=== PATIENT | male | born 1955 | race Two or more races ===

== ENCOUNTER 2017-05-07 13:54 | Inpatient (IN) | payer MEDICARE, OTHER ==
[~2017-05-07] VITALS: Ht 162.6 cm; Wt 63.5 kg
[~2017-05-07 13:54] MED LIST: ACETAMINOP650 MG/20. PO; ATIVAN1 MG PO; BUSPAR5 MG PO; DSS100 MG PO; DULCOLAX10 MG RC; GUAIFENESIN-CO118 M1 PO; MIRALAX17 GM PO; MOM30 ML PO; QUINIDINE SULF300 MG PO; TRILEPTAL150 MG PO
[2017-05-07 14:11] VITALS: BP 110/78
--- NOTE | 2017-05-07 14:25 | Emergency Room Report ---
History of Present Illness General Chief Complaint: General Complaint Source: Patient, Medical Record (GIUSEPPE CRAWFORD M.D.) Source: Patient (Gonzalo Santana) Present Illness HPI Patient is a 61-year-old male sent in by group home for failure to thrive and generalized weakness. The patient is poorly verbal and history of markedly limited by patient's mental status. Patient noted have increased abdominal distention. (GIUSEPPE CRAWFORD M.D.) HPI Patient is a 61-year-old male brought in from group home for increased abdominall distention. The patient gradual onset of symptoms. Patient was noted to have increased distention his abdomen from his group home. Patient was noted to have prior history of cognitive defect. Patient had decreased by mouth intake recently (Gonzalo Santana) Allergies: Coded Allergies: SULFA (SULFONAMIDE ANTIBIOTICS) (Verified Allergy, Severe, 04/23/12) TRIMETHADIONE (Verified Allergy, Severe, 04/23/12) PARAMETHADIONE (Unverified Allergy, Unknown, 05/07/17) Uncoded Allergies: SULFA (Allergy, Unknown, 05/07/17) Patient History Past Medical History: see triage record Reviewed Nursing Documentation: PMH: Agreed, PSxH: Agreed (GIUSEPPE CRAWFORD M.D.) Past Medical History: see triage record Reviewed Nursing Documentation: PMH: Agreed, PSxH: Agreed (Gonzalo Santana) Nursing Documentation-PMH Past Medical History: No History, Except For Hx Hypertension: Yes Hx Neurological Problems: Yes - PARKINSON DISEASE (GIUSEPPE CRAWFORD M.D.) Review of Systems All Other Systems: limited - by mental status (GIUSEPPE CRAWFORD M.D.) All Other Systems: limited - by mental status (Gonzalo Santana) Physical Exam Vital Signs Date Time Temp Pulse Resp B/P (MAP) Pulse Ox O2 Delivery O2 Flow Rate FiO2 05/07/17 13:51 98.1 78 18 110/78 91 Room Air (GIUSEPPE CRAWFORD M.D.) Sp02 EP Interpretation: reviewed, normal General Appearance: alert, Chronically Ill Head: atraumatic Eyes: bilateral eye conjunctivae pale ENT: normal ENT inspection, hearing grossly normal, other - slow speech Neck: normal inspection, full range of motion, supple, no bony tend Respiratory: normal inspection, lungs clear, normal breath sounds, no respiratory distress, no retraction, no wheezing Cardiovascular #1: regular rate, rhythm, no edema Gastrointestinal: soft, no guarding, no hernia, other - distended Genitourinary: no CVA tenderness Musculoskeletal: normal inspection, back normal, normal range of motion Neurologic: alert, responsive, manager of product III-XII nml as tested, motor weakness, other - confused Skin: no rash, pallor (Gonzalo Santana) Medical Decision Making Diagnostic Impression: Primary Impression: Anemia Additional Impressions: Parkinson disease Dehydration Hypokalemia Acute kidney injury ER Course Patient presented for generalized weakness. Differential diagnosis included was not limited to anemia, urinary tract infection, electrolyte abnormality, hypothyroidism, myocardial infarction, myasthenia gravis, dehydration, among others. Because of complexity of patient's case laboratory testing and imaging studies were ordered. (GIUSEPPE CRAWFORD M.D.) ER Course Patient presented for generalized weakness. Differential diagnosis included but was not limited to encephalopathy, electrolyte abnormality, dehydration, sepsis, bowel obstruction among others. Because of patient complexity laboratory and imaging studies were ordered. Patient appears to be somewhat dehydrated and was started on IV fluids. Dr. Dionicio Delgadillo was contacted for inpatient management due to primary care physician. Labs Test 05/07/17 14:25 05/07/17 14:48 05/08/17 06:00 Differential Total Cells Counted 100 Neutrophils % (Manual) 88 % (45-75) Lymphocytes % (Manual) 8 % (20-45) Monocytes % (Manual) 0 % (1-10) Eosinophils % (Manual) 0 % (0-3) Basophils % (Manual) 0 % (0-2) Band Neutrophils 4 % (0-8) Platelet Estimate Adequate Platelet Morphology Normal Polychromasia 1+ Anisocytosis 1+ Microcytosis 1+ Prothrombin Time 11.4 SEC (9.30-11.50) Prothromb Time International Ratio 1.1 (0.9-1.1) Lactic Acid Level 1.30 mmol/L (0.66-2.22) Total Creatine Kinase 55 U/L (26-308) Creatine Kinase MB 3.2 NG/ML (0.0-3.6) Creatine Kinase MB Relative Index 5.8 Troponin I 0.009 ng/mL (0.000-0.056) Pro-B-Type Natriuretic Peptide 1036 pg/mL (0-125) Urine Color Brenda Urine Appearance Slightly cloudy Urine pH 5 (4.5-8.0) Urine Specific [place] 1.015 (1.005-1.035) Urine Protein 1+ (NEGATIVE) Urine Glucose (UA) Negative (NEGATIVE) Urine Ketones 1+ (NEGATIVE) Urine Occult Blood Negative (NEGATIVE) Urine Nitrite Negative (NEGATIVE) Urine Bilirubin 1+ (NEGATIVE) Urine Ictotest Positive Urine Urobilinogen 1 MG/DL (0.0-1.0) Urine Leukocyte Esterase 1+ (NEGATIVE) Urine RBC 0-2 /HPF (0 - 0) Urine WBC 0-2 /HPF (0 - 0) Urine Squamous Epithelial Cells None /LPF (NONE/OCC) Urine Amorphous Sediment Many /LPF (NONE) Urine Bacteria Few /HPF (NONE) White Blood Count 9.3 K/UL (4.8-10.8) Red Blood Count 3.74 M/UL (4.70-6.10) Hemoglobin 9.9 G/DL (14.2-18.0) Hematocrit 31.5 % (42.0-52.0) Mean Corpuscular Volume 84 FL (80-99) Mean Corpuscular Hemoglobin 26.5 PG (27.0-31.0) Mean Corpuscular Hemoglobin Concent 31.4 G/DL (32.0-36.0) Red Cell Distribution Width 16.3 % (11.6-14.8) Platelet Count 282 K/UL (150-450) Mean Platelet Volume 7.2 FL (6.5-10.1) Neutrophils (%) (Auto) 80.9 % (45.0-75.0) Lymphocytes (%) (Auto) 14.3 % (20.0-45.0) Monocytes (%) (Auto) 3.7 % (1.0-10.0) Eosinophils (%) (Auto) 0.8 % (0.0-3.0) Basophils (%) (Auto) 0.3 % (0.0-2.0) Activated Partial Thromboplast Time 36 SEC (23-33) Sodium Level 154 MMOL/L (136-145) Potassium Level 2.8 MMOL/L (3.5-5.1) Chloride Level 118 MMOL/L (98-107) Carbon Dioxide Level 27 MMOL/L (21-32) Anion Gap 9 mmol/L (5-15) Blood Urea Nitrogen 58 mg/dL (7-18) Creatinine 1.6 MG/DL (0.55-1.30) Estimat Glomerular Filtration Rate 44.3 mL/min (>60) Glucose Level 89 MG/DL (74-106) Calcium Level 8.8 MG/DL (8.5-10.1) Total Bilirubin 0.4 MG/DL (0.2-1.0) Aspartate Amino Transf (AST/SGOT) 27 U/L (15-37) Alanine Aminotransferase (ALT/SGPT) 18 U/L (12-78) Alkaline Phosphatase 87 U/L (46-116) Total Protein 8.0 G/DL (6.4-8.2) Albumin 2.0 G/DL (3.4-5.0) Globulin 6.0 g/dL Albumin/Globulin Ratio 0.3 (1.0-2.7) Amylase Level 29 U/L (25-115) Lipase 60 U/L (73-393) (Gonzalo Santana) Last Vital Signs Date Time Temp Pulse Resp B/P (MAP) Pulse Ox O2 Delivery O2 Flow Rate FiO2 05/07/17 14:11 98.1 18 110/78 91 Room Air 05/07/17 13:51 78 (GIUSEPPE CRAWFORD M.D.) Status: unchanged (Gonzalo Santana) Disposition: ADMITTED INPATIENT Condition: Serious GIUSEPPE CRAWFORD M.D. May 07, 2017 14:25 Gonzalo Santana May 07, 2017 18:30
[2017-05-07 15:03] LABS: HEMATOCRIT 37.6 % (42.0-52.0); HEMOGLOBIN 11.6 G/DL (14.2-18.0); MEAN CORPUSCULAR VOLUME 84 FL (80-99); PLATELET COUNT 319 K/UL (150-450); RED BLOOD COUNT 4.45 M/UL (4.70-6.10); RED CELL DISTRIBUTION WIDTH 16.3 % (11.6-14.8); WHITE BLOOD COUNT 15.2 K/UL (4.8-10.8)
[2017-05-07 15:08] VITALS: BP 106/79
[2017-05-07] MEDS ORDERED: DEPAKOTE ER500 MG ORAL (15:10)
[2017-05-07] MEDS ORDERED: LAXATIVE SUPPOS10 MG RC (15:10)
[2017-05-07] MEDS ORDERED: BENZTROPINE MESY1 MG PO (15:10)
[2017-05-07] MEDS ORDERED: SENNA8.6 M2 PO ×2 (15:10→18:01)
[2017-05-07] MEDS ORDERED: MILK OF MA2400 MG/10 ORAL (15:10)
[2017-05-07] MEDS ORDERED: FLEET ENEMA133 ML RECTAL (15:10)
[2017-05-07] MEDS ORDERED: HYDRALAZINE HC100 MG ORAL (15:10)
[2017-05-07] MEDS ORDERED: MULTIVITAMINS1 EAC8 ORAL (15:10)
[2017-05-07] MEDS ORDERED: PEPCID40 MG PO (15:10)
[2017-05-07] MEDS ORDERED: VERAPAMIL HCL80 MG ORAL (15:10)
[2017-05-07] MEDS ORDERED: QUETIAPINE FUMA50 MG ORAL (15:10)
[2017-05-07] MEDS ORDERED: SYNTHROID75 MCG ORAL (15:10)
[2017-05-07] MEDS ORDERED: COLACE100 MG ORAL (15:10)
[2017-05-07 15:22] LABS: APPEARANCE,URINE SLIGHTLY CLOUDY; BILIRUBIN, URINE 1+ (NEGATIVE); GLUCOSE, URINE (UA) NEGATIVE (NEGATIVE); KETONES,URINE 1+ (NEGATIVE); LEUKOCYTE ESTERASE ,URINE 1+ (NEGATIVE); NITRITE,URINE NEGATIVE (NEGATIVE); PH,URINE 5 (4.5-8.0); PROTEIN,URINE 1+ (NEGATIVE); UROBILINOGEN,URINE 1 MG/DL (0.0-1.0)
[2017-05-07 15:27] LABS: COLOR,URINE AMBER
[2017-05-07 15:29] LABS: INR 1.1 (0.9-1.1)
[2017-05-07 15:31] LABS: ANION GAP 12 mmol/L (5-15); BLOOD UREA NITROGEN 54 mg/dL (7-18); CALCIUM 9.2 MG/DL (8.5-10.1); CARBON DIOXIDE 26 MMOL/L (21-32); CHLORIDE 116 MMOL/L (98-107); CREATININE 1.6 MG/DL (0.55-1.30); POTASSIUM 2.8 MMOL/L (3.5-5.1); SODIUM 154 MMOL/L (136-145)
[2017-05-07 15:45] LABS: ALANINE AMINOTRANSFERASE 21 U/L (12-78); ALBUMIN 2.4 G/DL (3.4-5.0); ALBUMIN/GLOBULIN RATIO 0.4 (1.0-2.7); ALKALINE PHOSPHATASE 107 U/L (46-116); ASPARTATE AMINO TRANSFERASE 35 U/L (15-37); BILIRUBIN,TOTAL 0.4 MG/DL (0.2-1.0); CKMB 3.2 NG/ML (0.0-3.6); CREATINE KINASE 55 U/L (26-308)
--- NOTE | 2017-05-07 15:54 | Diagnostic Imaging Report ---
Indication: Shortness of breath Technique: One view of the chest Comparison: None Findings: Inspiration is suboptimal, with bibasilar atelectatic changes. The lungs and pleural spaces are otherwise clear. There is considerable colon and small bowel gas Impression: Hypoventilatory exam with bibasilar atelectasis No acute process otherwise Considerable colon and small bowel gas demonstrated, etiology/significance uncertain
[2017-05-07] MEDS ORDERED: Nitroglycerin Subl 0.4mg tab SL PRN (16:30)
[2017-05-07] MEDS ORDERED: Miralax 17gm pkt ORAL PRN (16:30)
[2017-05-07] MEDS ORDERED: Morphine Sulfate 2mg/ml Inj IVP PRN (16:30)
[2017-05-07] MEDS ORDERED: Mylanta II UD 30ml ORAL PRN (16:30)
--- NOTE | 2017-05-07 16:34 | Diagnostic Imaging Report ---
Indication: Abdominal pain Technique: Spiral acquisitions obtained through the abdomen and pelvis. No oral contrast utilized, per emergency room physician request No IV contrast utilized, for emergency room physician request.. Multiplanar reconstructions were generated. Total dose length product 523.23 mGycm. CTDIvol(s) 9.6 mGy. Dose reduction achieved using automated exposure control Comparison: None Findings: The rectum and distal sigmoid colon are massively distended with feces, transverse diameter up to 10 cm. There is only mild thickening of the rectosigmoid wall and no significant perirectal inflammation. An anastomotic staple line is seen at level of the proximal sigmoid. Considerable fecal material is also seen within the entire descending colon. Proximal to the descending colon, the colon is distended with gas, measures up to 9 mm diameter. The proximal ascending colon is also filled with feces. The appendix is not clearly demonstrated. No findings to suggest acute appendicitis are evident. No evidence of diverticulosis or diverticulitis. No small bowel distention is demonstrated. The distal esophagus, stomach, duodenum are unremarkable. No free or loculated intraperitoneal air or fluid is evident. Lack of IV contrast limits assessment of the solid organs. The liver, gallbladder, bile ducts are grossly unremarkable. Pancreas is atrophic. The spleen, adrenals are unremarkable. The right kidney demonstrates a 15 mm interpolar region cyst. It also demonstrates subcentimeter low-attenuation lesions which are too small to characterize. The left kidney demonstrates a 2.2 cm interpolar region cyst. The left renal collecting system is slightly dilated and the left proximal ureter is somewhat ectatic, but no obstructing lesion is demonstrated. Visualized lung bases demonstrate considerable atelectasis and consolidation of much of the left lower lobe. There is a small left pleural effusion present. There is posterior dependent atelectasis of the right lower lobe. Bones are unremarkable. Impression: Massive rectal and sigmoid distention with feces, evidence of rectal and sigmoid fecal impaction. Evidence of considerable constipation elsewhere. Proximal gaseous colonic distention is likely functional in nature, although could be a manifestation of obstruction by the impacted feces No small bowel distention or other acute enteric pathology Evidence of prior colonic surgery. Correlate with clinical history Cyst mild left hydronephrosis and slightly ectatic left proximal ureter. Suspect this reflects mild extrinsic compression by the dilated sigmoid Bilateral basilar pulmonary parenchymal atelectasis, greater on the left. Small left pleural effusion Incidental finding bilateral renal cysts The CT scanner at [facility] is accredited by the [employer] and the scans are performed using protocols designed to limit radiation exposure to as low as reasonably achievable to attain images of sufficient resolution adequate for diagnostic evaluation.
[2017-05-07] MEDS ORDERED: QUINIDINE SULFATE 200 MG ORAL SCH (18:00)
[2017-05-07] MEDS ORDERED: VERAPAMIL HCL40 MG ORAL (18:01)
[2017-05-07] MEDS ORDERED: DOCUSATE SODIU100 MG ORAL (18:05)
[2017-05-07] MEDS ORDERED: QUETIAPINE FUM200 MG ORAL (18:12)
[2017-05-07] MEDS ORDERED: ACETAMINOPHEN325 M1 ORAL (18:18)
[2017-05-07] MEDS ORDERED: TYLENOL EXTRA500 MG ORAL (18:25)
[2017-05-07 18:38] VITALS: BP 123/90
[2017-05-07] MEDS ORDERED: D5 1/2NS 1,000 ML IV SCH (19:00)
[2017-05-07 20:00] VITALS: BP 121/87
[2017-05-07] MEDS: OXcarbazepine 150mg tab ORAL SCH (20:46)
[2017-05-07] MEDS: Benztropine 1mg tab ORAL SCH (20:46)
[2017-05-07] MEDS: BusPIRone 5mg Tab ORAL SCH (20:46)
[2017-05-07] MEDS: Depakote ER 500mg tab ORAL SCH (20:52)
[2017-05-07] MEDS: Heparin 5000 units/ml inj SUBQ SCH (20:53)
--- NOTE | 2017-05-07 22:00 | History and Physical Report ---
DATE OF ADMISSION: 05/07/2017 TIME SEEN: At 4 p.m. CONSULTANTS: 1. Kayy Orourke M.D. 2. Lauren Ames M.D. 3. Collin Euceda M.D. CHIEF COMPLAINT: Abdominal distention. BRIEF HISTORY: This is a 61-year-old male from [facility], presented with the above-mentioned diagnosis, pending CT. The patient was diagnosed with the above, also leukocytosis and hypokalemia, being admitted to medical floor for further treatment. Currently, confused in bed, O2 NC, and refusing to answer questions. PAST MEDICAL HISTORY: Includes encephalopathy, GERD, and abdominal swelling. PAST SURGICAL HISTORY: Unknown. MEDICATIONS: Just potassium for now. ALLERGIES: Paramethadione, sulfa, and trimethadione. SOCIAL HISTORY: Unable to obtain secondary to the patient's refusal to answer questions. REVIEW OF SYSTEMS: Unavailable. PHYSICAL EXAMINATION: VITAL SIGNS: Show temperature is 98.8, pulse 98, respirations 21, and blood pressure 106/79. CARDIOVASCULAR: No murmur. LUNGS: Poor air exchange. ABDOMEN: Bowel sounds positive. Distant and soft. Positive distention. No guarding. No rigidity. No rebound. EXTREMITIES: Show no cyanosis, clubbing, or edema. NEUROLOGIC: The patient moves all extremities. Slightly weak. LABORATORY DATA: White count is 15, hemoglobin and hematocrit are 11 and 37, and platelets are 319,000. Sodium is , potassium 2.8, chloride 116, and BUN and creatinine are 54 and 1.6. INR is 1.1. PTT is 35. Urinalysis show 1+ leukocyte esterase. ASSESSMENT: 1. Abdominal distention. 2. Urinary tract infection and sepsis. 3. Leukocytosis. 4. Anemia. 5. Renal failure. 6. Hypokalemia. PLAN: 1. Continue premeds. 2. OT, PT, and dietary follow up. 3. Check CT results. 4. Dr. Orourke, Dr. Ames, Dr. Euceda, Dr. Hdz, and Dr. Mitchell to consult. 5. We will continue to follow this patient medically. 6. CBC and BMP in the morning. Doinicio Delgadillo D.O. DR: [facility] JOB#: [id number] CC:
--- NOTE | 2017-05-07 22:52 | Consultation ---
History of Present Illness General Date patient seen: May 07, 2017 Chief Complaint: General Complaint Present Illness HPI 61-year-old male with hx of schizophrenia, CVA, parkinson, brought in from [facility] for increased bowel distention wtih gradual onset of symptoms. Patient had decreased intake by mouth. CT of abdomen in ER showed that he has massive stool and fecal impaction. He was in renal failure as well. He is admitted for further treatment. Allergies: Coded Allergies: SULFA (SULFONAMIDE ANTIBIOTICS) (Verified Allergy, Severe, 04/23/12) TRIMETHADIONE (Verified Allergy, Severe, 04/23/12) PARAMETHADIONE (Unverified Allergy, Unknown, 05/07/17) Uncoded Allergies: SULFA (Allergy, Unknown, 05/07/17) Medication History Scheduled Benztropine Mesylate* (Benztropine Mesylate*), 1 MG PO BID, (Reported) Buspirone Hcl* (Buspar*), 5 MG PO TID, (Reported) Divalproex Sodium* (Depakote Er*), 500 MG ORAL EVERY 12 HOURS, (Reported) Docusate Sodium* (Colace*), 100 MG ORAL DAILY, (Reported) Famotidine (Pepcid), 40 MG PO DAILY, (Reported) Hydralazine Hcl* (Hydralazine Hcl*), 100 MG ORAL EVERY 8 HOURS, (Reported) Levothyroxine Sodium* (Synthroid*), 75 MCG ORAL DAILY, (Reported) Magnesium Hydroxide* (Milk Of Magnesia*), 30 ML ORAL DAILY, (Reported) Multivitamin With Minerals (Multivitamins With Minerals*), 1 TAB ORAL DAILY, ( Reported) Na Phos,M-B/Na Phos,Di-Ba* (Fleet Enema*), 133 ML RECTAL DAILY, (Reported) Oxcarbazepine (Oxcarbazepine), 450 MG PO BID, (Reported) Quetiapine Fumarate* (Seroquel*), 200 MG ORAL QHS, (Reported) Sennosides (Senna), 17.2 MG PO QHS, (Reported) Verapamil HCl (Verapamil HCl), 40 MG ORAL QHS, (Reported) Scheduled PRN Acetaminophen* (Acetaminophen 325MG Tablet*), 650 MG ORAL Q4H PRN for Fever/ Headache/Mild Pain, (Reported) Acetaminophen* (Tylenol Extra Strength*), 1,000 MG ORAL Q4HR PRN for Moderate Pain (Pain Scale 4-6), (Reported) Bisacodyl (Dulcolax), 10 MG RC DAILY PRN, (Reported) Discontinued Medications Acetaminophen* (Tylenol*), 650 MG PO Q4H PRN, (Reported) Discontinued Reason: Pt stopped taking med Guaifenesin/Codeine Phos* (Robitussin Ac*), 10 ML PO BID PRN, (Reported) Discontinued Reason: Pt stopped taking med Lorazepam* (Ativan*), 1 MG PO Q6HR PRN, (Reported) Discontinued Reason: Pt stopped taking med Polyethylene Glycol* (Miralax*), 17 GM PO DAILY, (Reported) Discontinued Reason: Pt stopped taking med Quetiapine Fumarate* (Quetiapine Fumarate*), 100 MG ORAL BID, (Reported) Discontinued Reason: Medication dose changed Quinidine Sulfate (Quinidine Sulfate), 10 MG PO BID, (Reported) Discontinued Reason: Pt stopped taking med Sennosides (Senna), 8.6 MG PO HS, (Reported) Discontinued Reason: Medication dose changed Verapamil Hcl* (Calan*), 40 MG ORAL HS, (Reported) Discontinued Reason: Medication dose changed Patient History Healthcare decision maker N Resuscitation status Advanced Directive on File Past Medical/Surgical History Past Medical/Surgical History: (1) Parkinson disease Review of Systems All Other Systems: negative except mentioned in HPI Physical Exam General Appearance: cachetic Lines, tubes and drains: peripheral HEENT: normocephalic, atraumatic Neck: non-tender, normal alignment Respiratory/Chest: chest wall non-tender, lungs clear Cardiovascular/Chest: normal peripheral pulses, normal rate Abdomen: normal bowel sounds, non tender Genitourinary/Rectal: normal genital exam, normal rectal exam Skin Exam: normal pigmentation Neurologic: abnormal gait Last 24 Hour Vital Signs Date Time Temp Pulse Resp B/P (MAP) Pulse Ox O2 Delivery O2 Flow Rate FiO2 05/07/17 20:29 97 Nasal Cannula 2.0 28 05/07/17 20:29 Nasal Cannula 2.0 28 05/07/17 20:00 98.2 123 20 121/87 96 05/07/17 18:39 98.7 98 21 106/79 98 Nasal Cannula 2.0 1/26/18 18:38 98.7 110 24 123/90 96 Nasal Cannula 2.0 05/07/17 15:08 98.7 98 21 106/79 98 Nasal Cannula 2.0 05/07/17 14:11 98.1 18 110/78 91 Room Air 05/07/17 13:51 98.1 78 18 110/78 91 Room Air Laboratory Tests Test 05/07/17 14:25 05/07/17 14:48 White Blood Count 15.2 K/UL (4.8-10.8) H Red Blood Count 4.45 M/UL (4.70-6.10) L Hemoglobin 11.6 G/DL (14.2-18.0) L Hematocrit 37.6 % (42.0-52.0) L Mean Corpuscular Volume 84 FL (80-99) Mean Corpuscular Hemoglobin 26.1 PG (27.0-31.0) L Mean Corpuscular Hemoglobin Concent 30.9 G/DL (32.0-36.0) L Red Cell Distribution Width 16.3 % (11.6-14.8) H Platelet Count 319 K/UL (150-450) Mean Platelet Volume 7.7 FL (6.5-10.1) Neutrophils (%) (Auto) % (45.0-75.0) Lymphocytes (%) (Auto) % (20.0-45.0) Monocytes (%) (Auto) % (1.0-10.0) Eosinophils (%) (Auto) % (0.0-3.0) Basophils (%) (Auto) % (0.0-2.0) Differential Total Cells Counted 100 Neutrophils % (Manual) 88 % (45-75) H Lymphocytes % (Manual) 8 % (20-45) L Monocytes % (Manual) 0 % (1-10) L Eosinophils % (Manual) 0 % (0-3) Basophils % (Manual) 0 % (0-2) Band Neutrophils 4 % (0-8) Platelet Estimate Adequate Platelet Morphology Normal Polychromasia 1+ Anisocytosis 1+ Microcytosis 1+ Prothrombin Time 11.4 SEC (9.30-11.50) Prothromb Time International Ratio 1.1 (0.9-1.1) Activated Partial Thromboplast Time 35 SEC (23-33) H Sodium Level 154 MMOL/L (136-145) H Potassium Level 2.8 MMOL/L (3.5-5.1) L Chloride Level 116 MMOL/L (98-107) H Carbon Dioxide Level 26 MMOL/L (21-32) Anion Gap 12 mmol/L (5-15) Blood Urea Nitrogen 54 mg/dL (7-18) H Creatinine 1.6 MG/DL (0.55-1.30) H Estimat Glomerular Filtration Rate 44.3 mL/min (>60) Glucose Level 89 MG/DL (74-106) Lactic Acid Level 1.30 mmol/L (0.66-2.22) Calcium Level 9.2 MG/DL (8.5-10.1) Total Bilirubin 0.4 MG/DL (0.2-1.0) Aspartate Amino Transf (AST/SGOT) 35 U/L (15-37) Alanine Aminotransferase (ALT/SGPT) 21 U/L (12-78) Alkaline Phosphatase 107 U/L (46-116) Total Creatine Kinase 55 U/L (26-308) Creatine Kinase MB 3.2 NG/ML (0.0-3.6) Creatine Kinase MB Relative Index 5.8 Troponin I 0.009 ng/mL (0.000-0.056) Pro-B-Type Natriuretic Peptide 1036 pg/mL (0-125) H Total Protein 8.5 G/DL (6.4-8.2) H Albumin 2.4 G/DL (3.4-5.0) L Globulin 6.1 g/dL Albumin/Globulin Ratio 0.4 (1.0-2.7) L Lipase 77 U/L (73-393) Urine Color Brenda Urine Appearance Slightly cloudy Urine pH 5 (4.5-8.0) Urine Specific [place] 1.015 (1.005-1.035) Urine Protein 1+ (NEGATIVE) H Urine Glucose (UA) Negative (NEGATIVE) Urine Ketones 1+ (NEGATIVE) H Urine Occult Blood Negative (NEGATIVE) Urine Nitrite Negative (NEGATIVE) Urine Bilirubin 1+ (NEGATIVE) H Urine Ictotest Positive Urine Urobilinogen 1 MG/DL (0.0-1.0) H Urine Leukocyte Esterase 1+ (NEGATIVE) H Urine RBC 0-2 /HPF (0 - 0) H Urine WBC 0-2 /HPF (0 - 0) Urine Squamous Epithelial Cells None /LPF (NONE/OCC) Urine Amorphous Sediment Many /LPF (NONE) H Urine Bacteria Few /HPF (NONE) Height (Feet): 5 Height (Inches): 4.00 Weight (Pounds): 140 Medications Current Medications Medications (Trade) Dose Ordered Sig/Dank Route PRN Reason Start Time Stop Time Status Last Admin Dose Admin Acetaminophen (Tylenol) 650 mg Q4H PRN ORAL fever (temp >100.5 F) 05/07/17 16:30 06/06/17 16:29 Al Hydroxide/Mg Hydroxide (Mylanta II) 30 ml Q6H PRN ORAL dyspepsia 05/07/17 16:30 06/06/17 16:29 Benztropine Mesylate (Cogentin) 1 mg BID ORAL 05/07/17 18:45 06/06/17 18:44 05/07/17 20:46 Buspirone HCl (Buspar) 5 mg TID ORAL 05/07/17 18:50 06/06/17 18:49 05/07/17 20:46 Dextrose (Dextrose 50%) STAT PRN IV Hypoglycemia 05/07/17 16:30 06/06/17 16:29 Dextrose/Sodium Chloride 1,000 ml @ 75 mls/hr [id number] IV 05/07/17 19:00 06/06/17 18:59 05/07/17 20:47 Diphenhydramine HCl (Benadryl) 25 mg Q6H PRN ORAL Itching/Pruritis 05/07/17 16:30 06/06/17 16:29 Divalproex Sodium (Depakote ER) 500 mg EVERY 12 HOURS ORAL 05/07/17 21:00 06/06/17 20:59 05/07/17 20:52 Heparin Sodium (Porcine) (Heparin 5000 units/ml) 5,000 units EVERY 12 HOURS SUBQ 05/07/17 21:00 06/06/17 20:59 05/07/17 20:53 Levothyroxine Sodium (Synthroid) 75 mcg DAILY ORAL 05/08/17 09:00 06/07/17 08:59 Morphine Sulfate (Morphine Sulfate) 2 mg Q4H PRN IVP severe Pain (Pain Scale 7-10) 05/07/17 16:30 05/14/17 16:29 Nitroglycerin (Ntg) 0.4 mg Q5M X 3 DOSES PRN SL Prn Chest Pain 05/07/17 16:30 06/06/17 16:29 Ondansetron HCl (Zofran) 4 mg Q6H PRN IVP Nausea & Vomiting 05/07/17 16:30 06/06/17 16:29 Oxcarbazepine (Trileptal) 450 mg BID ORAL 05/07/17 19:30 06/06/17 19:29 05/07/17 20:46 Pantoprazole (Protonix) 40 mg DAILY IVP 05/08/17 09:00 06/07/17 08:59 Polyethylene Glycol (Miralax) 17 gm HSPRN PRN ORAL Constipation 05/07/17 16:30 06/06/17 16:29 Quetiapine Fumarate (SEROquel) 100 mg BID ORAL 05/07/17 18:45 06/06/17 18:44 05/07/17 20:46 Temazepam (Restoril) 15 mg HSPRN PRN ORAL Insomnia 05/07/17 16:30 05/14/17 16:29 Assessment/Plan Problem List: (1) Abdominal distention ICD Codes: R14.0 - Abdominal distension (gaseous) SNOMED: 58219355 (2) Parkinson disease ICD Codes: G20 - Parkinson's disease SNOMED: 15627841 Assessment/Plan npo iv fluids renal w.u fleet enema check electroltyes GI evaluation TYRONE FARMER May 07, 2017 22:52
[2017-05-08] VITALS: BP 107/78
[2017-05-08 04:10] VITALS: BP 103/71
[2017-05-08 06:58] LABS: ALANINE AMINOTRANSFERASE 18 U/L (12-78); ALBUMIN/GLOBULIN RATIO 0.3 (1.0-2.7); ALKALINE PHOSPHATASE 87 U/L (46-116); AMYLASE 29 U/L (25-115); ANION GAP 9 mmol/L (5-15); ASPARTATE AMINO TRANSFERASE 27 U/L (15-37); BASOPHILS % (AUTO) 0.3 % (0.0-2.0); BILIRUBIN,TOTAL 0.4 MG/DL (0.2-1.0); BLOOD UREA NITROGEN 58 mg/dL (7-18); CALCIUM 8.8 MG/DL (8.5-10.1); CARBON DIOXIDE 27 MMOL/L (21-32); CHLORIDE 118 MMOL/L (98-107); CREATININE 1.6 MG/DL (0.55-1.30); EOSINOPHILS % (AUTO) 0.8 % (0.0-3.0); HEMATOCRIT 31.5 % (42.0-52.0); HEMOGLOBIN 9.9 G/DL (14.2-18.0); LYMPHOCYTES % (AUTO) 14.3 % (20.0-45.0); MEAN CORPUSCULAR VOLUME 84 FL (80-99); MONOCYTES % (AUTO) 3.7 % (1.0-10.0); NEUTROPHILS % (AUTO) 80.9 % (45.0-75.0); PLATELET COUNT 282 K/UL (150-450); POTASSIUM 2.8 MMOL/L (3.5-5.1); RED BLOOD COUNT 3.74 M/UL (4.70-6.10); RED CELL DISTRIBUTION WIDTH 16.3 % (11.6-14.8); SODIUM 154 MMOL/L (136-145); WHITE BLOOD COUNT 9.3 K/UL (4.8-10.8)
[2017-05-08 08:00] VITALS: BP 123/90
--- NOTE | 2017-05-08 08:20 | Pulmonology Progress Note ---
Assessment/Plan Problems: (1) Abdominal distention (2) Parkinson disease Assessment/Plan wbc lower renal numbers have not changed increase IV fluids fleet enema Subjective ROS Limited/Unobtainable: No Allergies: Coded Allergies: SULFA (SULFONAMIDE ANTIBIOTICS) (Verified Allergy, Severe, 04/23/12) TRIMETHADIONE (Verified Allergy, Severe, 04/23/12) PARAMETHADIONE (Unverified Allergy, Unknown, 05/07/17) Uncoded Allergies: SULFA (Allergy, Unknown, 05/07/17) Objective Last 24 Hour Vital Signs Date Time Temp Pulse Resp B/P (MAP) Pulse Ox O2 Delivery O2 Flow Rate FiO2 05/08/17 04:10 97.4 98 20 103/71 93 05/08/17 00:00 97.7 109 20 107/78 98 05/07/17 20:29 97 Nasal Cannula 2.0 28 05/07/17 20:29 Nasal Cannula 2.0 28 05/07/17 20:00 98.2 123 20 121/87 96 05/07/17 18:39 98.7 98 21 106/79 98 Nasal Cannula 2.0 05/07/17 18:38 98.7 110 24 123/90 96 Nasal Cannula 2.0 05/07/17 15:08 98.7 98 21 106/79 98 Nasal Cannula 2.0 05/07/17 14:11 98.1 18 110/78 91 Room Air 05/07/17 13:51 98.1 78 18 110/78 91 Room Air Intake and Output 05/07/17 05/08/17 19:00 07:00 Intake Total 750 ml Output Total 30 ml Balance -30 ml 750 ml Intake IV Total 750 ml Output Urine Total 30 ml # Bowel Movements 1 Objective General Appearance: cachetic Lines, tubes and drains: peripheral HEENT: normocephalic, atraumatic Neck: non-tender, normal alignment Respiratory/Chest: chest wall non-tender, lungs clear Cardiovascular/Chest: normal peripheral pulses, normal rate Abdomen: normal bowel sounds, non tender Genitourinary/Rectal: normal genital exam, normal rectal exam Skin Exam: normal pigmentation Laboratory Tests 05/07/17 14:25: White Blood Count 15.2H, Red Blood Count 4.45L, Hemoglobin 11.6L, Hematocrit 37.6L, Mean Corpuscular Volume 84, Mean Corpuscular Hemoglobin 26.1L, Mean Corpuscular Hemoglobin Concent 30.9L, Red Cell Distribution Width 16.3H, Platelet Count 319, Mean Platelet Volume 7.7, Neutrophils (%) (Auto) , Lymphocytes (%) (Auto) , Monocytes (%) (Auto) , Eosinophils (%) (Auto) , Basophils (%) (Auto) , Differential Total Cells Counted 100, Neutrophils % ( Manual) 88H, Lymphocytes % (Manual) 8L, Monocytes % (Manual) 0L, Eosinophils % ( Manual) 0, Basophils % (Manual) 0, Band Neutrophils 4, Platelet Estimate Adequate, Platelet Morphology Normal, Polychromasia 1+, Anisocytosis 1+, Microcytosis 1+, Prothrombin Time 11.4, Prothromb Time International Ratio 1.1, Activated Partial Thromboplast Time 35H, Sodium Level 154H, Potassium Level 2.8L , Chloride Level 116H, Carbon Dioxide Level 26, Anion Gap 12, Blood Urea Nitrogen 54H, Creatinine 1.6H, Estimat Glomerular Filtration Rate 44.3, Glucose Level 89, Lactic Acid Level 1.30, Calcium Level 9.2, Total Bilirubin 0.4, Aspartate Amino Transf (AST/SGOT) 35, Alanine Aminotransferase (ALT/SGPT) 21, Alkaline Phosphatase 107, Total Creatine Kinase 55, Creatine Kinase MB 3.2, Creatine Kinase MB Relative Index 5.8, Troponin I 0.009, Pro-B-Type Natriuretic Peptide 1036H, Total Protein 8.5H, Albumin 2.4L, Globulin 6.1, Albumin/Globulin Ratio 0.4L, Lipase 77 05/07/17 14:48: Urine Color Brenda, Urine Appearance Slightly cloudy, Urine pH 5, Urine Specific [place] 1.015, Urine Protein 1+H, Urine Glucose (UA) Negative, Urine Ketones 1+H , Urine Occult Blood Negative, Urine Nitrite Negative, Urine Bilirubin 1+H, Urine Ictotest Positive, Urine Urobilinogen 1H, Urine Leukocyte Esterase 1+H, Urine RBC 0-2H, Urine WBC 0-2, Urine Squamous Epithelial Cells None, Urine Amorphous Sediment ManyH, Urine Bacteria Few 05/08/17 06:00: White Blood Count 9.3, Red Blood Count 3.74L, Hemoglobin 9.9L, Hematocrit 31.5L , Mean Corpuscular Volume 84, Mean Corpuscular Hemoglobin 26.5L, Mean Corpuscular Hemoglobin Concent 31.4L, Red Cell Distribution Width 16.3H, Platelet Count 282, Mean Platelet Volume 7.2, Neutrophils (%) (Auto) 80.9H, Lymphocytes (%) (Auto) 14.3L, Monocytes (%) (Auto) 3.7, Eosinophils (%) (Auto) 0.8, Basophils (%) (Auto) 0.3, Activated Partial Thromboplast Time 36H, Sodium Level 154H, Potassium Level 2.8L, Chloride Level 118H, Carbon Dioxide Level 27, Anion Gap 9, Blood Urea Nitrogen 58H, Creatinine 1.6H, Estimat Glomerular Filtration Rate 44.3, Glucose Level 89, Calcium Level 8.8, Total Bilirubin 0.4, Aspartate Amino Transf (AST/SGOT) 27, Alanine Aminotransferase (ALT/SGPT) 18, Alkaline Phosphatase 87, Total Protein 8.0, Albumin 2.0L, Globulin 6.0, Albumin/ Globulin Ratio 0.3L, Lipase 60L, Amylase Level 29 Current Medications Medications (Trade) Dose Ordered Sig/Dank Route PRN Reason Start Time Stop Time Status Last Admin Dose Admin Acetaminophen (Tylenol) 650 mg Q4H PRN ORAL fever (temp >100.5 F) 05/07/17 16:30 06/06/17 16:29 Al Hydroxide/Mg Hydroxide (Mylanta II) 30 ml Q6H PRN ORAL dyspepsia 05/07/17 16:30 06/06/17 16:29 Benztropine Mesylate (Cogentin) 1 mg BID ORAL 05/07/17 18:45 06/06/17 18:44 05/07/17 20:46 Buspirone HCl (Buspar) 5 mg TID ORAL 05/07/17 18:50 06/06/17 18:49 05/07/17 20:46 Dextrose (Dextrose 50%) STAT PRN IV Hypoglycemia 05/07/17 16:30 06/06/17 16:29 Dextrose/Sodium Chloride 1,000 ml @ 75 mls/hr [id number] IV 05/07/17 19:00 06/06/17 18:59 05/07/17 20:47 Diphenhydramine HCl (Benadryl) 25 mg Q6H PRN ORAL Itching/Pruritis 05/07/17 16:30 06/06/17 16:29 Divalproex Sodium (Depakote ER) 500 mg EVERY 12 HOURS ORAL 05/07/17 21:00 06/06/17 20:59 05/07/17 20:52 Heparin Sodium (Porcine) (Heparin 5000 units/ml) 5,000 units EVERY 12 HOURS SUBQ 05/07/17 21:00 06/06/17 20:59 05/07/17 20:53 Levothyroxine Sodium (Synthroid) 75 mcg DAILY ORAL 05/08/17 09:00 06/07/17 08:59 Morphine Sulfate (Morphine Sulfate) 2 mg Q4H PRN IVP severe Pain (Pain Scale 7-10) 05/07/17 16:30 05/14/17 16:29 Nitroglycerin (Ntg) 0.4 mg Q5M X 3 DOSES PRN SL Prn Chest Pain 05/07/17 16:30 06/06/17 16:29 Ondansetron HCl (Zofran) 4 mg Q6H PRN IVP Nausea & Vomiting 05/07/17 16:30 06/06/17 16:29 Oxcarbazepine (Trileptal) 450 mg BID ORAL 05/07/17 19:30 06/06/17 19:29 05/07/17 20:46 Pantoprazole (Protonix) 40 mg DAILY IVP 05/08/17 09:00 06/07/17 08:59 Polyethylene Glycol (Miralax) 17 gm HSPRN PRN ORAL Constipation 05/07/17 16:30 06/06/17 16:29 Quetiapine Fumarate (SEROquel) 100 mg BID ORAL 05/07/17 18:45 06/06/17 18:44 05/07/17 20:46 Temazepam (Restoril) 15 mg HSPRN PRN ORAL Insomnia 05/07/17 16:30 05/14/17 16:29 TYRONE FARMER May 08, 2017 08:20
--- NOTE | 2017-05-08 09:14 | General Progress Note ---
Assessment/Plan Problem List: (1) Renal failure ICD Codes: N19 - Unspecified kidney failure SNOMED: 44815706 (2) UTI (urinary tract infection) ICD Codes: N39.0 - Urinary tract infection, site not specified SNOMED: 02538312 (3) Sepsis ICD Codes: A41.9 - Sepsis, unspecified organism SNOMED: 33004693 (4) Anemia ICD Codes: D64.9 - Anemia, unspecified SNOMED: 435501945 (5) Parkinson disease ICD Codes: G20 - Parkinson's disease SNOMED: 31512683 (6) Abdominal distention ICD Codes: R14.0 - Abdominal distension (gaseous) SNOMED: 51523813 Status: unchanged Assessment/Plan ot pt diet abx cbc bmp am Subjective Constitutional: Reports: weakness Allergies: Coded Allergies: SULFA (SULFONAMIDE ANTIBIOTICS) (Verified Allergy, Severe, 04/23/12) TRIMETHADIONE (Verified Allergy, Severe, 04/23/12) PARAMETHADIONE (Unverified Allergy, Unknown, 05/07/17) Uncoded Allergies: SULFA (Allergy, Unknown, 05/07/17) All Systems: reviewed and negative except above Subjective sleepy calm in bed Objective Last 24 Hour Vital Signs Date Time Temp Pulse Resp B/P (MAP) Pulse Ox O2 Delivery O2 Flow Rate FiO2 05/08/17 08:00 97.7 98 20 123/90 93 05/08/17 04:10 97.4 98 20 103/71 93 05/08/17 00:00 97.7 109 20 107/78 98 05/07/17 20:29 97 Nasal Cannula 2.0 28 05/07/17 20:29 Nasal Cannula 2.0 28 05/07/17 20:00 98.2 123 20 121/87 96 05/07/17 18:39 98.7 98 21 106/79 98 Nasal Cannula 2.0 05/07/17 18:38 98.7 110 24 123/90 96 Nasal Cannula 2.0 05/07/17 15:08 98.7 98 21 106/79 98 Nasal Cannula 2.0 05/07/17 14:11 98.1 18 110/78 91 Room Air 05/07/17 13:51 98.1 78 18 110/78 91 Room Air Intake and Output 05/07/17 05/08/17 19:00 07:00 Intake Total 750 ml Output Total 30 ml Balance -30 ml 750 ml Intake IV Total 750 ml Output Urine Total 30 ml # Bowel Movements 1 Laboratory Tests 05/07/17 14:25: White Blood Count 15.2H, Red Blood Count 4.45L, Hemoglobin 11.6L, Hematocrit 37.6L, Mean Corpuscular Volume 84, Mean Corpuscular Hemoglobin 26.1L, Mean Corpuscular Hemoglobin Concent 30.9L, Red Cell Distribution Width 16.3H, Platelet Count 319, Mean Platelet Volume 7.7, Neutrophils (%) (Auto) , Lymphocytes (%) (Auto) , Monocytes (%) (Auto) , Eosinophils (%) (Auto) , Basophils (%) (Auto) , Differential Total Cells Counted 100, Neutrophils % ( Manual) 88H, Lymphocytes % (Manual) 8L, Monocytes % (Manual) 0L, Eosinophils % ( Manual) 0, Basophils % (Manual) 0, Band Neutrophils 4, Platelet Estimate Adequate, Platelet Morphology Normal, Polychromasia 1+, Anisocytosis 1+, Microcytosis 1+, Prothrombin Time 11.4, Prothromb Time International Ratio 1.1, Activated Partial Thromboplast Time 35H, Sodium Level 154H, Potassium Level 2.8L , Chloride Level 116H, Carbon Dioxide Level 26, Anion Gap 12, Blood Urea Nitrogen 54H, Creatinine 1.6H, Estimat Glomerular Filtration Rate 44.3, Glucose Level 89, Lactic Acid Level 1.30, Calcium Level 9.2, Total Bilirubin 0.4, Aspartate Amino Transf (AST/SGOT) 35, Alanine Aminotransferase (ALT/SGPT) 21, Alkaline Phosphatase 107, Total Creatine Kinase 55, Creatine Kinase MB 3.2, Creatine Kinase MB Relative Index 5.8, Troponin I 0.009, Pro-B-Type Natriuretic Peptide 1036H, Total Protein 8.5H, Albumin 2.4L, Globulin 6.1, Albumin/Globulin Ratio 0.4L, Lipase 77 05/07/17 14:48: Urine Color Brenda, Urine Appearance Slightly cloudy, Urine pH 5, Urine Specific [place] 1.015, Urine Protein 1+H, Urine Glucose (UA) Negative, Urine Ketones 1+H , Urine Occult Blood Negative, Urine Nitrite Negative, Urine Bilirubin 1+H, Urine Ictotest Positive, Urine Urobilinogen 1H, Urine Leukocyte Esterase 1+H, Urine RBC 0-2H, Urine WBC 0-2, Urine Squamous Epithelial Cells None, Urine Amorphous Sediment ManyH, Urine Bacteria Few 05/08/17 06:00: White Blood Count 9.3, Red Blood Count 3.74L, Hemoglobin 9.9L, Hematocrit 31.5L , Mean Corpuscular Volume 84, Mean Corpuscular Hemoglobin 26.5L, Mean Corpuscular Hemoglobin Concent 31.4L, Red Cell Distribution Width 16.3H, Platelet Count 282, Mean Platelet Volume 7.2, Neutrophils (%) (Auto) 80.9H, Lymphocytes (%) (Auto) 14.3L, Monocytes (%) (Auto) 3.7, Eosinophils (%) (Auto) 0.8, Basophils (%) (Auto) 0.3, Activated Partial Thromboplast Time 36H, Sodium Level 154H, Potassium Level 2.8L, Chloride Level 118H, Carbon Dioxide Level 27, Anion Gap 9, Blood Urea Nitrogen 58H, Creatinine 1.6H, Estimat Glomerular Filtration Rate 44.3, Glucose Level 89, Calcium Level 8.8, Total Bilirubin 0.4, Aspartate Amino Transf (AST/SGOT) 27, Alanine Aminotransferase (ALT/SGPT) 18, Alkaline Phosphatase 87, Total Protein 8.0, Albumin 2.0L, Globulin 6.0, Albumin/ Globulin Ratio 0.3L, Lipase 60L, Amylase Level 29 Height (Feet): 5 Height (Inches): 4.00 Weight (Pounds): 140 General Appearance: lethargic EENT: normal ENT inspection Neck: normal alignment Cardiovascular: normal peripheral pulses, normal rate, regular rhythm Respiratory/Chest: chest wall non-tender, lungs clear, normal breath sounds Abdomen: normal bowel sounds, non tender, soft Extremities: normal inspection Edema: no edema noted Arm (L), no edema noted Arm (R), no edema noted Leg (L), no edema noted Leg (R), no edema noted Pedal (L), no edema noted Pedal (R), no edema noted Generalized Neurologic: motor weakness Skin: normal pigmentation, warm/dry NARCISA HUI May 08, 2017 09:13
[2017-05-08] MEDS: OXcarbazepine 150mg tab ORAL SCH ×2 (09:21→18:03)
[2017-05-08] MEDS: Depakote ER 500mg tab ORAL SCH ×2 (09:21→21:40)
[2017-05-08] MEDS: BusPIRone 5mg Tab ORAL SCH ×3 (09:21→18:02)
[2017-05-08] MEDS: Benztropine 1mg tab ORAL SCH ×2 (09:21→18:03)
[2017-05-08] MEDS: Pantoprazole Inj IVP SCH (09:33)
[2017-05-08] MEDS: Heparin 5000 units/ml inj SUBQ SCH ×2 (09:33→21:41)
[2017-05-08] MEDS ORDERED: Fleet's Mineral Oil Enema RECTAL ONE (10:00)
[2017-05-08] MEDS: D5 1/2NS w/KCl 20mEq 1,000 ML IV SCH ×3 (10:27→18:07)
[2017-05-08 12:00] VITALS: BP 115/79
[2017-05-08] MEDS ORDERED: LORazepam 1mg tab ORAL PRN (16:15)
[2017-05-08 16:35] VITALS: BP 119/83
[2017-05-08] MEDS ORDERED: Potassium Chloride 20 MEQ in D5 1/2NS 1,000 ML IV SCH (19:00)
[2017-05-08 21:00] VITALS: BP 113/79
[2017-05-09] VITALS: BP 112/74
--- NOTE | 2017-05-09 01:02 | Consultation ---
DATE OF CONSULTATION: 05/08/2017 GASTROENTEROLOGY CONSULTATION CHIEF COMPLAINT: I was asked to see this patient by Dr. Dionicio Delgadillo for evaluation of stool impaction. HISTORY OF PRESENT ILLNESS: The patient is an unfortunate 61-year-old man from a halfway who presents with abdominal distention. He is confused and minimally verbal and unable to provide any history. Most of the information is only available from the chart. The patient has had a longstanding history of encephalopathy. PAST MEDICAL HISTORY: History of encephalopathy, gastroesophageal reflux, and abdominal distention. PAST SURGICAL HISTORY: None known. ALLERGIES: Paramethadione, sulfa, and trimethadione. SOCIAL HISTORY: The patient has had no recent history of smoking or drinking. He does reside in a halfway. REVIEW OF SYSTEMS: Otherwise negative. PHYSICAL EXAMINATION: GENERAL: Debilitated man, seen in his room with the distended abdomen. HEENT: Normocephalic and atraumatic. Sclerae anicteric. Oropharynx clear. NECK: Supple. CHEST: Clear to auscultation. CARDIOVASCULAR: Revealed a regular rate. ABDOMEN: Distended but soft. There was some more firmness in the lower abdomen without guarding or rebound. EXTREMITIES: Revealed some contractures. NEUROLOGIC: Notable for dementia and encephalopathy. RECTAL: Rectal exam was done showing rectal stool impaction. Attempts were made to disimpact the rectum, but the success was limited due to softness of the stool. ASSESSMENT: This patient presents with rectal stool impaction and fecal loading throughout the colon. This appears to be functional and the patient appears to be dehydrated with azotemia. The patient will need to be hydrated with intravenous fluids and electrolytes need to be corrected. Once the patient's electrolyte is corrected, he is likely to have improved bowel movements. In the meantime, enemas can be given from below and some laxatives can be given orally to help improve the gut function. The patient will likely need some more long-term laxative support. RECOMMENDATIONS: Per above discussion and per orders written in the chart. Thank you for asking me to participate in the care of this patient. Meg Granado M.D. DR: MARCO ANTONIO JOB#: [id number] CC: SHEFALI
[2017-05-09] MEDS: D5 1/2NS w/KCl 20mEq 1,000 ML IV SCH ×3 (01:25→15:16)
--- NOTE | 2017-05-09 07:32 | General Progress Note ---
Assessment/Plan Problem List: (1) Renal failure ICD Codes: N19 - Unspecified kidney failure SNOMED: 64436217 (2) UTI (urinary tract infection) ICD Codes: N39.0 - Urinary tract infection, site not specified SNOMED: 08659824 (3) Sepsis ICD Codes: A41.9 - Sepsis, unspecified organism SNOMED: 76318806 (4) Anemia ICD Codes: D64.9 - Anemia, unspecified SNOMED: 863830473 (5) Parkinson disease ICD Codes: G20 - Parkinson's disease SNOMED: 41262611 (6) Abdominal distention ICD Codes: R14.0 - Abdominal distension (gaseous) SNOMED: 52273129 Status: unchanged Assessment/Plan ot pt diet abx cbc bmp am Subjective Constitutional: Reports: weakness Allergies: Coded Allergies: SULFA (SULFONAMIDE ANTIBIOTICS) (Verified Allergy, Severe, 04/23/12) TRIMETHADIONE (Verified Allergy, Severe, 04/23/12) PARAMETHADIONE (Unverified Allergy, Unknown, 05/07/17) Uncoded Allergies: SULFA (Allergy, Unknown, 05/07/17) All Systems: reviewed and negative except above Subjective sleepy calm in bed Objective Last 24 Hour Vital Signs Date Time Temp Pulse Resp B/P (MAP) Pulse Ox O2 Delivery O2 Flow Rate FiO2 05/09/17 00:00 98.1 87 20 112/74 91 05/08/17 21:00 98.3 102 20 113/79 91 05/08/17 16:35 97.0 98 20 119/83 98 05/08/17 12:00 97.2 98 20 115/79 92 05/08/17 08:00 97.7 98 20 123/90 93 Intake and Output 05/08/17 05/09/17 19:00 07:00 Intake Total 1050 ml 1800 ml Balance 1050 ml 1800 ml Intake IV Total 1050 ml 1800 ml # Voids 4 2 # Bowel Movements 2 1 Height (Feet): 5 Height (Inches): 4.00 Weight (Pounds): 140 General Appearance: lethargic EENT: normal ENT inspection Neck: normal alignment Cardiovascular: normal peripheral pulses, normal rate, regular rhythm Respiratory/Chest: chest wall non-tender, lungs clear, normal breath sounds Abdomen: normal bowel sounds, non tender, soft Extremities: normal inspection Edema: no edema noted Arm (L), no edema noted Arm (R), no edema noted Leg (L), no edema noted Leg (R), no edema noted Pedal (L), no edema noted Pedal (R), no edema noted Generalized Neurologic: motor weakness Skin: normal pigmentation, warm/dry NARCISA HUI May 09, 2017 07:32
[2017-05-09 08:00] LABS: HEMATOCRIT 30.9 % (42.0-52.0); HEMOGLOBIN 9.5 G/DL (14.2-18.0); MEAN CORPUSCULAR VOLUME 86 FL (80-99); PLATELET COUNT 267 K/UL (150-450); RED BLOOD COUNT 3.61 M/UL (4.70-6.10); RED CELL DISTRIBUTION WIDTH 16.2 % (11.6-14.8); WHITE BLOOD COUNT 15.9 K/UL (4.8-10.8)
[2017-05-09 08:21] VITALS: BP 117/81
[2017-05-09 08:33] LABS: ALANINE AMINOTRANSFERASE 11 U/L (12-78); ALBUMIN 1.8 G/DL (3.4-5.0); ALBUMIN/GLOBULIN RATIO 0.3 (1.0-2.7); ALKALINE PHOSPHATASE 76 U/L (46-116); ANION GAP 8 mmol/L (5-15); ASPARTATE AMINO TRANSFERASE 22 U/L (15-37); BILIRUBIN,TOTAL 0.3 MG/DL (0.2-1.0); BLOOD UREA NITROGEN 44 mg/dL (7-18); CALCIUM 8.2 MG/DL (8.5-10.1); CARBON DIOXIDE 25 MMOL/L (21-32); CHLORIDE 120 MMOL/L (98-107); CREATININE 1.4 MG/DL (0.55-1.30); PHOSPHORUS 2.6 MG/DL (2.5-4.9); POTASSIUM 3.7 MMOL/L (3.5-5.1); SODIUM 153 MMOL/L (136-145)
[2017-05-09] MEDS: Depakote ER 500mg tab ORAL SCH ×2 (09:01→20:54)
[2017-05-09] MEDS: BusPIRone 5mg Tab ORAL SCH ×3 (09:02→17:55)
[2017-05-09] MEDS: OXcarbazepine 150mg tab ORAL SCH ×2 (09:02→17:56)
[2017-05-09] MEDS: Benztropine 1mg tab ORAL SCH ×2 (09:02→17:55)
[2017-05-09] MEDS: Pantoprazole Inj IVP SCH (09:02)
[2017-05-09] MEDS: Heparin 5000 units/ml inj SUBQ SCH ×2 (09:03→20:55)
--- NOTE | 2017-05-09 10:46 | Pulmonology Progress Note ---
Assessment/Plan Problems: (1) Abdominal distention (2) Parkinson disease (3) Renal failure (4) UTI (urinary tract infection) Assessment/Plan wbc still high renal numbers have not changed awaiting bed site swallow study increase IV fluids fleet enema is working Subjective Interval Events: large BM Allergies: Coded Allergies: SULFA (SULFONAMIDE ANTIBIOTICS) (Verified Allergy, Severe, 04/23/12) TRIMETHADIONE (Verified Allergy, Severe, 04/23/12) PARAMETHADIONE (Unverified Allergy, Unknown, 05/07/17) Uncoded Allergies: SULFA (Allergy, Unknown, 05/07/17) Objective Last 24 Hour Vital Signs Date Time Temp Pulse Resp B/P (MAP) Pulse Ox O2 Delivery O2 Flow Rate FiO2 05/09/17 08:21 97.3 93 20 117/81 95 05/09/17 00:00 98.1 87 20 112/74 91 05/08/17 21:00 98.3 102 20 113/79 91 05/08/17 16:35 97.0 98 20 119/83 98 05/08/17 12:00 97.2 98 20 115/79 92 Intake and Output 05/08/17 05/09/17 19:00 07:00 Intake Total 1050 ml 1800 ml Balance 1050 ml 1800 ml Intake IV Total 1050 ml 1800 ml # Voids 4 2 # Bowel Movements 2 1 Objective General Appearance: cachetic Lines, tubes and drains: peripheral HEENT: normocephalic, atraumatic Neck: non-tender, normal alignment Respiratory/Chest: chest wall non-tender, lungs clear Cardiovascular/Chest: normal peripheral pulses, normal rate Abdomen: normal bowel sounds, non tender Genitourinary/Rectal: normal genital exam, normal rectal exam Skin Exam: normal pigmentation Microbiology Date/Time Source Procedure Growth Status 05/07/17 14:48 Blood Blood Culture - Preliminary NO GROWTH AFTER 24 HOURS Resulted 05/07/17 14:31 Blood Blood Culture - Preliminary NO GROWTH AFTER 24 HOURS Resulted 05/07/17 14:56 Rectum VRE Culture - Final NO VANCOMYCIN RESISTANT ENTEROCOCCUS ... Complete Laboratory Tests 05/09/17 06:10: White Blood Count 15.9#H, Red Blood Count 3.61L, Hemoglobin 9.5L, Hematocrit 30.9L, Mean Corpuscular Volume 86, Mean Corpuscular Hemoglobin 26.4L, Mean Corpuscular Hemoglobin Concent 30.8L, Red Cell Distribution Width 16.2H, Platelet Count 267, Mean Platelet Volume 6.5, Neutrophils (%) (Auto) , Lymphocytes (%) (Auto) , Monocytes (%) (Auto) , Eosinophils (%) (Auto) , Basophils (%) (Auto) , Differential Total Cells Counted 100, Neutrophils % ( Manual) 91H, Lymphocytes % (Manual) 6L, Monocytes % (Manual) 3, Eosinophils % ( Manual) 0, Basophils % (Manual) 0, Band Neutrophils 0, Platelet Estimate Adequate, Platelet Morphology Normal, Hypochromasia 1+, Anisocytosis 1+, Sodium Level 153H, Potassium Level 3.7, Chloride Level 120H, Carbon Dioxide Level 25, Anion Gap 8, Blood Urea Nitrogen 44H, Creatinine 1.4H, Estimat Glomerular Filtration Rate 51.7, Glucose Level 84, Calcium Level 8.2L, Phosphorus Level 2.6 , Magnesium Level 1.9, Total Bilirubin 0.3, Aspartate Amino Transf (AST/SGOT) 22 , Alanine Aminotransferase (ALT/SGPT) 11L, Alkaline Phosphatase 76, Total Protein 7.4, Albumin 1.8L, Globulin 5.6, Albumin/Globulin Ratio 0.3L Current Medications Medications (Trade) Dose Ordered Sig/Dank Route PRN Reason Start Time Stop Time Status Last Admin Dose Admin Acetaminophen (Tylenol) 650 mg Q4H PRN ORAL fever (temp >100.5 F) 05/07/17 16:30 06/06/17 16:29 Al Hydroxide/Mg Hydroxide (Mylanta II) 30 ml Q6H PRN ORAL dyspepsia 05/07/17 16:30 06/06/17 16:29 Benztropine Mesylate (Cogentin) 1 mg BID ORAL 05/07/17 18:45 06/06/17 18:44 05/09/17 09:02 Buspirone HCl (Buspar) 5 mg TID ORAL 05/07/17 18:50 06/06/17 18:49 05/09/17 09:02 Dextrose (Dextrose 50%) STAT PRN IV Hypoglycemia 05/07/17 16:30 06/06/17 16:29 Dextrose/ Electrolytes 1,000 ml @ 150 mls/hr Q6H40M IV 05/08/17 09:00 06/07/17 08:59 1/28/18 09:02 Diphenhydramine HCl (Benadryl) 25 mg Q6H PRN ORAL Itching/Pruritis 05/07/17 16:30 06/06/17 16:29 Divalproex Sodium (Depakote ER) 500 mg EVERY 12 HOURS ORAL 05/07/17 21:00 06/06/17 20:59 05/09/17 09:01 Heparin Sodium (Porcine) (Heparin 5000 units/ml) 5,000 units EVERY 12 HOURS SUBQ 05/07/17 21:00 06/06/17 20:59 05/09/17 09:03 Levothyroxine Sodium (Synthroid) 75 mcg DAILY ORAL 05/08/17 09:00 06/07/17 08:59 05/09/17 09:02 Lorazepam (Ativan) 1 mg Q6H PRN ORAL For Anxiety 05/08/17 16:15 05/15/17 16:14 Morphine Sulfate (Morphine Sulfate) 2 mg Q4H PRN IVP severe Pain (Pain Scale 7-10) 05/07/17 16:30 05/14/17 16:29 Nitroglycerin (Ntg) 0.4 mg Q5M X 3 DOSES PRN SL Prn Chest Pain 05/07/17 16:30 06/06/17 16:29 Ondansetron HCl (Zofran) 4 mg Q6H PRN IVP Nausea & Vomiting 05/07/17 16:30 06/06/17 16:29 Oxcarbazepine (Trileptal) 450 mg BID ORAL 05/07/17 19:30 06/06/17 19:29 05/09/17 09:02 Pantoprazole (Protonix) 40 mg DAILY IVP 05/08/17 09:00 06/07/17 08:59 05/09/17 09:02 Polyethylene Glycol (Miralax) 17 gm HSPRN PRN ORAL Constipation 05/07/17 16:30 06/06/17 16:29 Quetiapine Fumarate (SEROquel) 100 mg BID ORAL 05/07/17 18:45 06/06/17 18:44 05/09/17 09:02 Temazepam (Restoril) 15 mg HSPRN PRN ORAL Insomnia 05/07/17 16:30 05/14/17 16:29 TYRONE FARMER May 09, 2017 10:46
[2017-05-09 11:40] VITALS: BP 131/89
--- NOTE | 2017-05-09 14:17 | Consultation ---
DATE OF CONSULTATION: 05/08/2017 NOTE: POOR AUDIO CONSULTING PHYSICIAN: Lauren Ames M.D. HISTORY OF PRESENT ILLNESS: The patient is a 61-year-old male with anemia and hypokalemia. The patient has abdominal distention, but he also has a diagnosis of schizoaffective, bipolar type. So his attending physician has requested daily psychiatric consultation to prevent any further mood debility and also to prevent any further decline in his cognition, reduce psychomotor agitation, which has worsened secondary to stress of his medical illness. This patient presented with some abdominal distention agitation, irritability, and confusion. . MEDICATIONS: His medications include Seroquel 100 mg twice a day, Depakote 500 mg twice a day, and Cogentin 1 mg twice a day. ALLERGIES: No known drug allergies. PAST MEDICAL HISTORY: Medical problems include anemia, hypokalemia, and abdominal distention. PSYCHIATRIC HISTORY: Schizoaffective, bipolar type, and multiple psychiatric admissions. SUBSTANCE ABUSE HISTORY: Denies drug and alcohol use. FAMILY PSYCHIATRIC HISTORY: Denies. MENTAL STATUS EXAMINATION: This is a 61-year-old male with psychomotor retardation. His appearance is disheveled, agitated, irritable . Affect is labile. Intellect poor. Mood is depressed and anxious. Motor activity, psychomotor agitation. Attention span is poor. Orientation x2. Speech is low volume and slurred. Thought process is disorganized. Thought content, auditory hallucinations with paranoid delusions. Insight and judgment are poor. DIAGNOSIS: Schizoaffective, bipolar type. PLAN: Plan for this patient is to treat him with Seroquel 100 mg twice a day, Depakote 500 mg twice a day, and Cogentin 1 mg twice a day. Provide him with supportive therapy and encourage him to interact appropriately with staff and other patients. . He will continue to be followed by Psychiatry throughout his hospital course. His attending has requested daily psychiatric consultation to prevent any agitation and help stabilize the patient's mood, mood debility . Chart was reviewed and discussed with staff. Seen and assessed at the bedside. Supportive therapy provided. Lauren Ames M.D. DR: Yanira JOB#: [id number] CC:
[2017-05-09 15:47] VITALS: BP_SYST 113; BP_SYST 144; BP_DIAS 78; BP_DIAS 81
--- NOTE | 2017-05-09 16:26 | General Progress Note ---
Subjective Allergies: Coded Allergies: SULFA (SULFONAMIDE ANTIBIOTICS) (Verified Allergy, Severe, 04/23/12) TRIMETHADIONE (Verified Allergy, Severe, 04/23/12) PARAMETHADIONE (Unverified Allergy, Unknown, 05/07/17) Uncoded Allergies: SULFA (Allergy, Unknown, 05/07/17) Subjective minimally interactive multiple BM with TWE yesterday no vomiting Objective Last 24 Hour Vital Signs Date Time Temp Pulse Resp B/P (MAP) Pulse Ox O2 Delivery O2 Flow Rate FiO2 05/09/17 15:47 97.3 95 21 113/78 92 05/09/17 11:40 97.5 92 20 131/89 95 05/09/17 08:21 97.3 93 20 117/81 95 05/09/17 00:00 98.1 87 20 112/74 91 05/08/17 21:00 98.3 102 20 113/79 91 05/08/17 16:35 97.0 98 20 119/83 98 Intake and Output 05/08/17 05/09/17 19:00 07:00 Intake Total 1050 ml 1800 ml Balance 1050 ml 1800 ml IV Total 1050 ml 1800 ml # Voids 4 2 # Bowel Movements 2 1 Laboratory Tests 05/09/17 06:10: White Blood Count 15.9#H, Red Blood Count 3.61L, Hemoglobin 9.5L, Hematocrit 30.9L, Mean Corpuscular Volume 86, Mean Corpuscular Hemoglobin 26.4L, Mean Corpuscular Hemoglobin Concent 30.8L, Red Cell Distribution Width 16.2H, Platelet Count 267, Mean Platelet Volume 6.5, Neutrophils (%) (Auto) , Lymphocytes (%) (Auto) , Monocytes (%) (Auto) , Eosinophils (%) (Auto) , Basophils (%) (Auto) , Differential Total Cells Counted 100, Neutrophils % ( Manual) 91H, Lymphocytes % (Manual) 6L, Monocytes % (Manual) 3, Eosinophils % ( Manual) 0, Basophils % (Manual) 0, Band Neutrophils 0, Platelet Estimate Adequate, Platelet Morphology Normal, Hypochromasia 1+, Anisocytosis 1+, Sodium Level 153H, Potassium Level 3.7, Chloride Level 120H, Carbon Dioxide Level 25, Anion Gap 8, Blood Urea Nitrogen 44H, Creatinine 1.4H, Estimat Glomerular Filtration Rate 51.7, Glucose Level 84, Calcium Level 8.2L, Phosphorus Level 2.6 , Magnesium Level 1.9, Total Bilirubin 0.3, Aspartate Amino Transf (AST/SGOT) 22 , Alanine Aminotransferase (ALT/SGPT) 11L, Alkaline Phosphatase 76, Total Protein 7.4, Albumin 1.8L, Globulin 5.6, Albumin/Globulin Ratio 0.3L Height (Feet): 5 Height (Inches): 4.00 Weight (Pounds): 140 Objective Thin WM NCAT supple CTA RRR soft less distended no edema OBS ARTEM JAIME May 09, 2017 16:26
[2017-05-09] MEDS ORDERED: Sorbitol Solution UD 30ml ORAL ONE (17:00)
--- NOTE | 2017-05-09 17:48 | Consultation ---
DATE OF CONSULTATION: 05/09/2017 INFECTIOUS DISEASE CONSULTATION CONSULTING PHYSICIAN: Tucker Connolly M.D. PRIMARY ATTENDING PHYSICIAN: Dionicio Delgadillo D.O. HISTORY OF PRESENT ILLNESS: This 61-year-old male admitted from a senior living facility because of gradual abdominal distention, weakness, and failure to thrive. The patient also has leukocytosis that came down yesterday, but today is up again. PAST MEDICAL HISTORY: Significant for Parkinson disease, paranoid schizophrenia, hypertension, hypothyroidism, and anemia. ALLERGIES: Allergic to paramethadione and sulfa drugs. SOCIAL HISTORY: longterm resident. Single. No other history obtainable by the patient. MEDICATIONS: Lorazepam, levothyroxine, Protonix, heparin, Trileptal, BuSpar, Cogentin, Seroquel, Tylenol, MiraLAX, Zofran, and Vistaril. REVIEW OF SYSTEMS: Unobtainable. PHYSICAL EXAMINATION: VITAL SIGNS: The patient's temperature is 97.3, afebrile since admission, pulse 93, and blood pressure 117/81. GENERAL APPEARANCE: No acute distress. HEAD AND NECK: [place] conjunctivae. HEART: Regular. LUNGS: Clear. ABDOMEN: Distended with some tenderness to touch. EXTREMITIES: No edema. NEUROLOGIC: Awake, alert, poorly communicative. LABORATORY AND DIAGNOSTIC DATA: WBC 15.9, hemoglobin 9.5, hematocrit 30.9, and platelets 267,000. Sodium 153, potassium 3.7, chloride 120, carbon dioxide 25, BUN 44, creatinine 1.4, and albumin is 1.8. CT scan of the abdomen and pelvis showed fecal impaction, consider constipation, evidence of prior colonic surgery, mild left hydronephrosis. This may reflect extrinsic compression by dilated sigmoid. IMPRESSION: 1. Leukocytosis. 2. Fecal impaction. 3. Acute renal failure. 4. Hypokalemia. 5. Hypernatremia. 6. Paranoid schizophrenia. 7. Parkinson disease. 8. Hypothyroidism. 9. Anemia. RECOMMENDATION: We will recheck UA and urine culture, may treat if the patient has positive urine culture for UTI. At the end of my exam, I thank Dr. Dionicio Delgadillo for involving me in the care of this patient. Tucker Connolly M.D. DR: KALI JOB#: [id number] CC:
[2017-05-09 20:00] VITALS: BP 104/75
--- NOTE | 2017-05-09 21:03 | Progress Note ---
DATE: 05/09/2017 SUBJECTIVE: This is a male patient who is 61-year-old. 00:15 with the medications. The patient is 00:23 confusion, disorganized thought process 00:32. He has some disorganized thought process. His cognition is declining below baseline. That is why his attending has requested daily psychiatric consultation. MENTAL STATUS EXAMINATION: This is a 61-year-old male with psychomotor agitation. Mood is depressed. Affect is guarded and restricted. Thought process is disorganized and illogical. No signs of any suicidal or homicidal thoughts. Insight and judgment is poor. DIAGNOSIS: Schizoaffective, bipolar type. PLAN: 01:08 100 mg twice a day and Depakote 500 mg twice a day. 01:11 1 mg twice a day. Provide him with supportive therapy and encourage him to interact appropriately with staff and other patients. Chart reviewed and discussed with staff. The patient was seen and assessed at the bedside 01:42. He will continue to be followed daily throughout hospital course 01:53 continue psychotropic medications. Lauren Ames M.D. DR: CHRIS JOB#: [id number] CC:
--- NOTE | 2017-05-09 22:32 | Consultation ---
DATE OF CONSULTATION: 05/08/2017 PSYCHOTHERAPY CONSULTATION PROGRESS NOTE TREATING ATTENDING PHYSICIAN: Dionicio Delgadillo D.O. CONSULTING PHYSICIAN: Tanmay Clemons M.D. HISTORY OF PRESENT ILLNESS: The patient is a 61-year-old male patient from [facility]. The patient was admitted to the hospital due to leukocytosis, hyperkalemia, confusion, disorganization in thought process, and helplessness and hopelessness, and for these reasons, and he was referred for psychotherapeutic services. 00:46 this clinician assessed this patient. The patient has been confused, very provocative in the participation in his treatment, disorganizing thought process. He has poor insight and so he was brought into the hospital. He has no viable or logical plan for his self-care. 00:58 suicidal or homicidal thoughts of ideation. There is no indication of auditory or visual hallucinations. 01:08 the patient does have a history of psychosis as well including bouts of depression. This clinician assessed the patient. PAST MEDICAL HISTORY: Includes a history of GERD, abdominal swelling. ALLERGIES: The patient is allergic to trimethoprim sulfate and paramethadione. SUBSTANCE ABUSE HISTORY: There is no indication of alcohol use, illicit substance use, or smoking. PSYCHIATRIC HISTORY: The patient has history of thoughts of depression. SOCIAL HISTORY: The patient is a 61-year-old male patient from [facility]. He is a single male patient, financially sustained. MENTAL STATUS EXAMINATION: At this time, the patient is alert and oriented to person and place. Mood is dysphoric. Affect blunted. Thought process disorganized. Poor attention and concentration. Poor insight, judgment, and impulse control. Clinician assessed this patient 02:44. Provided the patient with reality orientation, encouraging the patient to participate in treatment milieu. Provided the patient with supportive psychotherapy addressing the patient's confusion. DIAGNOSIS: Rule out major depressive disorder 03:32. The patient does have also history of schizophrenia 04:03 record. The patient has history of psychotropic medications in the past. Rule out schizophrenia, paranoid type. Psychiatric history, also the patient has history of paranoid schizophrenia. This clinician is providing the patient with reality orientation, supportive psychotherapy, addressing the patient's mental status, addressing the patient's confusion. Schizophrenia, paranoid type. Continue with behavioral management. This clinician has reviewed the patient's chart. Discussed the treatment with treatment team. Tanmay Clemons PsyD. DR: Laura JOB#: [id number] CC:
[2017-05-10] VITALS: BP 127/56
[2017-05-10] MEDS: D5 1/2NS w/KCl 20mEq 1,000 ML IV SCH (01:32)
[2017-05-10 04:00] VITALS: BP 116/91
[2017-05-10 08:00] VITALS: BP 137/98
[2017-05-10 08:12] LABS: BASOPHILS % (AUTO) 0.4 % (0.0-2.0); EOSINOPHILS % (AUTO) 1.6 % (0.0-3.0); HEMATOCRIT 34.5 % (42.0-52.0); HEMOGLOBIN 10.6 G/DL (14.2-18.0); LYMPHOCYTES % (AUTO) 9.6 % (20.0-45.0); MEAN CORPUSCULAR VOLUME 85 FL (80-99); MONOCYTES % (AUTO) 4.7 % (1.0-10.0); NEUTROPHILS % (AUTO) 83.7 % (45.0-75.0); PLATELET COUNT 300 K/UL (150-450); RED BLOOD COUNT 4.06 M/UL (4.70-6.10); RED CELL DISTRIBUTION WIDTH 16.8 % (11.6-14.8); WHITE BLOOD COUNT 12.8 K/UL (4.8-10.8)
[2017-05-10 08:37] LABS: ANION GAP 12 mmol/L (5-15); BLOOD UREA NITROGEN 37 mg/dL (7-18); CALCIUM 8.6 MG/DL (8.5-10.1); CARBON DIOXIDE 21 MMOL/L (21-32); CHLORIDE 121 MMOL/L (98-107); CREATININE 1.2 MG/DL (0.55-1.30); POTASSIUM 3.5 MMOL/L (3.5-5.1); SODIUM 154 MMOL/L (136-145)
[2017-05-10] MEDS: Depakote ER 500mg tab ORAL SCH ×3 (09:00→20:24)
[2017-05-10] MEDS: Benztropine 1mg tab ORAL SCH ×3 (09:00→18:45)
[2017-05-10] MEDS: BusPIRone 5mg Tab ORAL SCH ×4 (09:00→18:45)
[2017-05-10] MEDS: OXcarbazepine 150mg tab ORAL SCH ×3 (09:00→18:45)
[2017-05-10] MEDS: Pantoprazole Inj IVP SCH (09:43)
[2017-05-10] MEDS: Heparin 5000 units/ml inj SUBQ SCH ×2 (09:44→20:26)
--- NOTE | 2017-05-10 10:08 | GI Progress Note ---
Assessment/Plan Problems: (1) Fecal impaction ICD Codes: K56.41 - Fecal impaction SNOMED: 51426329 (2) Parkinson disease ICD Codes: G20 - Parkinson's disease SNOMED: 12318892 (3) Anemia ICD Codes: D64.9 - Anemia, unspecified SNOMED: 060787686 (4) Dehydration ICD Codes: E86.0 - Dehydration SNOMED: 55221624 (5) Abdominal distention ICD Codes: R14.0 - Abdominal distension (gaseous) SNOMED: 89056667 (6) Severe malnutrition ICD Codes: E43 - Unspecified severe protein-calorie malnutrition SNOMED: 10951588 Status: unchanged Status Narrative Discussed with Dr. Euceda. Assessment/Plan Assessment - Severe rectal stool impaction - Hypernatremia - Azotemia - Dehydration Recommendations needs fecal disimpaction and enema daily ST evaluation today >> not passed will place NGT bowel regime >> colace + miralax NPO + IVFs Sorbitol fu labs Subjective Subjective limited Objective Last 24 Hour Vital Signs Date Time Temp Pulse Resp B/P (MAP) Pulse Ox O2 Delivery O2 Flow Rate FiO2 05/10/17 08:00 97.7 107 22 137/98 92 05/10/17 04:00 97.7 105 20 116/91 93 05/10/17 00:19 98 Nasal Cannula 2.0 28 05/10/17 00:19 Nasal Cannula 2.0 28 05/10/17 00:00 97.5 103 20 127/56 95 Room Air 05/09/17 20:00 98.1 97 20 104/75 93 05/09/17 15:47 97.3 95 21 113/78 92 05/09/17 11:40 97.5 92 20 131/89 95 Intake and Output 05/09/17 05/10/17 19:00 07:00 Intake Total 825 ml 900 ml Output Total 250 ml 50 ml Balance 575 ml 850 ml Intake Oral 0 ml IV Total 825 ml 900 ml Output Urine Total 250 ml 50 ml # Voids 2 # Bowel Movements 2 2 Laboratory Tests Test 05/10/17 07:30 White Blood Count 12.8 K/UL (4.8-10.8) H Red Blood Count 4.06 M/UL (4.70-6.10) L Hemoglobin 10.6 G/DL (14.2-18.0) L Hematocrit 34.5 % (42.0-52.0) L Mean Corpuscular Volume 85 FL (80-99) Mean Corpuscular Hemoglobin 26.1 PG (27.0-31.0) L Mean Corpuscular Hemoglobin Concent 30.6 G/DL (32.0-36.0) L Red Cell Distribution Width 16.8 % (11.6-14.8) H Platelet Count 300 K/UL (150-450) Mean Platelet Volume 6.8 FL (6.5-10.1) Neutrophils (%) (Auto) 83.7 % (45.0-75.0) H Lymphocytes (%) (Auto) 9.6 % (20.0-45.0) L Monocytes (%) (Auto) 4.7 % (1.0-10.0) Eosinophils (%) (Auto) 1.6 % (0.0-3.0) Basophils (%) (Auto) 0.4 % (0.0-2.0) Sodium Level 154 MMOL/L (136-145) H Potassium Level 3.5 MMOL/L (3.5-5.1) Chloride Level 121 MMOL/L (98-107) H Carbon Dioxide Level 21 MMOL/L (21-32) Anion Gap 12 mmol/L (5-15) Blood Urea Nitrogen 37 mg/dL (7-18) H Creatinine 1.2 MG/DL (0.55-1.30) Estimat Glomerular Filtration Rate > 60 mL/min (>60) Glucose Level 82 MG/DL (74-106) Calcium Level 8.6 MG/DL (8.5-10.1) Microbiology Date/Time Source Procedure Growth Status 05/09/17 16:30 Urine,Clean Catch Urine Culture - Preliminary NO GROWTH Resulted Height (Feet): 5 Height (Inches): 4.00 Weight (Pounds): 140 General Appearance: alert, confused Cardiovascular: normal rate Respiratory/Chest: no respiratory distress Abdominal Exam: distended - tympanic Gayle Aguillon N.PLatesha May 10, 2017 10:08
--- NOTE | 2017-05-10 10:14 | Consultation ---
History of Present Illness General Date patient seen: May 10, 2017 Chief Complaint: General Complaint Reason for Consultation: fecal impaction Present Illness HPI 61M correction resident with multiple medical comorbidities presented with abdominal distention. Upon admission had CT scan which demonstrated significant fecal impaction throughout colon. patient was very dehydrated, very distended, otherwise okay. Patient given enemas and medical treatment for constipation but without significant improvement. Surgery called to evaluate for severe fecal impaction. patient seen, chart reviewed, discussed care with staff. patient awake but non responsive Allergies: Coded Allergies: SULFA (SULFONAMIDE ANTIBIOTICS) (Verified Allergy, Severe, 04/23/12) TRIMETHADIONE (Verified Allergy, Severe, 04/23/12) PARAMETHADIONE (Unverified Allergy, Unknown, 05/07/17) Uncoded Allergies: SULFA (Allergy, Unknown, 05/07/17) Medication History Scheduled Benztropine Mesylate* (Benztropine Mesylate*), 1 MG PO BID, (Reported) Buspirone Hcl* (Buspar*), 5 MG PO TID, (Reported) Divalproex Sodium* (Depakote Er*), 500 MG ORAL EVERY 12 HOURS, (Reported) Docusate Sodium* (Colace*), 100 MG ORAL DAILY, (Reported) Famotidine (Pepcid), 40 MG PO DAILY, (Reported) Hydralazine Hcl* (Hydralazine Hcl*), 100 MG ORAL EVERY 8 HOURS, (Reported) Levothyroxine Sodium* (Synthroid*), 75 MCG ORAL DAILY, (Reported) Magnesium Hydroxide* (Milk Of Magnesia*), 30 ML ORAL DAILY, (Reported) Multivitamin With Minerals (Multivitamins With Minerals*), 1 TAB ORAL DAILY, ( Reported) Na Phos,M-B/Na Phos,Di-Ba* (Fleet Enema*), 133 ML RECTAL DAILY, (Reported) Oxcarbazepine (Oxcarbazepine), 450 MG PO BID, (Reported) Quetiapine Fumarate* (Seroquel*), 200 MG ORAL QHS, (Reported) Sennosides (Senna), 17.2 MG PO QHS, (Reported) Verapamil HCl (Verapamil HCl), 40 MG ORAL QHS, (Reported) Scheduled PRN Acetaminophen* (Acetaminophen 325MG Tablet*), 650 MG ORAL Q4H PRN for Fever/ Headache/Mild Pain, (Reported) Acetaminophen* (Tylenol Extra Strength*), 1,000 MG ORAL Q4HR PRN for Moderate Pain (Pain Scale 4-6), (Reported) Bisacodyl (Dulcolax), 10 MG RC DAILY PRN, (Reported) Discontinued Medications Acetaminophen* (Tylenol*), 650 MG PO Q4H PRN, (Reported) Discontinued Reason: Pt stopped taking med Guaifenesin/Codeine Phos* (Robitussin Ac*), 10 ML PO BID PRN, (Reported) Discontinued Reason: Pt stopped taking med Lorazepam* (Ativan*), 1 MG PO Q6HR PRN, (Reported) Discontinued Reason: Pt stopped taking med Polyethylene Glycol* (Miralax*), 17 GM PO DAILY, (Reported) Discontinued Reason: Pt stopped taking med Quetiapine Fumarate* (Quetiapine Fumarate*), 100 MG ORAL BID, (Reported) Discontinued Reason: Medication dose changed Quinidine Sulfate (Quinidine Sulfate), 10 MG PO BID, (Reported) Discontinued Reason: Pt stopped taking med Sennosides (Senna), 8.6 MG PO HS, (Reported) Discontinued Reason: Medication dose changed Verapamil Hcl* (Calan*), 40 MG ORAL HS, (Reported) Discontinued Reason: Medication dose changed Patient History Limited by: medical condition History Provided By: Medical Record, PMD Healthcare decision maker N Resuscitation status Full Code Advanced Directive on File No Past Medical/Surgical History Past Medical/Surgical History: (1) Abdominal distention (2) Renal failure (3) Sepsis (4) UTI (urinary tract infection) (5) Acute kidney injury (6) Dehydration (7) Hypokalemia (8) Anemia (9) Parkinson disease (10) Fecal impaction Review of Systems ROS Narrative cannot obtain given patients current medical condition Physical Exam General Appearance: no apparent distress Lines, tubes and drains: peripheral HEENT: normocephalic, mucous membranes moist Neck: normal alignment, normal inspection Respiratory/Chest: normal breath sounds, no respiratory distress, no accessory muscle use Cardiovascular/Chest: normal peripheral pulses, normal rate, regular rhythm Abdomen: distended, other - very distended tympanic, firm abdomen, no tenderness as can be apprciated given patients baseline. Skin Exam: normal pigmentation Neurologic: alert, unresponsiveness Last 24 Hour Vital Signs Date Time Temp Pulse Resp B/P (MAP) Pulse Ox O2 Delivery O2 Flow Rate FiO2 05/10/17 08:00 97.7 107 22 137/98 92 05/10/17 04:00 97.7 105 20 116/91 93 05/10/17 00:19 98 Nasal Cannula 2.0 28 05/10/17 00:19 Nasal Cannula 2.0 28 05/10/17 00:00 97.5 103 20 127/56 95 Room Air 05/09/17 20:00 98.1 97 20 104/75 93 05/09/17 15:47 97.3 95 21 113/78 92 05/09/17 11:40 97.5 92 20 131/89 95 Intake and Output 05/09/17 05/10/17 19:00 07:00 Intake Total 825 ml 900 ml Output Total 250 ml 50 ml Balance 575 ml 850 ml Intake Oral 0 ml IV Total 825 ml 900 ml Output Urine Total 250 ml 50 ml # Voids 2 # Bowel Movements 2 2 Laboratory Tests Test 05/10/17 07:30 White Blood Count 12.8 K/UL (4.8-10.8) H Red Blood Count 4.06 M/UL (4.70-6.10) L Hemoglobin 10.6 G/DL (14.2-18.0) L Hematocrit 34.5 % (42.0-52.0) L Mean Corpuscular Volume 85 FL (80-99) Mean Corpuscular Hemoglobin 26.1 PG (27.0-31.0) L Mean Corpuscular Hemoglobin Concent 30.6 G/DL (32.0-36.0) L Red Cell Distribution Width 16.8 % (11.6-14.8) H Platelet Count 300 K/UL (150-450) Mean Platelet Volume 6.8 FL (6.5-10.1) Neutrophils (%) (Auto) 83.7 % (45.0-75.0) H Lymphocytes (%) (Auto) 9.6 % (20.0-45.0) L Monocytes (%) (Auto) 4.7 % (1.0-10.0) Eosinophils (%) (Auto) 1.6 % (0.0-3.0) Basophils (%) (Auto) 0.4 % (0.0-2.0) Sodium Level 154 MMOL/L (136-145) H Potassium Level 3.5 MMOL/L (3.5-5.1) Chloride Level 121 MMOL/L (98-107) H Carbon Dioxide Level 21 MMOL/L (21-32) Anion Gap 12 mmol/L (5-15) Blood Urea Nitrogen 37 mg/dL (7-18) H Creatinine 1.2 MG/DL (0.55-1.30) Estimat Glomerular Filtration Rate > 60 mL/min (>60) Glucose Level 82 MG/DL (74-106) Calcium Level 8.6 MG/DL (8.5-10.1) Microbiology Date/Time Source Procedure Growth Status 05/09/17 16:30 Urine,Clean Catch Urine Culture - Preliminary NO GROWTH Resulted Height (Feet): 5 Height (Inches): 4.00 Weight (Pounds): 140 Medications Current Medications Medications (Trade) Dose Ordered Sig/Dank Route PRN Reason Start Time Stop Time Status Last Admin Dose Admin Acetaminophen (Tylenol) 650 mg Q4H PRN ORAL fever (temp >100.5 F) 05/07/17 16:30 06/06/17 16:29 Al Hydroxide/Mg Hydroxide (Mylanta II) 30 ml Q6H PRN ORAL dyspepsia 05/07/17 16:30 06/06/17 16:29 Benztropine Mesylate (Cogentin) 1 mg BID ORAL 05/07/17 18:45 06/06/17 18:44 05/10/17 09:42 Buspirone HCl (Buspar) 5 mg TID ORAL 05/07/17 18:50 06/06/17 18:49 05/10/17 09:42 Dextrose (Dextrose 50%) STAT PRN IV Hypoglycemia 05/07/17 16:30 06/06/17 16:29 Dextrose/ Electrolytes 1,000 ml @ 75 mls/hr [id number] IV 05/09/17 12:00 06/08/17 11:59 05/10/17 01:32 Diphenhydramine HCl (Benadryl) 25 mg Q6H PRN ORAL Itching/Pruritis 05/07/17 16:30 06/06/17 16:29 Divalproex Sodium (Depakote ER) 500 mg EVERY 12 HOURS ORAL 05/07/17 21:00 06/06/17 20:59 05/10/17 09:42 Heparin Sodium (Porcine) (Heparin 5000 units/ml) 5,000 units EVERY 12 HOURS SUBQ 05/07/17 21:00 06/06/17 20:59 05/10/17 09:44 Levothyroxine Sodium (Synthroid) 75 mcg DAILY ORAL 05/08/17 09:00 06/07/17 08:59 05/10/17 09:42 Lorazepam (Ativan) 1 mg Q6H PRN ORAL For Anxiety 05/08/17 16:15 05/15/17 16:14 Morphine Sulfate (Morphine Sulfate) 2 mg Q4H PRN IVP severe Pain (Pain Scale 7-10) 05/07/17 16:30 05/14/17 16:29 Nitroglycerin (Ntg) 0.4 mg Q5M X 3 DOSES PRN SL Prn Chest Pain 05/07/17 16:30 06/06/17 16:29 Ondansetron HCl (Zofran) 4 mg Q6H PRN IVP Nausea & Vomiting 05/07/17 16:30 06/06/17 16:29 Oxcarbazepine (Trileptal) 450 mg BID ORAL 05/07/17 19:30 06/06/17 19:29 05/10/17 09:43 Pantoprazole (Protonix) 40 mg DAILY IVP 05/08/17 09:00 06/07/17 08:59 05/10/17 09:43 Polyethylene Glycol (Miralax) 17 gm HSPRN PRN ORAL Constipation 05/07/17 16:30 06/06/17 16:29 Quetiapine Fumarate (SEROquel) 100 mg BID ORAL 05/07/17 18:45 06/06/17 18:44 05/10/17 09:42 Temazepam (Restoril) 15 mg HSPRN PRN ORAL Insomnia 05/07/17 16:30 05/14/17 16:29 Assessment/Plan Problem List: (1) Fecal impaction Assessment & Plan: 61M with severe fecal impaction leaving to a near complete large bowel obstruction. CT findings very prominent and concerning. High risk for perforation given CT findings and exam. Was able to disimpact two handfuls of hard fecal material from rectum to level that my finger could reach. Will need to do this often for the next few days in hopes of being able to clear impacted fecal contents and clean obstruction. Unfortunately if does not improve and cannot clear obstruction may need surgery. impaction very high up as noted on CT and may not improve with medical therapy. furthermore, may develop complications such as perforation given extent of disease. -will continue with daily fecal disimpaction -stool softeners and enemas -IV hydration -will follow with recs thank you for this consultation. ICD Codes: K56.41 - Fecal impaction SNOMED: 60906047 Status: stable Norbert Huggins May 10, 2017 10:14
[2017-05-10] MEDS ORDERED: Docusate 100mg cap ORAL PRN (10:15)
[2017-05-10] MEDS ORDERED: Mineral Oil 30ml ud NG PRN (10:15)
[2017-05-10 12:00] VITALS: BP 126/75
[2017-05-10] MEDS: D5 1/4NS w/KCl 20mEq 1,000 ML IV SCH ×2 (12:09→20:24)
--- NOTE | 2017-05-10 13:05 | Infectious Diseases Prog Note ---
Assessment/Plan Assessment/Plan A: 1. Leukocytosis, improving 2. Fecal impaction. 3. Acute renal failure. 4. Hypokalemia. 5. Hypernatremia. 6. Paranoid schizophrenia. 7. Parkinson disease. 8. Hypothyroidism. 9. Anemia. P: observe off antibiotic Subjective ROS Limited/Unobtainable: Yes Allergies: Coded Allergies: SULFA (SULFONAMIDE ANTIBIOTICS) (Verified Allergy, Severe, 04/23/12) TRIMETHADIONE (Verified Allergy, Severe, 04/23/12) PARAMETHADIONE (Unverified Allergy, Unknown, 05/07/17) Uncoded Allergies: SULFA (Allergy, Unknown, 05/07/17) Objective Vital Signs Last 24 Hour Vital Signs Date Time Temp Pulse Resp B/P (MAP) Pulse Ox O2 Delivery O2 Flow Rate FiO2 05/10/17 08:00 97.7 107 22 137/98 92 05/10/17 04:00 97.7 105 20 116/91 93 05/10/17 00:19 98 Nasal Cannula 2.0 28 05/10/17 00:19 Nasal Cannula 2.0 28 05/10/17 00:00 97.5 103 20 127/56 95 Room Air 05/09/17 20:00 98.1 97 20 104/75 93 05/09/17 15:47 97.3 95 21 113/78 92 Height (Feet): 5 Height (Inches): 4.00 Weight (Pounds): 140 General Appearance: no acute distress HEENT: mucous membranes moist Respiratory/Chest: lungs clear Cardiovascular: tachycardia Abdomen: distended Extremities: no edema Neurologic/Psychiatric: other - sleeping Microbiology Date/Time Source Procedure Growth Status 05/07/17 14:48 Blood Blood Culture - Preliminary NO GROWTH AFTER 48 HOURS Resulted 05/07/17 14:31 Blood Blood Culture - Preliminary NO GROWTH AFTER 48 HOURS Resulted 05/07/17 14:56 Nasal Nares MRSA Culture - Final NO METHICILLIN RESISTANT STAPH AUREUS... Complete 05/09/17 16:30 Urine,Clean Catch Urine Culture - Preliminary NO GROWTH Resulted 05/07/17 14:56 Rectum VRE Culture - Final NO VANCOMYCIN RESISTANT ENTEROCOCCUS ... Complete Laboratory Tests Test 05/10/17 07:30 White Blood Count 12.8 K/UL (4.8-10.8) H Red Blood Count 4.06 M/UL (4.70-6.10) L Hemoglobin 10.6 G/DL (14.2-18.0) L Hematocrit 34.5 % (42.0-52.0) L Mean Corpuscular Volume 85 FL (80-99) Mean Corpuscular Hemoglobin 26.1 PG (27.0-31.0) L Mean Corpuscular Hemoglobin Concent 30.6 G/DL (32.0-36.0) L Red Cell Distribution Width 16.8 % (11.6-14.8) H Platelet Count 300 K/UL (150-450) Mean Platelet Volume 6.8 FL (6.5-10.1) Neutrophils (%) (Auto) 83.7 % (45.0-75.0) H Lymphocytes (%) (Auto) 9.6 % (20.0-45.0) L Monocytes (%) (Auto) 4.7 % (1.0-10.0) Eosinophils (%) (Auto) 1.6 % (0.0-3.0) Basophils (%) (Auto) 0.4 % (0.0-2.0) Sodium Level 154 MMOL/L (136-145) H Potassium Level 3.5 MMOL/L (3.5-5.1) Chloride Level 121 MMOL/L (98-107) H Carbon Dioxide Level 21 MMOL/L (21-32) Anion Gap 12 mmol/L (5-15) Blood Urea Nitrogen 37 mg/dL (7-18) H Creatinine 1.2 MG/DL (0.55-1.30) Estimat Glomerular Filtration Rate > 60 mL/min (>60) Glucose Level 82 MG/DL (74-106) Calcium Level 8.6 MG/DL (8.5-10.1) Current Medications Medications (Trade) Dose Ordered Sig/Dank Route PRN Reason Start Time Stop Time Status Last Admin Dose Admin Acetaminophen (Tylenol) 650 mg Q4H PRN ORAL fever (temp >100.5 F) 05/07/17 16:30 06/06/17 16:29 Al Hydroxide/Mg Hydroxide (Mylanta II) 30 ml Q6H PRN ORAL dyspepsia 05/07/17 16:30 06/06/17 16:29 Benztropine Mesylate (Cogentin) 1 mg BID ORAL 05/07/17 18:45 06/06/17 18:44 05/09/17 17:55 Buspirone HCl (Buspar) 5 mg TID ORAL 05/07/17 18:50 06/06/17 18:49 05/09/17 17:55 Dextrose (Dextrose 50%) STAT PRN IV Hypoglycemia 05/07/17 16:30 06/06/17 16:29 Dextrose/ Electrolytes 1,000 ml @ 125 mls/hr Q8H IV 05/10/17 11:00 06/09/17 10:59 05/10/17 12:09 Diphenhydramine HCl (Benadryl) 25 mg Q6H PRN ORAL Itching/Pruritis 05/07/17 16:30 06/06/17 16:29 Divalproex Sodium (Depakote ER) 500 mg EVERY 12 HOURS ORAL 05/07/17 21:00 06/06/17 20:59 05/09/17 20:54 Docusate Sodium (Colace) 100 mg TIDPRN PRN ORAL Constipation 05/10/17 10:15 06/09/17 10:14 Heparin Sodium (Porcine) (Heparin 5000 units/ml) 5,000 units EVERY 12 HOURS SUBQ 05/07/17 21:00 06/06/17 20:59 05/10/17 09:44 Levothyroxine Sodium (Synthroid) 75 mcg DAILY ORAL 05/08/17 09:00 06/07/17 08:59 05/09/17 09:02 Lorazepam (Ativan) 1 mg Q6H PRN ORAL For Anxiety 05/08/17 16:15 05/15/17 16:14 Mineral Oil (Fleet's Mineral Oil Enema) 133 ml EVERY 8 HOURS RECTAL 05/10/17 14:00 06/09/17 13:59 UNV Mineral Oil (Fleet's Mineral Oil Enema) 133 ml EVERY 8 HOURS RECTAL 05/10/17 14:00 06/09/17 13:59 UNV Mineral Oil (Mineral Oil) 30 ml DAILYPRN PRN NG Constipation 05/10/17 10:15 06/09/17 10:14 Morphine Sulfate (Morphine Sulfate) 2 mg Q4H PRN IVP severe Pain (Pain Scale 7-10) 05/07/17 16:30 05/14/17 16:29 Nitroglycerin (Ntg) 0.4 mg Q5M X 3 DOSES PRN SL Prn Chest Pain 05/07/17 16:30 06/06/17 16:29 Ondansetron HCl (Zofran) 4 mg Q6H PRN IVP Nausea & Vomiting 05/07/17 16:30 06/06/17 16:29 Oxcarbazepine (Trileptal) 450 mg BID ORAL 05/07/17 19:30 06/06/17 19:29 05/09/17 17:56 Pantoprazole (Protonix) 40 mg DAILY IVP 05/08/17 09:00 06/07/17 08:59 05/10/17 09:43 Polyethylene Glycol (Miralax) 17 gm HSPRN PRN ORAL Constipation 05/07/17 16:30 06/06/17 16:29 Quetiapine Fumarate (SEROquel) 100 mg BID ORAL 05/07/17 18:45 06/06/17 18:44 05/09/17 17:55 Sodium Phosphate (Fleet's Sodium Phosl Enema) 133 ml EVERY 8 HOURS RECTAL 05/10/17 14:00 06/09/17 13:59 UNV Temazepam (Restoril) 15 mg HSPRN PRN ORAL Insomnia 05/07/17 16:30 05/14/17 16:29 FLYNN PERAZA May 10, 2017 13:05
--- NOTE | 2017-05-10 13:20 | General Progress Note ---
Assessment/Plan Problem List: (1) Renal failure ICD Codes: N19 - Unspecified kidney failure SNOMED: 65394647 (2) UTI (urinary tract infection) ICD Codes: N39.0 - Urinary tract infection, site not specified SNOMED: 37479367 (3) Sepsis ICD Codes: A41.9 - Sepsis, unspecified organism SNOMED: 07941942 (4) Anemia ICD Codes: D64.9 - Anemia, unspecified SNOMED: 955191369 (5) Parkinson disease ICD Codes: G20 - Parkinson's disease SNOMED: 86534623 (6) Abdominal distention ICD Codes: R14.0 - Abdominal distension (gaseous) SNOMED: 04609961 Status: unchanged Assessment/Plan ot pt diet abx cbc bmp am dc plan Subjective Constitutional: Reports: weakness Allergies: Coded Allergies: SULFA (SULFONAMIDE ANTIBIOTICS) (Verified Allergy, Severe, 04/23/12) TRIMETHADIONE (Verified Allergy, Severe, 04/23/12) PARAMETHADIONE (Unverified Allergy, Unknown, 05/07/17) Uncoded Allergies: SULFA (Allergy, Unknown, 05/07/17) All Systems: reviewed and negative except above Subjective sleepy calm in bed Objective Last 24 Hour Vital Signs Date Time Temp Pulse Resp B/P (MAP) Pulse Ox O2 Delivery O2 Flow Rate FiO2 05/10/17 08:00 97.7 107 22 137/98 92 05/10/17 04:00 97.7 105 20 116/91 93 05/10/17 00:19 98 Nasal Cannula 2.0 28 05/10/17 00:19 Nasal Cannula 2.0 28 05/10/17 00:00 97.5 103 20 127/56 95 Room Air 05/09/17 20:00 98.1 97 20 104/75 93 05/09/17 15:47 97.3 95 21 113/78 92 Intake and Output 05/09/17 05/10/17 19:00 07:00 Intake Total 825 ml 900 ml Output Total 250 ml 50 ml Balance 575 ml 850 ml Intake Oral 0 ml IV Total 825 ml 900 ml Output Urine Total 250 ml 50 ml # Voids 2 # Bowel Movements 2 2 Laboratory Tests 05/10/17 07:30: White Blood Count 12.8H, Red Blood Count 4.06L, Hemoglobin 10.6L, Hematocrit 34.5L, Mean Corpuscular Volume 85, Mean Corpuscular Hemoglobin 26.1L, Mean Corpuscular Hemoglobin Concent 30.6L, Red Cell Distribution Width 16.8H, Platelet Count 300, Mean Platelet Volume 6.8, Neutrophils (%) (Auto) 83.7H, Lymphocytes (%) (Auto) 9.6L, Monocytes (%) (Auto) 4.7, Eosinophils (%) (Auto) 1.6, Basophils (%) (Auto) 0.4, Sodium Level 154H, Potassium Level 3.5, Chloride Level 121H, Carbon Dioxide Level 21, Anion Gap 12, Blood Urea Nitrogen 37H, Creatinine 1.2, Estimat Glomerular Filtration Rate > 60, Glucose Level 82, Calcium Level 8.6 Height (Feet): 5 Height (Inches): 4.00 Weight (Pounds): 140 General Appearance: lethargic EENT: normal ENT inspection Neck: normal alignment Cardiovascular: normal peripheral pulses, normal rate, regular rhythm Respiratory/Chest: chest wall non-tender, lungs clear, normal breath sounds Abdomen: normal bowel sounds, non tender, soft Extremities: normal inspection Edema: no edema noted Arm (L), no edema noted Arm (R), no edema noted Leg (L), no edema noted Leg (R), no edema noted Pedal (L), no edema noted Pedal (R), no edema noted Generalized Neurologic: motor weakness Skin: normal pigmentation, warm/dry NARCISA HUI May 10, 2017 13:20
--- NOTE | 2017-05-10 13:45 | Wound Care Consultation ---
Wound Assessment Wound Assessment #1: Wound Number: 1 Wound Present on Admission: Yes New Wound: No Status Change of Wound: No Wound Location Body Site Modif: left Wound Location Body Site: trochanter Wound Type: pressure ulcer Harry Test: Does not Harry Pressure Ulcer Stage: Deep Tissue Injury Wound Thickness: Full Thickness Wound Length: 5.5 Wound Width: 4.5 Wound Depth: utd Percent of Wound Purple/Maroon: 100 Wound Drainage Amount: None Wound Drainage Odor: None/Absent Tissue Surrounding Wound: Erythemic Wound General Appearance: Reddened - maroon Wound Assessment #2: Wound Number: 2 Wound Present on Admission: Yes New Wound: No Status Change of Wound: No Wound Location Body Site Modif: right Wound Location Body Site: trochanter Wound Type: pressure ulcer Harry Test: Does not Harry Pressure Ulcer Stage: Deep Tissue Injury Wound Thickness: Full Thickness Wound Length: 8.0 Wound Width: 6.5 Wound Depth: utd Percent of Wound Purple/Maroon: 100 Wound Drainage Amount: None Wound Drainage Odor: None/Absent Tissue Surrounding Wound: Intact Wound General Appearance: Reddened - purple Wound Assessment #3: Wound Number: 3 Wound Present on Admission: Yes New Wound: No Status Change of Wound: No Wound Location Body Site Modif: left, lateral Wound Location Body Site: malleolus/ankle Wound Type: pressure ulcer Harry Test: Does not Harry Pressure Ulcer Stage: Deep Tissue Injury Wound Thickness: Full Thickness Wound Length: 2.5 Wound Width: 2.5 Wound Depth: utd Percent of Wound Purple/Maroon: 100 Wound Drainage Amount: None Wound Drainage Odor: None/Absent Tissue Surrounding Wound: Erythemic Wound General Appearance: Reddened - purple/maroon Wound Assessment #4: Wound Number: 4 Wound Present on Admission: Yes New Wound: No Status Change of Wound: No Wound Location Body Site Modif: left, mid Wound Location Body Site: foot Wound Type: pressure ulcer Harry Test: Does not Harry Pressure Ulcer Stage: Deep Tissue Injury Wound Thickness: Full Thickness Wound Length: 1.5 Wound Width: 1.5 Wound Depth: utd Percent of Wound Purple/Maroon: 100 Wound Drainage Amount: None Wound Drainage Odor: None/Absent Tissue Surrounding Wound: Erythemic Wound General Appearance: Reddened - purple/maroon Wound Assessment #5: Wound Number: 5 Wound Present on Admission: Yes New Wound: No Status Change of Wound: No Wound Location Body Site Modif: left Wound Location Body Site: heel Wound Type: pressure ulcer Harry Test: Does not Harry Pressure Ulcer Stage: Deep Tissue Injury Wound Thickness: Full Thickness Wound Length: 4.5 Wound Width: 4.5 Wound Depth: utd Percent of Wound Purple/Maroon: 100 Wound Drainage Amount: None Wound Drainage Odor: None/Absent Tissue Surrounding Wound: Erythemic Wound General Appearance: Reddened - purple/maroon Wound Assessment #6: Wound Number: 6 Wound Present on Admission: Yes New Wound: No Status Change of Wound: No Wound Location Body Site Modif: left, lower, anterior Wound Location Body Site: leg Wound Type: pressure ulcer Harry Test: Does not Harry Pressure Ulcer Stage: Deep Tissue Injury Wound Thickness: Full Thickness Wound Length: 0.5 Wound Width: 0.5 Wound Depth: utd Percent of Wound Purple/Maroon: 100 Wound Drainage Amount: None Wound Drainage Odor: None/Absent Tissue Surrounding Wound: Erythemic Wound General Appearance: Reddened - maroon Wound Assessment #7: Wound Number: 7 Wound Present on Admission: Yes New Wound: No Status Change of Wound: No Wound Location Body Site Modif: mid Wound Location Body Site: other - sacrococcygeal Wound Type: pressure ulcer Harry Test: Does not Harry Pressure Ulcer Stage: Unstageable Wound Thickness: Full Thickness Wound Length: 4.0 Wound Width: 3.0 Wound Depth: utd Percent of Wound Bed Yellow/Wh: 100 Wound Drainage Description: Serosanguineous Wound Drainage Amount: Moderate Wound Drainage Odor: None/Absent Tissue Surrounding Wound: Macerated Wound General Appearance: Reddened - yellow Wound Comment #1 Sacrococcygeal unstageable/IV pressure ulcer #2 Right trochanter DTI pressure ulcer #3 Left trochanter DTI pressure ulcer #4 Left lateral malleolus DTI pressure ulcer #5 Left lateral mid foot DTI pressure ulcer #6 Left heel DTI pressure ulcer #7 Left lower anterior leg DTI pressure ulcer Recommendation -Local wound care per protocol -Keep clean and dry -Turn and reposition -Offload both heels -Heel protector on both heels -Optimize nutrition -Low air loss mattress -Assess f/u accordingly for any changes FELISA BARBA RN May 10, 2017 13:45
[2017-05-10] MEDS ORDERED: Fleet's Mineral Oil Enema RECTAL SCH (14:00)
[2017-05-10] MEDS: Fleet's Enema 133ml RECTAL SCH ×2 (14:30→22:09)
[2017-05-10] MEDS: Fleet's Mineral Oil Enema RECTAL SCH ×2 (14:47→22:09)
--- NOTE | 2017-05-10 15:16 | Pulmonology Progress Note ---
Assessment/Plan Problems: (1) Abdominal distention (2) Parkinson disease (3) Renal failure (4) UTI (urinary tract infection) Assessment/Plan wbc still high, lower now renal numbers have not changed awaiting bed site swallow study increase IV fluids fleet enema is working, and manual removal today Subjective ROS Limited/Unobtainable: Yes Interval Events: opens eyes Allergies: Coded Allergies: SULFA (SULFONAMIDE ANTIBIOTICS) (Verified Allergy, Severe, 04/23/12) TRIMETHADIONE (Verified Allergy, Severe, 04/23/12) PARAMETHADIONE (Unverified Allergy, Unknown, 05/07/17) Uncoded Allergies: SULFA (Allergy, Unknown, 05/07/17) Objective Last 24 Hour Vital Signs Date Time Temp Pulse Resp B/P (MAP) Pulse Ox O2 Delivery O2 Flow Rate FiO2 05/10/17 12:00 97.8 93 20 126/75 96 05/10/17 08:00 97.7 107 22 137/98 92 05/10/17 04:00 97.7 105 20 116/91 93 05/10/17 00:19 98 Nasal Cannula 2.0 28 05/10/17 00:19 Nasal Cannula 2.0 28 05/10/17 00:00 97.5 103 20 127/56 95 Room Air 05/09/17 20:00 98.1 97 20 104/75 93 05/09/17 15:47 97.3 95 21 113/78 92 Intake and Output 05/09/17 05/10/17 19:00 07:00 Intake Total 825 ml 900 ml Output Total 250 ml 50 ml Balance 575 ml 850 ml Intake Oral 0 ml IV Total 825 ml 900 ml Output Urine Total 250 ml 50 ml # Voids 2 # Bowel Movements 2 2 Objective General Appearance: cachetic Lines, tubes and drains: peripheral HEENT: normocephalic, atraumatic Neck: non-tender, normal alignment Respiratory/Chest: chest wall non-tender, lungs clear Cardiovascular/Chest: normal peripheral pulses, normal rate Abdomen: normal bowel sounds, non tender Genitourinary/Rectal: normal genital exam, normal rectal exam Skin Exam: normal pigmentation Microbiology Date/Time Source Procedure Growth Status 05/09/17 16:30 Urine,Clean Catch Urine Culture - Preliminary NO GROWTH Resulted Laboratory Tests 05/10/17 07:30: White Blood Count 12.8H, Red Blood Count 4.06L, Hemoglobin 10.6L, Hematocrit 34.5L, Mean Corpuscular Volume 85, Mean Corpuscular Hemoglobin 26.1L, Mean Corpuscular Hemoglobin Concent 30.6L, Red Cell Distribution Width 16.8H, Platelet Count 300, Mean Platelet Volume 6.8, Neutrophils (%) (Auto) 83.7H, Lymphocytes (%) (Auto) 9.6L, Monocytes (%) (Auto) 4.7, Eosinophils (%) (Auto) 1.6, Basophils (%) (Auto) 0.4, Sodium Level 154H, Potassium Level 3.5, Chloride Level 121H, Carbon Dioxide Level 21, Anion Gap 12, Blood Urea Nitrogen 37H, Creatinine 1.2, Estimat Glomerular Filtration Rate > 60, Glucose Level 82, Calcium Level 8.6 Current Medications Medications (Trade) Dose Ordered Sig/Dank Route PRN Reason Start Time Stop Time Status Last Admin Dose Admin Acetaminophen (Tylenol) 650 mg Q4H PRN ORAL fever (temp >100.5 F) 05/07/17 16:30 06/06/17 16:29 Al Hydroxide/Mg Hydroxide (Mylanta II) 30 ml Q6H PRN ORAL dyspepsia 05/07/17 16:30 06/06/17 16:29 Benztropine Mesylate (Cogentin) 1 mg BID ORAL 05/07/17 18:45 06/06/17 18:44 05/09/17 17:55 Buspirone HCl (Buspar) 5 mg TID ORAL 05/07/17 18:50 06/06/17 18:49 05/09/17 17:55 Dextrose (Dextrose 50%) STAT PRN IV Hypoglycemia 05/07/17 16:30 06/06/17 16:29 Dextrose/ Electrolytes 1,000 ml @ 125 mls/hr Q8H IV 05/10/17 11:00 06/09/17 10:59 05/10/17 12:09 Diphenhydramine HCl (Benadryl) 25 mg Q6H PRN ORAL Itching/Pruritis 05/07/17 16:30 06/06/17 16:29 Divalproex Sodium (Depakote ER) 500 mg EVERY 12 HOURS ORAL 05/07/17 21:00 06/06/17 20:59 05/09/17 20:54 Docusate Sodium (Colace) 100 mg TIDPRN PRN ORAL Constipation 05/10/17 10:15 06/09/17 10:14 Heparin Sodium (Porcine) (Heparin 5000 units/ml) 5,000 units EVERY 12 HOURS SUBQ 05/07/17 21:00 06/06/17 20:59 05/10/17 09:44 Levothyroxine Sodium (Synthroid) 75 mcg DAILY ORAL 05/08/17 09:00 06/07/17 08:59 05/09/17 09:02 Lorazepam (Ativan) 1 mg Q6H PRN ORAL For Anxiety 05/08/17 16:15 05/15/17 16:14 Mineral Oil (Fleet's Mineral Oil Enema) 133 ml EVERY 8 HOURS RECTAL 05/10/17 15:00 05/13/17 14:59 05/10/17 14:47 Mineral Oil (Mineral Oil) 30 ml DAILYPRN PRN NG Constipation 05/10/17 10:15 06/09/17 10:14 Morphine Sulfate (Morphine Sulfate) 2 mg Q4H PRN IVP severe Pain (Pain Scale 7-10) 05/07/17 16:30 05/14/17 16:29 Nitroglycerin (Ntg) 0.4 mg Q5M X 3 DOSES PRN SL Prn Chest Pain 05/07/17 16:30 06/06/17 16:29 Ondansetron HCl (Zofran) 4 mg Q6H PRN IVP Nausea & Vomiting 05/07/17 16:30 06/06/17 16:29 Oxcarbazepine (Trileptal) 450 mg BID ORAL 05/07/17 19:30 06/06/17 19:29 05/09/17 17:56 Pantoprazole (Protonix) 40 mg DAILY IVP 05/08/17 09:00 06/07/17 08:59 05/10/17 09:43 Polyethylene Glycol (Miralax) 17 gm HSPRN PRN ORAL Constipation 05/07/17 16:30 06/06/17 16:29 Quetiapine Fumarate (SEROquel) 100 mg BID ORAL 05/07/17 18:45 06/06/17 18:44 05/09/17 17:55 Sodium Phosphate (Fleet's Sodium Phosl Enema) 133 ml EVERY 8 HOURS RECTAL 05/10/17 14:30 05/13/17 14:29 Temazepam (Restoril) 15 mg HSPRN PRN ORAL Insomnia 05/07/17 16:30 05/14/17 16:29 TYRONE FARMER May 10, 2017 15:16
[2017-05-10 16:00] VITALS: BP 136/91
--- NOTE | 2017-05-10 18:45 | Progress Note ---
DATE: 05/10/2017 SUBJECTIVE: The patient is a male patient came in to the anemia and hypokalemia, but he also has altered mental status and confusion, disorganized thought process and mood lability. Because of his mood lability and disorganized thought process, attending has requested daily psychiatric consultation. He is very confused and disorganized. MENTAL STATUS EXAMINATION: This is a 61-year-old male with psychomotor agitation. Mood is irritable. Affect guarded and restricted. Thought process is disorganized and illogical. No signs of any suicidal or homicidal thoughts of ideation. Insight and judgment are poor DIAGNOSIS: Paranoid schizophrenia. PLAN: The patient has multiple psychotropic medications to prevent any further decline in his cognition. Chart reviewed and discussed with staff. Seen and assessed in his room. Lauren Ames M.D. DR: LAWRENCE JOB#: [id number] CC:
[2017-05-10 20:00] VITALS: BP 126/85
[2017-05-10] MEDS ORDERED: Fleet's Mineral Oil Enema RECTAL ONE (21:00)
[2017-05-11] VITALS: BP 133/92
[2017-05-11] MEDS: D5 1/4NS w/KCl 20mEq 1,000 ML IV SCH ×3 (02:37→19:24)
[2017-05-11 04:00] VITALS: BP 126/81
[2017-05-11] MEDS: Fleet's Mineral Oil Enema RECTAL SCH ×3 (05:31→21:02)
[2017-05-11] MEDS: Fleet's Enema 133ml RECTAL SCH ×3 (05:31→21:02)
--- NOTE | 2017-05-11 07:00 | Progress Note ---
DATE: 05/09/2017 NOTE: POOR AUDIO PSYCHOTHERAPY CONSULTATION PROGRESS NOTE TREATING ATTENDING PHYSICIAN: Dionicio Delgadillo D.O. SUBJECTIVE: The patient is a 61-year-old male patient. The patient is disorganized, confused, agitated, and irritable. The patient was diagnosed with schizoaffective disorder, bipolar type. The patient has had poor frustration tolerance . MENTAL STATUS EXAMINATION: This clinician assessed this patient. The patient depressed mood and is anxious. Affect is blunted. Thought process is disorganized. Thought content, confused. The patient has poor attention and concentration . Poor insight, judgment, and impulse control. IMPRESSION: The patient has disorganized thought process. PLAN: reality orientation. provided the patient with supportive psychotherapy. Encouraging the patient to participate in treatment milieu. Continue with behavioral management. This clinician has reviewed the patient's chart. Discussed the treatment with treatment team. Tanmay Clemons PsyD. : LEI JOB#: [id number] CC:
[2017-05-11 08:00] VITALS: BP 124/77
--- NOTE | 2017-05-11 08:40 | Diagnostic Imaging Report ---
Indication: Post nasogastric tube placement Technique: Supine view of the abdomen Comparison: Surveillance Systems Engineer image from CT scan dated 05/07/2017 Findings: There is a nasogastric tube place, tip projected in the expected level of the gastric antrum. Possibly some kinking at the proximal port. Distended gas-filled colon is demonstrated, also evident on prior CT scan. There is some atelectasis at the lung bases Impression: Satisfactory position of nasogastric tube. However, tube may be kinked. Other findings as noted
[2017-05-11] MEDS: OXcarbazepine 150mg tab ORAL SCH ×3 (09:00→17:52)
[2017-05-11] MEDS: Depakote ER 500mg tab ORAL SCH ×3 (09:00→21:00)
[2017-05-11] MEDS: Benztropine 1mg tab ORAL SCH ×3 (09:00→17:52)
[2017-05-11] MEDS: BusPIRone 5mg Tab ORAL SCH ×4 (09:00→17:52)
[2017-05-11] MEDS: Pantoprazole Inj IVP SCH (09:22)
[2017-05-11] MEDS: Heparin 5000 units/ml inj SUBQ SCH ×2 (09:24→21:01)
[2017-05-11 10:26] LABS: BASOPHILS % (AUTO) 0.4 % (0.0-2.0); EOSINOPHILS % (AUTO) 1.7 % (0.0-3.0); HEMOGLOBIN 10.7 G/DL (14.2-18.0); LYMPHOCYTES % (AUTO) 12.4 % (20.0-45.0); MEAN CORPUSCULAR VOLUME 86 FL (80-99); MONOCYTES % (AUTO) 6.1 % (1.0-10.0); NEUTROPHILS % (AUTO) 79.4 % (45.0-75.0); PLATELET COUNT 282 K/UL (150-450); RED BLOOD COUNT 4.06 M/UL (4.70-6.10); RED CELL DISTRIBUTION WIDTH 16.9 % (11.6-14.8); WHITE BLOOD COUNT 9.2 K/UL (4.8-10.8)
[2017-05-11 10:35] LABS: ANION GAP 9 mmol/L (5-15); BLOOD UREA NITROGEN 29 mg/dL (7-18); CALCIUM 8.5 MG/DL (8.5-10.1); CARBON DIOXIDE 24 MMOL/L (21-32); CHLORIDE 119 MMOL/L (98-107); CREATININE 1.1 MG/DL (0.55-1.30); POTASSIUM 3.8 MMOL/L (3.5-5.1); SODIUM 151 MMOL/L (136-145)
[2017-05-11 12:00] VITALS: BP 120/68
--- NOTE | 2017-05-11 12:25 | General Progress Note ---
Assessment/Plan Problem List: (1) Renal failure ICD Codes: N19 - Unspecified kidney failure SNOMED: 91169294 (2) UTI (urinary tract infection) ICD Codes: N39.0 - Urinary tract infection, site not specified SNOMED: 76701988 (3) Sepsis ICD Codes: A41.9 - Sepsis, unspecified organism SNOMED: 80876575 (4) Anemia ICD Codes: D64.9 - Anemia, unspecified SNOMED: 743783482 (5) Parkinson disease ICD Codes: G20 - Parkinson's disease SNOMED: 69180782 (6) Abdominal distention ICD Codes: R14.0 - Abdominal distension (gaseous) SNOMED: 52801473 Status: stable, progressing, tolerating diet Assessment/Plan ot pt diet abx dc if clear Subjective Constitutional: Reports: weakness Allergies: Coded Allergies: SULFA (SULFONAMIDE ANTIBIOTICS) (Verified Allergy, Severe, 04/23/12) TRIMETHADIONE (Verified Allergy, Severe, 04/23/12) PARAMETHADIONE (Unverified Allergy, Unknown, 05/07/17) Uncoded Allergies: SULFA (Allergy, Unknown, 05/07/17) All Systems: reviewed and negative except above Subjective sleepy calm in bed Objective Last 24 Hour Vital Signs Date Time Temp Pulse Resp B/P (MAP) Pulse Ox O2 Delivery O2 Flow Rate FiO2 05/11/17 12:00 97.7 82 20 120/68 96 05/11/17 08:00 97.6 88 20 124/77 97 05/11/17 04:00 96.4 90 20 126/81 99 Room Air 05/11/17 04:00 99 Room Air 05/11/17 00:00 97.2 96 20 133/92 92 05/11/17 00:00 95 Room Air 05/10/17 20:00 97.2 94 20 126/85 96 05/10/17 20:00 96 Room Air 05/10/17 19:08 Nasal Cannula 2.0 28 05/10/17 19:08 98 Nasal Cannula 99.0 28 05/10/17 16:00 97.6 98 18 136/91 97 Intake and Output 05/10/17 05/11/17 19:00 07:00 Intake Total 1000 ml 1125 ml Output Total 800 ml 1 ml Balance 200 ml 1124 ml IV Total 1000 ml 1125 ml Output Urine Total 800 ml 1 ml # Voids 1 # Bowel Movements 4 2 Laboratory Tests 05/11/17 10:05: White Blood Count 9.2, Red Blood Count 4.06L, Hemoglobin 10.7L, Hematocrit 35.0L , Mean Corpuscular Volume 86, Mean Corpuscular Hemoglobin 26.4L, Mean Corpuscular Hemoglobin Concent 30.6L, Red Cell Distribution Width 16.9H, Platelet Count 282, Mean Platelet Volume 6.7, Neutrophils (%) (Auto) 79.4H, Lymphocytes (%) (Auto) 12.4L, Monocytes (%) (Auto) 6.1, Eosinophils (%) (Auto) 1.7, Basophils (%) (Auto) 0.4, Sodium Level 151H, Potassium Level 3.8, Chloride Level 119H, Carbon Dioxide Level 24, Anion Gap 9, Blood Urea Nitrogen 29H, Creatinine 1.1, Estimat Glomerular Filtration Rate > 60, Glucose Level 91, Calcium Level 8.5 Height (Feet): 5 Height (Inches): 4.00 Weight (Pounds): 140 General Appearance: lethargic, confused EENT: normal ENT inspection Neck: normal alignment Cardiovascular: normal peripheral pulses, normal rate, regular rhythm Respiratory/Chest: chest wall non-tender, lungs clear, normal breath sounds Abdomen: normal bowel sounds, non tender, soft Extremities: normal inspection Edema: no edema noted Arm (L), no edema noted Arm (R), no edema noted Leg (L), no edema noted Leg (R), no edema noted Pedal (L), no edema noted Pedal (R), no edema noted Generalized Neurologic: motor weakness Skin: normal pigmentation, warm/dry NARCISA HUI May 11, 2017 12:25
--- NOTE | 2017-05-11 12:49 | General Surgery Progress Note ---
General Surgery-Progress Note Subjective Symptoms: improved Additional Comments still very distended but better today. enema's going okay. having bm's now. large disimpaction done at bedside today by myself. Objective Last 24 Hour Vital Signs Date Time Temp Pulse Resp B/P (MAP) Pulse Ox O2 Delivery O2 Flow Rate FiO2 05/11/17 12:00 97.7 82 20 120/68 96 05/11/17 08:00 97.6 88 20 124/77 97 05/11/17 04:00 96.4 90 20 126/81 99 Room Air 05/11/17 04:00 99 Room Air 05/11/17 00:00 97.2 96 20 133/92 92 05/11/17 00:00 95 Room Air 05/10/17 20:00 97.2 94 20 126/85 96 05/10/17 20:00 96 Room Air 05/10/17 19:08 Nasal Cannula 2.0 28 05/10/17 19:08 98 Nasal Cannula 99.0 28 05/10/17 16:00 97.6 98 18 136/91 97 I&O Intake and Output 05/10/17 05/11/17 19:00 07:00 Intake Total 1000 ml 1125 ml Output Total 800 ml 1 ml Balance 200 ml 1124 ml IV Total 1000 ml 1125 ml Output Urine Total 800 ml 1 ml # Voids 1 # Bowel Movements 4 2 Cardiovascular: RSR Respiratory: clear Abdomen: soft, scaphoid, distended Laboratory Tests Test 05/11/17 10:05 White Blood Count 9.2 K/UL (4.8-10.8) Red Blood Count 4.06 M/UL (4.70-6.10) L Hemoglobin 10.7 G/DL (14.2-18.0) L Hematocrit 35.0 % (42.0-52.0) L Mean Corpuscular Volume 86 FL (80-99) Mean Corpuscular Hemoglobin 26.4 PG (27.0-31.0) L Mean Corpuscular Hemoglobin Concent 30.6 G/DL (32.0-36.0) L Red Cell Distribution Width 16.9 % (11.6-14.8) H Platelet Count 282 K/UL (150-450) Mean Platelet Volume 6.7 FL (6.5-10.1) Neutrophils (%) (Auto) 79.4 % (45.0-75.0) H Lymphocytes (%) (Auto) 12.4 % (20.0-45.0) L Monocytes (%) (Auto) 6.1 % (1.0-10.0) Eosinophils (%) (Auto) 1.7 % (0.0-3.0) Basophils (%) (Auto) 0.4 % (0.0-2.0) Sodium Level 151 MMOL/L (136-145) H Potassium Level 3.8 MMOL/L (3.5-5.1) Chloride Level 119 MMOL/L (98-107) H Carbon Dioxide Level 24 MMOL/L (21-32) Anion Gap 9 mmol/L (5-15) Blood Urea Nitrogen 29 mg/dL (7-18) H Creatinine 1.1 MG/DL (0.55-1.30) Estimat Glomerular Filtration Rate > 60 mL/min (>60) Glucose Level 91 MG/DL (74-106) Calcium Level 8.5 MG/DL (8.5-10.1) Plan Problems: (1) Fecal impaction Assessment & Plan: 61M with severe fecal impaction leaving to a near complete large bowel obstruction. CT findings very prominent and concerning. High risk for perforation given CT findings and exam. will continue with daily disimpaction until cleared. hopefully can resolve without surgery. -will continue with daily fecal disimpaction -stool softeners and enemas -IV hydration -will follow with recs thank you for this consultation. Norbert Huggins May 11, 2017 12:49
--- NOTE | 2017-05-11 13:10 | Infectious Diseases Prog Note ---
Assessment/Plan Assessment/Plan A: 1. Leukocytosis,resolved 2. Fecal impaction. 3. Acute renal failure, improving 4. Hypokalemia. 5. Hypernatremia. 6. Paranoid schizophrenia. 7. Parkinson disease. 8. Hypothyroidism. 9. Anemia. P: observe off antibiotic Subjective ROS Limited/Unobtainable: Yes Gastrointestinal/Abdominal: Reports: other - NPO after removed NG tube Allergies: Coded Allergies: SULFA (SULFONAMIDE ANTIBIOTICS) (Verified Allergy, Severe, 04/23/12) TRIMETHADIONE (Verified Allergy, Severe, 04/23/12) PARAMETHADIONE (Unverified Allergy, Unknown, 05/07/17) Uncoded Allergies: SULFA (Allergy, Unknown, 05/07/17) Objective Vital Signs Last 24 Hour Vital Signs Date Time Temp Pulse Resp B/P (MAP) Pulse Ox O2 Delivery O2 Flow Rate FiO2 05/11/17 12:00 97.7 82 20 120/68 96 05/11/17 08:00 97.6 88 20 124/77 97 05/11/17 04:00 96.4 90 20 126/81 99 Room Air 05/11/17 04:00 99 Room Air 05/11/17 00:00 97.2 96 20 133/92 92 05/11/17 00:00 95 Room Air 05/10/17 20:00 97.2 94 20 126/85 96 05/10/17 20:00 96 Room Air 05/10/17 19:08 Nasal Cannula 2.0 28 05/10/17 19:08 98 Nasal Cannula 99.0 28 05/10/17 16:00 97.6 98 18 136/91 97 Height (Feet): 5 Height (Inches): 4.00 Weight (Pounds): 140 General Appearance: no acute distress HEENT: mucous membranes moist Respiratory/Chest: other - coarse sounds Cardiovascular: normal rate Abdomen: soft, non tender, distended Extremities: no edema Neurologic/Psychiatric: alert Microbiology Date/Time Source Procedure Growth Status 05/09/17 16:30 Urine,Clean Catch Urine Culture - Preliminary Mixed Gram Positive Organism Resulted Laboratory Tests Test 05/11/17 10:05 White Blood Count 9.2 K/UL (4.8-10.8) Red Blood Count 4.06 M/UL (4.70-6.10) L Hemoglobin 10.7 G/DL (14.2-18.0) L Hematocrit 35.0 % (42.0-52.0) L Mean Corpuscular Volume 86 FL (80-99) Mean Corpuscular Hemoglobin 26.4 PG (27.0-31.0) L Mean Corpuscular Hemoglobin Concent 30.6 G/DL (32.0-36.0) L Red Cell Distribution Width 16.9 % (11.6-14.8) H Platelet Count 282 K/UL (150-450) Mean Platelet Volume 6.7 FL (6.5-10.1) Neutrophils (%) (Auto) 79.4 % (45.0-75.0) H Lymphocytes (%) (Auto) 12.4 % (20.0-45.0) L Monocytes (%) (Auto) 6.1 % (1.0-10.0) Eosinophils (%) (Auto) 1.7 % (0.0-3.0) Basophils (%) (Auto) 0.4 % (0.0-2.0) Sodium Level 151 MMOL/L (136-145) H Potassium Level 3.8 MMOL/L (3.5-5.1) Chloride Level 119 MMOL/L (98-107) H Carbon Dioxide Level 24 MMOL/L (21-32) Anion Gap 9 mmol/L (5-15) Blood Urea Nitrogen 29 mg/dL (7-18) H Creatinine 1.1 MG/DL (0.55-1.30) Estimat Glomerular Filtration Rate > 60 mL/min (>60) Glucose Level 91 MG/DL (74-106) Calcium Level 8.5 MG/DL (8.5-10.1) Current Medications Medications (Trade) Dose Ordered Sig/Dank Route PRN Reason Start Time Stop Time Status Last Admin Dose Admin Acetaminophen (Tylenol) 650 mg Q4H PRN ORAL fever (temp >100.5 F) 05/07/17 16:30 06/06/17 16:29 Al Hydroxide/Mg Hydroxide (Mylanta II) 30 ml Q6H PRN ORAL dyspepsia 05/07/17 16:30 06/06/17 16:29 Benztropine Mesylate (Cogentin) 1 mg BID ORAL 05/07/17 18:45 06/06/17 18:44 05/10/17 18:45 Buspirone HCl (Buspar) 5 mg TID ORAL 05/07/17 18:50 06/06/17 18:49 05/10/17 18:45 Dextrose (Dextrose 50%) STAT PRN IV Hypoglycemia 05/07/17 16:30 06/06/17 16:29 Dextrose/ Electrolytes 1,000 ml @ 125 mls/hr Q8H IV 05/10/17 11:00 06/09/17 10:59 05/11/17 11:09 Diphenhydramine HCl (Benadryl) 25 mg Q6H PRN ORAL Itching/Pruritis 05/07/17 16:30 06/06/17 16:29 Divalproex Sodium (Depakote ER) 500 mg EVERY 12 HOURS ORAL 05/07/17 21:00 06/06/17 20:59 05/10/17 20:24 Docusate Sodium (Colace) 100 mg TIDPRN PRN ORAL Constipation 05/10/17 10:15 06/09/17 10:14 Heparin Sodium (Porcine) (Heparin 5000 units/ml) 5,000 units EVERY 12 HOURS SUBQ 05/07/17 21:00 06/06/17 20:59 05/11/17 09:24 Levothyroxine Sodium (Synthroid) 75 mcg DAILY ORAL 05/08/17 09:00 06/07/17 08:59 05/11/17 09:23 Lorazepam (Ativan) 1 mg Q6H PRN ORAL For Anxiety 05/08/17 16:15 05/15/17 16:14 Mineral Oil (Fleet's Mineral Oil Enema) 133 ml EVERY 8 HOURS RECTAL 05/10/17 15:00 05/13/17 14:59 05/11/17 05:31 Mineral Oil (Mineral Oil) 30 ml DAILYPRN PRN NG Constipation 05/10/17 10:15 06/09/17 10:14 Morphine Sulfate (Morphine Sulfate) 2 mg Q4H PRN IVP severe Pain (Pain Scale 7-10) 05/07/17 16:30 05/14/17 16:29 Nitroglycerin (Ntg) 0.4 mg Q5M X 3 DOSES PRN SL Prn Chest Pain 05/07/17 16:30 06/06/17 16:29 Ondansetron HCl (Zofran) 4 mg Q6H PRN IVP Nausea & Vomiting 05/07/17 16:30 06/06/17 16:29 Oxcarbazepine (Trileptal) 450 mg BID ORAL 05/07/17 19:30 06/06/17 19:29 05/10/17 18:45 Pantoprazole (Protonix) 40 mg DAILY IVP 05/08/17 09:00 06/07/17 08:59 05/11/17 09:22 Polyethylene Glycol (Miralax) 17 gm HSPRN PRN ORAL Constipation 05/07/17 16:30 06/06/17 16:29 Quetiapine Fumarate (SEROquel) 100 mg BID ORAL 05/07/17 18:45 06/06/17 18:44 05/10/17 18:45 Sodium Phosphate (Fleet's Sodium Phosl Enema) 133 ml EVERY 8 HOURS RECTAL 05/10/17 14:30 05/13/17 14:29 05/11/17 05:31 Temazepam (Restoril) 15 mg HSPRN PRN ORAL Insomnia 05/07/17 16:30 05/14/17 16:29 FLYNN PERAZA May 11, 2017 13:10
--- NOTE | 2017-05-11 13:39 | GI Progress Note ---
Assessment/Plan Problems: (1) Fecal impaction ICD Codes: K56.41 - Fecal impaction SNOMED: 35301814 (2) Parkinson disease ICD Codes: G20 - Parkinson's disease SNOMED: 17341997 (3) Anemia ICD Codes: D64.9 - Anemia, unspecified SNOMED: 296111379 (4) Dehydration ICD Codes: E86.0 - Dehydration SNOMED: 99334301 (5) Abdominal distention ICD Codes: R14.0 - Abdominal distension (gaseous) SNOMED: 89390991 (6) Severe malnutrition ICD Codes: E43 - Unspecified severe protein-calorie malnutrition SNOMED: 60631717 Status: progressing Status Narrative Discussed with Dr. Euceda. Assessment/Plan Assessment - Severe rectal stool impaction >> abdomen very less distended - Hypernatremia - Azotemia - Dehydration - patient pulled out NGT, ST to revaluate Recommendations needs fecal disimpaction and enema daily fu ST evaluation will place NGT bowel regime >> colace + miralax NPO + IVFs Sorbitol fu labs Subjective Subjective limited Objective Last 24 Hour Vital Signs Date Time Temp Pulse Resp B/P (MAP) Pulse Ox O2 Delivery O2 Flow Rate FiO2 05/11/17 12:00 97.7 82 20 120/68 96 05/11/17 08:00 97.6 88 20 124/77 97 05/11/17 04:00 96.4 90 20 126/81 99 Room Air 05/11/17 04:00 99 Room Air 05/11/17 00:00 97.2 96 20 133/92 92 05/11/17 00:00 95 Room Air 05/10/17 20:00 97.2 94 20 126/85 96 05/10/17 20:00 96 Room Air 05/10/17 19:08 Nasal Cannula 2.0 28 05/10/17 19:08 98 Nasal Cannula 99.0 28 05/10/17 16:00 97.6 98 18 136/91 97 Intake and Output 05/10/17 05/11/17 19:00 07:00 Intake Total 1000 ml 1125 ml Output Total 800 ml 1 ml Balance 200 ml 1124 ml IV Total 1000 ml 1125 ml Output Urine Total 800 ml 1 ml # Voids 1 # Bowel Movements 4 2 Laboratory Tests Test 05/11/17 10:05 White Blood Count 9.2 K/UL (4.8-10.8) Red Blood Count 4.06 M/UL (4.70-6.10) L Hemoglobin 10.7 G/DL (14.2-18.0) L Hematocrit 35.0 % (42.0-52.0) L Mean Corpuscular Volume 86 FL (80-99) Mean Corpuscular Hemoglobin 26.4 PG (27.0-31.0) L Mean Corpuscular Hemoglobin Concent 30.6 G/DL (32.0-36.0) L Red Cell Distribution Width 16.9 % (11.6-14.8) H Platelet Count 282 K/UL (150-450) Mean Platelet Volume 6.7 FL (6.5-10.1) Neutrophils (%) (Auto) 79.4 % (45.0-75.0) H Lymphocytes (%) (Auto) 12.4 % (20.0-45.0) L Monocytes (%) (Auto) 6.1 % (1.0-10.0) Eosinophils (%) (Auto) 1.7 % (0.0-3.0) Basophils (%) (Auto) 0.4 % (0.0-2.0) Sodium Level 151 MMOL/L (136-145) H Potassium Level 3.8 MMOL/L (3.5-5.1) Chloride Level 119 MMOL/L (98-107) H Carbon Dioxide Level 24 MMOL/L (21-32) Anion Gap 9 mmol/L (5-15) Blood Urea Nitrogen 29 mg/dL (7-18) H Creatinine 1.1 MG/DL (0.55-1.30) Estimat Glomerular Filtration Rate > 60 mL/min (>60) Glucose Level 91 MG/DL (74-106) Calcium Level 8.5 MG/DL (8.5-10.1) Height (Feet): 5 Height (Inches): 4.00 Weight (Pounds): 140 General Appearance: alert Cardiovascular: normal rate Respiratory/Chest: no respiratory distress Abdominal Exam: distended, other - more soft Gayle Aguillon N.PLatesha May 11, 2017 13:39
[2017-05-11 16:04] VITALS: BP 121/98
--- NOTE | 2017-05-11 16:40 | Pulmonology Progress Note ---
Assessment/Plan Problems: (1) Abdominal distention (2) Parkinson disease (3) Renal failure (4) UTI (urinary tract infection) Assessment/Plan wbc normal now more awake renal numbers have not changed awaiting bed site swallow study increase IV fluids Na is still high Subjective ROS Limited/Unobtainable: No Constitutional: Reports: no symptoms HEENT: Repors: no symptoms Allergies: Coded Allergies: SULFA (SULFONAMIDE ANTIBIOTICS) (Verified Allergy, Severe, 04/23/12) TRIMETHADIONE (Verified Allergy, Severe, 04/23/12) PARAMETHADIONE (Unverified Allergy, Unknown, 05/07/17) Uncoded Allergies: SULFA (Allergy, Unknown, 05/07/17) Objective Last 24 Hour Vital Signs Date Time Temp Pulse Resp B/P (MAP) Pulse Ox O2 Delivery O2 Flow Rate FiO2 05/11/17 16:04 98.6 90 20 121/98 97 Nasal Cannula 05/11/17 12:00 97.7 82 20 120/68 96 05/11/17 08:00 97.6 88 20 124/77 97 05/11/17 04:00 96.4 90 20 126/81 99 Room Air 05/11/17 04:00 99 Room Air 05/11/17 00:00 97.2 96 20 133/92 92 05/11/17 00:00 95 Room Air 05/10/17 20:00 97.2 94 20 126/85 96 05/10/17 20:00 96 Room Air 05/10/17 19:08 Nasal Cannula 2.0 28 05/10/17 19:08 98 Nasal Cannula 99.0 28 Intake and Output 05/10/17 05/11/17 19:00 07:00 Intake Total 1000 ml 1125 ml Output Total 800 ml 1 ml Balance 200 ml 1124 ml IV Total 1000 ml 1125 ml Output Urine Total 800 ml 1 ml # Voids 1 # Bowel Movements 4 2 Objective General Appearance: cachetic Lines, tubes and drains: peripheral HEENT: normocephalic, atraumatic Neck: non-tender, normal alignment Respiratory/Chest: chest wall non-tender, lungs clear Cardiovascular/Chest: normal peripheral pulses, normal rate Abdomen: normal bowel sounds, non tender Genitourinary/Rectal: normal genital exam, normal rectal exam Skin Exam: normal pigmentation Microbiology Date/Time Source Procedure Growth Status 05/09/17 16:30 Urine,Clean Catch Urine Culture - Preliminary Mixed Gram Positive Organism Resulted Laboratory Tests 05/11/17 10:05: White Blood Count 9.2, Red Blood Count 4.06L, Hemoglobin 10.7L, Hematocrit 35.0L , Mean Corpuscular Volume 86, Mean Corpuscular Hemoglobin 26.4L, Mean Corpuscular Hemoglobin Concent 30.6L, Red Cell Distribution Width 16.9H, Platelet Count 282, Mean Platelet Volume 6.7, Neutrophils (%) (Auto) 79.4H, Lymphocytes (%) (Auto) 12.4L, Monocytes (%) (Auto) 6.1, Eosinophils (%) (Auto) 1.7, Basophils (%) (Auto) 0.4, Sodium Level 151H, Potassium Level 3.8, Chloride Level 119H, Carbon Dioxide Level 24, Anion Gap 9, Blood Urea Nitrogen 29H, Creatinine 1.1, Estimat Glomerular Filtration Rate > 60, Glucose Level 91, Calcium Level 8.5 Current Medications Medications (Trade) Dose Ordered Sig/Dank Route PRN Reason Start Time Stop Time Status Last Admin Dose Admin Acetaminophen (Tylenol) 650 mg Q4H PRN ORAL fever (temp >100.5 F) 05/07/17 16:30 06/06/17 16:29 Al Hydroxide/Mg Hydroxide (Mylanta II) 30 ml Q6H PRN ORAL dyspepsia 05/07/17 16:30 06/06/17 16:29 Benztropine Mesylate (Cogentin) 1 mg BID ORAL 05/07/17 18:45 06/06/17 18:44 05/10/17 18:45 Buspirone HCl (Buspar) 5 mg TID ORAL 05/07/17 18:50 06/06/17 18:49 05/10/17 18:45 Dextrose (Dextrose 50%) STAT PRN IV Hypoglycemia 05/07/17 16:30 06/06/17 16:29 Dextrose/ Electrolytes 1,000 ml @ 125 mls/hr Q8H IV 05/10/17 11:00 06/09/17 10:59 05/11/17 11:09 Diphenhydramine HCl (Benadryl) 25 mg Q6H PRN ORAL Itching/Pruritis 05/07/17 16:30 06/06/17 16:29 Divalproex Sodium (Depakote ER) 500 mg EVERY 12 HOURS ORAL 05/07/17 21:00 06/06/17 20:59 05/10/17 20:24 Docusate Sodium (Colace) 100 mg TIDPRN PRN ORAL Constipation 05/10/17 10:15 06/09/17 10:14 Heparin Sodium (Porcine) (Heparin 5000 units/ml) 5,000 units EVERY 12 HOURS SUBQ 05/07/17 21:00 06/06/17 20:59 05/11/17 09:24 Levothyroxine Sodium (Synthroid) 75 mcg DAILY ORAL 05/08/17 09:00 06/07/17 08:59 05/11/17 09:23 Lorazepam (Ativan) 1 mg Q6H PRN ORAL For Anxiety 05/08/17 16:15 05/15/17 16:14 Mineral Oil (Fleet's Mineral Oil Enema) 133 ml EVERY 8 HOURS RECTAL 05/10/17 15:00 05/13/17 14:59 05/11/17 15:00 Mineral Oil (Mineral Oil) 30 ml DAILYPRN PRN NG Constipation 05/10/17 10:15 06/09/17 10:14 Morphine Sulfate (Morphine Sulfate) 2 mg Q4H PRN IVP severe Pain (Pain Scale 7-10) 05/07/17 16:30 05/14/17 16:29 Nitroglycerin (Ntg) 0.4 mg Q5M X 3 DOSES PRN SL Prn Chest Pain 05/07/17 16:30 06/06/17 16:29 Ondansetron HCl (Zofran) 4 mg Q6H PRN IVP Nausea & Vomiting 05/07/17 16:30 06/06/17 16:29 Oxcarbazepine (Trileptal) 450 mg BID ORAL 05/07/17 19:30 06/06/17 19:29 05/10/17 18:45 Pantoprazole (Protonix) 40 mg DAILY IVP 05/08/17 09:00 06/07/17 08:59 05/11/17 09:22 Polyethylene Glycol (Miralax) 17 gm HSPRN PRN ORAL Constipation 05/07/17 16:30 06/06/17 16:29 Quetiapine Fumarate (SEROquel) 100 mg BID ORAL 05/07/17 18:45 06/06/17 18:44 05/10/17 18:45 Sodium Phosphate (Fleet's Sodium Phosl Enema) 133 ml EVERY 8 HOURS RECTAL 05/10/17 14:30 05/13/17 14:29 05/11/17 16:13 Temazepam (Restoril) 15 mg HSPRN PRN ORAL Insomnia 05/07/17 16:30 05/14/17 16:29 TYRONE FARMER May 11, 2017 16:40
[2017-05-11 20:00] VITALS: BP 119/83
[2017-05-12] VITALS: BP 117/97
[2017-05-12] MEDS: D5 1/4NS w/KCl 20mEq 1,000 ML IV SCH ×4 (02:44→20:32)
[2017-05-12 04:00] VITALS: BP 135/97
[2017-05-12] MEDS: Fleet's Mineral Oil Enema RECTAL SCH ×3 (05:55→20:30)
[2017-05-12] MEDS: Fleet's Enema 133ml RECTAL SCH ×3 (05:55→20:30)
[2017-05-12 07:19] LABS: BASOPHILS % (AUTO) 0.3 % (0.0-2.0); EOSINOPHILS % (AUTO) 2.5 % (0.0-3.0); HEMATOCRIT 33.4 % (42.0-52.0); HEMOGLOBIN 10.3 G/DL (14.2-18.0); LYMPHOCYTES % (AUTO) 18.8 % (20.0-45.0); MEAN CORPUSCULAR VOLUME 86 FL (80-99); MONOCYTES % (AUTO) 6.9 % (1.0-10.0); NEUTROPHILS % (AUTO) 71.4 % (45.0-75.0); PLATELET COUNT 272 K/UL (150-450); RED BLOOD COUNT 3.88 M/UL (4.70-6.10); RED CELL DISTRIBUTION WIDTH 17.3 % (11.6-14.8); WHITE BLOOD COUNT 8.1 K/UL (4.8-10.8)
[2017-05-12 07:41] LABS: ANION GAP 10 mmol/L (5-15); BLOOD UREA NITROGEN 25 mg/dL (7-18); CALCIUM 8.1 MG/DL (8.5-10.1); CARBON DIOXIDE 22 MMOL/L (21-32); CHLORIDE 119 MMOL/L (98-107); CREATININE 1.1 MG/DL (0.55-1.30); POTASSIUM 3.3 MMOL/L (3.5-5.1); SODIUM 151 MMOL/L (136-145)
[2017-05-12 08:32] VITALS: BP 142/97
--- NOTE | 2017-05-12 09:17 | General Surgery Progress Note ---
General Surgery-Progress Note Subjective Additional Comments no acute events. lots of BM's. Objective Last 24 Hour Vital Signs Date Time Temp Pulse Resp B/P (MAP) Pulse Ox O2 Delivery O2 Flow Rate FiO2 05/12/17 08:32 97.4 95 21 142/97 95 05/12/17 04:00 97.3 90 19 135/97 94 05/12/17 00:00 96 Room Air 05/12/17 00:00 97.4 80 20 117/97 96 05/11/17 20:00 97.7 98 19 119/83 96 05/11/17 20:00 96 Room Air 05/11/17 16:04 98.6 90 20 121/98 97 Nasal Cannula 05/11/17 12:00 97.7 82 20 120/68 96 I&O Intake and Output 05/11/17 05/12/17 19:00 07:00 Intake Total 1855 ml 1500 ml Output Total 800 ml Balance 1055 ml 1500 ml Intake Oral 480 ml IV Total 1375 ml 1500 ml Output Urine Total 800 ml # Voids 4 # Bowel Movements 5 7 Cardiovascular: RSR Respiratory: clear Abdomen: soft, distended, non-tender Extremities: no tenderness, no cyanosis Laboratory Tests Test 05/11/17 10:05 05/12/17 04:30 White Blood Count 9.2 K/UL (4.8-10.8) 8.1 K/UL (4.8-10.8) Red Blood Count 4.06 M/UL (4.70-6.10) L 3.88 M/UL (4.70-6.10) L Hemoglobin 10.7 G/DL (14.2-18.0) L 10.3 G/DL (14.2-18.0) L Hematocrit 35.0 % (42.0-52.0) L 33.4 % (42.0-52.0) L Mean Corpuscular Volume 86 FL (80-99) 86 FL (80-99) Mean Corpuscular Hemoglobin 26.4 PG (27.0-31.0) L 26.6 PG (27.0-31.0) L Mean Corpuscular Hemoglobin Concent 30.6 G/DL (32.0-36.0) L 30.9 G/DL (32.0-36.0) L Red Cell Distribution Width 16.9 % (11.6-14.8) H 17.3 % (11.6-14.8) H Platelet Count 282 K/UL (150-450) 272 K/UL (150-450) Mean Platelet Volume 6.7 FL (6.5-10.1) 7.5 FL (6.5-10.1) Neutrophils (%) (Auto) 79.4 % (45.0-75.0) H 71.4 % (45.0-75.0) Lymphocytes (%) (Auto) 12.4 % (20.0-45.0) L 18.8 % (20.0-45.0) L Monocytes (%) (Auto) 6.1 % (1.0-10.0) 6.9 % (1.0-10.0) Eosinophils (%) (Auto) 1.7 % (0.0-3.0) 2.5 % (0.0-3.0) Basophils (%) (Auto) 0.4 % (0.0-2.0) 0.3 % (0.0-2.0) Sodium Level 151 MMOL/L (136-145) H 151 MMOL/L (136-145) H Potassium Level 3.8 MMOL/L (3.5-5.1) 3.3 MMOL/L (3.5-5.1) L Chloride Level 119 MMOL/L (98-107) H 119 MMOL/L (98-107) H Carbon Dioxide Level 24 MMOL/L (21-32) 22 MMOL/L (21-32) Anion Gap 9 mmol/L (5-15) 10 mmol/L (5-15) Blood Urea Nitrogen 29 mg/dL (7-18) H 25 mg/dL (7-18) H Creatinine 1.1 MG/DL (0.55-1.30) 1.1 MG/DL (0.55-1.30) Estimat Glomerular Filtration Rate > 60 mL/min (>60) > 60 mL/min (>60) Glucose Level 91 MG/DL (74-106) 83 MG/DL (74-106) Calcium Level 8.5 MG/DL (8.5-10.1) 8.1 MG/DL (8.5-10.1) L Plan Problems: (1) Fecal impaction Assessment & Plan: 61M with severe fecal impaction leaving to a near complete large bowel obstruction. CT findings very prominent and concerning. High risk for perforation given CT findings and exam. good amount of impacted stool removed yesterday with bedside disimpaction. will continue with daily disimpaction until cleared. hopefully can resolve without surgery. -KUB today -will continue with daily fecal disimpaction as needed -stool softeners and enemas -IV hydration -will follow with recs thank you for this consultation. Norbert Huggins May 12, 2017 09:16
[2017-05-12] MEDS: BusPIRone 5mg Tab ORAL SCH ×3 (09:28→18:23)
[2017-05-12] MEDS: Depakote ER 500mg tab ORAL SCH ×2 (09:28→20:30)
[2017-05-12] MEDS: Pantoprazole Inj IVP SCH (09:28)
[2017-05-12] MEDS: Benztropine 1mg tab ORAL SCH ×2 (09:28→18:23)
[2017-05-12] MEDS: Heparin 5000 units/ml inj SUBQ SCH ×2 (09:29→20:31)
[2017-05-12] MEDS: OXcarbazepine 150mg tab ORAL SCH ×2 (10:28→18:24)
--- NOTE | 2017-05-12 10:44 | GI Progress Note ---
Assessment/Plan Problems: (1) Fecal impaction ICD Codes: K56.41 - Fecal impaction SNOMED: 19449580 (2) Parkinson disease ICD Codes: G20 - Parkinson's disease SNOMED: 43504669 (3) Anemia ICD Codes: D64.9 - Anemia, unspecified SNOMED: 134234154 (4) Dehydration ICD Codes: E86.0 - Dehydration SNOMED: 02457588 (5) Abdominal distention ICD Codes: R14.0 - Abdominal distension (gaseous) SNOMED: 64973578 (6) Severe malnutrition ICD Codes: E43 - Unspecified severe protein-calorie malnutrition SNOMED: 89600895 Status: progressing Status Narrative Discussed with Dr. Euceda. Assessment/Plan Assessment - Severe rectal stool impaction >> abdomen very less distended - Hypernatremia - Azotemia - Dehydration - patient pulled out NGT, ST to revaluate Recommendations needs fecal disimpaction and enema daily fu ST evaluation >> video swallow study today bowel regime >> colace + miralax NPO + IVFs Sorbitol fu labs KUB today The patient was seen and examined at bedside and all new and available data was reviewed in the patients chart. I agree with the above findings, impression and plan. (Patient seen earlier today. Signature stamp does not reflect patient encounter time.). - Sharon Euceda MD update, pt failed swallow evaluation will schedule for PEG tomorrow. - diet per ST, NPO @ [place]. Subjective Subjective limited Objective Last 24 Hour Vital Signs Date Time Temp Pulse Resp B/P (MAP) Pulse Ox O2 Delivery O2 Flow Rate FiO2 05/12/17 08:32 97.4 95 21 142/97 95 05/12/17 04:00 97.3 90 19 135/97 94 05/12/17 00:00 96 Room Air 05/12/17 00:00 97.4 80 20 117/97 96 05/11/17 20:00 97.7 98 19 119/83 96 05/11/17 20:00 96 Room Air 05/11/17 16:04 98.6 90 20 121/98 97 Nasal Cannula 05/11/17 12:00 97.7 82 20 120/68 96 Intake and Output 05/11/17 05/12/17 19:00 07:00 Intake Total 1855 ml 1500 ml Output Total 800 ml Balance 1055 ml 1500 ml Intake Oral 480 ml IV Total 1375 ml 1500 ml Output Urine Total 800 ml # Voids 4 # Bowel Movements 5 7 Laboratory Tests Test 05/12/17 04:30 White Blood Count 8.1 K/UL (4.8-10.8) Red Blood Count 3.88 M/UL (4.70-6.10) L Hemoglobin 10.3 G/DL (14.2-18.0) L Hematocrit 33.4 % (42.0-52.0) L Mean Corpuscular Volume 86 FL (80-99) Mean Corpuscular Hemoglobin 26.6 PG (27.0-31.0) L Mean Corpuscular Hemoglobin Concent 30.9 G/DL (32.0-36.0) L Red Cell Distribution Width 17.3 % (11.6-14.8) H Platelet Count 272 K/UL (150-450) Mean Platelet Volume 7.5 FL (6.5-10.1) Neutrophils (%) (Auto) 71.4 % (45.0-75.0) Lymphocytes (%) (Auto) 18.8 % (20.0-45.0) L Monocytes (%) (Auto) 6.9 % (1.0-10.0) Eosinophils (%) (Auto) 2.5 % (0.0-3.0) Basophils (%) (Auto) 0.3 % (0.0-2.0) Sodium Level 151 MMOL/L (136-145) H Potassium Level 3.3 MMOL/L (3.5-5.1) L Chloride Level 119 MMOL/L (98-107) H Carbon Dioxide Level 22 MMOL/L (21-32) Anion Gap 10 mmol/L (5-15) Blood Urea Nitrogen 25 mg/dL (7-18) H Creatinine 1.1 MG/DL (0.55-1.30) Estimat Glomerular Filtration Rate > 60 mL/min (>60) Glucose Level 83 MG/DL (74-106) Calcium Level 8.1 MG/DL (8.5-10.1) L Height (Feet): 5 Height (Inches): 4.00 Weight (Pounds): 140 General Appearance: WD/WN, no apparent distress, alert, other - AMS Cardiovascular: normal rate Respiratory/Chest: normal breath sounds, no respiratory distress Abdominal Exam: normal bowel sounds, non tender, soft, distended - much softer Extremities: non-tender Gayle Aguillon N.P. May 12, 2017 10:44 AUDIE EUCEDA May 13, 2017 11:51
--- NOTE | 2017-05-12 11:47 | Diagnostic Imaging Report ---
Indication: Abdominal pain and constipation Technique: Supine view of the abdomen Comparison: 05/10/2017 Findings: Previously demonstrated nasogastric tube is no longer evident. The colon remains diffusely gas filled although somewhat less distended than on the prior study. Small bowel loops are also diffusely gas-filled. Considerable stool is again demonstrated in the colon both proximally and distally. And anastomotic staple line is seen in the left upper pelvis. This is not included on the previous imaging volume but is described on recent CT Impression: Decreased gaseous distention of the colon, over 2 days. Nonetheless, considerable colon gas remains Evidence of persistent considerable retained fecal material Interim nasogastric tube removal Evidence of prior bowel surgery
[2017-05-12 12:02] VITALS: BP 125/82
--- NOTE | 2017-05-12 12:02 | Infectious Diseases Prog Note ---
Assessment/Plan Assessment/Plan A: 1. Leukocytosis,resolved 2. Fecal impaction. 3. Acute renal failure, improving 4. Hypokalemia. 5. Hypernatremia. 6. Paranoid schizophrenia. 7. Parkinson disease. 8. Hypothyroidism. 9. Anemia. P: observe off antibiotic Subjective ROS Limited/Unobtainable: Yes Allergies: Coded Allergies: SULFA (SULFONAMIDE ANTIBIOTICS) (Verified Allergy, Severe, 04/23/12) TRIMETHADIONE (Verified Allergy, Severe, 04/23/12) PARAMETHADIONE (Unverified Allergy, Unknown, 05/07/17) Uncoded Allergies: SULFA (Allergy, Unknown, 05/07/17) Objective Vital Signs Last 24 Hour Vital Signs Date Time Temp Pulse Resp B/P (MAP) Pulse Ox O2 Delivery O2 Flow Rate FiO2 05/12/17 08:32 97.4 95 21 142/97 95 05/12/17 04:00 97.3 90 19 135/97 94 05/12/17 00:00 96 Room Air 05/12/17 00:00 97.4 80 20 117/97 96 05/11/17 20:00 97.7 98 19 119/83 96 05/11/17 20:00 96 Room Air 05/11/17 16:04 98.6 90 20 121/98 97 Nasal Cannula Height (Feet): 5 Height (Inches): 4.00 Weight (Pounds): 140 General Appearance: no acute distress HEENT: mucous membranes moist Respiratory/Chest: rhonchi - bilaterally Cardiovascular: normal rate Abdomen: soft, non tender Extremities: no edema Neurologic/Psychiatric: alert, responsive Microbiology Date/Time Source Procedure Growth Status 05/09/17 16:30 Urine,Clean Catch Urine Culture - Final Mixed Gram Positive Organism Complete Laboratory Tests Test 05/12/17 04:30 White Blood Count 8.1 K/UL (4.8-10.8) Red Blood Count 3.88 M/UL (4.70-6.10) L Hemoglobin 10.3 G/DL (14.2-18.0) L Hematocrit 33.4 % (42.0-52.0) L Mean Corpuscular Volume 86 FL (80-99) Mean Corpuscular Hemoglobin 26.6 PG (27.0-31.0) L Mean Corpuscular Hemoglobin Concent 30.9 G/DL (32.0-36.0) L Red Cell Distribution Width 17.3 % (11.6-14.8) H Platelet Count 272 K/UL (150-450) Mean Platelet Volume 7.5 FL (6.5-10.1) Neutrophils (%) (Auto) 71.4 % (45.0-75.0) Lymphocytes (%) (Auto) 18.8 % (20.0-45.0) L Monocytes (%) (Auto) 6.9 % (1.0-10.0) Eosinophils (%) (Auto) 2.5 % (0.0-3.0) Basophils (%) (Auto) 0.3 % (0.0-2.0) Sodium Level 151 MMOL/L (136-145) H Potassium Level 3.3 MMOL/L (3.5-5.1) L Chloride Level 119 MMOL/L (98-107) H Carbon Dioxide Level 22 MMOL/L (21-32) Anion Gap 10 mmol/L (5-15) Blood Urea Nitrogen 25 mg/dL (7-18) H Creatinine 1.1 MG/DL (0.55-1.30) Estimat Glomerular Filtration Rate > 60 mL/min (>60) Glucose Level 83 MG/DL (74-106) Calcium Level 8.1 MG/DL (8.5-10.1) L Current Medications Medications (Trade) Dose Ordered Sig/Dank Route PRN Reason Start Time Stop Time Status Last Admin Dose Admin Acetaminophen (Tylenol) 650 mg Q4H PRN ORAL fever (temp >100.5 F) 05/07/17 16:30 06/06/17 16:29 Al Hydroxide/Mg Hydroxide (Mylanta II) 30 ml Q6H PRN ORAL dyspepsia 05/07/17 16:30 06/06/17 16:29 Benztropine Mesylate (Cogentin) 1 mg BID ORAL 05/07/17 18:45 06/06/17 18:44 05/12/17 09:28 Buspirone HCl (Buspar) 5 mg TID ORAL 05/07/17 18:50 06/06/17 18:49 05/12/17 09:28 Dextrose (Dextrose 50%) STAT PRN IV Hypoglycemia 05/07/17 16:30 06/06/17 16:29 Dextrose/ Electrolytes 1,000 ml @ 125 mls/hr Q8H IV 05/10/17 11:00 06/09/17 10:59 05/12/17 02:44 Diphenhydramine HCl (Benadryl) 25 mg Q6H PRN ORAL Itching/Pruritis 05/07/17 16:30 06/06/17 16:29 Divalproex Sodium (Depakote ER) 500 mg EVERY 12 HOURS ORAL 05/07/17 21:00 06/06/17 20:59 05/12/17 09:28 Docusate Sodium (Colace) 100 mg TIDPRN PRN ORAL Constipation 05/10/17 10:15 06/09/17 10:14 Heparin Sodium (Porcine) (Heparin 5000 units/ml) 5,000 units EVERY 12 HOURS SUBQ 05/07/17 21:00 06/06/17 20:59 05/12/17 09:29 Levothyroxine Sodium (Synthroid) 75 mcg DAILY ORAL 05/08/17 09:00 06/07/17 08:59 05/12/17 09:28 Lorazepam (Ativan) 1 mg Q6H PRN ORAL For Anxiety 05/08/17 16:15 05/15/17 16:14 Mineral Oil (Fleet's Mineral Oil Enema) 133 ml EVERY 8 HOURS RECTAL 05/10/17 15:00 05/13/17 14:59 05/12/17 05:55 Mineral Oil (Mineral Oil) 30 ml DAILYPRN PRN NG Constipation 05/10/17 10:15 06/09/17 10:14 Morphine Sulfate (Morphine Sulfate) 2 mg Q4H PRN IVP severe Pain (Pain Scale 7-10) 05/07/17 16:30 05/14/17 16:29 Nitroglycerin (Ntg) 0.4 mg Q5M X 3 DOSES PRN SL Prn Chest Pain 05/07/17 16:30 06/06/17 16:29 Ondansetron HCl (Zofran) 4 mg Q6H PRN IVP Nausea & Vomiting 05/07/17 16:30 06/06/17 16:29 Oxcarbazepine (Trileptal) 450 mg BID ORAL 05/07/17 19:30 06/06/17 19:29 1/31/18 10:28 Pantoprazole (Protonix) 40 mg DAILY IVP 05/08/17 09:00 06/07/17 08:59 05/12/17 09:28 Polyethylene Glycol (Miralax) 17 gm HSPRN PRN ORAL Constipation 05/07/17 16:30 06/06/17 16:29 Quetiapine Fumarate (SEROquel) 100 mg BID ORAL 05/07/17 18:45 06/06/17 18:44 05/12/17 09:28 Sodium Phosphate (Fleet's Sodium Phosl Enema) 133 ml EVERY 8 HOURS RECTAL 05/10/17 14:30 05/13/17 14:29 05/12/17 05:55 Temazepam (Restoril) 15 mg HSPRN PRN ORAL Insomnia 05/07/17 16:30 05/14/17 16:29 FLYNN PERAZA May 12, 2017 12:02
[2017-05-12] MEDS ORDERED: Dronabinol 2.5mg Cap ORAL SCH (13:00)
--- NOTE | 2017-05-12 13:31 | General Progress Note ---
Assessment/Plan Problem List: (1) Renal failure ICD Codes: N19 - Unspecified kidney failure SNOMED: 23867923 (2) UTI (urinary tract infection) ICD Codes: N39.0 - Urinary tract infection, site not specified SNOMED: 85514267 (3) Sepsis ICD Codes: A41.9 - Sepsis, unspecified organism SNOMED: 70745160 (4) Anemia ICD Codes: D64.9 - Anemia, unspecified SNOMED: 600081102 (5) Parkinson disease ICD Codes: G20 - Parkinson's disease SNOMED: 22614638 (6) Abdominal distention ICD Codes: R14.0 - Abdominal distension (gaseous) SNOMED: 18917305 Status: unchanged Assessment/Plan ot pt diet abx cbc bmp am pending peg Subjective Constitutional: Reports: weakness Allergies: Coded Allergies: SULFA (SULFONAMIDE ANTIBIOTICS) (Verified Allergy, Severe, 04/23/12) TRIMETHADIONE (Verified Allergy, Severe, 04/23/12) PARAMETHADIONE (Unverified Allergy, Unknown, 05/07/17) Uncoded Allergies: SULFA (Allergy, Unknown, 05/07/17) All Systems: reviewed and negative except above Subjective sleepy calm in bed Objective Last 24 Hour Vital Signs Date Time Temp Pulse Resp B/P (MAP) Pulse Ox O2 Delivery O2 Flow Rate FiO2 05/12/17 12:02 97.6 60 20 125/82 94 05/12/17 08:32 97.4 95 21 142/97 95 05/12/17 04:00 97.3 90 19 135/97 94 05/12/17 00:00 96 Room Air 05/12/17 00:00 97.4 80 20 117/97 96 05/11/17 20:00 97.7 98 19 119/83 96 05/11/17 20:00 96 Room Air 05/11/17 16:04 98.6 90 20 121/98 97 Nasal Cannula Intake and Output 05/11/17 05/12/17 19:00 07:00 Intake Total 1855 ml 1500 ml Output Total 800 ml Balance 1055 ml 1500 ml Intake Oral 480 ml IV Total 1375 ml 1500 ml Output Urine Total 800 ml # Voids 4 # Bowel Movements 5 7 Laboratory Tests 05/12/17 04:30: White Blood Count 8.1, Red Blood Count 3.88L, Hemoglobin 10.3L, Hematocrit 33.4L , Mean Corpuscular Volume 86, Mean Corpuscular Hemoglobin 26.6L, Mean Corpuscular Hemoglobin Concent 30.9L, Red Cell Distribution Width 17.3H, Platelet Count 272, Mean Platelet Volume 7.5, Neutrophils (%) (Auto) 71.4, Lymphocytes (%) (Auto) 18.8L, Monocytes (%) (Auto) 6.9, Eosinophils (%) (Auto) 2.5, Basophils (%) (Auto) 0.3, Sodium Level 151H, Potassium Level 3.3L, Chloride Level 119H, Carbon Dioxide Level 22, Anion Gap 10, Blood Urea Nitrogen 25H, Creatinine 1.1, Estimat Glomerular Filtration Rate > 60, Glucose Level 83, Calcium Level 8.1L Height (Feet): 5 Height (Inches): 4.00 Weight (Pounds): 140 General Appearance: lethargic, confused EENT: normal ENT inspection Neck: normal alignment Cardiovascular: normal peripheral pulses, normal rate, regular rhythm Respiratory/Chest: chest wall non-tender, lungs clear, normal breath sounds Abdomen: normal bowel sounds, non tender, soft Extremities: normal inspection Edema: no edema noted Arm (L), no edema noted Arm (R), no edema noted Leg (L), no edema noted Leg (R), no edema noted Pedal (L), no edema noted Pedal (R), no edema noted Generalized Neurologic: motor weakness Skin: normal pigmentation, warm/dry NARCISA HUI May 12, 2017 13:31
--- NOTE | 2017-05-12 13:55 | Diagnostic Imaging Report ---
Indications: Dysphagia Technique: Patient ingested multiple substances under the supervision of speech pathology. Video fluoroscopic recording performed. Total fluoroscopy time 307 seconds. Total dose area product 0.49900 mGycm2 Comparison: none Findings: There is significant delay in initiation of deglutition. Early pooling in the vallecula and piriform sinuses noted. No definite aspiration or penetration demonstrated. Some nasopharyngeal reflux is noted. Impression: Negative for aspiration or penetration Oromotor dysfunction as described Please refer to speech pathology report for more detailed analysis
[2017-05-12 16:20] VITALS: BP 124/88
--- NOTE | 2017-05-12 17:15 | Pulmonology Progress Note ---
Assessment/Plan Problems: (1) Abdominal distention (2) Parkinson disease (3) Renal failure (4) UTI (urinary tract infection) Assessment/Plan eating better looks more alert. wbc normal now more awake renal numbers have not changed Na is still high Subjective ROS Limited/Unobtainable: No Constitutional: Reports: no symptoms HEENT: Repors: no symptoms Allergies: Coded Allergies: SULFA (SULFONAMIDE ANTIBIOTICS) (Verified Allergy, Severe, 04/23/12) TRIMETHADIONE (Verified Allergy, Severe, 04/23/12) PARAMETHADIONE (Unverified Allergy, Unknown, 05/07/17) Uncoded Allergies: SULFA (Allergy, Unknown, 05/07/17) Objective Last 24 Hour Vital Signs Date Time Temp Pulse Resp B/P (MAP) Pulse Ox O2 Delivery O2 Flow Rate FiO2 05/12/17 16:20 98.2 98 20 124/88 95 05/12/17 12:02 97.6 60 20 125/82 94 05/12/17 08:32 97.4 95 21 142/97 95 05/12/17 04:00 97.3 90 19 135/97 94 05/12/17 00:00 96 Room Air 05/12/17 00:00 97.4 80 20 117/97 96 05/11/17 20:00 97.7 98 19 119/83 96 05/11/17 20:00 96 Room Air Intake and Output 05/11/17 05/12/17 19:00 07:00 Intake Total 1855 ml 1500 ml Output Total 800 ml Balance 1055 ml 1500 ml Intake Oral 480 ml IV Total 1375 ml 1500 ml Output Urine Total 800 ml # Voids 4 # Bowel Movements 5 7 Objective General Appearance: cachetic Lines, tubes and drains: peripheral HEENT: normocephalic, atraumatic Neck: non-tender, normal alignment Respiratory/Chest: chest wall non-tender, lungs clear Cardiovascular/Chest: normal peripheral pulses, normal rate Abdomen: normal bowel sounds, non tender Genitourinary/Rectal: normal genital exam, normal rectal exam Skin Exam: normal pigmentation Laboratory Tests 05/12/17 04:30: White Blood Count 8.1, Red Blood Count 3.88L, Hemoglobin 10.3L, Hematocrit 33.4L , Mean Corpuscular Volume 86, Mean Corpuscular Hemoglobin 26.6L, Mean Corpuscular Hemoglobin Concent 30.9L, Red Cell Distribution Width 17.3H, Platelet Count 272, Mean Platelet Volume 7.5, Neutrophils (%) (Auto) 71.4, Lymphocytes (%) (Auto) 18.8L, Monocytes (%) (Auto) 6.9, Eosinophils (%) (Auto) 2.5, Basophils (%) (Auto) 0.3, Sodium Level 151H, Potassium Level 3.3L, Chloride Level 119H, Carbon Dioxide Level 22, Anion Gap 10, Blood Urea Nitrogen 25H, Creatinine 1.1, Estimat Glomerular Filtration Rate > 60, Glucose Level 83, Calcium Level 8.1L Current Medications Medications (Trade) Dose Ordered Sig/Dank Route PRN Reason Start Time Stop Time Status Last Admin Dose Admin Acetaminophen (Tylenol) 650 mg Q4H PRN ORAL fever (temp >100.5 F) 05/07/17 16:30 06/06/17 16:29 05/12/17 16:18 Al Hydroxide/Mg Hydroxide (Mylanta II) 30 ml Q6H PRN ORAL dyspepsia 05/07/17 16:30 06/06/17 16:29 Benztropine Mesylate (Cogentin) 1 mg BID ORAL 05/07/17 18:45 06/06/17 18:44 05/12/17 09:28 Buspirone HCl (Buspar) 5 mg TID ORAL 05/07/17 18:50 06/06/17 18:49 05/12/17 13:04 Cefoxitin Sodium 1 gm/Sodium Chloride 55 ml @ 110 mls/hr ONCE ONCE IV 05/13/17 07:00 05/13/17 07:29 Dextrose (Dextrose 50%) STAT PRN IV Hypoglycemia 05/07/17 16:30 06/06/17 16:29 Dextrose/ Electrolytes 1,000 ml @ 125 mls/hr Q8H IV 05/10/17 11:00 06/09/17 10:59 05/12/17 13:05 Diphenhydramine HCl (Benadryl) 25 mg Q6H PRN ORAL Itching/Pruritis 05/07/17 16:30 06/06/17 16:29 Divalproex Sodium (Depakote ER) 500 mg EVERY 12 HOURS ORAL 05/07/17 21:00 06/06/17 20:59 05/12/17 09:28 Docusate Sodium (Colace) 100 mg TIDPRN PRN ORAL Constipation 05/10/17 10:15 06/09/17 10:14 Heparin Sodium (Porcine) (Heparin 5000 units/ml) 5,000 units EVERY 12 HOURS SUBQ 05/07/17 21:00 06/06/17 20:59 05/12/17 09:29 Levothyroxine Sodium (Synthroid) 75 mcg DAILY ORAL 05/08/17 09:00 06/07/17 08:59 05/12/17 09:28 Lorazepam (Ativan) 1 mg Q6H PRN ORAL For Anxiety 05/08/17 16:15 05/15/17 16:14 Mineral Oil (Fleet's Mineral Oil Enema) 133 ml EVERY 8 HOURS RECTAL 05/10/17 15:00 05/13/17 14:59 05/12/17 13:50 Mineral Oil (Mineral Oil) 30 ml DAILYPRN PRN NG Constipation 05/10/17 10:15 06/09/17 10:14 Morphine Sulfate (Morphine Sulfate) 2 mg Q4H PRN IVP severe Pain (Pain Scale 7-10) 05/07/17 16:30 05/14/17 16:29 Nitroglycerin (Ntg) 0.4 mg Q5M X 3 DOSES PRN SL Prn Chest Pain 05/07/17 16:30 06/06/17 16:29 Ondansetron HCl (Zofran) 4 mg Q6H PRN IVP Nausea & Vomiting 05/07/17 16:30 06/06/17 16:29 Oxcarbazepine (Trileptal) 450 mg BID ORAL 05/07/17 19:30 06/06/17 19:29 05/12/17 10:28 Pantoprazole (Protonix) 40 mg DAILY IVP 05/08/17 09:00 06/07/17 08:59 05/12/17 09:28 Polyethylene Glycol (Miralax) 17 gm HSPRN PRN ORAL Constipation 05/07/17 16:30 06/06/17 16:29 Quetiapine Fumarate (SEROquel) 100 mg BID ORAL 05/07/17 18:45 06/06/17 18:44 05/12/17 09:28 Sodium Phosphate (Fleet's Sodium Phosl Enema) 133 ml EVERY 8 HOURS RECTAL 05/10/17 14:30 05/13/17 14:29 05/12/17 15:29 Temazepam (Restoril) 15 mg HSPRN PRN ORAL Insomnia 05/07/17 16:30 05/14/17 16:29 TYRONE FARMER May 12, 2017 17:15
[2017-05-12 19:58] VITALS: BP 90/60
--- NOTE | 2017-05-12 23:45 | Progress Note ---
DATE: 05/11/2017 SUBJECTIVE: The patient is a 61-year-old male patient. The patient continues to have some confusion, disorganized thought process, some mood lability, came to the hospital because of anemia and hypokalemia but because of his decline in cognition his attending as requested daily psychiatric consultation at this time to prevent any further decline his cognition and worsening mood lability so his attending as requested daily psychiatric consultation. MENTAL STATUS EXAMINATION: The patient is a 61-year-old male with psychomotor retardation. Mood is depressed. Affect guarded and restricted. Thought process disorganized and illogical. Denies any current suicidal or homicidal thoughts. Insight and judgment is poor. DIAGNOSIS: Schizoaffective bipolar type. PLAN: Plan for this patient is treat him with Seroquel 100 mg b.i.d., Trileptal at a dose of 450 mg twice a day, Depakote 500 mg twice a day. Provide him with supportive therapy and encourage him to interact appropriately with staff and other patients. The patient seen and assessed at bedside. Chart reviewed and discussed with staff. He will continue to be followed by Psychiatry. Supportive therapy provided. Behavioral management provided. Lauren Ames M.D. DR: Naya JOB#: [id number] CC:
[2017-05-13] VITALS: BP 100/66
[2017-05-13 04:00] VITALS: BP 128/81
[2017-05-13] MEDS: D5 1/4NS w/KCl 20mEq 1,000 ML IV SCH (04:59)
[2017-05-13] MEDS: Fleet's Enema 133ml RECTAL SCH (05:04)
[2017-05-13] MEDS: Fleet's Mineral Oil Enema RECTAL SCH (05:04)
[2017-05-13] MEDS ORDERED: cefOXitin Sod 1 GM in NS 55 ML IV ONE (07:00)
[2017-05-13 08:00] VITALS: BP 127/88
[2017-05-13 08:43] LABS: BASOPHILS % (AUTO) 0.3 % (0.0-2.0); HEMATOCRIT 31.2 % (42.0-52.0); HEMOGLOBIN 10.1 G/DL (14.2-18.0); LYMPHOCYTES % (AUTO) 12.9 % (20.0-45.0); MEAN CORPUSCULAR VOLUME 85 FL (80-99); NEUTROPHILS % (AUTO) 79.9 % (45.0-75.0); PLATELET COUNT 238 K/UL (150-450); RED BLOOD COUNT 3.66 M/UL (4.70-6.10); RED CELL DISTRIBUTION WIDTH 17.4 % (11.6-14.8); WHITE BLOOD COUNT 11.6 K/UL (4.8-10.8)
[2017-05-13 08:55] LABS: INR 1.2 (0.9-1.1)
[2017-05-13 09:13] LABS: ANION GAP 7 mmol/L (5-15); BLOOD UREA NITROGEN 19 mg/dL (7-18); CALCIUM 7.7 MG/DL (8.5-10.1); CARBON DIOXIDE 25 MMOL/L (21-32); CHLORIDE 118 MMOL/L (98-107); POTASSIUM 2.9 MMOL/L (3.5-5.1); SODIUM 149 MMOL/L (136-145)
[2017-05-13] MEDS: Pantoprazole Inj IVP SCH (09:21)
[2017-05-13] MEDS: BusPIRone 5mg Tab ORAL SCH ×3 (09:21→18:23)
[2017-05-13] MEDS: Benztropine 1mg tab ORAL SCH ×2 (09:21→18:23)
[2017-05-13] MEDS: Depakote ER 500mg tab ORAL SCH ×2 (09:21→21:16)
[2017-05-13] MEDS: Heparin 5000 units/ml inj SUBQ SCH ×2 (10:23→21:17)
[2017-05-13] MEDS: OXcarbazepine 150mg tab ORAL SCH ×2 (10:23→18:23)
--- NOTE | 2017-05-13 10:41 | General Surgery Progress Note ---
General Surgery-Progress Note Subjective Symptoms: improved Additional Comments lots of stool. exam much improved. Objective Last 24 Hour Vital Signs Date Time Temp Pulse Resp B/P (MAP) Pulse Ox O2 Delivery O2 Flow Rate FiO2 05/13/17 08:00 97.6 89 20 127/88 96 05/13/17 04:00 97.3 78 20 128/81 96 Room Air 05/13/17 00:00 97.3 86 20 100/66 95 Room Air 05/13/17 00:00 95 Room Air 05/12/17 20:00 95 Room Air 05/12/17 19:58 98.4 104 20 90/60 90 Room Air 05/12/17 17:17 98.7 05/12/17 16:20 98.2 98 20 124/88 95 05/12/17 12:02 97.6 60 20 125/82 94 I&O Intake and Output 05/12/17 05/13/17 19:00 07:00 Intake Total 985 ml 1250 ml Balance 985 ml 1250 ml Intake Oral 360 ml IV Total 625 ml 1250 ml # Voids 6 3 # Bowel Movements 6 3 Cardiovascular: RSR Respiratory: clear Abdomen: soft, flat, non-tender, present bowel sounds Extremities: no edema, no tenderness Laboratory Tests Test 05/13/17 07:50 White Blood Count 11.6 K/UL (4.8-10.8) H Red Blood Count 3.66 M/UL (4.70-6.10) L Hemoglobin 10.1 G/DL (14.2-18.0) L Hematocrit 31.2 % (42.0-52.0) L Mean Corpuscular Volume 85 FL (80-99) Mean Corpuscular Hemoglobin 27.6 PG (27.0-31.0) Mean Corpuscular Hemoglobin Concent 32.4 G/DL (32.0-36.0) Red Cell Distribution Width 17.4 % (11.6-14.8) H Platelet Count 238 K/UL (150-450) Mean Platelet Volume 7.9 FL (6.5-10.1) Neutrophils (%) (Auto) 79.9 % (45.0-75.0) H Lymphocytes (%) (Auto) 12.9 % (20.0-45.0) L Monocytes (%) (Auto) 6.0 % (1.0-10.0) Eosinophils (%) (Auto) 1.0 % (0.0-3.0) Basophils (%) (Auto) 0.3 % (0.0-2.0) Prothrombin Time 12.3 SEC (9.30-11.50) H Prothromb Time International Ratio 1.2 (0.9-1.1) H Activated Partial Thromboplast Time 40 SEC (23-33) H Sodium Level 149 MMOL/L (136-145) H Potassium Level 2.9 MMOL/L (3.5-5.1) L Chloride Level 118 MMOL/L (98-107) H Carbon Dioxide Level 25 MMOL/L (21-32) Anion Gap 7 mmol/L (5-15) Blood Urea Nitrogen 19 mg/dL (7-18) H Creatinine 1.0 MG/DL (0.55-1.30) Estimat Glomerular Filtration Rate > 60 mL/min (>60) Glucose Level 78 MG/DL (74-106) Calcium Level 7.7 MG/DL (8.5-10.1) L Plan Problems: (1) Fecal impaction Assessment & Plan: 61M with severe fecal impaction leaving to a near complete large bowel obstruction. CT findings very prominent and concerning. High risk for perforation given CT findings and exam. good amount of impacted stool removed with bedside disimpaction over the past few days. Today abdominal exam significantly improved. abdomen soft, non distended, finally resolved. -KUB today -stool softeners -will follow with recs thank you for this consultation. Norbert Huggins May 13, 2017 10:41
--- NOTE | 2017-05-13 10:57 | Anethesia Preoperative Eval ---
Anesthesia Pre-op PMH/ROS General Date of Evaluation: May 13, 2017 Time of Evaluation: 10:54 Anesthesiologist: lars ASA Score: ASA 4 Mallampati Score Class I : Soft palate, uvula, fauces, pillars visible Class II: Soft palate, uvula, fauces visible Class III: Soft palate, base of uvula visible Class IV: Only hard plate visible Mallampati Classification: Class II Surgeon: adolfo Diagnosis: dysphagia Surgical Procedure: egd/peg Anesthesia History: none Social History: smoking - nonsmoker Allergies: Coded Allergies: SULFA (SULFONAMIDE ANTIBIOTICS) (Verified Allergy, Severe, 04/23/12) TRIMETHADIONE (Verified Allergy, Severe, 04/23/12) PARAMETHADIONE (Unverified Allergy, Unknown, 05/07/17) Uncoded Allergies: SULFA (Allergy, Unknown, 05/07/17) Medications: see eMAR Past Medical History Cardiovascular: Reports: HTN Pulmonary: Reports: asthma Gastrointestinal/Genitourinary: Reports: GERD, other - acute kidney injury Neurologic/Psychiatric: Reports: CVA, other - schizophrenia, parkinson's disease Endocrine: Reports: hypothyroidism Hematology/Immune: Reports: anemia Anesthesia Pre-op Phys. Exam Physician Exam Last Vital Signs Date Time Temp Pulse Resp B/P (MAP) Pulse Ox O2 Delivery O2 Flow Rate FiO2 05/13/17 08:00 97.6 89 20 127/88 96 05/13/17 04:00 Room Air 05/10/17 19:08 2.0 28 Anesthesia Pre-op A/P Labs Hematology Test 05/13/17 07:50 White Blood Count 11.6 K/UL (4.8-10.8) H Red Blood Count 3.66 M/UL (4.70-6.10) L Hemoglobin 10.1 G/DL (14.2-18.0) L Hematocrit 31.2 % (42.0-52.0) L Mean Corpuscular Volume 85 FL (80-99) Mean Corpuscular Hemoglobin 27.6 PG (27.0-31.0) Mean Corpuscular Hemoglobin Concent 32.4 G/DL (32.0-36.0) Red Cell Distribution Width 17.4 % (11.6-14.8) H Platelet Count 238 K/UL (150-450) Mean Platelet Volume 7.9 FL (6.5-10.1) Neutrophils (%) (Auto) 79.9 % (45.0-75.0) H Lymphocytes (%) (Auto) 12.9 % (20.0-45.0) L Monocytes (%) (Auto) 6.0 % (1.0-10.0) Eosinophils (%) (Auto) 1.0 % (0.0-3.0) Basophils (%) (Auto) 0.3 % (0.0-2.0) Coagulation Test 05/13/17 07:50 Prothrombin Time 12.3 SEC (9.30-11.50) H Prothromb Time International Ratio 1.2 (0.9-1.1) H Activated Partial Thromboplast Time 40 SEC (23-33) H Chemistry Test 05/13/17 07:50 Sodium Level 149 MMOL/L (136-145) H Potassium Level 2.9 MMOL/L (3.5-5.1) L Chloride Level 118 MMOL/L (98-107) H Carbon Dioxide Level 25 MMOL/L (21-32) Anion Gap 7 mmol/L (5-15) Blood Urea Nitrogen 19 mg/dL (7-18) H Creatinine 1.0 MG/DL (0.55-1.30) Estimat Glomerular Filtration Rate > 60 mL/min (>60) Glucose Level 78 MG/DL (74-106) Calcium Level 7.7 MG/DL (8.5-10.1) L Risk Assessment & Plan Assessment: [email or web address] Plan: mac Status Change Before Surgery: CORBIN Gonzalez May 13, 2017 10:57
[2017-05-13 12:00] VITALS: BP 105/74
--- NOTE | 2017-05-13 12:13 | Diagnostic Imaging Report ---
Indication: Reason For Exam: ABD DIST Technique: Portable supine views of the abdomen Comparison: 05/12/2018 Findings: Enteric contrast material noted in the colon. Overall decrease gaseous distention of large and small bowel loops compared to the prior exam. There is residual distention of mainly colonic loops as well as some small bowel loops in the left abdomen. Surgical suture line noted in the left pelvis. No acute osseous abnormality seen. No evidence to suggest free intraperitoneal air however sensitivity is limited on supine views. Copious stool in the colon however overall stool burden is decreased. Impression: Overall decreased gaseous distention of large and small bowel loops compared to the prior exam. Persistent gaseous distention of loops of colon and some small bowel loops in the left abdomen. Copious colonic stool noted, although decreased.
--- NOTE | 2017-05-13 12:35 | GI Progress Note ---
Assessment/Plan Problems: (1) Fecal impaction ICD Codes: K56.41 - Fecal impaction SNOMED: 80107025 (2) Parkinson disease ICD Codes: G20 - Parkinson's disease SNOMED: 06533991 (3) Anemia ICD Codes: D64.9 - Anemia, unspecified SNOMED: 123224710 (4) Dehydration ICD Codes: E86.0 - Dehydration SNOMED: 36401860 (5) Abdominal distention ICD Codes: R14.0 - Abdominal distension (gaseous) SNOMED: 57160534 (6) Severe malnutrition ICD Codes: E43 - Unspecified severe protein-calorie malnutrition SNOMED: 49389967 Status: unchanged Status Narrative Discussed with Dr. Euceda. Assessment/Plan Assessment - Severe rectal stool impaction >> abdomen very less distended - Hypernatremia - Azotemia - Dehydration - patient pulled out NGT, ST to revaluate ST video swallow study reviewed >> - MILD TO MOD-SEVERE OROPHARYNGEAL DYSPHAGIA WITH SIGNIFICANTLY INCREASED ORAL PREP AND OROPHARYNGEAL TRANSIT TIMES DUE TO SENSORIMOTOR DEFICITS AND COMPOUNDED BY COGNITIVE-BEHAVIORAL DEFICITS AND POSITIONING DIFFICULTIES (TILTS HEAD L). - NO ASPIRATION NOR SIGNIFICANT LARYNGEAL PENETRATION WITH THIN, NECTAR AND HONEY THICK LIQUIDS, AND PUREED CONSISTENCIES BUT HAS HIGH RISK DUE TO OROPHARYNGEAL DYSMOTILITY, REDUCED OROPHARYNGEAL SENSATION, AND DELAYED SWALLOW AND LATE CLOSURE OF LARYNGEAL VESTIBULE. - GIVEN THAT THE PT WANTS TO HAVE PO FOR QUALITY OF LIFE, CONSIDER CONTINUING WITH PO INTAKE BUT CHANGE TO LIQUIFIED PUREED, LIKE NECTAR THICK SOUP CONSISTENCY WITH UPDATED AND POSTED ASPIRATION AND REFLUX PRECAUTIONS (H/O GERD) . - CONSIDER LONG-TERM NONORAL FEEDINGS SUPPLEMENT OR PRIMARY SOURCE OF NUTRITION/HYDRATION DUE TO ISSUES WITH FTT, ASP/REFLUX RISK, AND SLOW INTAKE. Recommendations highly recommend patient to have GT placed for fpc care due to mod-severe oropharyngeal dysphagia/dysmotility. At this time , we consider this a semi urgent case requiring attention to help prevent any further malnourishment. The patient had a NGT placed for feeding prior, but has pulled it out himself and is currently NPO with IV fluids for the past 2 days. needs fecal disimpaction and enema daily >> abdominal no longer distended bowel regime >> colace + miralax, prn enemas Sorbitol fu labs Subjective Subjective limited Objective Last 24 Hour Vital Signs Date Time Temp Pulse Resp B/P (MAP) Pulse Ox O2 Delivery O2 Flow Rate FiO2 05/13/17 08:00 97.6 89 20 127/88 96 05/13/17 04:00 97.3 78 20 128/81 96 Room Air 05/13/17 00:00 97.3 86 20 100/66 95 Room Air 05/13/17 00:00 95 Room Air 05/12/17 20:00 95 Room Air 05/12/17 19:58 98.4 104 20 90/60 90 Room Air 05/12/17 17:17 98.7 05/12/17 16:20 98.2 98 20 124/88 95 Intake and Output 05/12/17 05/13/17 19:00 07:00 Intake Total 985 ml 1375 ml Balance 985 ml 1375 ml Intake Oral 360 ml IV Total 625 ml 1375 ml # Voids 6 3 # Bowel Movements 6 3 Laboratory Tests Test 05/13/17 07:50 White Blood Count 11.6 K/UL (4.8-10.8) H Red Blood Count 3.66 M/UL (4.70-6.10) L Hemoglobin 10.1 G/DL (14.2-18.0) L Hematocrit 31.2 % (42.0-52.0) L Mean Corpuscular Volume 85 FL (80-99) Mean Corpuscular Hemoglobin 27.6 PG (27.0-31.0) Mean Corpuscular Hemoglobin Concent 32.4 G/DL (32.0-36.0) Red Cell Distribution Width 17.4 % (11.6-14.8) H Platelet Count 238 K/UL (150-450) Mean Platelet Volume 7.9 FL (6.5-10.1) Neutrophils (%) (Auto) 79.9 % (45.0-75.0) H Lymphocytes (%) (Auto) 12.9 % (20.0-45.0) L Monocytes (%) (Auto) 6.0 % (1.0-10.0) Eosinophils (%) (Auto) 1.0 % (0.0-3.0) Basophils (%) (Auto) 0.3 % (0.0-2.0) Prothrombin Time 12.3 SEC (9.30-11.50) H Prothromb Time International Ratio 1.2 (0.9-1.1) H Activated Partial Thromboplast Time 40 SEC (23-33) H Sodium Level 149 MMOL/L (136-145) H Potassium Level 2.9 MMOL/L (3.5-5.1) L Chloride Level 118 MMOL/L (98-107) H Carbon Dioxide Level 25 MMOL/L (21-32) Anion Gap 7 mmol/L (5-15) Blood Urea Nitrogen 19 mg/dL (7-18) H Creatinine 1.0 MG/DL (0.55-1.30) Estimat Glomerular Filtration Rate > 60 mL/min (>60) Glucose Level 78 MG/DL (74-106) Calcium Level 7.7 MG/DL (8.5-10.1) L Height (Feet): 5 Height (Inches): 4.00 Weight (Pounds): 140 General Appearance: alert Cardiovascular: normal rate Respiratory/Chest: no respiratory distress Abdominal Exam: normal bowel sounds, non tender, soft Gayle Aguillon N.P. May 13, 2017 12:35
--- NOTE | 2017-05-13 12:45 | Infectious Diseases Prog Note ---
Assessment/Plan Assessment/Plan A: 1. Leukocytosis,mild 2. Fecal impaction. 3. Acute renal failure, improving 4. Hypokalemia. 5. Hypernatremia. 6. Paranoid schizophrenia. 7. Parkinson disease. 8. Hypothyroidism. 9. Anemia. P: observe off antibiotic Subjective ROS Limited/Unobtainable: Yes Allergies: Coded Allergies: SULFA (SULFONAMIDE ANTIBIOTICS) (Verified Allergy, Severe, 04/23/12) TRIMETHADIONE (Verified Allergy, Severe, 04/23/12) PARAMETHADIONE (Unverified Allergy, Unknown, 05/07/17) Uncoded Allergies: SULFA (Allergy, Unknown, 05/07/17) Objective Vital Signs Last 24 Hour Vital Signs Date Time Temp Pulse Resp B/P (MAP) Pulse Ox O2 Delivery O2 Flow Rate FiO2 05/13/17 08:00 97.6 89 20 127/88 96 05/13/17 04:00 97.3 78 20 128/81 96 Room Air 05/13/17 00:00 97.3 86 20 100/66 95 Room Air 05/13/17 00:00 95 Room Air 05/12/17 20:00 95 Room Air 05/12/17 19:58 98.4 104 20 90/60 90 Room Air 05/12/17 17:17 98.7 05/12/17 16:20 98.2 98 20 124/88 95 Height (Feet): 5 Height (Inches): 4.00 Weight (Pounds): 140 General Appearance: no acute distress HEENT: mucous membranes moist Respiratory/Chest: other - few rhochi Cardiovascular: normal rate Abdomen: soft, non tender Extremities: no edema Neurologic/Psychiatric: other - sleeping Laboratory Tests Test 05/13/17 07:50 White Blood Count 11.6 K/UL (4.8-10.8) H Red Blood Count 3.66 M/UL (4.70-6.10) L Hemoglobin 10.1 G/DL (14.2-18.0) L Hematocrit 31.2 % (42.0-52.0) L Mean Corpuscular Volume 85 FL (80-99) Mean Corpuscular Hemoglobin 27.6 PG (27.0-31.0) Mean Corpuscular Hemoglobin Concent 32.4 G/DL (32.0-36.0) Red Cell Distribution Width 17.4 % (11.6-14.8) H Platelet Count 238 K/UL (150-450) Mean Platelet Volume 7.9 FL (6.5-10.1) Neutrophils (%) (Auto) 79.9 % (45.0-75.0) H Lymphocytes (%) (Auto) 12.9 % (20.0-45.0) L Monocytes (%) (Auto) 6.0 % (1.0-10.0) Eosinophils (%) (Auto) 1.0 % (0.0-3.0) Basophils (%) (Auto) 0.3 % (0.0-2.0) Prothrombin Time 12.3 SEC (9.30-11.50) H Prothromb Time International Ratio 1.2 (0.9-1.1) H Activated Partial Thromboplast Time 40 SEC (23-33) H Sodium Level 149 MMOL/L (136-145) H Potassium Level 2.9 MMOL/L (3.5-5.1) L Chloride Level 118 MMOL/L (98-107) H Carbon Dioxide Level 25 MMOL/L (21-32) Anion Gap 7 mmol/L (5-15) Blood Urea Nitrogen 19 mg/dL (7-18) H Creatinine 1.0 MG/DL (0.55-1.30) Estimat Glomerular Filtration Rate > 60 mL/min (>60) Glucose Level 78 MG/DL (74-106) Calcium Level 7.7 MG/DL (8.5-10.1) L Current Medications Medications (Trade) Dose Ordered Sig/Dank Route PRN Reason Start Time Stop Time Status Last Admin Dose Admin Acetaminophen (Tylenol) 650 mg Q4H PRN ORAL fever (temp >100.5 F) 05/07/17 16:30 06/06/17 16:29 05/12/17 16:18 Al Hydroxide/Mg Hydroxide (Mylanta II) 30 ml Q6H PRN ORAL dyspepsia 05/07/17 16:30 06/06/17 16:29 Benztropine Mesylate (Cogentin) 1 mg BID ORAL 05/07/17 18:45 06/06/17 18:44 05/13/17 09:21 Buspirone HCl (Buspar) 5 mg TID ORAL 05/07/17 18:50 06/06/17 18:49 05/13/17 09:21 Dextrose (Dextrose 50%) STAT PRN IV Hypoglycemia 05/07/17 16:30 06/06/17 16:29 Dextrose/ Electrolytes 1,000 ml @ 125 mls/hr Q8H IV 05/10/17 11:00 06/09/17 10:59 05/13/17 04:59 Diphenhydramine HCl (Benadryl) 25 mg Q6H PRN ORAL Itching/Pruritis 05/07/17 16:30 06/06/17 16:29 Divalproex Sodium (Depakote ER) 500 mg EVERY 12 HOURS ORAL 05/07/17 21:00 06/06/17 20:59 05/13/17 09:21 Docusate Sodium (Colace) 100 mg TIDPRN PRN ORAL Constipation 05/10/17 10:15 06/09/17 10:14 Heparin Sodium (Porcine) (Heparin 5000 units/ml) 5,000 units EVERY 12 HOURS SUBQ 05/07/17 21:00 06/06/17 20:59 05/12/17 20:31 Levothyroxine Sodium (Synthroid) 75 mcg DAILY ORAL 05/08/17 09:00 06/07/17 08:59 05/13/17 09:21 Lorazepam (Ativan) 1 mg Q6H PRN ORAL For Anxiety 05/08/17 16:15 05/15/17 16:14 Morphine Sulfate (Morphine Sulfate) 2 mg Q4H PRN IVP severe Pain (Pain Scale 7-10) 05/07/17 16:30 05/14/17 16:29 Nitroglycerin (Ntg) 0.4 mg Q5M X 3 DOSES PRN SL Prn Chest Pain 05/07/17 16:30 06/06/17 16:29 Ondansetron HCl (Zofran) 4 mg Q6H PRN IVP Nausea & Vomiting 05/07/17 16:30 06/06/17 16:29 Oxcarbazepine (Trileptal) 450 mg BID ORAL 05/07/17 19:30 06/06/17 19:29 05/13/17 10:23 Pantoprazole (Protonix) 40 mg DAILY IVP 05/08/17 09:00 06/07/17 08:59 05/13/17 09:21 Polyethylene Glycol (Miralax) 17 gm HSPRN PRN ORAL Constipation 05/07/17 16:30 06/06/17 16:29 Quetiapine Fumarate (SEROquel) 100 mg BID ORAL 05/07/17 18:45 06/06/17 18:44 05/13/17 09:21 Temazepam (Restoril) 15 mg HSPRN PRN ORAL Insomnia 05/07/17 16:30 05/14/17 16:29 FLYNN PERAZA May 13, 2017 12:45
--- NOTE | 2017-05-13 13:15 | General Progress Note ---
Assessment/Plan Problem List: (1) Renal failure ICD Codes: N19 - Unspecified kidney failure SNOMED: 38583742 (2) UTI (urinary tract infection) ICD Codes: N39.0 - Urinary tract infection, site not specified SNOMED: 85494522 (3) Sepsis ICD Codes: A41.9 - Sepsis, unspecified organism SNOMED: 15443443 (4) Anemia ICD Codes: D64.9 - Anemia, unspecified SNOMED: 836007398 (5) Parkinson disease ICD Codes: G20 - Parkinson's disease SNOMED: 93545961 (6) Abdominal distention ICD Codes: R14.0 - Abdominal distension (gaseous) SNOMED: 90858155 Status: unchanged Assessment/Plan ot pt diet abx cbc bmp am pending peg Subjective Constitutional: Reports: weakness Allergies: Coded Allergies: SULFA (SULFONAMIDE ANTIBIOTICS) (Verified Allergy, Severe, 04/23/12) TRIMETHADIONE (Verified Allergy, Severe, 04/23/12) PARAMETHADIONE (Unverified Allergy, Unknown, 05/07/17) Uncoded Allergies: SULFA (Allergy, Unknown, 05/07/17) All Systems: reviewed and negative except above Subjective sleepy calm in bed Objective Last 24 Hour Vital Signs Date Time Temp Pulse Resp B/P (MAP) Pulse Ox O2 Delivery O2 Flow Rate FiO2 05/13/17 12:00 97.4 94 20 105/74 96 05/13/17 08:00 97.6 89 20 127/88 96 05/13/17 04:00 97.3 78 20 128/81 96 Room Air 05/13/17 00:00 97.3 86 20 100/66 95 Room Air 05/13/17 00:00 95 Room Air 05/12/17 20:00 95 Room Air 05/12/17 19:58 98.4 104 20 90/60 90 Room Air 05/12/17 17:17 98.7 05/12/17 16:20 98.2 98 20 124/88 95 Intake and Output 05/12/17 05/13/17 19:00 07:00 Intake Total 985 ml 1375 ml Balance 985 ml 1375 ml Intake Oral 360 ml IV Total 625 ml 1375 ml # Voids 6 3 # Bowel Movements 6 3 Laboratory Tests 05/13/17 07:50: White Blood Count 11.6H, Red Blood Count 3.66L, Hemoglobin 10.1L, Hematocrit 31.2L, Mean Corpuscular Volume 85, Mean Corpuscular Hemoglobin 27.6, Mean Corpuscular Hemoglobin Concent 32.4, Red Cell Distribution Width 17.4H, Platelet Count 238, Mean Platelet Volume 7.9, Neutrophils (%) (Auto) 79.9H, Lymphocytes (%) (Auto) 12.9L, Monocytes (%) (Auto) 6.0, Eosinophils (%) (Auto) 1.0, Basophils (%) (Auto) 0.3, Prothrombin Time 12.3H, Prothromb Time International Ratio 1.2H, Activated Partial Thromboplast Time 40H, Sodium Level 149H, Potassium Level 2.9L, Chloride Level 118H, Carbon Dioxide Level 25, Anion Gap 7, Blood Urea Nitrogen 19H, Creatinine 1.0, Estimat Glomerular Filtration Rate > 60, Glucose Level 78, Calcium Level 7.7L Height (Feet): 5 Height (Inches): 4.00 Weight (Pounds): 140 General Appearance: lethargic, confused EENT: normal ENT inspection Neck: normal alignment Cardiovascular: normal peripheral pulses, normal rate, regular rhythm Respiratory/Chest: chest wall non-tender, lungs clear, normal breath sounds Abdomen: normal bowel sounds, non tender, soft Extremities: normal inspection Edema: no edema noted Arm (L), no edema noted Arm (R), no edema noted Leg (L), no edema noted Leg (R), no edema noted Pedal (L), no edema noted Pedal (R), no edema noted Generalized Neurologic: motor weakness Skin: normal pigmentation, warm/dry NARCISA HUI May 13, 2017 13:15
--- NOTE | 2017-05-13 13:31 | Consultation ---
Consult Note Consult Note asked to eval for HypoKalemia examined- chart reviewed Discussed with GS . Assessment/Plan status: - Fecal impaction. improved - Acute renal failure, improving - Hypokalemia. - Hypernatremia. - Paranoid schizophrenia. - Parkinson disease. - Hypothyroidism. - Anemia. Plan: Changed IV to D5w and KCL Perorders MIKEL QUINTERO May 13, 2017 13:31
[2017-05-13] MEDS: Docusate 100mg cap ORAL SCH ×2 (14:00→18:23)
[2017-05-13] MEDS ORDERED: cefOXitin Sod 1 GM in NS 55 ML IVPB PRN ×2 (15:30→16:00)
[2017-05-13 16:00] VITALS: BP 120/83
--- NOTE | 2017-05-13 18:08 | Pulmonology Progress Note ---
Assessment/Plan Problems: (1) Hypokalemia (2) Abdominal distention (3) Parkinson disease (4) Renal failure (5) UTI (urinary tract infection) (6) Fecal impaction (7) Dehydration (8) Severe malnutrition Assessment/Plan eating better looks more alert. wbc normal now more awake renal numbers have not changed Na is still high, K supplement Subjective ROS Limited/Unobtainable: No Allergies: Coded Allergies: SULFA (SULFONAMIDE ANTIBIOTICS) (Verified Allergy, Severe, 04/23/12) TRIMETHADIONE (Verified Allergy, Severe, 04/23/12) PARAMETHADIONE (Unverified Allergy, Unknown, 05/07/17) Uncoded Allergies: SULFA (Allergy, Unknown, 05/07/17) Objective Last 24 Hour Vital Signs Date Time Temp Pulse Resp B/P (MAP) Pulse Ox O2 Delivery O2 Flow Rate FiO2 05/13/17 16:00 97.4 92 20 120/83 96 05/13/17 12:00 97.4 94 20 105/74 96 05/13/17 08:00 97.6 89 20 127/88 96 05/13/17 04:00 97.3 78 20 128/81 96 Room Air 05/13/17 00:00 97.3 86 20 100/66 95 Room Air 05/13/17 00:00 95 Room Air 05/12/17 20:00 95 Room Air 05/12/17 19:58 98.4 104 20 90/60 90 Room Air Intake and Output 05/12/17 05/13/17 19:00 07:00 Intake Total 985 ml 1375 ml Balance 985 ml 1375 ml Intake Oral 360 ml IV Total 625 ml 1375 ml # Voids 6 3 # Bowel Movements 6 3 Objective General Appearance: cachetic Lines, tubes and drains: peripheral HEENT: normocephalic, atraumatic Neck: non-tender, normal alignment Respiratory/Chest: chest wall non-tender, lungs clear Cardiovascular/Chest: normal peripheral pulses, normal rate Abdomen: normal bowel sounds, non tender Genitourinary/Rectal: normal genital exam, normal rectal exam Skin Exam: normal pigmentation Laboratory Tests 05/13/17 07:50: White Blood Count 11.6H, Red Blood Count 3.66L, Hemoglobin 10.1L, Hematocrit 31.2L, Mean Corpuscular Volume 85, Mean Corpuscular Hemoglobin 27.6, Mean Corpuscular Hemoglobin Concent 32.4, Red Cell Distribution Width 17.4H, Platelet Count 238, Mean Platelet Volume 7.9, Neutrophils (%) (Auto) 79.9H, Lymphocytes (%) (Auto) 12.9L, Monocytes (%) (Auto) 6.0, Eosinophils (%) (Auto) 1.0, Basophils (%) (Auto) 0.3, Prothrombin Time 12.3H, Prothromb Time International Ratio 1.2H, Activated Partial Thromboplast Time 40H, Sodium Level 149H, Potassium Level 2.9L, Chloride Level 118H, Carbon Dioxide Level 25, Anion Gap 7, Blood Urea Nitrogen 19H, Creatinine 1.0, Estimat Glomerular Filtration Rate > 60, Glucose Level 78, Calcium Level 7.7L, C-Reactive Protein, Quantitative 17.7H Current Medications Medications (Trade) Dose Ordered Sig/Dank Route PRN Reason Start Time Stop Time Status Last Admin Dose Admin Acetaminophen (Tylenol) 650 mg Q4H PRN ORAL fever (temp >100.5 F) 05/07/17 16:30 06/06/17 16:29 05/12/17 16:18 Benztropine Mesylate (Cogentin) 1 mg BID ORAL 05/07/17 18:45 06/06/17 18:44 05/13/17 09:21 Buspirone HCl (Buspar) 5 mg TID ORAL 05/07/17 18:50 06/06/17 18:49 05/13/17 09:21 Cefoxitin Sodium 1 gm/Sodium Chloride 55 ml @ 110 mls/hr ONCE PRN IVPB prior to GI procedure 05/13/17 16:00 05/14/17 23:59 Dextrose (Dextrose 50%) STAT PRN IV Hypoglycemia 05/07/17 16:30 06/06/17 16:29 Diphenhydramine HCl (Benadryl) 25 mg Q6H PRN ORAL Itching/Pruritis 05/07/17 16:30 06/06/17 16:29 Divalproex Sodium (Depakote ER) 500 mg EVERY 12 HOURS ORAL 05/07/17 21:00 06/06/17 20:59 05/13/17 09:21 Docusate Sodium (Colace) 100 mg TID ORAL 05/13/17 14:00 06/09/17 13:59 Heparin Sodium (Porcine) (Heparin 5000 units/ml) 5,000 units EVERY 12 HOURS SUBQ 05/07/17 21:00 06/06/17 20:59 05/12/17 20:31 Levothyroxine Sodium (Synthroid) 75 mcg DAILY ORAL 05/08/17 09:00 06/07/17 08:59 05/13/17 09:21 Lorazepam (Ativan) 1 mg Q6H PRN ORAL For Anxiety 05/08/17 16:15 05/15/17 16:14 Morphine Sulfate (Morphine Sulfate) 2 mg Q4H PRN IVP severe Pain (Pain Scale 7-10) 05/07/17 16:30 05/14/17 16:29 Nitroglycerin (Ntg) 0.4 mg Q5M X 3 DOSES PRN SL Prn Chest Pain 05/07/17 16:30 06/06/17 16:29 Ondansetron HCl (Zofran) 4 mg Q6H PRN IVP Nausea & Vomiting 05/07/17 16:30 06/06/17 16:29 Oxcarbazepine (Trileptal) 450 mg BID ORAL 05/07/17 19:30 06/06/17 19:29 05/13/17 10:23 Pantoprazole (Protonix) 40 mg DAILY IVP 05/08/17 09:00 06/07/17 08:59 05/13/17 09:21 Polyethylene Glycol (Miralax) 17 gm HSPRN PRN ORAL Constipation 05/07/17 16:30 06/06/17 16:29 Potassium Chloride 40 meq/ Dextrose 1,020 ml @ 75 mls/hr [id number] IV 05/13/17 14:30 06/12/17 14:29 05/13/17 15:15 Quetiapine Fumarate (SEROquel) 100 mg BID ORAL 05/07/17 18:45 06/06/17 18:44 05/13/17 09:21 Temazepam (Restoril) 15 mg HSPRN PRN ORAL Insomnia 05/07/17 16:30 05/14/17 16:29 TYRONE FARMER May 13, 2017 18:08
[2017-05-13 20:00] VITALS: BP 123/92
[2017-05-14] VITALS (10 sets, daily range): BP systolic 107–158; BP diastolic 71–94
--- NOTE | 2017-05-14 07:30 | Pulmonology Progress Note ---
Assessment/Plan Assessment/Plan ASSESSMENT Large fecal impaction leading to a near complete LB obstruction-resolved Acute kidney injury 2 to dehydration -resolved dehydration Hypernatremia likely 2 to dehydration hypokalemia severe protein calorie malnutrition dysphagia Parkinson disease anemia paranoid schizophrenia Sacral decub st 4 POA multiple DTI POA PLAN OF CARE MS floor IVF CT A/P with near complete LB obstruction and high risk for perforation surgery and GI follow s/p manual disimpaction intensive bowel regimen with stool softeners and enemas continue daily disimpaction until clear now had multiple BM KUB 05/13- Overall decreased gaseous distention of large and small bowel loops compared to the prior exam. Persistent gaseous distention of loops of colon and some small bowel loops in the left abdomen. monitor renal parameters and lytes, correct as needed DIMITRI resolved, VSS- with high aspiration risk, severe dysphagia- recommended po for oral gratification and PEG if conservator agrees remains NPO with IVF, further exacerbating severe malnutrition already present GI recs PEG as semiurgent PEG placement today Dietary recs when start feeing Wound care as per wound nurse recs Monitor HH transfuse prn , goal to keep Hgb above 7 case discussed and evaluated by supervising physician Subjective Allergies: Coded Allergies: SULFA (SULFONAMIDE ANTIBIOTICS) (Verified Allergy, Severe, 04/23/12) TRIMETHADIONE (Verified Allergy, Severe, 04/23/12) PARAMETHADIONE (Unverified Allergy, Unknown, 05/07/17) Uncoded Allergies: SULFA (Allergy, Unknown, 05/07/17) Subjective had BM PEG today no signs of distress Objective Last 24 Hour Vital Signs Date Time Temp Pulse Resp B/P (MAP) Pulse Ox O2 Delivery O2 Flow Rate FiO2 05/14/17 04:00 97.4 91 20 131/77 95 Room Air 05/14/17 00:00 97.7 83 20 107/71 96 Room Air 05/13/17 20:00 97.3 101 20 123/92 94 Room Air 05/13/17 18:38 Room Air 05/13/17 18:38 96 Room Air 05/13/17 16:00 97.4 92 20 120/83 96 05/13/17 12:00 97.4 94 20 105/74 96 05/13/17 08:00 97.6 89 20 127/88 96 Intake and Output 05/13/17 05/14/17 19:00 07:00 Intake Total 850 ml 930 ml Balance 850 ml 930 ml Intake Oral 30 ml IV Total 850 ml 900 ml # Voids 2 3 # Bowel Movements 3 3 General Appearance: no acute distress, other - bedridden, looking older than his biological age, male; awake, nonverbal , porly but reposnive HEENT: normocephalic, atraumatic Respiratory/Chest: lungs clear - with moderate air exchange , no respiratory distress Cardiovascular: normal peripheral pulses, no JVD Abdomen: soft, non tender Extremities: no edema Neurologic/Psychiatric: abnormal gait - bedridden, other - awake, contracrted BLE Musculoskeletal: atrophy - BLE Laboratory Tests 05/13/17 07:50: White Blood Count 11.6H, Red Blood Count 3.66L, Hemoglobin 10.1L, Hematocrit 31.2L, Mean Corpuscular Volume 85, Mean Corpuscular Hemoglobin 27.6, Mean Corpuscular Hemoglobin Concent 32.4, Red Cell Distribution Width 17.4H, Platelet Count 238, Mean Platelet Volume 7.9, Neutrophils (%) (Auto) 79.9H, Lymphocytes (%) (Auto) 12.9L, Monocytes (%) (Auto) 6.0, Eosinophils (%) (Auto) 1.0, Basophils (%) (Auto) 0.3, Prothrombin Time 12.3H, Prothromb Time International Ratio 1.2H, Activated Partial Thromboplast Time 40H, Sodium Level 149H, Potassium Level 2.9L, Chloride Level 118H, Carbon Dioxide Level 25, Anion Gap 7, Blood Urea Nitrogen 19H, Creatinine 1.0, Estimat Glomerular Filtration Rate > 60, Glucose Level 78, Calcium Level 7.7L, C-Reactive Protein, Quantitative 17.7H Current Medications Medications (Trade) Dose Ordered Sig/Dank Route PRN Reason Start Time Stop Time Status Last Admin Dose Admin Acetaminophen (Tylenol) 650 mg Q4H PRN ORAL fever (temp >100.5 F) 05/07/17 16:30 06/06/17 16:29 05/12/17 16:18 Benztropine Mesylate (Cogentin) 1 mg BID ORAL 05/07/17 18:45 06/06/17 18:44 05/13/17 18:23 Buspirone HCl (Buspar) 5 mg TID ORAL 05/07/17 18:50 06/06/17 18:49 05/13/17 18:23 Cefoxitin Sodium 1 gm/Sodium Chloride 55 ml @ 110 mls/hr ONCE PRN IVPB prior to GI procedure 05/13/17 16:00 05/14/17 23:59 Dextrose (Dextrose 50%) STAT PRN IV Hypoglycemia 05/07/17 16:30 06/06/17 16:29 Diphenhydramine HCl (Benadryl) 25 mg Q6H PRN ORAL Itching/Pruritis 05/07/17 16:30 06/06/17 16:29 Divalproex Sodium (Depakote ER) 500 mg EVERY 12 HOURS ORAL 05/07/17 21:00 06/06/17 20:59 05/13/17 21:16 Docusate Sodium (Colace) 100 mg TID ORAL 05/13/17 14:00 06/09/17 13:59 05/13/17 18:23 Heparin Sodium (Porcine) (Heparin 5000 units/ml) 5,000 units EVERY 12 HOURS SUBQ 05/07/17 21:00 06/06/17 20:59 05/13/17 21:17 Levothyroxine Sodium (Synthroid) 75 mcg DAILY ORAL 05/08/17 09:00 06/07/17 08:59 05/13/17 09:21 Lorazepam (Ativan) 1 mg Q6H PRN ORAL For Anxiety 05/08/17 16:15 05/15/17 16:14 Morphine Sulfate (Morphine Sulfate) 2 mg Q4H PRN IVP severe Pain (Pain Scale 7-10) 05/07/17 16:30 05/14/17 16:29 Nitroglycerin (Ntg) 0.4 mg Q5M X 3 DOSES PRN SL Prn Chest Pain 05/07/17 16:30 06/06/17 16:29 Ondansetron HCl (Zofran) 4 mg Q6H PRN IVP Nausea & Vomiting 05/07/17 16:30 06/06/17 16:29 Oxcarbazepine (Trileptal) 450 mg BID ORAL 05/07/17 19:30 06/06/17 19:29 05/13/17 18:23 Pantoprazole (Protonix) 40 mg DAILY IVP 05/08/17 09:00 06/07/17 08:59 05/13/17 09:21 Polyethylene Glycol (Miralax) 17 gm HSPRN PRN ORAL Constipation 05/07/17 16:30 06/06/17 16:29 Potassium Chloride 40 meq/ Dextrose 1,020 ml @ 75 mls/hr [id number] IV 05/13/17 14:30 06/12/17 14:29 05/14/17 04:53 Quetiapine Fumarate (SEROquel) 100 mg BID ORAL 05/07/17 18:45 06/06/17 18:44 05/13/17 18:23 Temazepam (Restoril) 15 mg HSPRN PRN ORAL Insomnia 05/07/17 16:30 05/14/17 16:29 Eliseo ([facility])Mari NP May 14, 2017 07:30
[2017-05-14] MEDS: Heparin 5000 units/ml inj SUBQ SCH ×2 (09:00→20:50)
[2017-05-14] MEDS: Docusate 100mg cap ORAL SCH ×3 (09:17→18:09)
[2017-05-14] MEDS: Pantoprazole Inj IVP SCH (09:17)
[2017-05-14] MEDS: BusPIRone 5mg Tab ORAL SCH ×3 (09:17→18:09)
[2017-05-14] MEDS: OXcarbazepine 150mg tab ORAL SCH ×2 (09:17→18:13)
[2017-05-14] MEDS: Depakote ER 500mg tab ORAL SCH ×2 (09:17→20:50)
[2017-05-14] MEDS: Benztropine 1mg tab ORAL SCH ×2 (09:18→18:09)
--- NOTE | 2017-05-14 10:11 | Pre-Procedure Note/Attestation ---
Pre-Procedure Note/Attestation Complete Prior to Procedure Planned Procedure: not applicable Procedure Narrative: egd/peg Indications for Procedure Pre-Operative Diagnosis: dysphagia, FTT Attestation I attest that I discussed the nature of the procedure; its benefits; risks and complications; and alternatives (and the risks and benefits of such alternatives ), prior to the procedure, with the patient (or the patient's legal indirect sales representative). I attest that, if there was a reasonable possibility of needing a blood transfusion, the patient (or the patient's legal indirect sales representative) was given the [facility] standardized written summary, pursuant to the Leoncio Oumar Blood Safety Act ([place] Health and Safety Code # 1645, as amended). I attest that I re-evaluated the patient just prior to the surgery and that there has been no change in the patient's H&P, except as documented below: AUDIE JEREZ May 14, 2017 10:11
--- NOTE | 2017-05-14 11:18 | Nephrology Progress Note ---
Assessment/Plan Problem List: (1) Acute kidney injury (2) Hypokalemia (3) Hypernatremia (4) Anemia (5) Parkinson disease Plan cont with IVF with K follow labs Subjective Subjective In NAD Objective Objective Last 24 Hour Vital Signs Date Time Temp Pulse Resp B/P (MAP) Pulse Ox O2 Delivery O2 Flow Rate FiO2 05/14/17 08:18 97.8 91 19 158/72 100 05/14/17 04:00 97.4 91 20 131/77 95 Room Air 05/14/17 00:00 97.7 83 20 107/71 96 Room Air 05/13/17 20:00 97.3 101 20 123/92 94 Room Air 05/13/17 18:38 Room Air 05/13/17 18:38 96 Room Air 05/13/17 16:00 97.4 92 20 120/83 96 05/13/17 12:00 97.4 94 20 105/74 96 Intake and Output 05/13/17 05/14/17 19:00 07:00 Intake Total 850 ml 930 ml Balance 850 ml 930 ml Intake Oral 30 ml IV Total 850 ml 900 ml # Voids 2 3 # Bowel Movements 3 3 Height (Feet): 5 Height (Inches): 4.00 Weight (Pounds): 140 Cardiovascular: normal rate Respiratory/Chest: rhonchi - bilaterally Extremities: other - no edema NONA PERAZA May 14, 2017 11:18
--- NOTE | 2017-05-14 11:19 | General Progress Note ---
Assessment/Plan Problem List: (1) Renal failure ICD Codes: N19 - Unspecified kidney failure SNOMED: 50967908 (2) UTI (urinary tract infection) ICD Codes: N39.0 - Urinary tract infection, site not specified SNOMED: 84307323 (3) Sepsis ICD Codes: A41.9 - Sepsis, unspecified organism SNOMED: 97601146 (4) Anemia ICD Codes: D64.9 - Anemia, unspecified SNOMED: 365788718 (5) Parkinson disease ICD Codes: G20 - Parkinson's disease SNOMED: 08486784 (6) Abdominal distention ICD Codes: R14.0 - Abdominal distension (gaseous) SNOMED: 28988589 Status: unchanged Assessment/Plan ot pt diet abx cbc bmp am pending peg Subjective Constitutional: Reports: weakness Allergies: Coded Allergies: SULFA (SULFONAMIDE ANTIBIOTICS) (Verified Allergy, Severe, 04/23/12) TRIMETHADIONE (Verified Allergy, Severe, 04/23/12) PARAMETHADIONE (Unverified Allergy, Unknown, 05/07/17) Uncoded Allergies: SULFA (Allergy, Unknown, 05/07/17) All Systems: reviewed and negative except above Subjective sleepy calm in bed Objective Last 24 Hour Vital Signs Date Time Temp Pulse Resp B/P (MAP) Pulse Ox O2 Delivery O2 Flow Rate FiO2 05/14/17 08:18 97.8 91 19 158/72 100 05/14/17 04:00 97.4 91 20 131/77 95 Room Air 05/14/17 00:00 97.7 83 20 107/71 96 Room Air 05/13/17 20:00 97.3 101 20 123/92 94 Room Air 05/13/17 18:38 Room Air 05/13/17 18:38 96 Room Air 05/13/17 16:00 97.4 92 20 120/83 96 05/13/17 12:00 97.4 94 20 105/74 96 Intake and Output 05/13/17 05/14/17 19:00 07:00 Intake Total 850 ml 930 ml Balance 850 ml 930 ml Intake Oral 30 ml IV Total 850 ml 900 ml # Voids 2 3 # Bowel Movements 3 3 Height (Feet): 5 Height (Inches): 4.00 Weight (Pounds): 140 General Appearance: lethargic EENT: TMs normal Neck: normal alignment Cardiovascular: normal peripheral pulses, normal rate, regular rhythm Respiratory/Chest: chest wall non-tender, lungs clear, normal breath sounds Abdomen: normal bowel sounds, non tender, soft Extremities: normal inspection Edema: no edema noted Arm (L), no edema noted Arm (R), no edema noted Leg (L), no edema noted Leg (R), no edema noted Pedal (L), no edema noted Pedal (R), no edema noted Generalized Neurologic: motor weakness Skin: normal pigmentation, warm/dry NARCISA HUI May 14, 2017 11:19
--- NOTE | 2017-05-14 12:00 | General Surgery Progress Note ---
General Surgery-Progress Note Subjective Symptoms: improved Additional Comments abd soft, non tender, non distended. no acute events. doing much better . still with loose BM's and gas Objective Last 24 Hour Vital Signs Date Time Temp Pulse Resp B/P (MAP) Pulse Ox O2 Delivery O2 Flow Rate FiO2 05/14/17 08:18 97.8 91 19 158/72 100 05/14/17 04:00 97.4 91 20 131/77 95 Room Air 05/14/17 00:00 97.7 83 20 107/71 96 Room Air 05/13/17 20:00 97.3 101 20 123/92 94 Room Air 05/13/17 18:38 Room Air 05/13/17 18:38 96 Room Air 05/13/17 16:00 97.4 92 20 120/83 96 05/13/17 12:00 97.4 94 20 105/74 96 I&O Intake and Output 05/13/17 05/14/17 19:00 07:00 Intake Total 850 ml 930 ml Balance 850 ml 930 ml Intake Oral 30 ml IV Total 850 ml 900 ml # Voids 2 3 # Bowel Movements 3 3 Drains: none Cardiovascular: RSR Respiratory: clear Abdomen: soft, flat, non-tender, present bowel sounds Extremities: no edema, no cyanosis Plan Problems: (1) Fecal impaction Assessment & Plan: 61M with severe fecal impaction leaving to a near complete large bowel obstruction. CT findings very prominent and concerning. High risk for perforation given CT findings and exam. good amount of impacted stool removed with bedside disimpaction over the past few days. Today abdominal exam significantly improved. abdomen soft, non distended, finally resolved. no longer needs disimpaction as good BM's soft on his own. KUB much improved. -needs really good bowel regimen and habits. -stool softeners -will follow with recs thank you for this consultation. Norbert Huggins May 14, 2017 12:00
--- NOTE | 2017-05-14 12:12 | Infectious Diseases Prog Note ---
Assessment/Plan Assessment/Plan A: 1. Leukocytosis,mild 2. Fecal impaction. 3. Acute renal failure, improving 4. Hypokalemia. 5. Hypernatremia. 6. Paranoid schizophrenia. 7. Parkinson disease. 8. Hypothyroidism. 9. Anemia. P: observe off antibiotic Subjective ROS Limited/Unobtainable: Yes Gastrointestinal/Abdominal: Reports: other - NPO for PEG placement Allergies: Coded Allergies: SULFA (SULFONAMIDE ANTIBIOTICS) (Verified Allergy, Severe, 04/23/12) TRIMETHADIONE (Verified Allergy, Severe, 04/23/12) PARAMETHADIONE (Unverified Allergy, Unknown, 05/07/17) Uncoded Allergies: SULFA (Allergy, Unknown, 05/07/17) Objective Vital Signs Last 24 Hour Vital Signs Date Time Temp Pulse Resp B/P (MAP) Pulse Ox O2 Delivery O2 Flow Rate FiO2 05/14/17 08:18 97.8 91 19 158/72 100 05/14/17 04:00 97.4 91 20 131/77 95 Room Air 05/14/17 00:00 97.7 83 20 107/71 96 Room Air 05/13/17 20:00 97.3 101 20 123/92 94 Room Air 05/13/17 18:38 Room Air 05/13/17 18:38 96 Room Air 05/13/17 16:00 97.4 92 20 120/83 96 Height (Feet): 5 Height (Inches): 4.00 Weight (Pounds): 140 General Appearance: no acute distress HEENT: mucous membranes moist Respiratory/Chest: lungs clear Cardiovascular: normal rate Abdomen: soft, non tender Extremities: no edema Neurologic/Psychiatric: alert, responsive Current Medications Medications (Trade) Dose Ordered Sig/Dank Route PRN Reason Start Time Stop Time Status Last Admin Dose Admin Acetaminophen (Tylenol) 650 mg Q4H PRN ORAL fever (temp >100.5 F) 05/07/17 16:30 06/06/17 16:29 05/12/17 16:18 Benztropine Mesylate (Cogentin) 1 mg BID ORAL 05/07/17 18:45 06/06/17 18:44 05/14/17 09:18 Buspirone HCl (Buspar) 5 mg TID ORAL 05/07/17 18:50 06/06/17 18:49 05/14/17 09:17 Cefoxitin Sodium 1 gm/Sodium Chloride 55 ml @ 110 mls/hr ONCE PRN IVPB prior to GI procedure 05/13/17 16:00 05/14/17 23:59 Dextrose (Dextrose 50%) STAT PRN IV Hypoglycemia 05/07/17 16:30 06/06/17 16:29 Diphenhydramine HCl (Benadryl) 25 mg Q6H PRN ORAL Itching/Pruritis 05/07/17 16:30 06/06/17 16:29 Divalproex Sodium (Depakote ER) 500 mg EVERY 12 HOURS ORAL 05/07/17 21:00 06/06/17 20:59 05/14/17 09:17 Docusate Sodium (Colace) 100 mg TID ORAL 05/13/17 14:00 06/09/17 13:59 05/14/17 09:17 Heparin Sodium (Porcine) (Heparin 5000 units/ml) 5,000 units EVERY 12 HOURS SUBQ 05/07/17 21:00 06/06/17 20:59 05/13/17 21:17 Levothyroxine Sodium (Synthroid) 75 mcg DAILY ORAL 05/08/17 09:00 06/07/17 08:59 05/14/17 09:17 Lorazepam (Ativan) 1 mg Q6H PRN ORAL For Anxiety 05/08/17 16:15 05/15/17 16:14 Morphine Sulfate (Morphine Sulfate) 2 mg Q4H PRN IVP severe Pain (Pain Scale 7-10) 05/07/17 16:30 05/14/17 16:29 Nitroglycerin (Ntg) 0.4 mg Q5M X 3 DOSES PRN SL Prn Chest Pain 05/07/17 16:30 06/06/17 16:29 Ondansetron HCl (Zofran) 4 mg Q6H PRN IVP Nausea & Vomiting 05/07/17 16:30 06/06/17 16:29 Oxcarbazepine (Trileptal) 450 mg BID ORAL 05/07/17 19:30 06/06/17 19:29 05/14/17 09:17 Pantoprazole (Protonix) 40 mg DAILY IVP 05/08/17 09:00 06/07/17 08:59 05/14/17 09:17 Polyethylene Glycol (Miralax) 17 gm HSPRN PRN ORAL Constipation 05/07/17 16:30 06/06/17 16:29 Potassium Chloride 40 meq/ Dextrose 1,020 ml @ 75 mls/hr [id number] IV 05/13/17 14:30 06/12/17 14:29 05/14/17 04:53 Quetiapine Fumarate (SEROquel) 100 mg BID ORAL 05/07/17 18:45 06/06/17 18:44 05/14/17 09:17 Temazepam (Restoril) 15 mg HSPRN PRN ORAL Insomnia 05/07/17 16:30 05/14/17 16:29 FLYNN PERAZA May 14, 2017 12:12
--- NOTE | 2017-05-14 12:27 | Anethesia Preoperative Eval ---
Anesthesia Pre-op PMH/ROS General Date of Evaluation: May 14, 2017 Time of Evaluation: 12:27 Anesthesiologist: lars ASA Score: ASA 4 Mallampati Score Class I : Soft palate, uvula, fauces, pillars visible Class II: Soft palate, uvula, fauces visible Class III: Soft palate, base of uvula visible Class IV: Only hard plate visible Mallampati Classification: Class II Surgeon: adolfo Diagnosis: dysphagia Surgical Procedure: egd/peg Anesthesia History: none Social History: smoking - nonsmoker Family History: no anesthesia problems Allergies: Coded Allergies: SULFA (SULFONAMIDE ANTIBIOTICS) (Verified Allergy, Severe, 04/23/12) TRIMETHADIONE (Verified Allergy, Severe, 04/23/12) PARAMETHADIONE (Unverified Allergy, Unknown, 05/07/17) Uncoded Allergies: SULFA (Allergy, Unknown, 05/07/17) Medications: see eMAR Past Medical History Cardiovascular: Reports: HTN Pulmonary: Reports: asthma Gastrointestinal/Genitourinary: Reports: GERD, other - renal failure Neurologic/Psychiatric: Reports: CVA, other - parkinson's disease, schizophrenia Endocrine: Reports: hypothyroidism Hematology/Immune: Reports: anemia Anesthesia Pre-op Phys. Exam Physician Exam Last Vital Signs Date Time Temp Pulse Resp B/P (MAP) Pulse Ox O2 Delivery O2 Flow Rate FiO2 05/14/17 12:15 97.2 102 19 112/81 97 Room Air 05/10/17 19:08 2.0 28 Constitutional: NAD Neurologic: CN 2-12 intact Cardiovascular: RRR Respiratory: CTA Gastrointestinal: S/NT/ND Airway Exam Mallampati Score: Class II MO: full Neck: decreased rom to lateral rotation TMD: 2fb ROM: limited Teeth: missing Anesthesia Pre-op A/P Labs Labs Test 05/12/17 04:30 05/13/17 07:50 White Blood Count 8.1 K/UL (4.8-10.8) 11.6 K/UL (4.8-10.8) Red Blood Count 3.88 M/UL (4.70-6.10) 3.66 M/UL (4.70-6.10) Hemoglobin 10.3 G/DL (14.2-18.0) 10.1 G/DL (14.2-18.0) Hematocrit 33.4 % (42.0-52.0) 31.2 % (42.0-52.0) Mean Corpuscular Volume 86 FL (80-99) 85 FL (80-99) Mean Corpuscular Hemoglobin 26.6 PG (27.0-31.0) 27.6 PG (27.0-31.0) Mean Corpuscular Hemoglobin Concent 30.9 G/DL (32.0-36.0) 32.4 G/DL (32.0-36.0) Red Cell Distribution Width 17.3 % (11.6-14.8) 17.4 % (11.6-14.8) Platelet Count 272 K/UL (150-450) 238 K/UL (150-450) Mean Platelet Volume 7.5 FL (6.5-10.1) 7.9 FL (6.5-10.1) Neutrophils (%) (Auto) 71.4 % (45.0-75.0) 79.9 % (45.0-75.0) Lymphocytes (%) (Auto) 18.8 % (20.0-45.0) 12.9 % (20.0-45.0) Monocytes (%) (Auto) 6.9 % (1.0-10.0) 6.0 % (1.0-10.0) Eosinophils (%) (Auto) 2.5 % (0.0-3.0) 1.0 % (0.0-3.0) Basophils (%) (Auto) 0.3 % (0.0-2.0) 0.3 % (0.0-2.0) Sodium Level 151 MMOL/L (136-145) 149 MMOL/L (136-145) Potassium Level 3.3 MMOL/L (3.5-5.1) 2.9 MMOL/L (3.5-5.1) Chloride Level 119 MMOL/L (98-107) 118 MMOL/L (98-107) Carbon Dioxide Level 22 MMOL/L (21-32) 25 MMOL/L (21-32) Anion Gap 10 mmol/L (5-15) 7 mmol/L (5-15) Blood Urea Nitrogen 25 mg/dL (7-18) 19 mg/dL (7-18) Creatinine 1.1 MG/DL (0.55-1.30) 1.0 MG/DL (0.55-1.30) Estimat Glomerular Filtration Rate > 60 mL/min (>60) > 60 mL/min (>60) Glucose Level 83 MG/DL (74-106) 78 MG/DL (74-106) Calcium Level 8.1 MG/DL (8.5-10.1) 7.7 MG/DL (8.5-10.1) Prothrombin Time 12.3 SEC (9.30-11.50) Prothromb Time International Ratio 1.2 (0.9-1.1) Activated Partial Thromboplast Time 40 SEC (23-33) C-Reactive Protein, Quantitative 17.7 mg/dL (0.00-0.90) Risk Assessment & Plan Assessment: asa4 Plan: mac Status Change Before Surgery: No Pre-Antibiotics Drug: cefoxitin 1gm Given Within 1 Hr of Incision: Yes Time Given: 13:00 CORBIN ROBLES May 14, 2017 12:27
[2017-05-14] MEDS ORDERED: Propofol 200mg/20ml IV ONE (12:30)
[2017-05-14] MEDS ORDERED: cefOXitin 1gm Inj ONE ×2 (12:30→12:58)
[2017-05-14] MEDS ORDERED: Lidocaine 1% MPF 10mg/ml 5ml ONE (12:30)
[2017-05-14] MEDS ORDERED: NS 500ML IV ONE (12:51)
--- NOTE | 2017-05-14 12:55 | Progress Note ---
DATE: 05/12/2017 NOTE: POOR AUDIO SUBJECTIVE: The patient is a 61-year-old came to the hospital with hypoxemia. He is confused, disorganized. Mood is labile. MENTAL STATUS EXAMINATION: He is a 61-year-old male with psychomotor agitation . Affect, guarded, restricted. Thought process is disorganized paranoid delusions. Not suicidal or homicidal. Insight and judgment is poor. DIAGNOSIS: Schizoaffective, bipolar type. PLAN: The plan is to continue to provide him with supportive therapy . Chart was reviewed. Discussed with RN. Seen and assessed at bedside. . Lauren Ames M.D. DR: BERE JOB#: [id number] CC:
[2017-05-14] MEDS ORDERED: cefOXitin 1gm Inj IVP ONE (13:02)
--- NOTE | 2017-05-14 13:13 | Endoscopy Procedure Note ---
Endoscopy Procedure Note Indication for Procedure: dysphagia Procedures Performed: EGD, PEG Operative Findings/Diagnosis: same Specimen: none Pt Tolerated Procedure Well: Yes Estimated Blood Loss: none Anesthesiologist: edwin Anesthesia: MAC Implant(s) used?: No 50 yrs or older w/o bx or poly: Not Applicable 10yrs. F/U not recommended: Not Applicable AUDIE JEREZ May 14, 2017 13:13
--- NOTE | 2017-05-14 14:21 | Immediate Post-Op Evaluation ---
Immediate Post-Op Evalulation Immediate Post-Op Evalulation Procedure: egd/peg Date of Evaluation: May 14, 2017 Time of Evaluation: 13:32 IV Fluids: 250ml 0.9ns Blood Products: none Estimated Blood Loss: negligible Blood Pressure Systolic: 124 Blood Pressure Diastolic: 94 Pulse Rate: 90 Respiratory Rate: 18 O2 Sat by Pulse Oximetry: 98 Temperature (Fahrenheit): 97.0 Pain Score (1-10): 0 Nausea: No Vomiting: No Complications none Patient Status: awake, reacts, patent Hydration Status: adequate Drug: cefoxitin 1gm Given Within 1 Hr of Incision: Yes Time Given: 13:00 CORBIN ROBLES May 14, 2017 14:21
--- NOTE | 2017-05-14 14:22 | 48 Hour Post Anesthesia Eval ---
Post Anesthesia Evaluation Procedure: egd/peg Date of Evaluation: May 14, 2017 Time of Evaluation: 13:34 Blood Pressure Systolic: 123 0: 77 Pulse Rate: 88 Respiratory Rate: 18 Temperature (Fahrenheit): 97.0 O2 Sat by Pulse Oximetry: 99 Airway: patent Nausea: No Vomiting: No Pain Intensity: 0 Hydration Status: adequate Cardiopulmonary Status: stable Mental Status/LOC: patient returned to baseline Post-Anesthesia Complications: none Follow-up care needed: N/A CORBIN ROBLES May 14, 2017 14:22
[2017-05-14] MEDS ORDERED: DiphenhydrAMINE 50mg/ml Inj IVP PRN (14:30)
[2017-05-14] MEDS ORDERED: Atropine Inj 1mg/10ml Syr IV PRN (14:30)
[2017-05-14] MEDS ORDERED: Midazolam 2mg/2ml Inj IVP PRN (14:30)
[2017-05-14] MEDS ORDERED: fentaNYL 100 mcg/2 mL IV PRN (14:30)
--- NOTE | 2017-05-14 16:30 | Progress Note ---
DATE: 05/13/2017 SUBJECTIVE: This is a 61-year-old male patient with anemia and hypokalemia, but this patient still has mood lability, confusion, and disorganized thought process. Also the cognition and mood lability have worsened secondary to stress of his medical illness. That is why the attending physician has requested daily psychiatric consultation. DIAGNOSIS: Schizoaffective, bipolar type. MENTAL STATUS EXAMINATION: This is a 61-year-old male with psychomotor retardation. Mood is depressed. Affect guarded and restricted. Thought process is disorganized and illogical. Denies any current suicidal or homicidal thoughts. Insight and judgment is poor. PLAN: Plan for this patient is to continue titrating up on his psychotropic medications. Stabilize his mood. Chart reviewed and discussed with staff. Seen and assessed at the bedside. Lauren Ames M.D. DR: CHRIS JOB#: [id number] CC:
--- NOTE | 2017-05-14 22:00 | Procedure Note ---
DATE OF PROCEDURE: 05/14/2017 SURGEON: Collin Euceda M.D. REFERRING PHYSICIAN: Dionicio Delgadillo D.O. PROCEDURE: Upper endoscopy with with PEG placement. ANESTHESIA: Per Dr. Navarro. INSTRUMENT: Olympus adult flexible upper endoscope. INDICATION: 1. Dysphagia. 2. Failure to thrive. The procedure, risks, benefits, and possible consequences, including hemorrhage, aspiration, perforation and infection, and alternative treatments, were explained to the patient/legal guardian by Dr. Collin Euceda and the patient/legal guardian understood and accepted these risks. DESCRIPTION OF PROCEDURE: After informed consent was obtained and the patient was adequately sedated, Olympus upper endoscope was advanced from mouth into second portion of the duodenum and retroflexion was performed in the stomach. Then under endoscopic guidance, under sterile condition, a 20-Azeri pull type of G-tube was successfully placed in the epigastric area. The distance from the tip of the tube to skin was about 2-1/2 in size. The patient tolerated the procedure very well without any complication. SUMMARY OF FINDINGS: Status post successful PEG placement. RECOMMENDATIONS: 1. Abdominal binder. 2. Elevate the head of the bed at at all times. 3. G-tube flush. 4. G-tube care. 5. We will start tube feeding later today. I want to thank Dr. Dionicio Delgadillo for this kind referral. Collin Euceda M.D. DR: THEO JOB#: [id number] CC: Dionicio Delgadillo D.O.
[2017-05-15] VITALS: BP 119/81
--- NOTE | 2017-05-15 02:30 | Progress Note ---
DATE: 05/14/2017 SUBJECTIVE: The patient is a 61-year-old patient with anemia and hypokalemia. This is a 61-year-old male patient, who is very confused, disorganized. His mood is labile. He has no logical plan for his own self-care. She has got feelings of helplessness, hopelessness, low energy, poor appetite, and lost of interest in activity, and he has hypokalemia and anemia. His cognition has declined below baseline, that is why attending physician has requested daily psychiatric consultation. MENTAL STATUS EVALUATION: The patient is a 61-year-old male with psychomotor retardation. Mood is depressed. Affect guarded and restricted. Thought process is disorganized and illogical. Denies any current suicidal or homicidal thoughts. Insight and judgment is poor. DIAGNOSIS: Schizoaffective, bipolar type. PLAN: Continue titrating up on this patient's psychotropic medications. Supportive therapy provided for 15 to 20 minutes. Chart reviewed and discussed with staff. Supportive therapy provided. Lauren mAes M.D. DR: RADHA JOB#: [id number] CC:
[2017-05-15 04:00] VITALS: BP 115/81
[2017-05-15 08:15] VITALS: BP 125/96
--- NOTE | 2017-05-15 08:21 | General Progress Note ---
Assessment/Plan Problem List: (1) Severe malnutrition ICD Codes: E43 - Unspecified severe protein-calorie malnutrition SNOMED: 52684004 (2) Anemia ICD Codes: D64.9 - Anemia, unspecified SNOMED: 600279797 (3) Fecal impaction ICD Codes: K56.41 - Fecal impaction SNOMED: 15096722 (4) Parkinson disease ICD Codes: G20 - Parkinson's disease SNOMED: 06000673 Assessment/Plan s/p GT placement yesterday tolerating GTF bowel regimen dc planing per primary team Subjective ROS Limited/Unobtainable: No Allergies: Coded Allergies: SULFA (SULFONAMIDE ANTIBIOTICS) (Verified Allergy, Severe, 04/23/12) TRIMETHADIONE (Verified Allergy, Severe, 04/23/12) PARAMETHADIONE (Unverified Allergy, Unknown, 05/07/17) Uncoded Allergies: SULFA (Allergy, Unknown, 05/07/17) Objective Last 24 Hour Vital Signs Date Time Temp Pulse Resp B/P (MAP) Pulse Ox O2 Delivery O2 Flow Rate FiO2 05/15/17 04:00 Nasal Cannula 3.0 05/15/17 04:00 97.5 95 19 115/81 98 Nasal Cannula 05/15/17 00:00 Nasal Cannula 3.0 05/15/17 00:00 97.0 105 20 119/81 95 Nasal Cannula 05/14/17 20:00 Nasal Cannula 3.0 05/14/17 20:00 98.8 121 22 125/90 98 Nasal Cannula 05/14/17 16:00 97.4 107 20 131/93 92 05/14/17 14:22 88 18 99 05/14/17 14:21 90 18 98 05/14/17 13:43 98.0 96 19 118/93 98 Nasal Cannula 3.0 05/14/17 13:30 94 20 129/93 98 Nasal Cannula 3.0 05/14/17 13:25 91 21 124/93 99 Nasal Cannula 3.0 05/14/17 13:20 97.9 91 22 124/94 98 Nasal Cannula 3.0 05/14/17 12:15 97.2 102 19 112/81 97 Room Air Intake and Output 05/14/17 05/15/17 19:00 07:00 Intake Total 1327 ml 1355 ml Output Total 1 ml Balance 1327 ml 1354 ml Free Water 150 ml 300 ml IV Total 1132 ml 750 ml Tube Feeding 45 ml 305 ml Output Urine Total 1 ml # Voids 1 Height (Feet): 5 Height (Inches): 4.00 Weight (Pounds): 140 General Appearance: no apparent distress EENT: normal ENT inspection Neck: supple Cardiovascular: normal rate Respiratory/Chest: decreased breath sounds Abdomen: normal bowel sounds, non tender, soft Extremities: non-tender AUDIE JEREZ May 15, 2017 08:21
--- NOTE | 2017-05-15 08:41 | Pulmonology Progress Note ---
Assessment/Plan Assessment/Plan ASSESSMENT Large fecal impaction leading to a near complete LB obstruction-resolved Acute kidney injury 2 to dehydration -resolved dehydration Hypernatremia likely 2 to dehydration hypokalemia severe protein calorie malnutrition dysphagia s/p EGD with PEG 2/2 Parkinson disease anemia paranoid schizophrenia Sacral decub st 4 POA multiple DTI POA PLAN OF CARE MS floor IVF CT A/P with near complete LB obstruction and high risk for perforation surgery and GI follow s/p manual disimpaction intensive bowel regimen with stool softeners and enemas continue daily disimpaction until clear now had multiple BM KUB 2/- Overall decreased gaseous distention of large and small bowel loops compared to the prior exam. Persistent gaseous distention of loops of colon and some small bowel loops in the left abdomen. monitor renal parameters and lytes, correct as needed DIMITRI resolved, VSS- with high aspiration risk, severe dysphagia- recommended po for oral gratification and PEG if conservator agrees remains NPO with IVF, further exacerbating severe malnutrition already present GI recs PEG as semiurgent s/p PEG placement 2/2 strict aspiration precautions, GT feeding, monitor tolerance, site care, abdominal binder consider Reglan if persistent high residual Dietary recs implemented Wound care as per wound nurse recs Monitor HH transfuse prn , goal to keep Hgb above 7 dc plan after tolerates feeding need meticulous bowel regimen with stool softener and Miralax routinely and laxatives prn case discussed and evaluated by supervising physician Subjective Allergies: Coded Allergies: SULFA (SULFONAMIDE ANTIBIOTICS) (Verified Allergy, Severe, 04/23/12) TRIMETHADIONE (Verified Allergy, Severe, 04/23/12) PARAMETHADIONE (Unverified Allergy, Unknown, 05/07/17) Uncoded Allergies: SULFA (Allergy, Unknown, 05/07/17) Subjective s/p 2/2 PEG, i not tolerated feeding , high residual TF on hold no signs of distress Objective Last 24 Hour Vital Signs Date Time Temp Pulse Resp B/P (MAP) Pulse Ox O2 Delivery O2 Flow Rate FiO2 05/15/17 04:00 Nasal Cannula 3.0 05/15/17 04:00 97.5 95 19 115/81 98 Nasal Cannula 05/15/17 00:00 Nasal Cannula 3.0 05/15/17 00:00 97.0 105 20 119/81 95 Nasal Cannula 05/14/17 20:00 Nasal Cannula 3.0 05/14/17 20:00 98.8 121 22 125/90 98 Nasal Cannula 05/14/17 16:00 97.4 107 20 131/93 92 05/14/17 14:22 88 18 99 05/14/17 14:21 90 18 98 05/14/17 13:43 98.0 96 19 118/93 98 Nasal Cannula 3.0 05/14/17 13:30 94 20 129/93 98 Nasal Cannula 3.0 05/14/17 13:25 91 21 124/93 99 Nasal Cannula 3.0 05/14/17 13:20 97.9 91 22 124/94 98 Nasal Cannula 3.0 05/14/17 12:15 97.2 102 19 112/81 97 Room Air Intake and Output 05/14/17 05/15/17 19:00 07:00 Intake Total 1327 ml 1355 ml Output Total 1 ml Balance 1327 ml 1354 ml Free Water 150 ml 300 ml IV Total 1132 ml 750 ml Tube Feeding 45 ml 305 ml Output Urine Total 1 ml # Voids 1 Objective General Appearance: no acute distress, other - bedridden, looking older than his biological age, male; awake, nonverbal , poorly but responsive HEENT: normocephalic, atraumatic Respiratory/Chest: lungs clear with moderate air exchange , no respiratory distress Cardiovascular: normal peripheral pulses, no JVD Abdomen: soft, non tender<,G tube Extremities: no edema Neurologic/Psychiatric: abnormal gait - bedridden, awake, contracted BLE Musculoskeletal: atrophy - BLE Laboratory Tests 05/15/17 08:20: White Blood Count [Pending], Red Blood Count [Pending], Hemoglobin [Pending], Hematocrit [Pending], Mean Corpuscular Volume [Pending], Mean Corpuscular Hemoglobin [Pending], Mean Corpuscular Hemoglobin Concent [Pending], Red Cell Distribution Width [Pending], Platelet Count [Pending], Mean Platelet Volume [ Pending], Neutrophils (%) (Auto) [Pending], Lymphocytes (%) (Auto) [Pending], Monocytes (%) (Auto) [Pending], Eosinophils (%) (Auto) [Pending], Basophils (%) (Auto) [Pending], Sodium Level [Pending], Potassium Level [Pending], Chloride Level [Pending], Carbon Dioxide Level [Pending], Blood Urea Nitrogen [Pending], Creatinine [Pending], Estimat Glomerular Filtration Rate [Pending], Glucose Level [Pending], Uric Acid [Pending], Calcium Level [Pending], Phosphorus Level [Pending], Magnesium Level [Pending], Iron Level [Pending], Unsaturated Iron Binding [Pending], Ferritin [Pending], Total Bilirubin [Pending], Gamma Glutamyl Transpeptidase [Pending], Aspartate Amino Transf (AST/SGOT) [Pending], Alanine Aminotransferase (ALT/SGPT) [Pending], Alkaline Phosphatase [Pending], Total Creatine Kinase [Pending], Pro-B-Type Natriuretic Peptide [Pending], Total Protein [Pending], Albumin [Pending], Globulin [Pending], Vitamin B12 Level [Pending], Folate [Pending], Thyroid Stimulating Hormone (TSH) [Pending] Current Medications Medications (Trade) Dose Ordered Sig/Dank Route PRN Reason Start Time Stop Time Status Last Admin Dose Admin Acetaminophen (Tylenol) 650 mg Q4H PRN ORAL fever (temp >100.5 F) 05/07/17 16:30 06/06/17 16:29 05/12/17 16:18 Benztropine Mesylate (Cogentin) 1 mg BID ORAL 05/07/17 18:45 06/06/17 18:44 05/14/17 18:09 Buspirone HCl (Buspar) 5 mg TID ORAL 05/07/17 18:50 06/06/17 18:49 05/14/17 18:09 Dextrose (Dextrose 50%) STAT PRN IV Hypoglycemia 05/07/17 16:30 06/06/17 16:29 Diphenhydramine HCl (Benadryl) 25 mg Q6H PRN ORAL Itching/Pruritis 05/07/17 16:30 06/06/17 16:29 Divalproex Sodium (Depakote ER) 500 mg EVERY 12 HOURS ORAL 05/07/17 21:00 06/06/17 20:59 05/14/17 20:50 Docusate Sodium (Colace) 100 mg TID ORAL 05/13/17 14:00 06/09/17 13:59 05/14/17 18:09 Heparin Sodium (Porcine) (Heparin 5000 units/ml) 5,000 units EVERY 12 HOURS SUBQ 05/07/17 21:00 06/06/17 20:59 05/14/17 20:50 Levothyroxine Sodium (Synthroid) 75 mcg DAILY ORAL 05/08/17 09:00 06/07/17 08:59 05/14/17 09:17 Lorazepam (Ativan) 1 mg Q6H PRN ORAL For Anxiety 05/08/17 16:15 05/15/17 16:14 Nitroglycerin (Ntg) 0.4 mg Q5M X 3 DOSES PRN SL Prn Chest Pain 05/07/17 16:30 06/06/17 16:29 Ondansetron HCl (Zofran) 4 mg Q6H PRN IVP Nausea & Vomiting 05/07/17 16:30 06/06/17 16:29 Oxcarbazepine (Trileptal) 450 mg BID ORAL 05/07/17 19:30 06/06/17 19:29 05/14/17 18:13 Pantoprazole (Protonix) 40 mg DAILY IVP 05/08/17 09:00 06/07/17 08:59 05/14/17 09:17 Polyethylene Glycol (Miralax) 17 gm HSPRN PRN ORAL Constipation 05/07/17 16:30 06/06/17 16:29 Potassium Chloride 40 meq/ Dextrose 1,020 ml @ 75 mls/hr [id number] IV 05/13/17 14:30 06/12/17 14:29 05/15/17 05:48 Quetiapine Fumarate (SEROquel) 100 mg BID ORAL 05/07/17 18:45 06/06/17 18:44 05/14/17 18:09 Mari Gomes NP ([facility]) May 15, 2017 08:41
--- NOTE | 2017-05-15 08:56 | General Progress Note ---
Assessment/Plan Problem List: (1) Renal failure ICD Codes: N19 - Unspecified kidney failure SNOMED: 45780649 (2) UTI (urinary tract infection) ICD Codes: N39.0 - Urinary tract infection, site not specified SNOMED: 30847909 (3) Sepsis ICD Codes: A41.9 - Sepsis, unspecified organism SNOMED: 70751787 (4) Anemia ICD Codes: D64.9 - Anemia, unspecified SNOMED: 922147600 (5) Parkinson disease ICD Codes: G20 - Parkinson's disease SNOMED: 64229378 (6) Abdominal distention ICD Codes: R14.0 - Abdominal distension (gaseous) SNOMED: 31403642 Status: stable, progressing Assessment/Plan ot pt diet abx cbc bmp am dc plan Subjective Constitutional: Reports: weakness Allergies: Coded Allergies: SULFA (SULFONAMIDE ANTIBIOTICS) (Verified Allergy, Severe, 04/23/12) TRIMETHADIONE (Verified Allergy, Severe, 04/23/12) PARAMETHADIONE (Unverified Allergy, Unknown, 05/07/17) Uncoded Allergies: SULFA (Allergy, Unknown, 05/07/17) All Systems: reviewed and negative except above Subjective sleepy calm in bed s/p peg Objective Last 24 Hour Vital Signs Date Time Temp Pulse Resp B/P (MAP) Pulse Ox O2 Delivery O2 Flow Rate FiO2 05/15/17 08:15 97.4 94 19 125/96 97 Nasal Cannula 2.0 05/15/17 04:00 Nasal Cannula 3.0 05/15/17 04:00 97.5 95 19 115/81 98 Nasal Cannula 05/15/17 00:00 Nasal Cannula 3.0 05/15/17 00:00 97.0 105 20 119/81 95 Nasal Cannula 05/14/17 20:00 Nasal Cannula 3.0 05/14/17 20:00 98.8 121 22 125/90 98 Nasal Cannula 05/14/17 16:00 97.4 107 20 131/93 92 05/14/17 14:22 88 18 99 05/14/17 14:21 90 18 98 05/14/17 13:43 98.0 96 19 118/93 98 Nasal Cannula 3.0 05/14/17 13:30 94 20 129/93 98 Nasal Cannula 3.0 05/14/17 13:25 91 21 124/93 99 Nasal Cannula 3.0 05/14/17 13:20 97.9 91 22 124/94 98 Nasal Cannula 3.0 05/14/17 12:15 97.2 102 19 112/81 97 Room Air Intake and Output 05/14/17 05/15/17 19:00 07:00 Intake Total 1327 ml 1355 ml Output Total 1 ml Balance 1327 ml 1354 ml Free Water 150 ml 300 ml IV Total 1132 ml 750 ml Tube Feeding 45 ml 305 ml Output Urine Total 1 ml # Voids 1 Laboratory Tests 05/15/17 08:20: White Blood Count [Pending], Red Blood Count [Pending], Hemoglobin [Pending], Hematocrit [Pending], Mean Corpuscular Volume [Pending], Mean Corpuscular Hemoglobin [Pending], Mean Corpuscular Hemoglobin Concent [Pending], Red Cell Distribution Width [Pending], Platelet Count [Pending], Mean Platelet Volume [ Pending], Neutrophils (%) (Auto) [Pending], Lymphocytes (%) (Auto) [Pending], Monocytes (%) (Auto) [Pending], Eosinophils (%) (Auto) [Pending], Basophils (%) (Auto) [Pending], Sodium Level [Pending], Potassium Level [Pending], Chloride Level [Pending], Carbon Dioxide Level [Pending], Blood Urea Nitrogen [Pending], Creatinine [Pending], Estimat Glomerular Filtration Rate [Pending], Glucose Level [Pending], Uric Acid [Pending], Calcium Level [Pending], Phosphorus Level [Pending], Magnesium Level [Pending], Iron Level [Pending], Unsaturated Iron Binding [Pending], Ferritin [Pending], Total Bilirubin [Pending], Gamma Glutamyl Transpeptidase [Pending], Aspartate Amino Transf (AST/SGOT) [Pending], Alanine Aminotransferase (ALT/SGPT) [Pending], Alkaline Phosphatase [Pending], Total Creatine Kinase [Pending], Pro-B-Type Natriuretic Peptide [Pending], Total Protein [Pending], Albumin [Pending], Globulin [Pending], Vitamin B12 Level [Pending], Folate [Pending], Thyroid Stimulating Hormone (TSH) [Pending] Height (Feet): 5 Height (Inches): 4.00 Weight (Pounds): 140 General Appearance: lethargic, confused EENT: normal ENT inspection Neck: normal alignment Cardiovascular: normal peripheral pulses, normal rate, regular rhythm Respiratory/Chest: chest wall non-tender, lungs clear, normal breath sounds Abdomen: normal bowel sounds, non tender, soft Extremities: normal inspection Edema: no edema noted Arm (L), no edema noted Arm (R), no edema noted Leg (L), no edema noted Leg (R), no edema noted Pedal (L), no edema noted Pedal (R), no edema noted Generalized Neurologic: motor weakness Skin: normal pigmentation, warm/dry NARCISA HUI May 15, 2017 08:56
[2017-05-15 09:02] LABS: HEMATOCRIT 32.8 % (42.0-52.0); HEMOGLOBIN 10.6 G/DL (14.2-18.0); MEAN CORPUSCULAR VOLUME 84 FL (80-99); PLATELET COUNT 218 K/UL (150-450); RED BLOOD COUNT 3.88 M/UL (4.70-6.10); RED CELL DISTRIBUTION WIDTH 17.6 % (11.6-14.8); WHITE BLOOD COUNT 11.3 K/UL (4.8-10.8)
[2017-05-15] MEDS: Docusate 100mg cap ORAL SCH ×3 (09:05→18:00)
[2017-05-15] MEDS: OXcarbazepine 150mg tab ORAL SCH ×2 (09:07→17:20)
[2017-05-15] MEDS: Benztropine 1mg tab ORAL SCH ×2 (09:08→17:19)
[2017-05-15] MEDS: Heparin 5000 units/ml inj SUBQ SCH ×2 (09:10→20:34)
[2017-05-15] MEDS: Pantoprazole Inj IVP SCH (09:10)
[2017-05-15] MEDS: BusPIRone 5mg Tab ORAL SCH ×3 (09:10→17:19)
[2017-05-15] MEDS: Depakote ER 500mg tab ORAL SCH ×2 (09:12→20:32)
[2017-05-15 09:25] LABS: ANION GAP 7 mmol/L (5-15); BLOOD UREA NITROGEN 17 mg/dL (7-18); CALCIUM 8.3 MG/DL (8.5-10.1); CARBON DIOXIDE 24 MMOL/L (21-32); CHLORIDE 113 MMOL/L (98-107); CREATININE 1.2 MG/DL (0.55-1.30); POTASSIUM 4.1 MMOL/L (3.5-5.1); SODIUM 144 MMOL/L (136-145)
[2017-05-15 09:59] LABS: ALANINE AMINOTRANSFERASE 13 U/L (12-78); ANION GAP 7 mmol/L (5-15); ASPARTATE AMINO TRANSFERASE 23 U/L (15-37); BILIRUBIN,TOTAL 0.3 MG/DL (0.2-1.0); BLOOD UREA NITROGEN 19 mg/dL (7-18); CALCIUM 8.4 MG/DL (8.5-10.1); CARBON DIOXIDE 24 MMOL/L (21-32); CHLORIDE 114 MMOL/L (98-107); CREATINE KINASE 22 U/L (26-308); CREATININE 1.2 MG/DL (0.55-1.30); FERRITIN 154 NG/ML (8-388); GAMMA GLUTAMYL TRANSPEPTIDASE 3 U/L (5-85); POTASSIUM 4.1 MMOL/L (3.5-5.1); SODIUM 145 MMOL/L (136-145)
[2017-05-15 10:00] LABS: ALBUMIN 1.6 G/DL (3.4-5.0); ALBUMIN/GLOBULIN RATIO 0.3 (1.0-2.7); ALKALINE PHOSPHATASE 82 U/L (46-116)
[2017-05-15 10:15] LABS: % IRON SATURATION 15 % (15-50); IRON 12 ug/dL (50-175); TOTAL IRON BINDING CAPACITY 78 ug/dL (250-450)
--- NOTE | 2017-05-15 11:27 | Nephrology Progress Note ---
Assessment/Plan Problem List: (1) Acute kidney injury Assessment: stable (2) Hypokalemia Assessment: ok (3) Hypernatremia (4) Anemia (5) Parkinson disease Plan cont with IVF with K for another 24 hrs follow labs Subjective Subjective In NAD Objective Objective Last 24 Hour Vital Signs Date Time Temp Pulse Resp B/P (MAP) Pulse Ox O2 Delivery O2 Flow Rate FiO2 05/15/17 08:15 97.4 94 19 125/96 97 Nasal Cannula 2.0 05/15/17 04:00 Nasal Cannula 3.0 05/15/17 04:00 97.5 95 19 115/81 98 Nasal Cannula 05/15/17 00:00 Nasal Cannula 3.0 05/15/17 00:00 97.0 105 20 119/81 95 Nasal Cannula 05/14/17 20:00 Nasal Cannula 3.0 05/14/17 20:00 98.8 121 22 125/90 98 Nasal Cannula 05/14/17 16:00 97.4 107 20 131/93 92 05/14/17 14:22 88 18 99 05/14/17 14:21 90 18 98 05/14/17 13:43 98.0 96 19 118/93 98 Nasal Cannula 3.0 05/14/17 13:30 94 20 129/93 98 Nasal Cannula 3.0 05/14/17 13:25 91 21 124/93 99 Nasal Cannula 3.0 05/14/17 13:20 97.9 91 22 124/94 98 Nasal Cannula 3.0 05/14/17 12:15 97.2 102 19 112/81 97 Room Air Intake and Output 05/14/17 05/15/17 19:00 07:00 Intake Total 1327 ml 1355 ml Output Total 1 ml Balance 1327 ml 1354 ml Free Water 150 ml 300 ml IV Total 1132 ml 750 ml Tube Feeding 45 ml 305 ml Output Urine Total 1 ml # Voids 1 Laboratory Tests 05/15/17 08:20: White Blood Count 11.3H, Red Blood Count 3.88L, Hemoglobin 10.6L, Hematocrit 32.8L, Mean Corpuscular Volume 84, Mean Corpuscular Hemoglobin 27.4, Mean Corpuscular Hemoglobin Concent 32.4, Red Cell Distribution Width 17.6H, Platelet Count 218, Mean Platelet Volume 7.0, Neutrophils (%) (Auto) , Lymphocytes (%) (Auto) , Monocytes (%) (Auto) , Eosinophils (%) (Auto) , Basophils (%) (Auto) , Neutrophils % (Manual) [Pending], Lymphocytes % (Manual) [Pending], Platelet Estimate [Pending], Platelet Morphology [Pending], Sodium Level 145, Potassium Level 4.1, Chloride Level 114H, Carbon Dioxide Level 24, Anion Gap 7, Blood Urea Nitrogen 19H, Creatinine 1.2, Estimat Glomerular Filtration Rate > 60, Glucose Level 90, Uric Acid 7.0, Calcium Level 8.4L, Phosphorus Level 3.0, Magnesium Level 1.3L, Iron Level 12L, Total Iron Binding Capacity 78L, Percent Iron Saturation 15, Unsaturated Iron Binding 66L, Ferritin 154, Total Bilirubin 0.3, Gamma Glutamyl Transpeptidase 3L, Aspartate Amino Transf (AST/SGOT) 23, Alanine Aminotransferase (ALT/SGPT) 13, Alkaline Phosphatase 82, Total Creatine Kinase 22L, Pro-B-Type Natriuretic Peptide 700H, Total Protein 7.4, Albumin 1.6L, Globulin 5.8, Albumin/Globulin Ratio 0.3L, Vitamin B12 Level 948, Folate 4.3L, Thyroid Stimulating Hormone (TSH) 3.296 Height (Feet): 5 Height (Inches): 4.00 Weight (Pounds): 140 Cardiovascular: normal rate Respiratory/Chest: lungs clear Abdomen: soft Extremities: other - no edema NONA PERAZA May 15, 2017 11:27
--- NOTE | 2017-05-15 11:42 | General Surgery Progress Note ---
General Surgery-Progress Note Subjective Symptoms: improved, voiding well, passing flatus, BM Additional Comments no acute events. doing okay. Objective Last 24 Hour Vital Signs Date Time Temp Pulse Resp B/P (MAP) Pulse Ox O2 Delivery O2 Flow Rate FiO2 05/15/17 08:15 97.4 94 19 125/96 97 Nasal Cannula 2.0 05/15/17 04:00 Nasal Cannula 3.0 05/15/17 04:00 97.5 95 19 115/81 98 Nasal Cannula 05/15/17 00:00 Nasal Cannula 3.0 05/15/17 00:00 97.0 105 20 119/81 95 Nasal Cannula 05/14/17 20:00 Nasal Cannula 3.0 05/14/17 20:00 98.8 121 22 125/90 98 Nasal Cannula 05/14/17 16:00 97.4 107 20 131/93 92 05/14/17 14:22 88 18 99 05/14/17 14:21 90 18 98 05/14/17 13:43 98.0 96 19 118/93 98 Nasal Cannula 3.0 05/14/17 13:30 94 20 129/93 98 Nasal Cannula 3.0 05/14/17 13:25 91 21 124/93 99 Nasal Cannula 3.0 05/14/17 13:20 97.9 91 22 124/94 98 Nasal Cannula 3.0 05/14/17 12:15 97.2 102 19 112/81 97 Room Air I&O Intake and Output 05/14/17 05/15/17 19:00 07:00 Intake Total 1327 ml 1355 ml Output Total 1 ml Balance 1327 ml 1354 ml Free Water 150 ml 300 ml IV Total 1132 ml 750 ml Tube Feeding 45 ml 305 ml Output Urine Total 1 ml # Voids 1 Cardiovascular: RSR Respiratory: clear Abdomen: soft, flat, non-tender, present bowel sounds Extremities: no tenderness Laboratory Tests Test 05/15/17 08:20 White Blood Count 11.3 K/UL (4.8-10.8) H Red Blood Count 3.88 M/UL (4.70-6.10) L Hemoglobin 10.6 G/DL (14.2-18.0) L Hematocrit 32.8 % (42.0-52.0) L Mean Corpuscular Volume 84 FL (80-99) Mean Corpuscular Hemoglobin 27.4 PG (27.0-31.0) Mean Corpuscular Hemoglobin Concent 32.4 G/DL (32.0-36.0) Red Cell Distribution Width 17.6 % (11.6-14.8) H Platelet Count 218 K/UL (150-450) Mean Platelet Volume 7.0 FL (6.5-10.1) Neutrophils (%) (Auto) % (45.0-75.0) Lymphocytes (%) (Auto) % (20.0-45.0) Monocytes (%) (Auto) % (1.0-10.0) Eosinophils (%) (Auto) % (0.0-3.0) Basophils (%) (Auto) % (0.0-2.0) Neutrophils % (Manual) Pending Lymphocytes % (Manual) Pending Platelet Estimate Pending Platelet Morphology Pending Sodium Level 145 MMOL/L (136-145) Potassium Level 4.1 MMOL/L (3.5-5.1) Chloride Level 114 MMOL/L (98-107) H Carbon Dioxide Level 24 MMOL/L (21-32) Anion Gap 7 mmol/L (5-15) Blood Urea Nitrogen 19 mg/dL (7-18) H Creatinine 1.2 MG/DL (0.55-1.30) Estimat Glomerular Filtration Rate > 60 mL/min (>60) Glucose Level 90 MG/DL (74-106) Uric Acid 7.0 MG/DL (2.6-7.2) Calcium Level 8.4 MG/DL (8.5-10.1) L Phosphorus Level 3.0 MG/DL (2.5-4.9) Magnesium Level 1.3 MG/DL (1.8-2.4) L Iron Level 12 ug/dL (50-175) L Total Iron Binding Capacity 78 ug/dL (250-450) L Percent Iron Saturation 15 % (15-50) Unsaturated Iron Binding 66 ug/dL (112-346) L Ferritin 154 NG/ML (8-388) Total Bilirubin 0.3 MG/DL (0.2-1.0) Gamma Glutamyl Transpeptidase 3 U/L (5-85) L Aspartate Amino Transf (AST/SGOT) 23 U/L (15-37) Alanine Aminotransferase (ALT/SGPT) 13 U/L (12-78) Alkaline Phosphatase 82 U/L (46-116) Total Creatine Kinase 22 U/L (26-308) L Pro-B-Type Natriuretic Peptide 700 pg/mL (0-125) H Total Protein 7.4 G/DL (6.4-8.2) Albumin 1.6 G/DL (3.4-5.0) L Globulin 5.8 g/dL Albumin/Globulin Ratio 0.3 (1.0-2.7) L Vitamin B12 Level 948 PG/ML (193-986) Folate 4.3 NG/ML (8.6-58.9) L Thyroid Stimulating Hormone (TSH) 3.296 uiU/mL (0.358-3.740) Plan Problems: (1) Fecal impaction Assessment & Plan: 61M with severe fecal impaction leaving to a near complete large bowel obstruction. CT findings very prominent and concerning. High risk for perforation given CT findings and exam. good amount of impacted stool removed with bedside disimpaction over the past few days. Today abdominal exam significantly improved. abdomen soft, non distended, finally resolved. no longer needs disimpaction as good BM's soft on his own. KUB much improved. -needs really good bowel regimen and habits. -stool softeners -will follow with recs thank you for this consultation. Norbert Huggins May 15, 2017 11:41
[2017-05-15 12:00] VITALS: BP 130/83
[2017-05-15] MEDS ORDERED: D5 1/2NS 1000ml IV ONE (12:47)
[2017-05-15] MEDS ORDERED: Albuterol/Ipratropium 3ml neb HHN PRN (13:00)
[2017-05-15 16:20] VITALS: BP 110/69
[2017-05-15 20:00] VITALS: BP 109/77
[2017-05-16] VITALS: BP 106/81
[2017-05-16 04:00] VITALS: BP 126/82
--- NOTE | 2017-05-16 05:33 | General Progress Note ---
Assessment/Plan Problem List: (1) Renal failure ICD Codes: N19 - Unspecified kidney failure SNOMED: 84363413 (2) UTI (urinary tract infection) ICD Codes: N39.0 - Urinary tract infection, site not specified SNOMED: 92217936 (3) Sepsis ICD Codes: A41.9 - Sepsis, unspecified organism SNOMED: 41185286 (4) Anemia ICD Codes: D64.9 - Anemia, unspecified SNOMED: 712185253 (5) Parkinson disease ICD Codes: G20 - Parkinson's disease SNOMED: 68608647 (6) Abdominal distention ICD Codes: R14.0 - Abdominal distension (gaseous) SNOMED: 10093967 Status: unchanged Assessment/Plan ot pt diet abx cbc bmp am dc plan Subjective Constitutional: Reports: weakness Allergies: Coded Allergies: SULFA (SULFONAMIDE ANTIBIOTICS) (Verified Allergy, Severe, 04/23/12) TRIMETHADIONE (Verified Allergy, Severe, 04/23/12) PARAMETHADIONE (Unverified Allergy, Unknown, 05/07/17) Uncoded Allergies: SULFA (Allergy, Unknown, 05/07/17) All Systems: reviewed and negative except above Subjective sleepy calm in bed s/p peg Objective Last 24 Hour Vital Signs Date Time Temp Pulse Resp B/P (MAP) Pulse Ox O2 Delivery O2 Flow Rate FiO2 05/16/17 00:00 97.6 104 19 106/81 98 05/15/17 20:38 Nasal Cannula 2.0 28 05/15/17 20:38 96 Nasal Cannula 2.0 28 05/15/17 20:00 97.9 109 19 109/77 97 05/15/17 16:20 98.0 88 17 110/69 100 05/15/17 12:00 97.3 95 18 130/83 96 Nasal Cannula 05/15/17 08:15 97.4 94 19 125/96 97 Nasal Cannula 2.0 Intake and Output 05/15/17 05/16/17 19:00 07:00 Intake Total 75 ml 300 ml Balance 75 ml 300 ml IV Total 75 ml 300 ml # Voids 4 # Bowel Movements 2 Laboratory Tests 05/15/17 08:20: White Blood Count 11.3H, Red Blood Count 3.88L, Hemoglobin 10.6L, Hematocrit 32.8L, Mean Corpuscular Volume 84, Mean Corpuscular Hemoglobin 27.4, Mean Corpuscular Hemoglobin Concent 32.4, Red Cell Distribution Width 17.6H, Platelet Count 218, Mean Platelet Volume 7.0, Neutrophils (%) (Auto) , Lymphocytes (%) (Auto) , Monocytes (%) (Auto) , Eosinophils (%) (Auto) , Basophils (%) (Auto) , Differential Total Cells Counted 100, Neutrophils % ( Manual) 83H, Lymphocytes % (Manual) 11L, Monocytes % (Manual) 1, Eosinophils % ( Manual) 0, Basophils % (Manual) 0, Band Neutrophils 5, Platelet Estimate Adequate, Platelet Morphology Normal, Hypochromasia 1+, Anisocytosis 1+, Sodium Level 145, Potassium Level 4.1, Chloride Level 114H, Carbon Dioxide Level 24, Anion Gap 7, Blood Urea Nitrogen 19H, Creatinine 1.2, Estimat Glomerular Filtration Rate > 60, Glucose Level 90, Uric Acid 7.0, Calcium Level 8.4L, Phosphorus Level 3.0, Magnesium Level 1.3L, Iron Level 12L, Total Iron Binding Capacity 78L, Percent Iron Saturation 15, Unsaturated Iron Binding 66L, Ferritin 154, Total Bilirubin 0.3, Gamma Glutamyl Transpeptidase 3L, Aspartate Amino Transf (AST/SGOT) 23, Alanine Aminotransferase (ALT/SGPT) 13, Alkaline Phosphatase 82, Total Creatine Kinase 22L, Pro-B-Type Natriuretic Peptide 700H, Total Protein 7.4, Albumin 1.6L, Globulin 5.8, Albumin/Globulin Ratio 0.3L, Vitamin B12 Level 948, Folate 4.3L, Thyroid Stimulating Hormone (TSH) 3.296 Height (Feet): 5 Height (Inches): 4.00 Weight (Pounds): 140 General Appearance: lethargic EENT: normal ENT inspection Neck: normal alignment Cardiovascular: normal peripheral pulses, normal rate, regular rhythm Respiratory/Chest: chest wall non-tender, lungs clear, normal breath sounds Abdomen: normal bowel sounds, non tender, soft Extremities: normal inspection Edema: no edema noted Arm (L), no edema noted Arm (R), no edema noted Leg (L), no edema noted Leg (R), no edema noted Pedal (L), no edema noted Pedal (R), no edema noted Generalized Neurologic: motor weakness Skin: normal pigmentation, warm/dry NARCISA HUI May 16, 2017 05:33
--- NOTE | 2017-05-16 07:49 | General Progress Note ---
Assessment/Plan Problem List: (1) Severe malnutrition ICD Codes: E43 - Unspecified severe protein-calorie malnutrition SNOMED: 70970277 (2) Anemia ICD Codes: D64.9 - Anemia, unspecified SNOMED: 311061891 (3) Fecal impaction ICD Codes: K56.41 - Fecal impaction SNOMED: 06961757 (4) Parkinson disease ICD Codes: G20 - Parkinson's disease SNOMED: 28110782 Assessment/Plan s/p GT placement elevated residuals no IV reglan or eryhtromycin available start low dose po reglan KUB repeat labs bowel regimen>> last BM today Subjective ROS Limited/Unobtainable: No Allergies: Coded Allergies: SULFA (SULFONAMIDE ANTIBIOTICS) (Verified Allergy, Severe, 04/23/12) TRIMETHADIONE (Verified Allergy, Severe, 04/23/12) PARAMETHADIONE (Unverified Allergy, Unknown, 05/07/17) Uncoded Allergies: SULFA (Allergy, Unknown, 05/07/17) Objective Last 24 Hour Vital Signs Date Time Temp Pulse Resp B/P (MAP) Pulse Ox O2 Delivery O2 Flow Rate FiO2 05/16/17 04:00 97.2 91 20 126/82 97 05/16/17 00:00 97.6 104 19 106/81 98 05/15/17 20:38 Nasal Cannula 2.0 28 05/15/17 20:38 96 Nasal Cannula 2.0 28 05/15/17 20:00 97.9 109 19 109/77 97 05/15/17 16:20 98.0 88 17 110/69 100 05/15/17 12:00 97.3 95 18 130/83 96 Nasal Cannula 05/15/17 08:15 97.4 94 19 125/96 97 Nasal Cannula 2.0 Intake and Output 05/15/17 05/16/17 19:00 07:00 Intake Total 75 ml 750 ml Balance 75 ml 750 ml IV Total 75 ml 750 ml # Voids 4 2 # Bowel Movements 2 1 Laboratory Tests 05/15/17 08:20: White Blood Count 11.3H, Red Blood Count 3.88L, Hemoglobin 10.6L, Hematocrit 32.8L, Mean Corpuscular Volume 84, Mean Corpuscular Hemoglobin 27.4, Mean Corpuscular Hemoglobin Concent 32.4, Red Cell Distribution Width 17.6H, Platelet Count 218, Mean Platelet Volume 7.0, Neutrophils (%) (Auto) , Lymphocytes (%) (Auto) , Monocytes (%) (Auto) , Eosinophils (%) (Auto) , Basophils (%) (Auto) , Differential Total Cells Counted 100, Neutrophils % ( Manual) 83H, Lymphocytes % (Manual) 11L, Monocytes % (Manual) 1, Eosinophils % ( Manual) 0, Basophils % (Manual) 0, Band Neutrophils 5, Platelet Estimate Adequate, Platelet Morphology Normal, Hypochromasia 1+, Anisocytosis 1+, Sodium Level 145, Potassium Level 4.1, Chloride Level 114H, Carbon Dioxide Level 24, Anion Gap 7, Blood Urea Nitrogen 19H, Creatinine 1.2, Estimat Glomerular Filtration Rate > 60, Glucose Level 90, Uric Acid 7.0, Calcium Level 8.4L, Phosphorus Level 3.0, Magnesium Level 1.3L, Iron Level 12L, Total Iron Binding Capacity 78L, Percent Iron Saturation 15, Unsaturated Iron Binding 66L, Ferritin 154, Total Bilirubin 0.3, Gamma Glutamyl Transpeptidase 3L, Aspartate Amino Transf (AST/SGOT) 23, Alanine Aminotransferase (ALT/SGPT) 13, Alkaline Phosphatase 82, Total Creatine Kinase 22L, Pro-B-Type Natriuretic Peptide 700H, Total Protein 7.4, Albumin 1.6L, Globulin 5.8, Albumin/Globulin Ratio 0.3L, Vitamin B12 Level 948, Folate 4.3L, Thyroid Stimulating Hormone (TSH) 3.296 05/16/17 07:13: White Blood Count [Pending], Red Blood Count [Pending], Hemoglobin [Pending], Hematocrit [Pending], Mean Corpuscular Volume [Pending], Mean Corpuscular Hemoglobin [Pending], Mean Corpuscular Hemoglobin Concent [Pending], Red Cell Distribution Width [Pending], Platelet Count [Pending], Mean Platelet Volume [ Pending], Neutrophils (%) (Auto) [Pending], Lymphocytes (%) (Auto) [Pending], Monocytes (%) (Auto) [Pending], Eosinophils (%) (Auto) [Pending], Basophils (%) (Auto) [Pending], Sodium Level [Pending], Potassium Level [Pending], Chloride Level [Pending], Carbon Dioxide Level [Pending], Blood Urea Nitrogen [Pending], Creatinine [Pending], Estimat Glomerular Filtration Rate [Pending], Glucose Level [Pending], Calcium Level [Pending] Height (Feet): 5 Height (Inches): 4.00 Weight (Pounds): 140 General Appearance: no apparent distress EENT: normal ENT inspection Neck: supple Cardiovascular: normal rate Respiratory/Chest: decreased breath sounds Abdomen: hypoactive bowel sounds, distended Extremities: non-tender AUDIE JEREZ May 16, 2017 07:49
[2017-05-16 08:00] VITALS: BP 123/87
[2017-05-16 08:18] LABS: BASOPHILS % (AUTO) 0.3 % (0.0-2.0); EOSINOPHILS % (AUTO) 0.2 % (0.0-3.0); HEMATOCRIT 28.9 % (42.0-52.0); HEMOGLOBIN 9.2 G/DL (14.2-18.0); LYMPHOCYTES % (AUTO) 10.5 % (20.0-45.0); MEAN CORPUSCULAR VOLUME 84 FL (80-99); MONOCYTES % (AUTO) 7.6 % (1.0-10.0); NEUTROPHILS % (AUTO) 81.5 % (45.0-75.0); PLATELET COUNT 176 K/UL (150-450); RED BLOOD COUNT 3.43 M/UL (4.70-6.10); RED CELL DISTRIBUTION WIDTH 17.4 % (11.6-14.8); WHITE BLOOD COUNT 8.2 K/UL (4.8-10.8)
[2017-05-16 08:20] LABS: ANION GAP 5 mmol/L (5-15); BLOOD UREA NITROGEN 18 mg/dL (7-18); CALCIUM 8.3 MG/DL (8.5-10.1); CARBON DIOXIDE 25 MMOL/L (21-32); CHLORIDE 111 MMOL/L (98-107); CREATININE 0.9 MG/DL (0.55-1.30); POTASSIUM 4.2 MMOL/L (3.5-5.1); SODIUM 141 MMOL/L (136-145)
[2017-05-16] MEDS: Benztropine 1mg tab ORAL SCH ×2 (08:36→17:10)
[2017-05-16] MEDS: Docusate 100mg cap ORAL SCH ×3 (08:36→17:11)
[2017-05-16] MEDS: BusPIRone 5mg Tab ORAL SCH ×3 (08:36→17:11)
[2017-05-16] MEDS: OXcarbazepine 150mg tab ORAL SCH ×2 (08:36→17:11)
[2017-05-16] MEDS: Depakote ER 500mg tab ORAL SCH ×2 (08:37→21:29)
[2017-05-16] MEDS: Heparin 5000 units/ml inj SUBQ SCH ×2 (08:42→21:29)
--- NOTE | 2017-05-16 10:11 | General Surgery Progress Note ---
General Surgery-Progress Note Subjective Additional Comments not tolerating g tube feeds with high residuals. comfortable. abd mildly distended again but not as bad as prior. Objective Last 24 Hour Vital Signs Date Time Temp Pulse Resp B/P (MAP) Pulse Ox O2 Delivery O2 Flow Rate FiO2 05/16/17 08:29 93 Nasal Cannula 2.0 28 05/16/17 08:29 Nasal Cannula 2.0 28 05/16/17 08:00 97.2 100 18 123/87 97 05/16/17 04:00 97.2 91 20 126/82 97 05/16/17 00:00 97.6 104 19 106/81 98 05/15/17 20:38 Nasal Cannula 2.0 28 05/15/17 20:38 96 Nasal Cannula 2.0 28 05/15/17 20:00 97.9 109 19 109/77 97 05/15/17 16:20 98.0 88 17 110/69 100 05/15/17 12:00 97.3 95 18 130/83 96 Nasal Cannula I&O Intake and Output 05/15/17 05/16/17 19:00 07:00 Intake Total 75 ml 825 ml Balance 75 ml 825 ml IV Total 75 ml 825 ml # Voids 4 2 # Bowel Movements 2 1 Cardiovascular: RSR Respiratory: clear Abdomen: soft, distended, non-tender, present bowel sounds Extremities: no edema, no tenderness Laboratory Tests Test 05/16/17 07:13 White Blood Count 8.2 K/UL (4.8-10.8) Red Blood Count 3.43 M/UL (4.70-6.10) L Hemoglobin 9.2 G/DL (14.2-18.0) L Hematocrit 28.9 % (42.0-52.0) L Mean Corpuscular Volume 84 FL (80-99) Mean Corpuscular Hemoglobin 26.9 PG (27.0-31.0) L Mean Corpuscular Hemoglobin Concent 31.9 G/DL (32.0-36.0) L Red Cell Distribution Width 17.4 % (11.6-14.8) H Platelet Count 176 K/UL (150-450) Mean Platelet Volume 7.4 FL (6.5-10.1) Neutrophils (%) (Auto) 81.5 % (45.0-75.0) H Lymphocytes (%) (Auto) 10.5 % (20.0-45.0) L Monocytes (%) (Auto) 7.6 % (1.0-10.0) Eosinophils (%) (Auto) 0.2 % (0.0-3.0) Basophils (%) (Auto) 0.3 % (0.0-2.0) Sodium Level 141 MMOL/L (136-145) Potassium Level 4.2 MMOL/L (3.5-5.1) Chloride Level 111 MMOL/L (98-107) H Carbon Dioxide Level 25 MMOL/L (21-32) Anion Gap 5 mmol/L (5-15) Blood Urea Nitrogen 18 mg/dL (7-18) Creatinine 0.9 MG/DL (0.55-1.30) Estimat Glomerular Filtration Rate > 60 mL/min (>60) Glucose Level 71 MG/DL (74-106) L Calcium Level 8.3 MG/DL (8.5-10.1) L Plan Problems: (1) Fecal impaction Assessment & Plan: 61M with severe fecal impaction leaving to a near complete large bowel obstruction. CT findings very prominent and concerning. High risk for perforation given CT findings and exam. good amount of impacted stool removed with bedside disimpaction over the past few days. Today abdominal exam significantly improved. abdomen soft, non distended, finally resolved. no longer needs disimpaction as good BM's soft on his own. KUB much improved. -repeat KUB -will discuss with GI about tube feeds. note reviewed. plan to start reglan PO since IV not available. -if colon still distended or distention/obstruction colonic in nature may have colonic inertia and require colectomy or will continue to have similar issues. -needs really good bowel regimen and habits. -stool softeners -will follow with recs thank you for this consultation. Norbert Huggins May 16, 2017 10:10
--- NOTE | 2017-05-16 11:06 | Nephrology Progress Note ---
Assessment/Plan Problem List: (1) Acute kidney injury Assessment: resolved (2) Hypokalemia Assessment: ok (3) Hypernatremia Assessment: ok (4) Anemia (5) Parkinson disease Plan DC IVF follow labs Subjective Subjective In NAD Objective Objective Last 24 Hour Vital Signs Date Time Temp Pulse Resp B/P (MAP) Pulse Ox O2 Delivery O2 Flow Rate FiO2 05/16/17 08:29 93 Nasal Cannula 2.0 28 05/16/17 08:29 Nasal Cannula 2.0 28 05/16/17 08:00 97.2 100 18 123/87 97 05/16/17 04:00 97.2 91 20 126/82 97 05/16/17 00:00 97.6 104 19 106/81 98 05/15/17 20:38 Nasal Cannula 2.0 28 05/15/17 20:38 96 Nasal Cannula 2.0 28 05/15/17 20:00 97.9 109 19 109/77 97 05/15/17 16:20 98.0 88 17 110/69 100 05/15/17 12:00 97.3 95 18 130/83 96 Nasal Cannula Intake and Output 05/15/17 05/16/17 19:00 07:00 Intake Total 75 ml 825 ml Balance 75 ml 825 ml IV Total 75 ml 825 ml # Voids 4 2 # Bowel Movements 2 1 Laboratory Tests 05/16/17 07:13: White Blood Count 8.2, Red Blood Count 3.43L, Hemoglobin 9.2L, Hematocrit 28.9L , Mean Corpuscular Volume 84, Mean Corpuscular Hemoglobin 26.9L, Mean Corpuscular Hemoglobin Concent 31.9L, Red Cell Distribution Width 17.4H, Platelet Count 176, Mean Platelet Volume 7.4, Neutrophils (%) (Auto) 81.5H, Lymphocytes (%) (Auto) 10.5L, Monocytes (%) (Auto) 7.6, Eosinophils (%) (Auto) 0.2, Basophils (%) (Auto) 0.3, Sodium Level 141, Potassium Level 4.2, Chloride Level 111H, Carbon Dioxide Level 25, Anion Gap 5, Blood Urea Nitrogen 18, Creatinine 0.9, Estimat Glomerular Filtration Rate > 60, Glucose Level 71L, Calcium Level 8.3L Height (Feet): 5 Height (Inches): 4.00 Weight (Pounds): 140 Cardiovascular: normal rate Respiratory/Chest: lungs clear NONA PERAZA May 16, 2017 11:06
[2017-05-16 12:00] VITALS: BP 120/81
[2017-05-16] MEDS: Metoclopramide 10mg/10ml Liq NG SCH ×2 (12:00→17:10)
--- NOTE | 2017-05-16 13:19 | Pulmonology Progress Note ---
Assessment/Plan Assessment/Plan ASSESSMENT Large fecal impaction leading to a near complete LB obstruction-resolved Acute kidney injury 2 to dehydration -resolved dehydration Hypernatremia likely 2 to dehydration hypokalemia severe protein calorie malnutrition dysphagia s/p EGD with PEG 2/2 Parkinson disease anemia paranoid schizophrenia Sacral decub st 4 POA multiple DTI POA PLAN OF CARE MS floor IVF CT A/P with near complete LB obstruction and high risk for perforation surgery and GI follow s/p manual disimpaction intensive bowel regimen with stool softeners and enemas continue daily disimpaction until clear now had multiple BM KUB 2- Overall decreased gaseous distention of large and small bowel loops compared to the prior exam. Persistent gaseous distention of loops of colon and some small bowel loops in the left abdomen. monitor renal parameters and lytes, correct as needed DIMITRI resolved, VSS- with high aspiration risk, severe dysphagia- recommended po for oral gratification and PEG if conservator agrees remains NPO with IVF, further exacerbating severe malnutrition already present GI recs PEG as semiurgent s/p PEG placement 2/2 strict aspiration precautions, GT feeding, monitor tolerance, site care, abdominal binder low dose Reglan started as per GI Dietary recs implemented Wound care as per wound nurse recs Monitor HH, transfuse prn , goal to keep Hgb above 7 dc plan after tolerates feeding need meticulous bowel regimen with stool softener and Miralax routinely and laxatives prn dc plan for am if tolerates TF case discussed and evaluated by supervising physician Subjective Allergies: Coded Allergies: SULFA (SULFONAMIDE ANTIBIOTICS) (Verified Allergy, Severe, 04/23/12) TRIMETHADIONE (Verified Allergy, Severe, 04/23/12) PARAMETHADIONE (Unverified Allergy, Unknown, 05/07/17) Uncoded Allergies: SULFA (Allergy, Unknown, 05/07/17) Subjective s/p 2/2 PEG not tolerated feeding , high residuals TF on hold no signs of resp distress leuk resolved HH trending down Objective Last 24 Hour Vital Signs Date Time Temp Pulse Resp B/P (MAP) Pulse Ox O2 Delivery O2 Flow Rate FiO2 05/16/17 12:00 97.7 98 18 120/81 05/16/17 08:29 93 Nasal Cannula 2.0 28 05/16/17 08:29 Nasal Cannula 2.0 28 05/16/17 08:00 97.2 100 18 123/87 97 05/16/17 04:00 97.2 91 20 126/82 97 05/16/17 00:00 97.6 104 19 106/81 98 05/15/17 20:38 Nasal Cannula 2.0 28 05/15/17 20:38 96 Nasal Cannula 2.0 28 05/15/17 20:00 97.9 109 19 109/77 97 05/15/17 16:20 98.0 88 17 110/69 100 Intake and Output 05/15/17 05/16/17 19:00 07:00 Intake Total 75 ml 825 ml Balance 75 ml 825 ml IV Total 75 ml 825 ml # Voids 4 2 # Bowel Movements 2 1 Objective General Appearance: no acute distress, other - bedridden, looking older than his biological age, male; awake, nonverbal , poorly but responsive HEENT: normocephalic, atraumatic Respiratory/Chest: lungs clear with moderate air exchange , no respiratory distress Cardiovascular: normal peripheral pulses, no JVD Abdomen: soft, non tender, G tube Extremities: no edema Neurologic/Psychiatric: abnormal gait - bedridden, awake, contracted BLE Musculoskeletal: atrophy - BLE Laboratory Tests 05/16/17 07:13: White Blood Count 8.2, Red Blood Count 3.43L, Hemoglobin 9.2L, Hematocrit 28.9L , Mean Corpuscular Volume 84, Mean Corpuscular Hemoglobin 26.9L, Mean Corpuscular Hemoglobin Concent 31.9L, Red Cell Distribution Width 17.4H, Platelet Count 176, Mean Platelet Volume 7.4, Neutrophils (%) (Auto) 81.5H, Lymphocytes (%) (Auto) 10.5L, Monocytes (%) (Auto) 7.6, Eosinophils (%) (Auto) 0.2, Basophils (%) (Auto) 0.3, Sodium Level 141, Potassium Level 4.2, Chloride Level 111H, Carbon Dioxide Level 25, Anion Gap 5, Blood Urea Nitrogen 18, Creatinine 0.9, Estimat Glomerular Filtration Rate > 60, Glucose Level 71L, Calcium Level 8.3L Current Medications Medications (Trade) Dose Ordered Sig/Dank Route PRN Reason Start Time Stop Time Status Last Admin Dose Admin Acetaminophen (Tylenol) 650 mg Q4H PRN ORAL fever (temp >100.5 F) 05/07/17 16:30 06/06/17 16:29 05/12/17 16:18 Albuterol/ Ipratropium (Albuterol/ Ipratropium) 3 ml Q4H PRN HHN Shortness of Breath 05/15/17 13:00 05/20/17 12:59 Benztropine Mesylate (Cogentin) 1 mg BID ORAL 05/07/17 18:45 06/06/17 18:44 05/16/17 08:36 Buspirone HCl (Buspar) 5 mg TID ORAL 05/07/17 18:50 06/06/17 18:49 05/16/17 12:00 Dextrose (Dextrose 50%) STAT PRN IV Hypoglycemia 05/07/17 16:30 06/06/17 16:29 Diphenhydramine HCl (Benadryl) 25 mg Q6H PRN ORAL Itching/Pruritis 05/07/17 16:30 06/06/17 16:29 Divalproex Sodium (Depakote ER) 500 mg EVERY 12 HOURS ORAL 05/07/17 21:00 06/06/17 20:59 05/16/17 08:37 Docusate Sodium (Colace) 100 mg TID ORAL 05/13/17 14:00 06/09/17 13:59 05/16/17 12:00 Heparin Sodium (Porcine) (Heparin 5000 units/ml) 5,000 units EVERY 12 HOURS SUBQ 05/07/17 21:00 06/06/17 20:59 05/16/17 08:42 Levothyroxine Sodium (Synthroid) 75 mcg DAILY ORAL 05/08/17 09:00 06/07/17 08:59 05/16/17 08:36 Metoclopramide HCl (Reglan) 2.5 mg EVERY 6 HOURS NG 05/16/17 12:00 06/15/17 11:59 05/16/17 12:00 Nitroglycerin (Ntg) 0.4 mg Q5M X 3 DOSES PRN SL Prn Chest Pain 05/07/17 16:30 06/06/17 16:29 Ondansetron HCl (Zofran) 4 mg Q6H PRN IVP Nausea & Vomiting 05/07/17 16:30 06/06/17 16:29 Oxcarbazepine (Trileptal) 450 mg BID ORAL 05/07/17 19:30 06/06/17 19:29 05/16/17 08:36 Polyethylene Glycol (Miralax) 17 gm HSPRN PRN ORAL Constipation 05/07/17 16:30 06/06/17 16:29 Quetiapine Fumarate (SEROquel) 100 mg BID ORAL 05/07/17 18:45 06/06/17 18:44 05/16/17 08:36 [facility]Mari NP May 16, 2017 13:19
--- NOTE | 2017-05-16 14:07 | Infectious Diseases Prog Note ---
Assessment/Plan Assessment/Plan A: 1. Leukocytosis resolved 2. Fecal impaction. 3. Acute renal failure, improving 4. Hypokalemia. 5. Hypernatremia. 6. Paranoid schizophrenia. 7. Parkinson disease. 8. Hypothyroidism. 9. Anemia. P: observe off antibiotic Subjective ROS Limited/Unobtainable: Yes Allergies: Coded Allergies: SULFA (SULFONAMIDE ANTIBIOTICS) (Verified Allergy, Severe, 04/23/12) TRIMETHADIONE (Verified Allergy, Severe, 04/23/12) PARAMETHADIONE (Unverified Allergy, Unknown, 05/07/17) Uncoded Allergies: SULFA (Allergy, Unknown, 05/07/17) Objective Vital Signs Last 24 Hour Vital Signs Date Time Temp Pulse Resp B/P (MAP) Pulse Ox O2 Delivery O2 Flow Rate FiO2 05/16/17 12:00 97.7 98 18 120/81 05/16/17 08:29 93 Nasal Cannula 2.0 28 05/16/17 08:29 Nasal Cannula 2.0 28 05/16/17 08:00 97.2 100 18 123/87 97 05/16/17 04:00 97.2 91 20 126/82 97 05/16/17 00:00 97.6 104 19 106/81 98 05/15/17 20:38 Nasal Cannula 2.0 28 05/15/17 20:38 96 Nasal Cannula 2.0 28 05/15/17 20:00 97.9 109 19 109/77 97 05/15/17 16:20 98.0 88 17 110/69 100 Height (Feet): 5 Height (Inches): 4.00 Weight (Pounds): 140 General Appearance: no acute distress HEENT: mucous membranes moist Respiratory/Chest: lungs clear Cardiovascular: normal rate Abdomen: soft, non tender, other - GT feeding Extremities: no edema Neurologic/Psychiatric: other - sleepimg Laboratory Tests Test 05/16/17 07:13 White Blood Count 8.2 K/UL (4.8-10.8) Red Blood Count 3.43 M/UL (4.70-6.10) L Hemoglobin 9.2 G/DL (14.2-18.0) L Hematocrit 28.9 % (42.0-52.0) L Mean Corpuscular Volume 84 FL (80-99) Mean Corpuscular Hemoglobin 26.9 PG (27.0-31.0) L Mean Corpuscular Hemoglobin Concent 31.9 G/DL (32.0-36.0) L Red Cell Distribution Width 17.4 % (11.6-14.8) H Platelet Count 176 K/UL (150-450) Mean Platelet Volume 7.4 FL (6.5-10.1) Neutrophils (%) (Auto) 81.5 % (45.0-75.0) H Lymphocytes (%) (Auto) 10.5 % (20.0-45.0) L Monocytes (%) (Auto) 7.6 % (1.0-10.0) Eosinophils (%) (Auto) 0.2 % (0.0-3.0) Basophils (%) (Auto) 0.3 % (0.0-2.0) Sodium Level 141 MMOL/L (136-145) Potassium Level 4.2 MMOL/L (3.5-5.1) Chloride Level 111 MMOL/L (98-107) H Carbon Dioxide Level 25 MMOL/L (21-32) Anion Gap 5 mmol/L (5-15) Blood Urea Nitrogen 18 mg/dL (7-18) Creatinine 0.9 MG/DL (0.55-1.30) Estimat Glomerular Filtration Rate > 60 mL/min (>60) Glucose Level 71 MG/DL (74-106) L Calcium Level 8.3 MG/DL (8.5-10.1) L Current Medications Medications (Trade) Dose Ordered Sig/Dank Route PRN Reason Start Time Stop Time Status Last Admin Dose Admin Acetaminophen (Tylenol) 650 mg Q4H PRN ORAL fever (temp >100.5 F) 05/07/17 16:30 06/06/17 16:29 05/12/17 16:18 Albuterol/ Ipratropium (Albuterol/ Ipratropium) 3 ml Q4H PRN HHN Shortness of Breath 05/15/17 13:00 05/20/17 12:59 Benztropine Mesylate (Cogentin) 1 mg BID ORAL 05/07/17 18:45 06/06/17 18:44 05/16/17 08:36 Buspirone HCl (Buspar) 5 mg TID ORAL 05/07/17 18:50 06/06/17 18:49 2/4/18 12:00 Dextrose (Dextrose 50%) STAT PRN IV Hypoglycemia 05/07/17 16:30 06/06/17 16:29 Diphenhydramine HCl (Benadryl) 25 mg Q6H PRN ORAL Itching/Pruritis 05/07/17 16:30 06/06/17 16:29 Divalproex Sodium (Depakote ER) 500 mg EVERY 12 HOURS ORAL 05/07/17 21:00 06/06/17 20:59 05/16/17 08:37 Docusate Sodium (Colace) 100 mg TID ORAL 05/13/17 14:00 06/09/17 13:59 05/16/17 12:00 Heparin Sodium (Porcine) (Heparin 5000 units/ml) 5,000 units EVERY 12 HOURS SUBQ 05/07/17 21:00 06/06/17 20:59 05/16/17 08:42 Levothyroxine Sodium (Synthroid) 75 mcg DAILY ORAL 05/08/17 09:00 06/07/17 08:59 05/16/17 08:36 Metoclopramide HCl (Reglan) 2.5 mg EVERY 6 HOURS NG 05/16/17 12:00 06/15/17 11:59 05/16/17 12:00 Nitroglycerin (Ntg) 0.4 mg Q5M X 3 DOSES PRN SL Prn Chest Pain 05/07/17 16:30 06/06/17 16:29 Ondansetron HCl (Zofran) 4 mg Q6H PRN IVP Nausea & Vomiting 05/07/17 16:30 06/06/17 16:29 Oxcarbazepine (Trileptal) 450 mg BID ORAL 05/07/17 19:30 06/06/17 19:29 05/16/17 08:36 Polyethylene Glycol (Miralax) 17 gm HSPRN PRN ORAL Constipation 05/07/17 16:30 06/06/17 16:29 Quetiapine Fumarate (SEROquel) 100 mg BID ORAL 05/07/17 18:45 06/06/17 18:44 05/16/17 08:36 FLYNN PERAZA May 16, 2017 14:07
[2017-05-16 16:00] VITALS: BP 97/81
[2017-05-16] MEDS: D5 1/2NS 1,000 ML IV SCH (16:38)
[2017-05-16 20:00] VITALS: BP 98/73
--- NOTE | 2017-05-16 23:05 | Progress Note ---
DATE: 05/15/2017 SUBJECTIVE: The patient is a 61-year-old male patient with anemia and hypokalemia. The patient continues to have mood liability, confusion, and disorganized thought process. MENTAL STATUS EXAMINATION: A 61-year-old male with psychomotor retardation. Mood is depressed. Affect guarded and restricted. Thought process disorganized and illogical. No signs of any suicidal or homicidal thoughts. Insight and judgement is poor. DIAGNOSIS: Schizoaffective bipolar type. PLAN: Continue to titrate . Chart reviewed and discussed with staff. Seen and assessed at bedside. Laruen Ames M.D. DR: Raymon JOB#: [id number] CC:
--- NOTE | 2017-05-16 23:05 | Progress Note ---
DATE: 05/15/2017 SUBJECTIVE: The patient is a 61-year-old male with anemia, hypokalemia, altered mental status, confusion, and racing thoughts. No logical plan of and disorganized thought process. MENTAL STATUS EXAMINATION: The patient is a 61-year-old female with psychomotor retardation. Mood is depressed. Affect guarded and restricted. Thought process disorganized and illogical. Denied suicidal or homicidal thoughts. Insight and judgment is poor. DIAGNOSIS: Schizoaffective bipolar type. PLAN: Continue titrating upon this, stabilize mood. Chart reviewed. Discussed with staff. Seen and assessed at bedside. Lauren Ames M.D. DR: BERE JOB#: [id number] CC:
[2017-05-17] VITALS: BP 112/78
--- NOTE | 2017-05-17 00:15 | Progress Note ---
DATE: 05/16/2017 SUBJECTIVE: The patient is a 61-year-old male patient with anemia and hypokalemia. He has altered mental status and mood lability, worsened by the stress of his medical illness, so his attending has requested daily psychiatric consultation. MENTAL STATUS EXAMINATION: This is a 61-year-old male with psychomotor agitation. Mood is irritable and agitated. Affect is guarded and restricted. Thought process is disorganized and illogical. Denies any current suicidal or homicidal thoughts. Insight and judgment is poor. DIAGNOSIS: Schizoaffective, bipolar type. PLAN: Continue titrating up on his medications. Fifteen to 20 minutes of supportive therapy provided. Chart was reviewed and discussed with staff. Seen and assessed at the bedside. Lauren Ames M.D. DR: LAWRENCE JOB#: [id number] CC:
[2017-05-17] MEDS: Metoclopramide 10mg/10ml Liq NG SCH ×4 (01:29→18:07)
[2017-05-17 04:00] VITALS: BP 104/75
[2017-05-17] MEDS: D5 1/2NS 1,000 ML IV SCH ×2 (06:13→18:06)
[2017-05-17 06:46] LABS: BASOPHILS % (AUTO) 0.2 % (0.0-2.0); EOSINOPHILS % (AUTO) 0.3 % (0.0-3.0); HEMATOCRIT 27.7 % (42.0-52.0); LYMPHOCYTES % (AUTO) 14.2 % (20.0-45.0); MEAN CORPUSCULAR VOLUME 85 FL (80-99); MONOCYTES % (AUTO) 5.7 % (1.0-10.0); NEUTROPHILS % (AUTO) 79.6 % (45.0-75.0); PLATELET COUNT 168 K/UL (150-450); RED BLOOD COUNT 3.26 M/UL (4.70-6.10); RED CELL DISTRIBUTION WIDTH 17.5 % (11.6-14.8); WHITE BLOOD COUNT 7.4 K/UL (4.8-10.8)
[2017-05-17 07:38] LABS: ANION GAP 8 mmol/L (5-15); BLOOD UREA NITROGEN 17 mg/dL (7-18); CALCIUM 8.3 MG/DL (8.5-10.1); CARBON DIOXIDE 25 MMOL/L (21-32); CHLORIDE 111 MMOL/L (98-107); POTASSIUM 4.2 MMOL/L (3.5-5.1); SODIUM 144 MMOL/L (136-145)
[2017-05-17 08:42] VITALS: BP 126/86
[2017-05-17] MEDS: OXcarbazepine 150mg tab ORAL SCH ×2 (09:53→18:07)
[2017-05-17] MEDS: Benztropine 1mg tab ORAL SCH ×2 (09:53→18:06)
[2017-05-17] MEDS: Docusate 100mg cap ORAL SCH ×3 (09:53→18:07)
[2017-05-17] MEDS: Depakote ER 500mg tab ORAL SCH ×2 (09:54→21:06)
[2017-05-17] MEDS: Heparin 5000 units/ml inj SUBQ SCH ×2 (09:59→21:07)
[2017-05-17] MEDS: BusPIRone 5mg Tab ORAL SCH ×3 (10:08→18:07)
--- NOTE | 2017-05-17 10:10 | Diagnostic Imaging Report ---
Indication: Abdominal pain, abdominal distention Technique: Supine view of the abdomen Comparison: 05/13/2017 Findings: There is slightly decreased retained colonic contrast. There is increased colonic stool in the right side of the colon. Interim placement of a gastrostomy There is generalized prominence and borderline dilatation of small bowel loops. Amount of small bowel gas appears slightly increased from the previous exam Impression: Prominent borderline dilated gas-filled small bowel loops. Suspect reflects mild ileus; partial distal small bowel obstruction not completely excludable. Also could be just due to air insufflation related to recent gastrostomy placement. Correlate with clinical findings and consider follow-up radiographs as indicated Other findings as noted
--- NOTE | 2017-05-17 11:08 | GI Progress Note ---
Assessment/Plan Problems: (1) Fecal impaction ICD Codes: K56.41 - Fecal impaction SNOMED: 64381735 (2) Parkinson disease ICD Codes: G20 - Parkinson's disease SNOMED: 84886035 (3) Anemia ICD Codes: D64.9 - Anemia, unspecified SNOMED: 161797572 (4) Dehydration ICD Codes: E86.0 - Dehydration SNOMED: 26194798 (5) Abdominal distention ICD Codes: R14.0 - Abdominal distension (gaseous) SNOMED: 38887352 (6) Severe malnutrition ICD Codes: E43 - Unspecified severe protein-calorie malnutrition SNOMED: 51152363 Status: unchanged Status Narrative Discussed with Dr. Euceda. Assessment/Plan - Severe rectal stool impaction >> abdomen very less distended - Hypernatremia - Azotemia - Dehydration - s/p GT placement - elevated residuals KUB reviewed >> possible ileus hold GTFs no IV reglan or eryhtromycin available start low dose po reglan bowel regimen Subjective Subjective limited Objective Last 24 Hour Vital Signs Date Time Temp Pulse Resp B/P (MAP) Pulse Ox O2 Delivery O2 Flow Rate FiO2 05/17/17 10:42 93 20 Nasal Cannula 3.0 32 05/17/17 08:42 97.6 91 21 126/86 100 05/17/17 07:46 Nasal Cannula 3.0 32 05/17/17 07:46 98 Nasal Cannula 3.0 32 05/17/17 04:00 98.4 88 19 104/75 98 05/17/17 04:00 98 Nasal Cannula 2.0 05/17/17 00:00 98 Nasal Cannula 2.0 05/17/17 00:00 97.9 89 19 112/78 98 05/16/17 20:00 98.1 92 19 98/73 100 05/16/17 20:00 100 Nasal Cannula 2.0 05/16/17 19:45 Nasal Cannula 2.0 28 05/16/17 19:45 95 Nasal Cannula 2.0 28 05/16/17 19:45 95 Nasal Cannula 2.0 28 05/16/17 16:00 98.9 69 18 97/81 Nasal Cannula 2.0 05/16/17 12:00 97.7 98 18 120/81 Intake and Output 05/16/17 05/17/17 19:00 07:00 Intake Total 300 ml 750 ml Balance 300 ml 750 ml IV Total 300 ml 750 ml Tube Feeding 0 ml # Voids 4 # Bowel Movements 1 Laboratory Tests Test 05/17/17 03:30 White Blood Count 7.4 K/UL (4.8-10.8) Red Blood Count 3.26 M/UL (4.70-6.10) L Hemoglobin 9.0 G/DL (14.2-18.0) L Hematocrit 27.7 % (42.0-52.0) L Mean Corpuscular Volume 85 FL (80-99) Mean Corpuscular Hemoglobin 27.6 PG (27.0-31.0) Mean Corpuscular Hemoglobin Concent 32.6 G/DL (32.0-36.0) Red Cell Distribution Width 17.5 % (11.6-14.8) H Platelet Count 168 K/UL (150-450) Mean Platelet Volume 8.2 FL (6.5-10.1) Neutrophils (%) (Auto) 79.6 % (45.0-75.0) H Lymphocytes (%) (Auto) 14.2 % (20.0-45.0) L Monocytes (%) (Auto) 5.7 % (1.0-10.0) Eosinophils (%) (Auto) 0.3 % (0.0-3.0) Basophils (%) (Auto) 0.2 % (0.0-2.0) Sodium Level 144 MMOL/L (136-145) Potassium Level 4.2 MMOL/L (3.5-5.1) Chloride Level 111 MMOL/L (98-107) H Carbon Dioxide Level 25 MMOL/L (21-32) Anion Gap 8 mmol/L (5-15) Blood Urea Nitrogen 17 mg/dL (7-18) Creatinine 1.0 MG/DL (0.55-1.30) Estimat Glomerular Filtration Rate > 60 mL/min (>60) Glucose Level 50 MG/DL (74-106) L Calcium Level 8.3 MG/DL (8.5-10.1) L Height (Feet): 5 Height (Inches): 4.00 Weight (Pounds): 140 General Appearance: no apparent distress, alert, thin Cardiovascular: normal rate Respiratory/Chest: normal breath sounds, no respiratory distress Abdominal Exam: normal bowel sounds, non tender, soft, GT site - c/d/i Extremities: non-tender Gayle Aguillon N.P. May 17, 2017 11:08
[2017-05-17 11:47] VITALS: BP 104/72
--- NOTE | 2017-05-17 12:50 | General Progress Note ---
Assessment/Plan Problem List: (1) Renal failure ICD Codes: N19 - Unspecified kidney failure SNOMED: 36306018 (2) UTI (urinary tract infection) ICD Codes: N39.0 - Urinary tract infection, site not specified SNOMED: 15607524 (3) Sepsis ICD Codes: A41.9 - Sepsis, unspecified organism SNOMED: 46782950 (4) Anemia ICD Codes: D64.9 - Anemia, unspecified SNOMED: 373845724 (5) Parkinson disease ICD Codes: G20 - Parkinson's disease SNOMED: 91893705 (6) Abdominal distention ICD Codes: R14.0 - Abdominal distension (gaseous) SNOMED: 71187451 Status: unchanged Assessment/Plan ot pt diet abx cbc bmp am dc plan Subjective Constitutional: Reports: weakness Allergies: Coded Allergies: SULFA (SULFONAMIDE ANTIBIOTICS) (Verified Allergy, Severe, 04/23/12) TRIMETHADIONE (Verified Allergy, Severe, 04/23/12) PARAMETHADIONE (Unverified Allergy, Unknown, 05/07/17) Uncoded Allergies: SULFA (Allergy, Unknown, 05/07/17) All Systems: reviewed and negative except above Subjective sleepy calm in bed s/p peg Objective Last 24 Hour Vital Signs Date Time Temp Pulse Resp B/P (MAP) Pulse Ox O2 Delivery O2 Flow Rate FiO2 05/17/17 11:47 97.8 98 21 104/72 98 05/17/17 10:42 93 20 Nasal Cannula 3.0 32 05/17/17 08:42 97.6 91 21 126/86 100 05/17/17 07:46 Nasal Cannula 3.0 32 05/17/17 07:46 98 Nasal Cannula 3.0 32 05/17/17 04:00 98.4 88 19 104/75 98 05/17/17 04:00 98 Nasal Cannula 2.0 05/17/17 00:00 98 Nasal Cannula 2.0 05/17/17 00:00 97.9 89 19 112/78 98 05/16/17 20:00 98.1 92 19 98/73 100 05/16/17 20:00 100 Nasal Cannula 2.0 05/16/17 19:45 Nasal Cannula 2.0 28 05/16/17 19:45 95 Nasal Cannula 2.0 28 05/16/17 19:45 95 Nasal Cannula 2.0 28 05/16/17 16:00 98.9 69 18 97/81 Nasal Cannula 2.0 Intake and Output 05/16/17 05/17/17 19:00 07:00 Intake Total 300 ml 750 ml Balance 300 ml 750 ml IV Total 300 ml 750 ml Tube Feeding 0 ml # Voids 4 # Bowel Movements 1 Laboratory Tests 05/17/17 03:30: White Blood Count 7.4, Red Blood Count 3.26L, Hemoglobin 9.0L, Hematocrit 27.7L , Mean Corpuscular Volume 85, Mean Corpuscular Hemoglobin 27.6, Mean Corpuscular Hemoglobin Concent 32.6, Red Cell Distribution Width 17.5H, Platelet Count 168, Mean Platelet Volume 8.2, Neutrophils (%) (Auto) 79.6H, Lymphocytes (%) (Auto) 14.2L, Monocytes (%) (Auto) 5.7, Eosinophils (%) (Auto) 0.3, Basophils (%) (Auto) 0.2, Sodium Level 144, Potassium Level 4.2, Chloride Level 111H, Carbon Dioxide Level 25, Anion Gap 8, Blood Urea Nitrogen 17, Creatinine 1.0, Estimat Glomerular Filtration Rate > 60, Glucose Level 50L, Calcium Level 8.3L Height (Feet): 5 Height (Inches): 4.00 Weight (Pounds): 140 General Appearance: lethargic EENT: normal ENT inspection Neck: normal alignment Cardiovascular: normal rate Respiratory/Chest: chest wall non-tender, lungs clear, normal breath sounds Abdomen: normal bowel sounds, non tender, soft Extremities: normal inspection Edema: no edema noted Arm (L), no edema noted Arm (R), no edema noted Leg (L), no edema noted Leg (R), no edema noted Pedal (L), no edema noted Pedal (R), no edema noted Generalized Neurologic: motor weakness Skin: normal pigmentation, warm/dry NARCISA HUI May 17, 2017 12:50
--- NOTE | 2017-05-17 13:58 | Cardiology Report ---
APPROVED REPORT EKG Measurement Heart [id number] Sinus tachycardia Right bundle branch block Abnormal ECG
--- NOTE | 2017-05-17 14:40 | General Surgery Progress Note ---
General Surgery-Progress Note Subjective Additional Comments doing okay. no acute events. comfortable. abd mild distended today Objective Last 24 Hour Vital Signs Date Time Temp Pulse Resp B/P (MAP) Pulse Ox O2 Delivery O2 Flow Rate FiO2 05/17/17 11:47 97.8 98 21 104/72 98 05/17/17 10:42 93 20 Nasal Cannula 3.0 32 05/17/17 08:42 97.6 91 21 126/86 100 05/17/17 07:46 Nasal Cannula 3.0 32 05/17/17 07:46 98 Nasal Cannula 3.0 32 05/17/17 04:00 98.4 88 19 104/75 98 05/17/17 04:00 98 Nasal Cannula 2.0 05/17/17 00:00 98 Nasal Cannula 2.0 05/17/17 00:00 97.9 89 19 112/78 98 05/16/17 20:00 98.1 92 19 98/73 100 05/16/17 20:00 100 Nasal Cannula 2.0 05/16/17 19:45 Nasal Cannula 2.0 28 05/16/17 19:45 95 Nasal Cannula 2.0 28 05/16/17 19:45 95 Nasal Cannula 2.0 28 05/16/17 16:00 98.9 69 18 97/81 Nasal Cannula 2.0 I&O Intake and Output 05/16/17 05/17/17 19:00 07:00 Intake Total 300 ml 750 ml Balance 300 ml 750 ml IV Total 300 ml 750 ml Tube Feeding 0 ml # Voids 4 # Bowel Movements 1 Dressing: dry Wound: clean Drains: other - g tube Cardiovascular: RSR Respiratory: clear Abdomen: soft, distended, non-tender, absent bowel sounds Extremities: no tenderness Laboratory Tests Test 05/17/17 03:30 White Blood Count 7.4 K/UL (4.8-10.8) Red Blood Count 3.26 M/UL (4.70-6.10) L Hemoglobin 9.0 G/DL (14.2-18.0) L Hematocrit 27.7 % (42.0-52.0) L Mean Corpuscular Volume 85 FL (80-99) Mean Corpuscular Hemoglobin 27.6 PG (27.0-31.0) Mean Corpuscular Hemoglobin Concent 32.6 G/DL (32.0-36.0) Red Cell Distribution Width 17.5 % (11.6-14.8) H Platelet Count 168 K/UL (150-450) Mean Platelet Volume 8.2 FL (6.5-10.1) Neutrophils (%) (Auto) 79.6 % (45.0-75.0) H Lymphocytes (%) (Auto) 14.2 % (20.0-45.0) L Monocytes (%) (Auto) 5.7 % (1.0-10.0) Eosinophils (%) (Auto) 0.3 % (0.0-3.0) Basophils (%) (Auto) 0.2 % (0.0-2.0) Sodium Level 144 MMOL/L (136-145) Potassium Level 4.2 MMOL/L (3.5-5.1) Chloride Level 111 MMOL/L (98-107) H Carbon Dioxide Level 25 MMOL/L (21-32) Anion Gap 8 mmol/L (5-15) Blood Urea Nitrogen 17 mg/dL (7-18) Creatinine 1.0 MG/DL (0.55-1.30) Estimat Glomerular Filtration Rate > 60 mL/min (>60) Glucose Level 50 MG/DL (74-106) L Calcium Level 8.3 MG/DL (8.5-10.1) L Plan Problems: (1) Fecal impaction Assessment & Plan: 61M with severe fecal impaction leaving to a near complete large bowel obstruction. CT findings very prominent and concerning. High risk for perforation given CT findings and exam. good amount of impacted stool removed with bedside disimpaction over the past few days. Today abdominal exam significantly improved. abdomen soft, non distended, finally resolved. no longer needs disimpaction as good BM's soft on his own. KUB much improved but now has some small bowel distention -Hold tube feeds. GI note reviewed. plan to start reglan PO since IV not available. possible ileus. -if colon still distended or distention/obstruction colonic in nature may have colonic inertia and require colectomy or will continue to have similar issues. -needs really good bowel regimen and habits. -stool softeners -will follow with recs thank you for this consultation. Norbert Huggins May 17, 2017 14:40
--- NOTE | 2017-05-17 14:52 | Nephrology Progress Note ---
Assessment/Plan Problem List: (1) Hypokalemia (2) Dehydration (3) Fecal impaction (4) Hypernatremia (5) Parkinson disease Assessment status: - Fecal impaction. improved - Acute renal failure, improved - Hypokalemia.improved - Hypernatremia. improved - Paranoid schizophrenia. - Parkinson disease. - Hypothyroidism. - Anemia. Plan Plan: Had PEG- Has mild Ileus Stable from renal stand Per consultants Subjective ROS Limited/Unobtainable: No Constitutional: Reports: malaise Objective Objective Last 24 Hour Vital Signs Date Time Temp Pulse Resp B/P (MAP) Pulse Ox O2 Delivery O2 Flow Rate FiO2 05/17/17 11:47 97.8 98 21 104/72 98 05/17/17 10:42 93 20 Nasal Cannula 3.0 32 05/17/17 08:42 97.6 91 21 126/86 100 05/17/17 07:46 Nasal Cannula 3.0 32 05/17/17 07:46 98 Nasal Cannula 3.0 32 05/17/17 04:00 98.4 88 19 104/75 98 05/17/17 04:00 98 Nasal Cannula 2.0 05/17/17 00:00 98 Nasal Cannula 2.0 05/17/17 00:00 97.9 89 19 112/78 98 05/16/17 20:00 98.1 92 19 98/73 100 05/16/17 20:00 100 Nasal Cannula 2.0 05/16/17 19:45 Nasal Cannula 2.0 28 05/16/17 19:45 95 Nasal Cannula 2.0 28 05/16/17 19:45 95 Nasal Cannula 2.0 28 05/16/17 16:00 98.9 69 18 97/81 Nasal Cannula 2.0 Intake and Output 05/16/17 05/17/17 19:00 07:00 Intake Total 300 ml 750 ml Balance 300 ml 750 ml IV Total 300 ml 750 ml Tube Feeding 0 ml # Voids 4 # Bowel Movements 1 Laboratory Tests 05/17/17 03:30: White Blood Count 7.4, Red Blood Count 3.26L, Hemoglobin 9.0L, Hematocrit 27.7L , Mean Corpuscular Volume 85, Mean Corpuscular Hemoglobin 27.6, Mean Corpuscular Hemoglobin Concent 32.6, Red Cell Distribution Width 17.5H, Platelet Count 168, Mean Platelet Volume 8.2, Neutrophils (%) (Auto) 79.6H, Lymphocytes (%) (Auto) 14.2L, Monocytes (%) (Auto) 5.7, Eosinophils (%) (Auto) 0.3, Basophils (%) (Auto) 0.2, Sodium Level 144, Potassium Level 4.2, Chloride Level 111H, Carbon Dioxide Level 25, Anion Gap 8, Blood Urea Nitrogen 17, Creatinine 1.0, Estimat Glomerular Filtration Rate > 60, Glucose Level 50L, Calcium Level 8.3L Height (Feet): 5 Height (Inches): 4.00 Weight (Pounds): 140 General Appearance: no apparent distress Cardiovascular: tachycardia Respiratory/Chest: decreased breath sounds Abdomen: other - PEG+ MIKEL QUINTERO May 17, 2017 14:52
[2017-05-17 15:58] VITALS: BP 115/78
--- NOTE | 2017-05-17 17:49 | Pulmonology Progress Note ---
Assessment/Plan Problems: (1) Hypokalemia (2) Abdominal distention (3) Parkinson disease (4) Renal failure (5) UTI (urinary tract infection) (6) Fecal impaction (7) Dehydration (8) Severe malnutrition Assessment/Plan tolerating gtube looks more alert. wbc normal now more awake all meds and notes reviewed dc planning Subjective ROS Limited/Unobtainable: No Constitutional: Reports: no symptoms HEENT: Repors: no symptoms Respiratory: Reports: no symptoms Allergies: Coded Allergies: SULFA (SULFONAMIDE ANTIBIOTICS) (Verified Allergy, Severe, 04/23/12) TRIMETHADIONE (Verified Allergy, Severe, 04/23/12) PARAMETHADIONE (Unverified Allergy, Unknown, 05/07/17) Uncoded Allergies: SULFA (Allergy, Unknown, 05/07/17) Objective Last 24 Hour Vital Signs Date Time Temp Pulse Resp B/P (MAP) Pulse Ox O2 Delivery O2 Flow Rate FiO2 05/17/17 15:58 97.7 93 20 115/78 97 05/17/17 11:47 97.8 98 21 104/72 98 05/17/17 10:42 93 20 Nasal Cannula 3.0 32 05/17/17 08:42 97.6 91 21 126/86 100 05/17/17 07:46 Nasal Cannula 3.0 32 05/17/17 07:46 98 Nasal Cannula 3.0 32 05/17/17 04:00 98.4 88 19 104/75 98 05/17/17 04:00 98 Nasal Cannula 2.0 05/17/17 00:00 98 Nasal Cannula 2.0 05/17/17 00:00 97.9 89 19 112/78 98 05/16/17 20:00 98.1 92 19 98/73 100 05/16/17 20:00 100 Nasal Cannula 2.0 05/16/17 19:45 Nasal Cannula 2.0 28 05/16/17 19:45 95 Nasal Cannula 2.0 28 05/16/17 19:45 95 Nasal Cannula 2.0 28 Intake and Output 05/16/17 05/17/17 19:00 07:00 Intake Total 300 ml 750 ml Balance 300 ml 750 ml IV Total 300 ml 750 ml Tube Feeding 0 ml # Voids 4 # Bowel Movements 1 Objective General Appearance: cachetic Lines, tubes and drains: peripheral HEENT: normocephalic, atraumatic Neck: non-tender, normal alignment Respiratory/Chest: chest wall non-tender, lungs clear Cardiovascular/Chest: normal peripheral pulses, normal rate Abdomen: normal bowel sounds, non tender, Gtube in place Genitourinary/Rectal: normal genital exam, normal rectal exam Skin Exam: normal pigmentation Laboratory Tests 05/17/17 03:30: White Blood Count 7.4, Red Blood Count 3.26L, Hemoglobin 9.0L, Hematocrit 27.7L , Mean Corpuscular Volume 85, Mean Corpuscular Hemoglobin 27.6, Mean Corpuscular Hemoglobin Concent 32.6, Red Cell Distribution Width 17.5H, Platelet Count 168, Mean Platelet Volume 8.2, Neutrophils (%) (Auto) 79.6H, Lymphocytes (%) (Auto) 14.2L, Monocytes (%) (Auto) 5.7, Eosinophils (%) (Auto) 0.3, Basophils (%) (Auto) 0.2, Sodium Level 144, Potassium Level 4.2, Chloride Level 111H, Carbon Dioxide Level 25, Anion Gap 8, Blood Urea Nitrogen 17, Creatinine 1.0, Estimat Glomerular Filtration Rate > 60, Glucose Level 50L, Calcium Level 8.3L Current Medications Medications (Trade) Dose Ordered Sig/Dank Route PRN Reason Start Time Stop Time Status Last Admin Dose Admin Acetaminophen (Tylenol) 650 mg Q4H PRN ORAL fever (temp >100.5 F) 05/07/17 16:30 06/06/17 16:29 05/12/17 16:18 Albuterol/ Ipratropium (Albuterol/ Ipratropium) 3 ml Q4H PRN HHN Shortness of Breath 05/15/17 13:00 05/20/17 12:59 Benztropine Mesylate (Cogentin) 1 mg BID ORAL 05/07/17 18:45 06/06/17 18:44 05/17/17 09:53 Buspirone HCl (Buspar) 5 mg TID ORAL 05/07/17 18:50 06/06/17 18:49 05/17/17 12:26 Dextrose (Dextrose 50%) STAT PRN IV Hypoglycemia 05/07/17 16:30 06/06/17 16:29 Dextrose/Sodium Chloride 1,000 ml @ 75 mls/hr [id number] IV 05/16/17 16:30 06/15/17 16:29 05/17/17 06:13 Diphenhydramine HCl (Benadryl) 25 mg Q6H PRN ORAL Itching/Pruritis 05/07/17 16:30 06/06/17 16:29 Divalproex Sodium (Depakote ER) 500 mg EVERY 12 HOURS ORAL 05/07/17 21:00 06/06/17 20:59 05/17/17 09:54 Docusate Sodium (Colace) 100 mg TID ORAL 05/13/17 14:00 06/09/17 13:59 05/17/17 12:26 Heparin Sodium (Porcine) (Heparin 5000 units/ml) 5,000 units EVERY 12 HOURS SUBQ 05/07/17 21:00 06/06/17 20:59 05/17/17 09:59 Levothyroxine Sodium (Synthroid) 75 mcg DAILY ORAL 05/08/17 09:00 06/07/17 08:59 05/17/17 09:53 Metoclopramide HCl (Reglan) 2.5 mg EVERY 6 HOURS NG 05/16/17 12:00 06/15/17 11:59 05/17/17 12:25 Nitroglycerin (Ntg) 0.4 mg Q5M X 3 DOSES PRN SL Prn Chest Pain 05/07/17 16:30 06/06/17 16:29 Ondansetron HCl (Zofran) 4 mg Q6H PRN IVP Nausea & Vomiting 05/07/17 16:30 06/06/17 16:29 Oxcarbazepine (Trileptal) 450 mg BID ORAL 05/07/17 19:30 06/06/17 19:29 05/17/17 09:53 Polyethylene Glycol (Miralax) 17 gm HSPRN PRN ORAL Constipation 05/07/17 16:30 06/06/17 16:29 Quetiapine Fumarate (SEROquel) 100 mg BID ORAL 05/07/17 18:45 06/06/17 18:44 05/17/17 09:53 TYRONE FARMER May 17, 2017 17:49
[2017-05-17 20:00] VITALS: BP 120/71
--- NOTE | 2017-05-17 23:00 | Progress Note ---
DATE: 05/17/2017 NOTE: POOR AUDIO SUBJECTIVE: The patient is a 61-year-old male patient with anemia and hypokalemia, . He has worsening thoughts . He continues altered mental status, so his attending has requested daily psychiatric consultation. MENTAL STATUS EXAMINATION: Appearance is disheveled, irritable and agitated. Affect is guarded and restricted. Intellect is poor. Mood is depressed. psychomotor agitation. Attention span is poor. Oriented x2. Denies any suicidal or homicidal thoughts, but he has auditory hallucinations and paranoia. Insight and judgment is poor. DIAGNOSIS: Schizoaffective, bipolar type. PLAN: Continue titrating up his mood stabilizing medications and provided 15-20 minutes of supportive therapy . Chart was reviewed and discussed with staff. Lauren Ames M.D. DR: GAGE JOB#: [id number] CC:
[2017-05-18] VITALS: BP 115/77
[2017-05-18] MEDS: Metoclopramide 10mg/10ml Liq NG SCH ×4 (00:36→17:37)
[2017-05-18 04:00] VITALS: BP 117/84
[2017-05-18 08:00] VITALS: BP 137/88
[2017-05-18] MEDS: Docusate 100mg cap ORAL SCH ×3 (08:38→17:34)
[2017-05-18] MEDS: BusPIRone 5mg Tab ORAL SCH ×3 (08:38→17:37)
[2017-05-18] MEDS: Benztropine 1mg tab ORAL SCH ×2 (08:38→17:37)
[2017-05-18] MEDS: Depakote ER 500mg tab ORAL SCH ×2 (08:38→21:34)
[2017-05-18] MEDS: D5 1/2NS 1,000 ML IV SCH (08:39)
[2017-05-18] MEDS: OXcarbazepine 150mg tab ORAL SCH ×2 (08:45→17:37)
[2017-05-18 08:46] LABS: BASOPHILS % (AUTO) 0.3 % (0.0-2.0); EOSINOPHILS % (AUTO) 0.3 % (0.0-3.0); HEMATOCRIT 30.6 % (42.0-52.0); HEMOGLOBIN 9.9 G/DL (14.2-18.0); MEAN CORPUSCULAR VOLUME 84 FL (80-99); MONOCYTES % (AUTO) 6.8 % (1.0-10.0); NEUTROPHILS % (AUTO) 77.6 % (45.0-75.0); PLATELET COUNT 208 K/UL (150-450); RED BLOOD COUNT 3.65 M/UL (4.70-6.10); RED CELL DISTRIBUTION WIDTH 17.2 % (11.6-14.8); WHITE BLOOD COUNT 5.7 K/UL (4.8-10.8)
[2017-05-18] MEDS: Heparin 5000 units/ml inj SUBQ SCH ×2 (08:52→21:36)
[2017-05-18 09:13] LABS: ANION GAP 7 mmol/L (5-15); BLOOD UREA NITROGEN 13 mg/dL (7-18); CALCIUM 8.4 MG/DL (8.5-10.1); CARBON DIOXIDE 26 MMOL/L (21-32); CHLORIDE 107 MMOL/L (98-107); CREATININE 0.9 MG/DL (0.55-1.30); POTASSIUM 3.5 MMOL/L (3.5-5.1); SODIUM 140 MMOL/L (136-145)
--- NOTE | 2017-05-18 10:29 | General Surgery Progress Note ---
General Surgery-Progress Note Subjective Additional Comments more distended today. from report noted to have more thick mucus secretions evacuated from g tube. no n/v. Objective Last 24 Hour Vital Signs Date Time Temp Pulse Resp B/P (MAP) Pulse Ox O2 Delivery O2 Flow Rate FiO2 05/18/17 08:16 Nasal Cannula 3.0 32 05/18/17 08:15 96 Nasal Cannula 3.0 32 05/18/17 08:15 87 20 Nasal Cannula 3.0 32 05/18/17 08:00 97.3 90 20 137/88 96 05/18/17 04:00 98.1 89 18 117/84 95 05/18/17 00:00 100 Nasal Cannula 2.0 05/18/17 00:00 97.5 79 19 115/77 100 05/17/17 20:00 100 Nasal Cannula 2.0 05/17/17 20:00 97.1 83 19 120/71 100 05/17/17 19:35 Nasal Cannula 3.0 32 05/17/17 19:35 95 20 Nasal Cannula 3.0 32 05/17/17 19:35 95 Nasal Cannula 3.0 32 05/17/17 15:58 97.7 93 20 115/78 97 05/17/17 11:47 97.8 98 21 104/72 98 05/17/17 10:42 93 20 Nasal Cannula 3.0 32 I&O Intake and Output 05/17/17 05/18/17 19:00 07:00 Intake Total 0 ml 750 ml Balance 0 ml 750 ml Intake Oral 0 ml IV Total 750 ml # Voids 4 3 Cardiovascular: RSR Respiratory: clear Abdomen: soft, scaphoid, distended, non-tender, absent bowel sounds Extremities: no tenderness, no cyanosis Laboratory Tests Test 05/18/17 07:40 White Blood Count 5.7 K/UL (4.8-10.8) Red Blood Count 3.65 M/UL (4.70-6.10) L Hemoglobin 9.9 G/DL (14.2-18.0) L Hematocrit 30.6 % (42.0-52.0) L Mean Corpuscular Volume 84 FL (80-99) Mean Corpuscular Hemoglobin 27.2 PG (27.0-31.0) Mean Corpuscular Hemoglobin Concent 32.4 G/DL (32.0-36.0) Red Cell Distribution Width 17.2 % (11.6-14.8) H Platelet Count 208 K/UL (150-450) Mean Platelet Volume 8.2 FL (6.5-10.1) Neutrophils (%) (Auto) 77.6 % (45.0-75.0) H Lymphocytes (%) (Auto) 15.0 % (20.0-45.0) L Monocytes (%) (Auto) 6.8 % (1.0-10.0) Eosinophils (%) (Auto) 0.3 % (0.0-3.0) Basophils (%) (Auto) 0.3 % (0.0-2.0) Sodium Level 140 MMOL/L (136-145) Potassium Level 3.5 MMOL/L (3.5-5.1) Chloride Level 107 MMOL/L (98-107) Carbon Dioxide Level 26 MMOL/L (21-32) Anion Gap 7 mmol/L (5-15) Blood Urea Nitrogen 13 mg/dL (7-18) Creatinine 0.9 MG/DL (0.55-1.30) Estimat Glomerular Filtration Rate > 60 mL/min (>60) Glucose Level 73 MG/DL (74-106) L Calcium Level 8.4 MG/DL (8.5-10.1) L Plan Problems: (1) Fecal impaction Assessment & Plan: 61M with severe fecal impaction leaving to a near complete large bowel obstruction. CT findings very prominent and concerning. High risk for perforation given CT findings and exam. good amount of impacted stool removed with bedside disimpaction over the past few days. Today abdominal exam significantly improved. abdomen soft, non distended, finally resolved. no longer needs disimpaction as good BM's soft on his own. KUB much improved but now has some small bowel distention G tube placed ileus currently or potentially more still impaction again. -Hold tube feeds. GI note reviewed. plan to start reglan PO since IV not available. possible ileus. -KUB ordered -will discuss CT with GI -if colon still distended or distention/obstruction colonic in nature may have colonic inertia and require colectomy or will continue to have similar issues. -needs really good bowel regimen and habits. -stool softeners -will follow with recs thank you for this consultation. Norbert Huggins May 18, 2017 10:29
--- NOTE | 2017-05-18 11:42 | Diagnostic Imaging Report ---
Indication: Abdominal pain and distention Technique: Supine view of the abdomen Comparison: 05/17/2017 Findings: Gastrostomy is again demonstrated. Considerable contrast opacified stool again is seen throughout the right colon. As previously, there is also considerable rectal stool The colon is diffusely gas filled, upper limits of normal in caliber. Prominent gas-filled but borderline dilated small bowel loops are also evident, appearing slightly less distended than on the prior study. Impression: Borderline dilated gas-filled small bowel loops, appearing slightly less distended than on previous exam. As previously reported, may reflect ileus changes. The colon is diffusely gas filled, per limits of normal in caliber, unchanged Considerable retained colonic fecal debris Gastrostomy
--- NOTE | 2017-05-18 11:43 | Nephrology Progress Note ---
Assessment/Plan Problem List: (1) Hypokalemia (2) Dehydration (3) Fecal impaction (4) Hypernatremia (5) Parkinson disease Assessment status: - Fecal impaction. improved - Acute renal failure, improved - Hypokalemia.improved - Hypernatremia. improved - Paranoid schizophrenia. - Parkinson disease. - Hypothyroidism. - Anemia. Plan Plan: DC IV fluid- Venofer and Folate- Had PEG- Has mild Ileus Stable from renal stand Per consultants Subjective ROS Limited/Unobtainable: No Constitutional: Reports: malaise Objective Objective Last 24 Hour Vital Signs Date Time Temp Pulse Resp B/P (MAP) Pulse Ox O2 Delivery O2 Flow Rate FiO2 05/18/17 08:16 Nasal Cannula 3.0 32 05/18/17 08:15 96 Nasal Cannula 3.0 32 05/18/17 08:15 87 20 Nasal Cannula 3.0 32 05/18/17 08:00 97.3 90 20 137/88 96 05/18/17 04:00 98.1 89 18 117/84 95 05/18/17 00:00 100 Nasal Cannula 2.0 05/18/17 00:00 97.5 79 19 115/77 100 05/17/17 20:00 100 Nasal Cannula 2.0 05/17/17 20:00 97.1 83 19 120/71 100 05/17/17 19:35 Nasal Cannula 3.0 32 05/17/17 19:35 95 20 Nasal Cannula 3.0 32 05/17/17 19:35 95 Nasal Cannula 3.0 32 05/17/17 15:58 97.7 93 20 115/78 97 05/17/17 11:47 97.8 98 21 104/72 98 Intake and Output 05/17/17 05/18/17 19:00 07:00 Intake Total 0 ml 750 ml Balance 0 ml 750 ml Intake Oral 0 ml IV Total 750 ml # Voids 4 3 Laboratory Tests 05/18/17 07:40: White Blood Count 5.7, Red Blood Count 3.65L, Hemoglobin 9.9L, Hematocrit 30.6L , Mean Corpuscular Volume 84, Mean Corpuscular Hemoglobin 27.2, Mean Corpuscular Hemoglobin Concent 32.4, Red Cell Distribution Width 17.2H, Platelet Count 208, Mean Platelet Volume 8.2, Neutrophils (%) (Auto) 77.6H, Lymphocytes (%) (Auto) 15.0L, Monocytes (%) (Auto) 6.8, Eosinophils (%) (Auto) 0.3, Basophils (%) (Auto) 0.3, Sodium Level 140, Potassium Level 3.5, Chloride Level 107, Carbon Dioxide Level 26, Anion Gap 7, Blood Urea Nitrogen 13, Creatinine 0.9, Estimat Glomerular Filtration Rate > 60, Glucose Level 73L, Calcium Level 8.4L Height (Feet): 5 Height (Inches): 4.00 Weight (Pounds): 140 General Appearance: no apparent distress Cardiovascular: normal rate Respiratory/Chest: decreased breath sounds Abdomen: soft MIKEL QUINTERO May 18, 2017 11:43
[2017-05-18 12:00] VITALS: BP 130/88
--- NOTE | 2017-05-18 12:53 | General Progress Note ---
Assessment/Plan Problem List: (1) Renal failure ICD Codes: N19 - Unspecified kidney failure SNOMED: 33570720 (2) UTI (urinary tract infection) ICD Codes: N39.0 - Urinary tract infection, site not specified SNOMED: 95517618 (3) Sepsis ICD Codes: A41.9 - Sepsis, unspecified organism SNOMED: 39349779 (4) Anemia ICD Codes: D64.9 - Anemia, unspecified SNOMED: 876683024 (5) Parkinson disease ICD Codes: G20 - Parkinson's disease SNOMED: 85521007 (6) Abdominal distention ICD Codes: R14.0 - Abdominal distension (gaseous) SNOMED: 79569763 Status: unchanged Assessment/Plan ot pt diet abx cbc bmp am sx f/u Subjective Constitutional: Reports: weakness Allergies: Coded Allergies: SULFA (SULFONAMIDE ANTIBIOTICS) (Verified Allergy, Severe, 04/23/12) TRIMETHADIONE (Verified Allergy, Severe, 04/23/12) PARAMETHADIONE (Unverified Allergy, Unknown, 05/07/17) Uncoded Allergies: SULFA (Allergy, Unknown, 05/07/17) All Systems: reviewed and negative except above Subjective 02nc confused Objective Last 24 Hour Vital Signs Date Time Temp Pulse Resp B/P (MAP) Pulse Ox O2 Delivery O2 Flow Rate FiO2 05/18/17 08:16 Nasal Cannula 3.0 32 05/18/17 08:15 96 Nasal Cannula 3.0 32 05/18/17 08:15 87 20 Nasal Cannula 3.0 32 05/18/17 08:00 97.3 90 20 137/88 96 05/18/17 04:00 98.1 89 18 117/84 95 05/18/17 00:00 100 Nasal Cannula 2.0 05/18/17 00:00 97.5 79 19 115/77 100 05/17/17 20:00 100 Nasal Cannula 2.0 05/17/17 20:00 97.1 83 19 120/71 100 05/17/17 19:35 Nasal Cannula 3.0 32 05/17/17 19:35 95 20 Nasal Cannula 3.0 32 05/17/17 19:35 95 Nasal Cannula 3.0 32 05/17/17 15:58 97.7 93 20 115/78 97 Intake and Output 05/17/17 05/18/17 19:00 07:00 Intake Total 0 ml 750 ml Balance 0 ml 750 ml Intake Oral 0 ml IV Total 750 ml # Voids 4 3 Laboratory Tests 05/18/17 07:40: White Blood Count 5.7, Red Blood Count 3.65L, Hemoglobin 9.9L, Hematocrit 30.6L , Mean Corpuscular Volume 84, Mean Corpuscular Hemoglobin 27.2, Mean Corpuscular Hemoglobin Concent 32.4, Red Cell Distribution Width 17.2H, Platelet Count 208, Mean Platelet Volume 8.2, Neutrophils (%) (Auto) 77.6H, Lymphocytes (%) (Auto) 15.0L, Monocytes (%) (Auto) 6.8, Eosinophils (%) (Auto) 0.3, Basophils (%) (Auto) 0.3, Sodium Level 140, Potassium Level 3.5, Chloride Level 107, Carbon Dioxide Level 26, Anion Gap 7, Blood Urea Nitrogen 13, Creatinine 0.9, Estimat Glomerular Filtration Rate > 60, Glucose Level 73L, Calcium Level 8.4L Height (Feet): 5 Height (Inches): 4.00 Weight (Pounds): 140 General Appearance: lethargic, confused EENT: normal ENT inspection Neck: normal alignment Cardiovascular: normal peripheral pulses, normal rate, regular rhythm Respiratory/Chest: chest wall non-tender, lungs clear, normal breath sounds Abdomen: hypoactive bowel sounds Extremities: normal inspection Edema: no edema noted Arm (L), no edema noted Arm (R), no edema noted Leg (L), no edema noted Leg (R), no edema noted Pedal (L), no edema noted Pedal (R), no edema noted Generalized Neurologic: motor weakness Skin: normal pigmentation, warm/dry NARCISA HUI May 18, 2017 12:53
[2017-05-18] MEDS ORDERED: Iron Sucrose 200 MG in NS 110 ML IV ONE (13:30)
--- NOTE | 2017-05-18 13:41 | Infectious Diseases Prog Note ---
Assessment/Plan Assessment/Plan A: 1. Leukocytosis resolved 2. Fecal impaction. 3. Acute renal failure, improving 4. Hypokalemia. 5. Hypernatremia. 6. Paranoid schizophrenia. 7. Parkinson disease. 8. Hypothyroidism. 9. Anemia. 10. s/p GT placement P: observe off antibiotic Subjective ROS Limited/Unobtainable: Yes Allergies: Coded Allergies: SULFA (SULFONAMIDE ANTIBIOTICS) (Verified Allergy, Severe, 04/23/12) TRIMETHADIONE (Verified Allergy, Severe, 04/23/12) PARAMETHADIONE (Unverified Allergy, Unknown, 05/07/17) Uncoded Allergies: SULFA (Allergy, Unknown, 05/07/17) Objective Vital Signs Last 24 Hour Vital Signs Date Time Temp Pulse Resp B/P (MAP) Pulse Ox O2 Delivery O2 Flow Rate FiO2 05/18/17 12:00 97.6 94 20 130/88 97 05/18/17 08:16 Nasal Cannula 3.0 32 05/18/17 08:15 96 Nasal Cannula 3.0 32 05/18/17 08:15 87 20 Nasal Cannula 3.0 32 05/18/17 08:00 97.3 90 20 137/88 96 05/18/17 04:00 98.1 89 18 117/84 95 05/18/17 00:00 100 Nasal Cannula 2.0 05/18/17 00:00 97.5 79 19 115/77 100 05/17/17 20:00 100 Nasal Cannula 2.0 05/17/17 20:00 97.1 83 19 120/71 100 05/17/17 19:35 Nasal Cannula 3.0 32 05/17/17 19:35 95 20 Nasal Cannula 3.0 32 05/17/17 19:35 95 Nasal Cannula 3.0 32 05/17/17 15:58 97.7 93 20 115/78 97 Height (Feet): 5 Height (Inches): 4.00 Weight (Pounds): 140 General Appearance: no acute distress HEENT: mucous membranes moist Respiratory/Chest: lungs clear Cardiovascular: normal rate Abdomen: soft, non tender, other - GT feeding Extremities: no edema Neurologic/Psychiatric: alert, responsive Laboratory Tests Test 05/18/17 07:40 White Blood Count 5.7 K/UL (4.8-10.8) Red Blood Count 3.65 M/UL (4.70-6.10) L Hemoglobin 9.9 G/DL (14.2-18.0) L Hematocrit 30.6 % (42.0-52.0) L Mean Corpuscular Volume 84 FL (80-99) Mean Corpuscular Hemoglobin 27.2 PG (27.0-31.0) Mean Corpuscular Hemoglobin Concent 32.4 G/DL (32.0-36.0) Red Cell Distribution Width 17.2 % (11.6-14.8) H Platelet Count 208 K/UL (150-450) Mean Platelet Volume 8.2 FL (6.5-10.1) Neutrophils (%) (Auto) 77.6 % (45.0-75.0) H Lymphocytes (%) (Auto) 15.0 % (20.0-45.0) L Monocytes (%) (Auto) 6.8 % (1.0-10.0) Eosinophils (%) (Auto) 0.3 % (0.0-3.0) Basophils (%) (Auto) 0.3 % (0.0-2.0) Sodium Level 140 MMOL/L (136-145) Potassium Level 3.5 MMOL/L (3.5-5.1) Chloride Level 107 MMOL/L (98-107) Carbon Dioxide Level 26 MMOL/L (21-32) Anion Gap 7 mmol/L (5-15) Blood Urea Nitrogen 13 mg/dL (7-18) Creatinine 0.9 MG/DL (0.55-1.30) Estimat Glomerular Filtration Rate > 60 mL/min (>60) Glucose Level 73 MG/DL (74-106) L Calcium Level 8.4 MG/DL (8.5-10.1) L Current Medications Medications (Trade) Dose Ordered Sig/Dank Route PRN Reason Start Time Stop Time Status Last Admin Dose Admin Acetaminophen (Tylenol) 650 mg Q4H PRN ORAL fever (temp >100.5 F) 05/07/17 16:30 06/06/17 16:29 05/12/17 16:18 Albuterol/ Ipratropium (Albuterol/ Ipratropium) 3 ml Q4H PRN HHN Shortness of Breath 05/15/17 13:00 05/20/17 12:59 Benztropine Mesylate (Cogentin) 1 mg BID ORAL 05/07/17 18:45 06/06/17 18:44 05/18/17 08:38 Buspirone HCl (Buspar) 5 mg TID ORAL 05/07/17 18:50 06/06/17 18:49 05/18/17 12:15 Dextrose (Dextrose 50%) STAT PRN IV Hypoglycemia 05/07/17 16:30 06/06/17 16:29 Diphenhydramine HCl (Benadryl) 25 mg Q6H PRN ORAL Itching/Pruritis 05/07/17 16:30 06/06/17 16:29 Divalproex Sodium (Depakote ER) 500 mg EVERY 12 HOURS ORAL 05/07/17 21:00 06/06/17 20:59 05/18/17 08:38 Docusate Sodium (Colace) 100 mg TID ORAL 05/13/17 14:00 06/09/17 13:59 05/18/17 12:15 Folic Acid (Folate) 5 mg DAILY GT 05/18/17 12:30 06/17/17 12:29 05/18/17 12:15 Heparin Sodium (Porcine) (Heparin 5000 units/ml) 5,000 units EVERY 12 HOURS SUBQ 05/07/17 21:00 06/06/17 20:59 05/18/17 08:52 Iron Sucrose 200 mg/Sodium Chloride 120 ml @ 240 mls/hr ONCE ONCE IV 05/18/17 13:30 05/18/17 13:59 Levothyroxine Sodium (Synthroid) 75 mcg DAILY ORAL 05/08/17 09:00 06/07/17 08:59 05/18/17 08:38 Metoclopramide HCl (Reglan) 2.5 mg EVERY 6 HOURS NG 05/16/17 12:00 06/15/17 11:59 05/18/17 12:14 Nitroglycerin (Ntg) 0.4 mg Q5M X 3 DOSES PRN SL Prn Chest Pain 05/07/17 16:30 06/06/17 16:29 Ondansetron HCl (Zofran) 4 mg Q6H PRN IVP Nausea & Vomiting 05/07/17 16:30 06/06/17 16:29 Oxcarbazepine (Trileptal) 450 mg BID ORAL 05/07/17 19:30 06/06/17 19:29 05/18/17 08:45 Polyethylene Glycol (Miralax) 17 gm HSPRN PRN ORAL Constipation 05/07/17 16:30 06/06/17 16:29 Polyethylene Glycol/ Electrolytes (Nulytely) 2,000 ml ONCE ONCE ORAL 05/18/17 14:00 05/18/17 14:01 Quetiapine Fumarate (SEROquel) 100 mg BID ORAL 05/07/17 18:45 06/06/17 18:44 05/18/17 08:38 FLYNN PERAZA May 18, 2017 13:41
[2017-05-18] MEDS ORDERED: Nulytely 4L ORAL ONE (14:00)
--- NOTE | 2017-05-18 14:13 | Wound Care Consultation ---
Wound Assessment Wound Assessment #1: Wound Present on Admission: Yes New Wound: No Status Change of Wound: No Wound Location Body Site Modif: mid Wound Location Body Site: other - sacrococcygeal Wound Type: pressure ulcer Harry Test: Does not Harry Pressure Ulcer Stage: Unstageable Wound Thickness: Full Thickness Wound Length: 4.0 Wound Width: 3.0 Wound Depth: utd Percent of Wound [place]/Red: 10 Percent of Wound Bed Yellow/Wh: 70 Percent of Wound Purple/Maroon: 20 Wound Drainage Description: Serosanguineous Wound Drainage Amount: Moderate Wound Drainage Odor: None/Absent Tissue Surrounding Wound: Macerated Wound General Appearance: Reddened - yellow, Draining Wound Assessment #2: Wound Number: 2 Wound Present on Admission: Yes New Wound: No Status Change of Wound: No Wound Location Body Site Modif: right Wound Location Body Site: trochanter Wound Type: pressure ulcer Harry Test: Does not Harry Pressure Ulcer Stage: Deep Tissue Injury Wound Thickness: Full Thickness Wound Length: 6.0 Wound Width: 6.5 Wound Depth: utd Percent of Wound [place]/Red: 100 - deep Wound Drainage Amount: None Wound Drainage Odor: None/Absent Tissue Surrounding Wound: Intact Wound General Appearance: Reddened - Deep red Wound Assessment #3: Wound Number: 3 Wound Present on Admission: Yes New Wound: No Status Change of Wound: No Wound Location Body Site Modif: left Wound Location Body Site: trochanter Wound Type: pressure ulcer Harry Test: Does not Harry Pressure Ulcer Stage: Deep Tissue Injury Wound Thickness: Full Thickness Wound Length: 3.0 Wound Width: 3.0 Wound Depth: utd Other Colors Identified: church Percentage Other Color: 100 Wound Drainage Amount: None Wound Drainage Odor: None/Absent Tissue Surrounding Wound: Intact Wound General Appearance: Asymptomatic Wound Assessment #4: Wound Number: 4 Wound Present on Admission: Yes New Wound: No Status Change of Wound: No Wound Location Body Site Modif: left, lateral Wound Location Body Site: malleolus/ankle Wound Type: pressure ulcer Harry Test: Does not Harry Pressure Ulcer Stage: Deep Tissue Injury Wound Thickness: Full Thickness Wound Length: 2.5 Wound Width: 2.5 Wound Depth: utd Percent of Wound Purple/Maroon: 100 Wound Drainage Amount: None Wound Drainage Odor: None/Absent Tissue Surrounding Wound: Erythemic Wound General Appearance: Reddened - purple/maroon Wound Assessment #5: Wound Number: 5 Wound Present on Admission: Yes New Wound: No Status Change of Wound: No Wound Location Body Site Modif: left, mid Wound Location Body Site: foot Wound Type: pressure ulcer Harry Test: Does not Harry Pressure Ulcer Stage: Deep Tissue Injury Wound Thickness: Full Thickness Wound Length: 1.5 Wound Width: 1.5 Wound Depth: utd Percent of Wound Purple/Maroon: 100 Wound Drainage Amount: None Wound Drainage Odor: None/Absent Tissue Surrounding Wound: Intact Wound General Appearance: Reddened - maroon/purple Wound Assessment #6: Wound Number: 6 Wound Present on Admission: Yes New Wound: No Status Change of Wound: No Wound Location Body Site Modif: left Wound Location Body Site: heel Wound Type: pressure ulcer Harry Test: Does not Harry Pressure Ulcer Stage: Deep Tissue Injury Wound Thickness: Full Thickness Wound Length: 4.0 Wound Width: 3.5 Wound Depth: utd Percent of Wound Purple/Maroon: 100 Wound Drainage Amount: None Wound Drainage Odor: None/Absent Tissue Surrounding Wound: Intact Wound General Appearance: Reddened - purple/maroon Wound Assessment #7: Wound Number: 7 Wound Present on Admission: Yes New Wound: No Status Change of Wound: No Wound Location Body Site Modif: left, lower, anterior Wound Location Body Site: leg Wound Type: pressure ulcer Harry Test: Does not Harry Pressure Ulcer Stage: Deep Tissue Injury Wound Thickness: Full Thickness Wound Length: 0.5 Wound Width: 0.5 Wound Depth: utd Percent of Wound Purple/Maroon: 100 Wound Drainage Amount: None Wound Drainage Odor: None/Absent Tissue Surrounding Wound: Intact Wound General Appearance: Reddened Wound Comment #1 Sacrococcygeal unstageable/IV pressure ulcer. No deterioration noted. Will cont the same wound care treatment and recommendations. #2 Right trochanter DTI pressure ulcer. Skin still intact. Good progress noted #3 Left trochanter DTI pressure ulcer. Skin still intact. Good progress noted #4 Left lateral malleolus DTI pressure ulcer. Skin still intact #5 Left lateral mid foot DTI pressure ulcer. Skin still intact #6 Left heel DTI pressure ulcer. Skin still intact #7 Left lower anterior leg DTI pressure ulcer. Skin still intact Recommendation -Local wound care per protocol -Keep clean and dry -Offload both heels -Heel protector on both heels -Optimize nutrition -Turn and reposition -Low air loss mattress -Assess and f/u accordingly for any changes FELISA BARBA RN May 18, 2017 14:13
[2017-05-18 14:16] LABS: ALANINE AMINOTRANSFERASE 14 U/L (12-78); ALBUMIN 1.4 G/DL (3.4-5.0); ALKALINE PHOSPHATASE 80 U/L (46-116); ASPARTATE AMINO TRANSFERASE 30 U/L (15-37); BILIRUBIN,DIRECT < 0.1 MG/DL (0.0-0.3); BILIRUBIN,TOTAL 0.2 MG/DL (0.2-1.0); PHOSPHORUS 2.8 MG/DL (2.5-4.9)
--- NOTE | 2017-05-18 15:09 | GI Progress Note ---
Assessment/Plan Problems: (1) Fecal impaction ICD Codes: K56.41 - Fecal impaction SNOMED: 38672065 (2) Parkinson disease ICD Codes: G20 - Parkinson's disease SNOMED: 51342095 (3) Anemia ICD Codes: D64.9 - Anemia, unspecified SNOMED: 887553939 (4) Dehydration ICD Codes: E86.0 - Dehydration SNOMED: 73119210 (5) Abdominal distention ICD Codes: R14.0 - Abdominal distension (gaseous) SNOMED: 25762791 (6) Severe malnutrition ICD Codes: E43 - Unspecified severe protein-calorie malnutrition SNOMED: 05599971 Status: unchanged Status Narrative Discussed with Dr. Euceda. Assessment/Plan - Severe rectal stool impaction >> abdomen very less distended - Hypernatremia - Azotemia - Dehydration - s/p GT placement - elevated residuals KUB reviewed >> gaseous distention improved, scattered stool. hold GTFs will give 2L golytely flush no IV reglan or eryhtromycin available start low dose po reglan bowel regimen fu labs Subjective Subjective limited Objective Last 24 Hour Vital Signs Date Time Temp Pulse Resp B/P (MAP) Pulse Ox O2 Delivery O2 Flow Rate FiO2 05/18/17 12:00 97.6 94 20 130/88 97 05/18/17 08:16 Nasal Cannula 3.0 32 05/18/17 08:15 96 Nasal Cannula 3.0 32 05/18/17 08:15 87 20 Nasal Cannula 3.0 32 05/18/17 08:00 97.3 90 20 137/88 96 05/18/17 04:00 98.1 89 18 117/84 95 05/18/17 00:00 100 Nasal Cannula 2.0 05/18/17 00:00 97.5 79 19 115/77 100 05/17/17 20:00 100 Nasal Cannula 2.0 05/17/17 20:00 97.1 83 19 120/71 100 05/17/17 19:35 Nasal Cannula 3.0 32 05/17/17 19:35 95 20 Nasal Cannula 3.0 32 05/17/17 19:35 95 Nasal Cannula 3.0 32 05/17/17 15:58 97.7 93 20 115/78 97 Intake and Output 05/17/17 05/18/17 19:00 07:00 Intake Total 0 ml 750 ml Balance 0 ml 750 ml Intake Oral 0 ml IV Total 750 ml # Voids 4 3 Laboratory Tests Test 05/18/17 07:40 White Blood Count 5.7 K/UL (4.8-10.8) Red Blood Count 3.65 M/UL (4.70-6.10) L Hemoglobin 9.9 G/DL (14.2-18.0) L Hematocrit 30.6 % (42.0-52.0) L Mean Corpuscular Volume 84 FL (80-99) Mean Corpuscular Hemoglobin 27.2 PG (27.0-31.0) Mean Corpuscular Hemoglobin Concent 32.4 G/DL (32.0-36.0) Red Cell Distribution Width 17.2 % (11.6-14.8) H Platelet Count 208 K/UL (150-450) Mean Platelet Volume 8.2 FL (6.5-10.1) Neutrophils (%) (Auto) 77.6 % (45.0-75.0) H Lymphocytes (%) (Auto) 15.0 % (20.0-45.0) L Monocytes (%) (Auto) 6.8 % (1.0-10.0) Eosinophils (%) (Auto) 0.3 % (0.0-3.0) Basophils (%) (Auto) 0.3 % (0.0-2.0) Sodium Level 140 MMOL/L (136-145) Potassium Level 3.5 MMOL/L (3.5-5.1) Chloride Level 107 MMOL/L (98-107) Carbon Dioxide Level 26 MMOL/L (21-32) Anion Gap 7 mmol/L (5-15) Blood Urea Nitrogen 13 mg/dL (7-18) Creatinine 0.9 MG/DL (0.55-1.30) Estimat Glomerular Filtration Rate > 60 mL/min (>60) Glucose Level 73 MG/DL (74-106) L Calcium Level 8.4 MG/DL (8.5-10.1) L Phosphorus Level 2.8 MG/DL (2.5-4.9) Magnesium Level 1.6 MG/DL (1.8-2.4) L Total Bilirubin 0.2 MG/DL (0.2-1.0) Direct Bilirubin < 0.1 MG/DL (0.0-0.3) Aspartate Amino Transf (AST/SGOT) 30 U/L (15-37) Alanine Aminotransferase (ALT/SGPT) 14 U/L (12-78) Alkaline Phosphatase 80 U/L (46-116) Total Protein 7.1 G/DL (6.4-8.2) Albumin 1.4 G/DL (3.4-5.0) L Height (Feet): 5 Height (Inches): 4.00 Weight (Pounds): 140 General Appearance: alert Cardiovascular: normal rate Respiratory/Chest: normal breath sounds Abdominal Exam: non tender, GT site - c/d/i, other - tympanic Gayle Aguillon N.P. May 18, 2017 15:09
[2017-05-18 16:03] VITALS: BP 146/89
--- NOTE | 2017-05-18 16:30 | Progress Note ---
DATE: 05/18/2017 SUBJECTIVE: The patient is a 61-year-old male patient. He is admitted to [facility] for reasons of anemia and hypokalemia, but this patient does have mood liability and agitation secondary to stress from his medical illness and his cognition has declined below baseline. That is why, he does require daily psychiatric consultation. His attending physician has actually requested daily psychiatric consultation because of his mood lability and agitation. MENTAL STATUS EXAMINATION: A 61-year-old male with psychomotor agitation. Mood is irritable and agitated. Affect guarded and restricted. Thought process disorganized and illogical. No signs of any suicidal or homicidal thoughts. Insight and judgement is poor. DIAGNOSIS: Schizoaffective, bipolar type. PLAN: Plan for this patient is to treat him with Seroquel 100 mg twice a day and also Trileptal 450 twice a day, and then we will also continue this patient on Depakote 500 mg q.12 h., and also continue this patient on BuSpar 500 mg three times a day. A 15 to 20 minutes supportive therapy. Seen and assessed at the bedside. Chart reviewed and discussed with staff. Lauren Ames M.D. DR: CHRIS JOB#: [id number] CC:
--- NOTE | 2017-05-18 18:36 | Pulmonology Progress Note ---
Assessment/Plan Problems: (1) Hypokalemia (2) Abdominal distention (3) Parkinson disease (4) Renal failure (5) UTI (urinary tract infection) (6) Fecal impaction (7) Dehydration (8) Severe malnutrition Assessment/Plan all reivewe no new complains tolerating gtube looks more alert. wbc normal now more awake all meds and notes reviewed dc planning Subjective ROS Limited/Unobtainable: No Interval Events: comfortable, awake, Allergies: Coded Allergies: SULFA (SULFONAMIDE ANTIBIOTICS) (Verified Allergy, Severe, 04/23/12) TRIMETHADIONE (Verified Allergy, Severe, 04/23/12) PARAMETHADIONE (Unverified Allergy, Unknown, 05/07/17) Uncoded Allergies: SULFA (Allergy, Unknown, 05/07/17) Objective Last 24 Hour Vital Signs Date Time Temp Pulse Resp B/P (MAP) Pulse Ox O2 Delivery O2 Flow Rate FiO2 05/18/17 16:03 97.7 92 21 146/89 96 05/18/17 12:00 97.6 94 20 130/88 97 05/18/17 08:16 Nasal Cannula 3.0 32 05/18/17 08:15 96 Nasal Cannula 3.0 32 05/18/17 08:15 87 20 Nasal Cannula 3.0 32 05/18/17 08:00 97.3 90 20 137/88 96 05/18/17 04:00 98.1 89 18 117/84 95 05/18/17 00:00 100 Nasal Cannula 2.0 05/18/17 00:00 97.5 79 19 115/77 100 05/17/17 20:00 100 Nasal Cannula 2.0 05/17/17 20:00 97.1 83 19 120/71 100 05/17/17 19:35 Nasal Cannula 3.0 32 05/17/17 19:35 95 20 Nasal Cannula 3.0 32 05/17/17 19:35 95 Nasal Cannula 3.0 32 Intake and Output 05/17/17 05/18/17 19:00 07:00 Intake Total 0 ml 750 ml Balance 0 ml 750 ml Intake Oral 0 ml IV Total 750 ml # Voids 4 3 Objective General Appearance: cachetic Lines, tubes and drains: peripheral HEENT: normocephalic, atraumatic Neck: non-tender, normal alignment Respiratory/Chest: chest wall non-tender, lungs clear Cardiovascular/Chest: normal peripheral pulses, normal rate Abdomen: normal bowel sounds, non tender, Gtube in place Genitourinary/Rectal: normal genital exam, normal rectal exam Skin Exam: normal pigmentation Laboratory Tests 05/18/17 07:40: White Blood Count 5.7, Red Blood Count 3.65L, Hemoglobin 9.9L, Hematocrit 30.6L , Mean Corpuscular Volume 84, Mean Corpuscular Hemoglobin 27.2, Mean Corpuscular Hemoglobin Concent 32.4, Red Cell Distribution Width 17.2H, Platelet Count 208, Mean Platelet Volume 8.2, Neutrophils (%) (Auto) 77.6H, Lymphocytes (%) (Auto) 15.0L, Monocytes (%) (Auto) 6.8, Eosinophils (%) (Auto) 0.3, Basophils (%) (Auto) 0.3, Sodium Level 140, Potassium Level 3.5, Chloride Level 107, Carbon Dioxide Level 26, Anion Gap 7, Blood Urea Nitrogen 13, Creatinine 0.9, Estimat Glomerular Filtration Rate > 60, Glucose Level 73L, Calcium Level 8.4L, Phosphorus Level 2.8, Magnesium Level 1.6L, Total Bilirubin 0.2, Direct Bilirubin < 0.1, Aspartate Amino Transf (AST/SGOT) 30, Alanine Aminotransferase (ALT/SGPT) 14, Alkaline Phosphatase 80, Total Protein 7.1, Albumin 1.4L Current Medications Medications (Trade) Dose Ordered Sig/Dank Route PRN Reason Start Time Stop Time Status Last Admin Dose Admin Acetaminophen (Tylenol) 650 mg Q4H PRN ORAL fever (temp >100.5 F) 05/07/17 16:30 06/06/17 16:29 05/12/17 16:18 Albuterol/ Ipratropium (Albuterol/ Ipratropium) 3 ml Q4H PRN HHN Shortness of Breath 05/15/17 13:00 05/20/17 12:59 Benztropine Mesylate (Cogentin) 1 mg BID ORAL 05/07/17 18:45 06/06/17 18:44 05/18/17 17:37 Buspirone HCl (Buspar) 5 mg TID ORAL 05/07/17 18:50 06/06/17 18:49 05/18/17 17:37 Dextrose (Dextrose 50%) STAT PRN IV Hypoglycemia 05/07/17 16:30 06/06/17 16:29 Diphenhydramine HCl (Benadryl) 25 mg Q6H PRN ORAL Itching/Pruritis 05/07/17 16:30 06/06/17 16:29 Divalproex Sodium (Depakote ER) 500 mg EVERY 12 HOURS ORAL 05/07/17 21:00 06/06/17 20:59 05/18/17 08:38 Docusate Sodium (Colace) 100 mg TID ORAL 05/13/17 14:00 06/09/17 13:59 05/18/17 12:15 Folic Acid (Folate) 5 mg DAILY GT 05/18/17 12:30 06/17/17 12:29 05/18/17 12:15 Heparin Sodium (Porcine) (Heparin 5000 units/ml) 5,000 units EVERY 12 HOURS SUBQ 05/07/17 21:00 06/06/17 20:59 05/18/17 08:52 Levothyroxine Sodium (Synthroid) 75 mcg DAILY ORAL 05/08/17 09:00 06/07/17 08:59 05/18/17 08:38 Metoclopramide HCl (Reglan) 2.5 mg EVERY 6 HOURS NG 05/16/17 12:00 06/15/17 11:59 05/18/17 17:37 Nitroglycerin (Ntg) 0.4 mg Q5M X 3 DOSES PRN SL Prn Chest Pain 05/07/17 16:30 06/06/17 16:29 Ondansetron HCl (Zofran) 4 mg Q6H PRN IVP Nausea & Vomiting 05/07/17 16:30 06/06/17 16:29 Oxcarbazepine (Trileptal) 450 mg BID ORAL 05/07/17 19:30 06/06/17 19:29 05/18/17 17:37 Polyethylene Glycol (Miralax) 17 gm HSPRN PRN ORAL Constipation 05/07/17 16:30 06/06/17 16:29 Quetiapine Fumarate (SEROquel) 100 mg BID ORAL 05/07/17 18:45 06/06/17 18:44 05/18/17 17:37 TYRONE FARMER May 18, 2017 18:36
[2017-05-18 20:00] VITALS: BP 125/87
[2017-05-19] VITALS (7 sets, daily range): BP systolic 126–162; BP diastolic 80–100
[2017-05-19] MEDS: Metoclopramide 10mg/10ml Liq NG SCH ×5 (00:09→23:35)
[2017-05-19 09:03] LABS: BASOPHILS % (AUTO) 0.5 % (0.0-2.0); EOSINOPHILS % (AUTO) 0.2 % (0.0-3.0); HEMATOCRIT 32.5 % (42.0-52.0); HEMOGLOBIN 10.3 G/DL (14.2-18.0); LYMPHOCYTES % (AUTO) 16.4 % (20.0-45.0); MEAN CORPUSCULAR VOLUME 85 FL (80-99); MONOCYTES % (AUTO) 9.6 % (1.0-10.0); NEUTROPHILS % (AUTO) 73.3 % (45.0-75.0); PLATELET COUNT 190 K/UL (150-450); RED BLOOD COUNT 3.83 M/UL (4.70-6.10); RED CELL DISTRIBUTION WIDTH 17.6 % (11.6-14.8); WHITE BLOOD COUNT 5.1 K/UL (4.8-10.8)
[2017-05-19 09:06] LABS: ANION GAP 7 mmol/L (5-15); BLOOD UREA NITROGEN 11 mg/dL (7-18); CALCIUM 8.3 MG/DL (8.5-10.1); CARBON DIOXIDE 26 MMOL/L (21-32); CHLORIDE 109 MMOL/L (98-107); CREATININE 0.8 MG/DL (0.55-1.30); POTASSIUM 3.4 MMOL/L (3.5-5.1); SODIUM 142 MMOL/L (136-145)
[2017-05-19] MEDS: Depakote ER 500mg tab ORAL SCH ×2 (09:13→20:36)
[2017-05-19] MEDS: BusPIRone 5mg Tab ORAL SCH ×3 (09:13→18:09)
[2017-05-19] MEDS: Benztropine 1mg tab ORAL SCH ×2 (09:14→18:09)
[2017-05-19] MEDS: Docusate 100mg cap ORAL SCH (09:14)
[2017-05-19] MEDS: Heparin 5000 units/ml inj SUBQ SCH ×2 (09:18→20:37)
[2017-05-19] MEDS: OXcarbazepine 150mg tab ORAL SCH ×2 (09:19→18:09)
--- NOTE | 2017-05-19 10:45 | Progress Note ---
DATE: 05/19/2017 SUBJECTIVE: The patient is a 61-year-old male patient, who is confused and disorganized male patient. This patient is admitted to the hospital confused and disorganized. Mood labile. This patient came into the hospital secondary to anemia and hypokalemia, but his cognition has declined below baseline. That is why, his attending physician has requested daily psychiatric consultation. MENTAL STATUS EXAMINATION: This is a 61-year-old male with psychomotor agitation. Mood is irritable and agitated. Affect is guarded and restricted. Thought process disorganized and illogical. No signs of any suicidal or homicidal thoughts. Insight and judgment is poor. DIAGNOSIS: Schizoaffective, bipolar type. PLAN: My plan for this patient is to treat him with a psychotropic medication regimen consisting of Depakote 500 mg q.12 h., Trileptal 450 mg twice a day, and Seroquel 100 mg twice a day. Provide him with supportive therapy and encourage him to interact appropriately with staff and other patients. Chart reviewed and discussed with the staff. Seen and assessed at bedside. A 15 to 20 minutes supportive therapy provided. Lauren Ames M.D. DR: CHRIS JOB#: [id number] CC:
--- NOTE | 2017-05-19 10:48 | General Surgery Progress Note ---
General Surgery-Progress Note Subjective Symptoms: improved Additional Comments more responsive today. asking for water. had multiple BM's. abd much improved. Objective Last 24 Hour Vital Signs Date Time Temp Pulse Resp B/P (MAP) Pulse Ox O2 Delivery O2 Flow Rate FiO2 05/19/17 08:15 97.0 98 18 133/100 97 Room Air 05/19/17 04:00 97.7 91 19 146/94 98 05/19/17 04:00 98 Nasal Cannula 2.0 05/19/17 00:00 96 Room Air 05/19/17 00:00 97.2 92 20 133/92 96 05/18/17 20:15 93 Nasal Cannula 1.0 24 05/18/17 20:15 93 20 Nasal Cannula 1.0 24 05/18/17 20:15 Nasal Cannula 1.0 24 05/18/17 20:00 98 Room Air 05/18/17 20:00 98.6 95 20 125/87 98 05/18/17 16:03 97.7 92 21 146/89 96 05/18/17 12:00 97.6 94 20 130/88 97 I&O Intake and Output 05/18/17 05/19/17 19:00 07:00 Intake Total 0 ml Balance 0 ml Intake Oral 0 ml # Voids 5 4 # Bowel Movements 5 Cardiovascular: RSR Respiratory: clear Abdomen: soft, flat, non-tender, present bowel sounds Extremities: no cyanosis Laboratory Tests Test 05/19/17 08:15 White Blood Count 5.1 K/UL (4.8-10.8) Red Blood Count 3.83 M/UL (4.70-6.10) L Hemoglobin 10.3 G/DL (14.2-18.0) L Hematocrit 32.5 % (42.0-52.0) L Mean Corpuscular Volume 85 FL (80-99) Mean Corpuscular Hemoglobin 26.9 PG (27.0-31.0) L Mean Corpuscular Hemoglobin Concent 31.8 G/DL (32.0-36.0) L Red Cell Distribution Width 17.6 % (11.6-14.8) H Platelet Count 190 K/UL (150-450) Mean Platelet Volume 7.4 FL (6.5-10.1) Neutrophils (%) (Auto) 73.3 % (45.0-75.0) Lymphocytes (%) (Auto) 16.4 % (20.0-45.0) L Monocytes (%) (Auto) 9.6 % (1.0-10.0) Eosinophils (%) (Auto) 0.2 % (0.0-3.0) Basophils (%) (Auto) 0.5 % (0.0-2.0) Sodium Level 142 MMOL/L (136-145) Potassium Level 3.4 MMOL/L (3.5-5.1) L Chloride Level 109 MMOL/L (98-107) H Carbon Dioxide Level 26 MMOL/L (21-32) Anion Gap 7 mmol/L (5-15) Blood Urea Nitrogen 11 mg/dL (7-18) Creatinine 0.8 MG/DL (0.55-1.30) Estimat Glomerular Filtration Rate > 60 mL/min (>60) Glucose Level 49 MG/DL (74-106) L Calcium Level 8.3 MG/DL (8.5-10.1) L Plan Problems: (1) Fecal impaction Assessment & Plan: 61M with severe fecal impaction leaving to a near complete large bowel obstruction. CT findings very prominent and concerning. High risk for perforation given CT findings and exam. good amount of impacted stool removed with bedside disimpaction over the past few days. Today abdominal exam significantly improved. abdomen soft, non distended, finally resolved. no longer needs disimpaction as good BM's soft on his own. KUB much improved but now has some small bowel distention G tube placed ileus currently or potentially more still impaction again. good BM's again. exam improved -resume trial tube feeds and see if tolerates. -needs really good bowel regimen and habits. -stool softeners -will follow with recs thank you for this consultation. Norbert Huggins May 19, 2017 10:48
[2017-05-19] MEDS: Docusate 100mg/10ml Liq NG SCH ×2 (12:17→18:00)
--- NOTE | 2017-05-19 12:22 | General Progress Note ---
Assessment/Plan Problem List: (1) Renal failure ICD Codes: N19 - Unspecified kidney failure SNOMED: 50109621 (2) UTI (urinary tract infection) ICD Codes: N39.0 - Urinary tract infection, site not specified SNOMED: 55904050 (3) Sepsis ICD Codes: A41.9 - Sepsis, unspecified organism SNOMED: 62924212 (4) Anemia ICD Codes: D64.9 - Anemia, unspecified SNOMED: 515328072 (5) Parkinson disease ICD Codes: G20 - Parkinson's disease SNOMED: 49838491 (6) Abdominal distention ICD Codes: R14.0 - Abdominal distension (gaseous) SNOMED: 38090360 Status: unchanged Assessment/Plan ot pt diet abx cbc bmp am sx f/u dc plan Subjective Constitutional: Reports: weakness Allergies: Coded Allergies: SULFA (SULFONAMIDE ANTIBIOTICS) (Verified Allergy, Severe, 04/23/12) TRIMETHADIONE (Verified Allergy, Severe, 04/23/12) PARAMETHADIONE (Unverified Allergy, Unknown, 05/07/17) Uncoded Allergies: SULFA (Allergy, Unknown, 05/07/17) All Systems: reviewed and negative except above Subjective 02nc confused Objective Last 24 Hour Vital Signs Date Time Temp Pulse Resp B/P (MAP) Pulse Ox O2 Delivery O2 Flow Rate FiO2 05/19/17 11:59 98.1 101 21 133/93 97 Room Air 05/19/17 08:15 97.0 98 18 133/100 97 Room Air 05/19/17 04:00 97.7 91 19 146/94 98 05/19/17 04:00 98 Nasal Cannula 2.0 05/19/17 00:00 96 Room Air 05/19/17 00:00 97.2 92 20 133/92 96 05/18/17 20:15 93 Nasal Cannula 1.0 24 05/18/17 20:15 93 20 Nasal Cannula 1.0 24 05/18/17 20:15 Nasal Cannula 1.0 24 05/18/17 20:00 98 Room Air 05/18/17 20:00 98.6 95 20 125/87 98 05/18/17 16:03 97.7 92 21 146/89 96 Intake and Output 05/18/17 05/19/17 19:00 07:00 Intake Total 0 ml Balance 0 ml Intake Oral 0 ml # Voids 5 4 # Bowel Movements 5 Laboratory Tests 05/19/17 08:15: White Blood Count 5.1, Red Blood Count 3.83L, Hemoglobin 10.3L, Hematocrit 32.5L , Mean Corpuscular Volume 85, Mean Corpuscular Hemoglobin 26.9L, Mean Corpuscular Hemoglobin Concent 31.8L, Red Cell Distribution Width 17.6H, Platelet Count 190, Mean Platelet Volume 7.4, Neutrophils (%) (Auto) 73.3, Lymphocytes (%) (Auto) 16.4L, Monocytes (%) (Auto) 9.6, Eosinophils (%) (Auto) 0.2, Basophils (%) (Auto) 0.5, Sodium Level 142, Potassium Level 3.4L, Chloride Level 109H, Carbon Dioxide Level 26, Anion Gap 7, Blood Urea Nitrogen 11, Creatinine 0.8, Estimat Glomerular Filtration Rate > 60, Glucose Level 49L, Calcium Level 8.3L Height (Feet): 5 Height (Inches): 4.00 Weight (Pounds): 140 General Appearance: lethargic, confused EENT: normal ENT inspection Neck: normal alignment Cardiovascular: normal peripheral pulses, normal rate, regular rhythm Respiratory/Chest: chest wall non-tender, lungs clear, normal breath sounds Abdomen: normal bowel sounds, non tender, soft Extremities: normal inspection Edema: no edema noted Arm (L), no edema noted Arm (R), no edema noted Leg (L), no edema noted Leg (R), no edema noted Pedal (L), no edema noted Pedal (R), no edema noted Generalized NARCISA HUI May 19, 2017 12:22
--- NOTE | 2017-05-19 12:27 | Infectious Diseases Prog Note ---
Assessment/Plan Assessment/Plan A: 1. Leukocytosis resolved 2. Fecal impaction.improving 3. Acute renal failure, resolved 4. Hypokalemia. 5. Hypernatremia. 6. Paranoid schizophrenia. 7. Parkinson disease. 8. Hypothyroidism. 9. Anemia. 10. s/p GT placement P: observe off antibiotic Subjective ROS Limited/Unobtainable: Yes Allergies: Coded Allergies: SULFA (SULFONAMIDE ANTIBIOTICS) (Verified Allergy, Severe, 04/23/12) TRIMETHADIONE (Verified Allergy, Severe, 04/23/12) PARAMETHADIONE (Unverified Allergy, Unknown, 05/07/17) Uncoded Allergies: SULFA (Allergy, Unknown, 05/07/17) Objective Vital Signs Last 24 Hour Vital Signs Date Time Temp Pulse Resp B/P (MAP) Pulse Ox O2 Delivery O2 Flow Rate FiO2 05/19/17 11:59 98.1 101 21 133/93 97 Room Air 05/19/17 08:15 97.0 98 18 133/100 97 Room Air 05/19/17 04:00 97.7 91 19 146/94 98 05/19/17 04:00 98 Nasal Cannula 2.0 05/19/17 00:00 96 Room Air 05/19/17 00:00 97.2 92 20 133/92 96 05/18/17 20:15 93 Nasal Cannula 1.0 24 05/18/17 20:15 93 20 Nasal Cannula 1.0 24 05/18/17 20:15 Nasal Cannula 1.0 24 05/18/17 20:00 98 Room Air 05/18/17 20:00 98.6 95 20 125/87 98 05/18/17 16:03 97.7 92 21 146/89 96 Height (Feet): 5 Height (Inches): 4.00 Weight (Pounds): 140 General Appearance: no acute distress HEENT: mucous membranes moist Respiratory/Chest: lungs clear Cardiovascular: normal rate Abdomen: soft, non tender, other - GT in place Extremities: no edema, other - finger clubbing Neurologic/Psychiatric: alert, responsive Laboratory Tests Test 05/19/17 08:15 White Blood Count 5.1 K/UL (4.8-10.8) Red Blood Count 3.83 M/UL (4.70-6.10) L Hemoglobin 10.3 G/DL (14.2-18.0) L Hematocrit 32.5 % (42.0-52.0) L Mean Corpuscular Volume 85 FL (80-99) Mean Corpuscular Hemoglobin 26.9 PG (27.0-31.0) L Mean Corpuscular Hemoglobin Concent 31.8 G/DL (32.0-36.0) L Red Cell Distribution Width 17.6 % (11.6-14.8) H Platelet Count 190 K/UL (150-450) Mean Platelet Volume 7.4 FL (6.5-10.1) Neutrophils (%) (Auto) 73.3 % (45.0-75.0) Lymphocytes (%) (Auto) 16.4 % (20.0-45.0) L Monocytes (%) (Auto) 9.6 % (1.0-10.0) Eosinophils (%) (Auto) 0.2 % (0.0-3.0) Basophils (%) (Auto) 0.5 % (0.0-2.0) Sodium Level 142 MMOL/L (136-145) Potassium Level 3.4 MMOL/L (3.5-5.1) L Chloride Level 109 MMOL/L (98-107) H Carbon Dioxide Level 26 MMOL/L (21-32) Anion Gap 7 mmol/L (5-15) Blood Urea Nitrogen 11 mg/dL (7-18) Creatinine 0.8 MG/DL (0.55-1.30) Estimat Glomerular Filtration Rate > 60 mL/min (>60) Glucose Level 49 MG/DL (74-106) L Calcium Level 8.3 MG/DL (8.5-10.1) L Current Medications Medications (Trade) Dose Ordered Sig/Dank Route PRN Reason Start Time Stop Time Status Last Admin Dose Admin Acetaminophen (Tylenol) 650 mg Q4H PRN ORAL fever (temp >100.5 F) 05/07/17 16:30 06/06/17 16:29 05/12/17 16:18 Albuterol/ Ipratropium (Albuterol/ Ipratropium) 3 ml Q4H PRN HHN Shortness of Breath 05/15/17 13:00 05/20/17 12:59 Benztropine Mesylate (Cogentin) 1 mg BID ORAL 05/07/17 18:45 06/06/17 18:44 05/19/17 09:14 Buspirone HCl (Buspar) 5 mg TID ORAL 05/07/17 18:50 06/06/17 18:49 05/19/17 12:15 Dextrose (Dextrose 50%) STAT PRN IV Hypoglycemia 05/07/17 16:30 06/06/17 16:29 Diphenhydramine HCl (Benadryl) 25 mg Q6H PRN ORAL Itching/Pruritis 05/07/17 16:30 06/06/17 16:29 Divalproex Sodium (Depakote ER) 500 mg EVERY 12 HOURS ORAL 05/07/17 21:00 06/06/17 20:59 05/19/17 09:13 Docusate Sodium (Colace) 100 mg THREE TIMES A DAY NG 05/19/17 13:00 06/18/17 12:59 Folic Acid (Folate) 5 mg DAILY GT 05/18/17 12:30 06/17/17 12:29 05/19/17 09:13 Heparin Sodium (Porcine) (Heparin 5000 units/ml) 5,000 units EVERY 12 HOURS SUBQ 05/07/17 21:00 06/06/17 20:59 05/19/17 09:18 Levothyroxine Sodium (Synthroid) 75 mcg DAILY ORAL 05/08/17 09:00 06/07/17 08:59 05/19/17 09:14 Metoclopramide HCl (Reglan) 2.5 mg EVERY 6 HOURS NG 05/16/17 12:00 06/15/17 11:59 05/19/17 12:15 Nitroglycerin (Ntg) 0.4 mg Q5M X 3 DOSES PRN SL Prn Chest Pain 05/07/17 16:30 06/06/17 16:29 Ondansetron HCl (Zofran) 4 mg Q6H PRN IVP Nausea & Vomiting 05/07/17 16:30 06/06/17 16:29 Oxcarbazepine (Trileptal) 450 mg BID ORAL 05/07/17 19:30 06/06/17 19:29 05/19/17 09:19 Polyethylene Glycol (Miralax) 17 gm HSPRN PRN ORAL Constipation 05/07/17 16:30 06/06/17 16:29 Quetiapine Fumarate (SEROquel) 100 mg BID ORAL 05/07/17 18:45 06/06/17 18:44 05/19/17 09:14 FLYNN PERAZA May 19, 2017 12:27
--- NOTE | 2017-05-19 14:46 | GI Progress Note ---
Assessment/Plan Problems: (1) Fecal impaction ICD Codes: K56.41 - Fecal impaction SNOMED: 42828294 (2) Parkinson disease ICD Codes: G20 - Parkinson's disease SNOMED: 76481871 (3) Anemia ICD Codes: D64.9 - Anemia, unspecified SNOMED: 974699139 (4) Dehydration ICD Codes: E86.0 - Dehydration SNOMED: 13768950 (5) Abdominal distention ICD Codes: R14.0 - Abdominal distension (gaseous) SNOMED: 58831759 (6) Severe malnutrition ICD Codes: E43 - Unspecified severe protein-calorie malnutrition SNOMED: 55700738 Status: stable Status Narrative Discussed with Dr. Euceda. Assessment/Plan - Severe rectal stool impaction >> abdomen very less distended - Hypernatremia - Azotemia - Dehydration - s/p GT placement - elevated residuals KUB reviewed >> gaseous distention improved, scattered stool. trial GTFs, ok for dc if patient tolerates 2L golytely flush given no IV reglan or Erythromycin available low dose po reglan bowel regime >> colace + miralax fu labs Subjective Subjective limited Objective Last 24 Hour Vital Signs Date Time Temp Pulse Resp B/P (MAP) Pulse Ox O2 Delivery O2 Flow Rate FiO2 05/19/17 11:59 98.1 101 21 133/93 97 Room Air 05/19/17 08:15 97.0 98 18 133/100 97 Room Air 05/19/17 04:00 97.7 91 19 146/94 98 05/19/17 04:00 98 Nasal Cannula 2.0 05/19/17 00:00 96 Room Air 05/19/17 00:00 97.2 92 20 133/92 96 05/18/17 20:15 93 Nasal Cannula 1.0 24 05/18/17 20:15 93 20 Nasal Cannula 1.0 24 05/18/17 20:15 Nasal Cannula 1.0 24 05/18/17 20:00 98 Room Air 05/18/17 20:00 98.6 95 20 125/87 98 05/18/17 16:03 97.7 92 21 146/89 96 Intake and Output 05/18/17 05/19/17 19:00 07:00 Intake Total 0 ml Balance 0 ml Intake Oral 0 ml # Voids 5 4 # Bowel Movements 5 Laboratory Tests Test 05/19/17 08:15 White Blood Count 5.1 K/UL (4.8-10.8) Red Blood Count 3.83 M/UL (4.70-6.10) L Hemoglobin 10.3 G/DL (14.2-18.0) L Hematocrit 32.5 % (42.0-52.0) L Mean Corpuscular Volume 85 FL (80-99) Mean Corpuscular Hemoglobin 26.9 PG (27.0-31.0) L Mean Corpuscular Hemoglobin Concent 31.8 G/DL (32.0-36.0) L Red Cell Distribution Width 17.6 % (11.6-14.8) H Platelet Count 190 K/UL (150-450) Mean Platelet Volume 7.4 FL (6.5-10.1) Neutrophils (%) (Auto) 73.3 % (45.0-75.0) Lymphocytes (%) (Auto) 16.4 % (20.0-45.0) L Monocytes (%) (Auto) 9.6 % (1.0-10.0) Eosinophils (%) (Auto) 0.2 % (0.0-3.0) Basophils (%) (Auto) 0.5 % (0.0-2.0) Sodium Level 142 MMOL/L (136-145) Potassium Level 3.4 MMOL/L (3.5-5.1) L Chloride Level 109 MMOL/L (98-107) H Carbon Dioxide Level 26 MMOL/L (21-32) Anion Gap 7 mmol/L (5-15) Blood Urea Nitrogen 11 mg/dL (7-18) Creatinine 0.8 MG/DL (0.55-1.30) Estimat Glomerular Filtration Rate > 60 mL/min (>60) Glucose Level 49 MG/DL (74-106) L Calcium Level 8.3 MG/DL (8.5-10.1) L Height (Feet): 5 Height (Inches): 4.00 Weight (Pounds): 140 General Appearance: WD/WN, no apparent distress, alert, thin Cardiovascular: normal rate Respiratory/Chest: normal breath sounds, no respiratory distress Abdominal Exam: normal bowel sounds, non tender, soft Extremities: normal range of motion, non-tender Gayle Aguillon N.P. May 19, 2017 14:46
--- NOTE | 2017-05-19 15:31 | Pulmonology Progress Note ---
Assessment/Plan Problems: (1) Hypokalemia (2) Abdominal distention (3) Parkinson disease (4) Renal failure (5) UTI (urinary tract infection) (6) Fecal impaction (7) Dehydration (8) Severe malnutrition Assessment/Plan all reivewe no new complains tolerating gtube looks more alert. wbc normal now more awake all meds and notes reviewed dc planning awaiting placement Subjective ROS Limited/Unobtainable: No Constitutional: Reports: no symptoms HEENT: Repors: no symptoms Respiratory: Reports: no symptoms Allergies: Coded Allergies: SULFA (SULFONAMIDE ANTIBIOTICS) (Verified Allergy, Severe, 04/23/12) TRIMETHADIONE (Verified Allergy, Severe, 04/23/12) PARAMETHADIONE (Unverified Allergy, Unknown, 05/07/17) Uncoded Allergies: SULFA (Allergy, Unknown, 05/07/17) Objective Last 24 Hour Vital Signs Date Time Temp Pulse Resp B/P (MAP) Pulse Ox O2 Delivery O2 Flow Rate FiO2 05/19/17 11:59 98.1 101 21 133/93 97 Room Air 05/19/17 08:15 97.0 98 18 133/100 97 Room Air 05/19/17 04:00 97.7 91 19 146/94 98 05/19/17 04:00 98 Nasal Cannula 2.0 05/19/17 00:00 96 Room Air 05/19/17 00:00 97.2 92 20 133/92 96 05/18/17 20:15 93 Nasal Cannula 1.0 24 05/18/17 20:15 93 20 Nasal Cannula 1.0 24 05/18/17 20:15 Nasal Cannula 1.0 24 05/18/17 20:00 98 Room Air 05/18/17 20:00 98.6 95 20 125/87 98 05/18/17 16:03 97.7 92 21 146/89 96 Intake and Output 05/18/17 05/19/17 19:00 07:00 Intake Total 0 ml Balance 0 ml Intake Oral 0 ml # Voids 5 4 # Bowel Movements 5 Objective General Appearance: cachetic Lines, tubes and drains: peripheral HEENT: normocephalic, atraumatic Neck: non-tender, normal alignment Respiratory/Chest: chest wall non-tender, lungs clear Cardiovascular/Chest: normal peripheral pulses, normal rate Abdomen: normal bowel sounds, non tender, Gtube in place Genitourinary/Rectal: normal genital exam, normal rectal exam Skin Exam: normal pigmentation Laboratory Tests 05/19/17 08:15: White Blood Count 5.1, Red Blood Count 3.83L, Hemoglobin 10.3L, Hematocrit 32.5L , Mean Corpuscular Volume 85, Mean Corpuscular Hemoglobin 26.9L, Mean Corpuscular Hemoglobin Concent 31.8L, Red Cell Distribution Width 17.6H, Platelet Count 190, Mean Platelet Volume 7.4, Neutrophils (%) (Auto) 73.3, Lymphocytes (%) (Auto) 16.4L, Monocytes (%) (Auto) 9.6, Eosinophils (%) (Auto) 0.2, Basophils (%) (Auto) 0.5, Sodium Level 142, Potassium Level 3.4L, Chloride Level 109H, Carbon Dioxide Level 26, Anion Gap 7, Blood Urea Nitrogen 11, Creatinine 0.8, Estimat Glomerular Filtration Rate > 60, Glucose Level 49L, Calcium Level 8.3L Current Medications Medications (Trade) Dose Ordered Sig/Dank Route PRN Reason Start Time Stop Time Status Last Admin Dose Admin Acetaminophen (Tylenol) 650 mg Q4H PRN ORAL fever (temp >100.5 F) 05/07/17 16:30 06/06/17 16:29 05/12/17 16:18 Albuterol/ Ipratropium (Albuterol/ Ipratropium) 3 ml Q4H PRN HHN Shortness of Breath 05/15/17 13:00 05/20/17 12:59 Benztropine Mesylate (Cogentin) 1 mg BID ORAL 05/07/17 18:45 06/06/17 18:44 05/19/17 09:14 Buspirone HCl (Buspar) 5 mg TID ORAL 05/07/17 18:50 06/06/17 18:49 05/19/17 12:15 Dextrose (Dextrose 50%) STAT PRN IV Hypoglycemia 05/07/17 16:30 06/06/17 16:29 Diphenhydramine HCl (Benadryl) 25 mg Q6H PRN ORAL Itching/Pruritis 05/07/17 16:30 06/06/17 16:29 Divalproex Sodium (Depakote ER) 500 mg EVERY 12 HOURS ORAL 05/07/17 21:00 06/06/17 20:59 05/19/17 09:13 Docusate Sodium (Colace) 100 mg THREE TIMES A DAY NG 05/19/17 13:00 06/18/17 12:59 Folic Acid (Folate) 5 mg DAILY GT 05/18/17 12:30 06/17/17 12:29 05/19/17 09:13 Heparin Sodium (Porcine) (Heparin 5000 units/ml) 5,000 units EVERY 12 HOURS SUBQ 05/07/17 21:00 06/06/17 20:59 05/19/17 09:18 Levothyroxine Sodium (Synthroid) 75 mcg DAILY ORAL 05/08/17 09:00 06/07/17 08:59 05/19/17 09:14 Metoclopramide HCl (Reglan) 2.5 mg EVERY 6 HOURS NG 05/16/17 12:00 06/15/17 11:59 05/19/17 12:15 Nitroglycerin (Ntg) 0.4 mg Q5M X 3 DOSES PRN SL Prn Chest Pain 05/07/17 16:30 06/06/17 16:29 Ondansetron HCl (Zofran) 4 mg Q6H PRN IVP Nausea & Vomiting 05/07/17 16:30 06/06/17 16:29 Oxcarbazepine (Trileptal) 450 mg BID ORAL 05/07/17 19:30 06/06/17 19:29 05/19/17 09:19 Polyethylene Glycol (Miralax) 17 gm BEDTIME ORAL 05/19/17 21:00 06/18/17 20:59 Polyethylene Glycol (Miralax) 17 gm HSPRN PRN ORAL Constipation 05/07/17 16:30 06/06/17 16:29 Quetiapine Fumarate (SEROquel) 100 mg BID ORAL 05/07/17 18:45 06/06/17 18:44 05/19/17 09:14 TYRONE FARMER May 19, 2017 15:31
--- NOTE | 2017-05-19 16:35 | Nephrology Progress Note ---
Assessment/Plan Problem List: (1) Hypokalemia (2) Dehydration (3) Fecal impaction (4) Hypernatremia (5) Parkinson disease Assessment status: - Fecal impaction. improved - Acute renal failure, improved - Hypokalemia.improved - Hypernatremia. improved - Paranoid schizophrenia. - Parkinson disease. - Hypothyroidism. - Anemia. Plan Plan: K IV DC IV fluid- Venofer and Folate- Had PEG- Has mild Ileus- on multiple psych meds will increase Reglan dose Stable from renal stand Per consultants Subjective ROS Limited/Unobtainable: No Constitutional: Reports: malaise, weakness Objective Objective Last 24 Hour Vital Signs Date Time Temp Pulse Resp B/P (MAP) Pulse Ox O2 Delivery O2 Flow Rate FiO2 05/19/17 16:00 98.1 105 18 162/97 99 Room Air 05/19/17 11:59 98.1 101 21 133/93 97 Room Air 05/19/17 08:15 97.0 98 18 133/100 97 Room Air 05/19/17 04:00 97.7 91 19 146/94 98 05/19/17 04:00 98 Nasal Cannula 2.0 05/19/17 00:00 96 Room Air 05/19/17 00:00 97.2 92 20 133/92 96 05/18/17 20:15 93 Nasal Cannula 1.0 24 05/18/17 20:15 93 20 Nasal Cannula 1.0 24 05/18/17 20:15 Nasal Cannula 1.0 24 05/18/17 20:00 98 Room Air 05/18/17 20:00 98.6 95 20 125/87 98 Intake and Output 05/18/17 05/19/17 19:00 07:00 Intake Total 0 ml Balance 0 ml Intake Oral 0 ml # Voids 5 4 # Bowel Movements 5 Laboratory Tests 05/19/17 08:15: White Blood Count 5.1, Red Blood Count 3.83L, Hemoglobin 10.3L, Hematocrit 32.5L , Mean Corpuscular Volume 85, Mean Corpuscular Hemoglobin 26.9L, Mean Corpuscular Hemoglobin Concent 31.8L, Red Cell Distribution Width 17.6H, Platelet Count 190, Mean Platelet Volume 7.4, Neutrophils (%) (Auto) 73.3, Lymphocytes (%) (Auto) 16.4L, Monocytes (%) (Auto) 9.6, Eosinophils (%) (Auto) 0.2, Basophils (%) (Auto) 0.5, Sodium Level 142, Potassium Level 3.4L, Chloride Level 109H, Carbon Dioxide Level 26, Anion Gap 7, Blood Urea Nitrogen 11, Creatinine 0.8, Estimat Glomerular Filtration Rate > 60, Glucose Level 49L, Calcium Level 8.3L Height (Feet): 5 Height (Inches): 4.00 Weight (Pounds): 140 General Appearance: no apparent distress Cardiovascular: tachycardia Respiratory/Chest: decreased breath sounds Abdomen: distended, other - PEG + MIKEL QUINTERO May 19, 2017 16:35
[2017-05-19] MEDS ORDERED: Potassium Chloride 50 MEQ in Sodium Chloride 500ML 550 ML IVPB ONE (17:30)
[2017-05-19] MEDS ORDERED: Miralax 17gm pkt ORAL SCH (21:00)
[2017-05-20] VITALS: BP 136/98
[2017-05-20 04:00] VITALS: BP_SYST 142; BP_DIAS 77; BP_DIAS 99
[2017-05-20] MEDS: Metoclopramide 10mg/10ml Liq NG SCH ×2 (05:36→12:36)
[2017-05-20 07:10] LABS: BASOPHILS % (AUTO) 0.5 % (0.0-2.0); EOSINOPHILS % (AUTO) 0.4 % (0.0-3.0); HEMATOCRIT 31.7 % (42.0-52.0); HEMOGLOBIN 10.5 G/DL (14.2-18.0); LYMPHOCYTES % (AUTO) 14.9 % (20.0-45.0); MEAN CORPUSCULAR VOLUME 84 FL (80-99); MONOCYTES % (AUTO) 10.5 % (1.0-10.0); NEUTROPHILS % (AUTO) 73.6 % (45.0-75.0); PLATELET COUNT 174 K/UL (150-450); RED BLOOD COUNT 3.75 M/UL (4.70-6.10); RED CELL DISTRIBUTION WIDTH 17.9 % (11.6-14.8); WHITE BLOOD COUNT 5.1 K/UL (4.8-10.8)
[2017-05-20 07:37] LABS: ALANINE AMINOTRANSFERASE 15 U/L (12-78); ALBUMIN 1.5 G/DL (3.4-5.0); ALBUMIN/GLOBULIN RATIO 0.3 (1.0-2.7); ALKALINE PHOSPHATASE 93 U/L (46-116); ANION GAP 4 mmol/L (5-15); ASPARTATE AMINO TRANSFERASE 30 U/L (15-37); BILIRUBIN,TOTAL 0.2 MG/DL (0.2-1.0); BLOOD UREA NITROGEN 11 mg/dL (7-18); CALCIUM 8.4 MG/DL (8.5-10.1); CARBON DIOXIDE 30 MMOL/L (21-32); CHLORIDE 111 MMOL/L (98-107); CREATININE 0.9 MG/DL (0.55-1.30); PHOSPHORUS 2.2 MG/DL (2.5-4.9); POTASSIUM 4.2 MMOL/L (3.5-5.1); SODIUM 144 MMOL/L (136-145)
[2017-05-20 08:00] VITALS: BP 155/99
[2017-05-20] MEDS: Benztropine 1mg tab ORAL SCH (08:50)
[2017-05-20] MEDS: Depakote ER 500mg tab ORAL SCH (08:51)
[2017-05-20] MEDS: BusPIRone 5mg Tab ORAL SCH ×2 (08:51→12:36)
[2017-05-20] MEDS: Heparin 5000 units/ml inj SUBQ SCH (08:52)
[2017-05-20] MEDS: OXcarbazepine 150mg tab ORAL SCH (08:52)
[2017-05-20] MEDS: Docusate 100mg/10ml Liq NG SCH ×2 (08:55→12:36)
[2017-05-20] MEDS ORDERED: Potassium Phosphate 20 MM in NS 275 ML IV ONE (10:00)
--- NOTE | 2017-05-20 11:06 | Nephrology Progress Note ---
Assessment/Plan Problem List: (1) Hypokalemia (2) Dehydration (3) Fecal impaction (4) Hypernatremia (5) Parkinson disease Assessment status: - Fecal impaction. improved - Acute renal failure, improved - Hypokalemia.improved - Hypernatremia. improved - Paranoid schizophrenia. - Parkinson disease. - Hypothyroidism. - Anemia. Plan Plan: K & Phos IV DC IV fluid- Venofer and Folate- Had PEG- Has mild Ileus- on multiple psych meds will increase Reglan dose Stable from renal stand Per consultants Subjective ROS Limited/Unobtainable: No Constitutional: Reports: malaise Objective Objective Last 24 Hour Vital Signs Date Time Temp Pulse Resp B/P (MAP) Pulse Ox O2 Delivery O2 Flow Rate FiO2 05/20/17 08:00 97.4 103 18 155/99 97 05/20/17 04:00 97.3 101 20 142/99 95 05/20/17 00:00 97.7 96 19 136/98 96 05/19/17 20:00 98.1 100 19 126/89 94 05/19/17 19:09 83 18 Room Air 21 05/19/17 19:09 Room Air 21 05/19/17 19:09 94 Room Air 21 05/19/17 16:57 98 19 140/80 98 Room Air 05/19/17 16:00 98.1 105 18 162/97 99 Room Air 05/19/17 11:59 98.1 101 21 133/93 97 Room Air Intake and Output 05/19/17 05/20/17 19:00 07:00 Intake Total 100 ml 580 ml Balance 100 ml 580 ml Free Water 30 ml 240 ml Tube Feeding 70 ml 340 ml # Voids 1 3 # Bowel Movements 4 3 Laboratory Tests 05/20/17 06:30: White Blood Count 5.1, Red Blood Count 3.75L, Hemoglobin 10.5L, Hematocrit 31.7L , Mean Corpuscular Volume 84, Mean Corpuscular Hemoglobin 28.1, Mean Corpuscular Hemoglobin Concent 33.3, Red Cell Distribution Width 17.9H, Platelet Count 174, Mean Platelet Volume 7.5, Neutrophils (%) (Auto) 73.6, Lymphocytes (%) (Auto) 14.9L, Monocytes (%) (Auto) 10.5H, Eosinophils (%) (Auto ) 0.4, Basophils (%) (Auto) 0.5, Sodium Level 144, Potassium Level 4.2, Chloride Level 111H, Carbon Dioxide Level 30, Anion Gap 4L, Blood Urea Nitrogen 11, Creatinine 0.9, Estimat Glomerular Filtration Rate > 60, Glucose Level 82, Uric Acid 5.1, Calcium Level 8.4L, Phosphorus Level 2.2L, Magnesium Level 1.7L, Total Bilirubin 0.2, Aspartate Amino Transf (AST/SGOT) 30, Alanine Aminotransferase (ALT/SGPT) 15, Alkaline Phosphatase 93, Pro-B-Type Natriuretic Peptide 764H, Total Protein 7.4, Albumin 1.5L, Globulin 5.9, Albumin/Globulin Ratio 0.3L, Lipase 95, Folate 11.0 Height (Feet): 5 Height (Inches): 4.00 Weight (Pounds): 140 General Appearance: no apparent distress Cardiovascular: tachycardia Respiratory/Chest: decreased breath sounds Abdomen: distended MIKEL QUINTERO May 20, 2017 11:06
--- NOTE | 2017-05-20 11:16 | GI Progress Note ---
Assessment/Plan Problems: (1) Fecal impaction ICD Codes: K56.41 - Fecal impaction SNOMED: 55329039 (2) Parkinson disease ICD Codes: G20 - Parkinson's disease SNOMED: 21328200 (3) Anemia ICD Codes: D64.9 - Anemia, unspecified SNOMED: 121463608 (4) Dehydration ICD Codes: E86.0 - Dehydration SNOMED: 15785065 (5) Abdominal distention ICD Codes: R14.0 - Abdominal distension (gaseous) SNOMED: 90627752 (6) Severe malnutrition ICD Codes: E43 - Unspecified severe protein-calorie malnutrition SNOMED: 61629399 Status: stable Status Narrative Discussed with Dr. Euceda. Assessment/Plan - Severe rectal stool impaction >> abdomen very less distended - Hypernatremia - Azotemia - Dehydration - s/p GT placement - elevated residuals KUB reviewed >> gaseous distention improved, scattered stool. >> 2L golytely flush given GTFs per RD, tolerating no IV reglan or Erythromycin available low dose po reglan bowel regime >> colace + miralax fu labs dc planning Subjective Subjective limited Objective Last 24 Hour Vital Signs Date Time Temp Pulse Resp B/P (MAP) Pulse Ox O2 Delivery O2 Flow Rate FiO2 05/20/17 08:00 97.4 103 18 155/99 97 05/20/17 04:00 97.3 101 20 142/99 95 05/20/17 00:00 97.7 96 19 136/98 96 05/19/17 20:00 98.1 100 19 126/89 94 05/19/17 19:09 83 18 Room Air 21 05/19/17 19:09 Room Air 21 05/19/17 19:09 94 Room Air 21 05/19/17 16:57 98 19 140/80 98 Room Air 05/19/17 16:00 98.1 105 18 162/97 99 Room Air 05/19/17 11:59 98.1 101 21 133/93 97 Room Air Intake and Output 05/19/17 05/20/17 19:00 07:00 Intake Total 100 ml 580 ml Balance 100 ml 580 ml Free Water 30 ml 240 ml Tube Feeding 70 ml 340 ml # Voids 1 3 # Bowel Movements 4 3 Laboratory Tests Test 05/20/17 06:30 White Blood Count 5.1 K/UL (4.8-10.8) Red Blood Count 3.75 M/UL (4.70-6.10) L Hemoglobin 10.5 G/DL (14.2-18.0) L Hematocrit 31.7 % (42.0-52.0) L Mean Corpuscular Volume 84 FL (80-99) Mean Corpuscular Hemoglobin 28.1 PG (27.0-31.0) Mean Corpuscular Hemoglobin Concent 33.3 G/DL (32.0-36.0) Red Cell Distribution Width 17.9 % (11.6-14.8) H Platelet Count 174 K/UL (150-450) Mean Platelet Volume 7.5 FL (6.5-10.1) Neutrophils (%) (Auto) 73.6 % (45.0-75.0) Lymphocytes (%) (Auto) 14.9 % (20.0-45.0) L Monocytes (%) (Auto) 10.5 % (1.0-10.0) H Eosinophils (%) (Auto) 0.4 % (0.0-3.0) Basophils (%) (Auto) 0.5 % (0.0-2.0) Sodium Level 144 MMOL/L (136-145) Potassium Level 4.2 MMOL/L (3.5-5.1) Chloride Level 111 MMOL/L (98-107) H Carbon Dioxide Level 30 MMOL/L (21-32) Anion Gap 4 mmol/L (5-15) L Blood Urea Nitrogen 11 mg/dL (7-18) Creatinine 0.9 MG/DL (0.55-1.30) Estimat Glomerular Filtration Rate > 60 mL/min (>60) Glucose Level 82 MG/DL (74-106) Uric Acid 5.1 MG/DL (2.6-7.2) Calcium Level 8.4 MG/DL (8.5-10.1) L Phosphorus Level 2.2 MG/DL (2.5-4.9) L Magnesium Level 1.7 MG/DL (1.8-2.4) L Total Bilirubin 0.2 MG/DL (0.2-1.0) Aspartate Amino Transf (AST/SGOT) 30 U/L (15-37) Alanine Aminotransferase (ALT/SGPT) 15 U/L (12-78) Alkaline Phosphatase 93 U/L (46-116) Pro-B-Type Natriuretic Peptide 764 pg/mL (0-125) H Total Protein 7.4 G/DL (6.4-8.2) Albumin 1.5 G/DL (3.4-5.0) L Globulin 5.9 g/dL Albumin/Globulin Ratio 0.3 (1.0-2.7) L Lipase 95 U/L (73-393) Folate 11.0 NG/ML (8.6-58.9) Height (Feet): 5 Height (Inches): 4.00 Weight (Pounds): 140 General Appearance: alert Cardiovascular: normal rate Respiratory/Chest: normal breath sounds, no respiratory distress Abdominal Exam: normal bowel sounds, non tender, soft, GT site - c/d/i Extremities: non-tender Gayle Aguillon N.P. May 20, 2017 11:16
[2017-05-20 12:00] VITALS: BP 149/82
--- NOTE | 2017-05-20 12:39 | Infectious Diseases Prog Note ---
Assessment/Plan Assessment/Plan A: 1. Leukocytosis resolved 2. Fecal impaction.improving 3. Acute renal failure, resolved 4. Hypokalemia. 5. Hypernatremia. 6. Paranoid schizophrenia. 7. Parkinson disease. 8. Hypothyroidism. 9. Anemia. 10. s/p GT placement P: observe off antibiotic Subjective ROS Limited/Unobtainable: Yes Allergies: Coded Allergies: SULFA (SULFONAMIDE ANTIBIOTICS) (Verified Allergy, Severe, 04/23/12) TRIMETHADIONE (Verified Allergy, Severe, 04/23/12) PARAMETHADIONE (Unverified Allergy, Unknown, 05/07/17) Uncoded Allergies: SULFA (Allergy, Unknown, 05/07/17) Objective Vital Signs Last 24 Hour Vital Signs Date Time Temp Pulse Resp B/P (MAP) Pulse Ox O2 Delivery O2 Flow Rate FiO2 05/20/17 08:00 97.4 103 18 155/99 97 05/20/17 04:00 97.3 101 20 142/99 95 05/20/17 00:00 97.7 96 19 136/98 96 05/19/17 20:00 98.1 100 19 126/89 94 05/19/17 19:09 83 18 Room Air 21 05/19/17 19:09 Room Air 21 05/19/17 19:09 94 Room Air 21 05/19/17 16:57 98 19 140/80 98 Room Air 05/19/17 16:00 98.1 105 18 162/97 99 Room Air Height (Feet): 5 Height (Inches): 4.00 Weight (Pounds): 140 General Appearance: no acute distress HEENT: mucous membranes moist Respiratory/Chest: lungs clear Cardiovascular: tachycardia Abdomen: soft, non tender, other - GT feeding Extremities: no edema Skin: no rash Neurologic/Psychiatric: alert Laboratory Tests Test 05/20/17 06:30 White Blood Count 5.1 K/UL (4.8-10.8) Red Blood Count 3.75 M/UL (4.70-6.10) L Hemoglobin 10.5 G/DL (14.2-18.0) L Hematocrit 31.7 % (42.0-52.0) L Mean Corpuscular Volume 84 FL (80-99) Mean Corpuscular Hemoglobin 28.1 PG (27.0-31.0) Mean Corpuscular Hemoglobin Concent 33.3 G/DL (32.0-36.0) Red Cell Distribution Width 17.9 % (11.6-14.8) H Platelet Count 174 K/UL (150-450) Mean Platelet Volume 7.5 FL (6.5-10.1) Neutrophils (%) (Auto) 73.6 % (45.0-75.0) Lymphocytes (%) (Auto) 14.9 % (20.0-45.0) L Monocytes (%) (Auto) 10.5 % (1.0-10.0) H Eosinophils (%) (Auto) 0.4 % (0.0-3.0) Basophils (%) (Auto) 0.5 % (0.0-2.0) Sodium Level 144 MMOL/L (136-145) Potassium Level 4.2 MMOL/L (3.5-5.1) Chloride Level 111 MMOL/L (98-107) H Carbon Dioxide Level 30 MMOL/L (21-32) Anion Gap 4 mmol/L (5-15) L Blood Urea Nitrogen 11 mg/dL (7-18) Creatinine 0.9 MG/DL (0.55-1.30) Estimat Glomerular Filtration Rate > 60 mL/min (>60) Glucose Level 82 MG/DL (74-106) Uric Acid 5.1 MG/DL (2.6-7.2) Calcium Level 8.4 MG/DL (8.5-10.1) L Phosphorus Level 2.2 MG/DL (2.5-4.9) L Magnesium Level 1.7 MG/DL (1.8-2.4) L Total Bilirubin 0.2 MG/DL (0.2-1.0) Aspartate Amino Transf (AST/SGOT) 30 U/L (15-37) Alanine Aminotransferase (ALT/SGPT) 15 U/L (12-78) Alkaline Phosphatase 93 U/L (46-116) Pro-B-Type Natriuretic Peptide 764 pg/mL (0-125) H Total Protein 7.4 G/DL (6.4-8.2) Albumin 1.5 G/DL (3.4-5.0) L Globulin 5.9 g/dL Albumin/Globulin Ratio 0.3 (1.0-2.7) L Lipase 95 U/L (73-393) Folate 11.0 NG/ML (8.6-58.9) Current Medications Medications (Trade) Dose Ordered Sig/Dank Route PRN Reason Start Time Stop Time Status Last Admin Dose Admin Acetaminophen (Tylenol) 650 mg Q4H PRN ORAL fever (temp >100.5 F) 05/07/17 16:30 06/06/17 16:29 05/12/17 16:18 Albuterol/ Ipratropium (Albuterol/ Ipratropium) 3 ml Q4H PRN HHN Shortness of Breath 05/15/17 13:00 05/20/17 12:59 Benztropine Mesylate (Cogentin) 1 mg BID ORAL 05/07/17 18:45 06/06/17 18:44 05/20/17 08:50 Buspirone HCl (Buspar) 5 mg TID ORAL 05/07/17 18:50 06/06/17 18:49 05/20/17 12:36 Dextrose (Dextrose 50%) STAT PRN IV Hypoglycemia 05/07/17 16:30 06/06/17 16:29 Diphenhydramine HCl (Benadryl) 25 mg Q6H PRN ORAL Itching/Pruritis 05/07/17 16:30 06/06/17 16:29 Divalproex Sodium (Depakote ER) 500 mg EVERY 12 HOURS ORAL 05/07/17 21:00 06/06/17 20:59 05/20/17 08:51 Docusate Sodium (Colace) 100 mg THREE TIMES A DAY NG 05/19/17 13:00 06/18/17 12:59 Folic Acid (Folate) 5 mg DAILY GT 05/18/17 12:30 06/17/17 12:29 05/20/17 08:54 Heparin Sodium (Porcine) (Heparin 5000 units/ml) 5,000 units EVERY 12 HOURS SUBQ 05/07/17 21:00 06/06/17 20:59 05/20/17 08:52 Levothyroxine Sodium (Synthroid) 75 mcg DAILY ORAL 05/08/17 09:00 06/07/17 08:59 05/20/17 08:50 Metoclopramide HCl (Reglan) 10 mg EVERY 6 HOURS NG 05/19/17 18:00 06/18/17 17:59 05/20/17 12:36 Nitroglycerin (Ntg) 0.4 mg Q5M X 3 DOSES PRN SL Prn Chest Pain 05/07/17 16:30 06/06/17 16:29 Ondansetron HCl (Zofran) 4 mg Q6H PRN IVP Nausea & Vomiting 05/07/17 16:30 06/06/17 16:29 Oxcarbazepine (Trileptal) 450 mg BID ORAL 05/07/17 19:30 06/06/17 19:29 05/20/17 08:52 Polyethylene Glycol (Miralax) 17 gm BEDTIME ORAL 05/19/17 21:00 06/18/17 20:59 05/19/17 20:36 Polyethylene Glycol (Miralax) 17 gm HSPRN PRN ORAL Constipation 05/07/17 16:30 06/06/17 16:29 Potassium Phosphate 20 mm/ Sodium Chloride 281.6667 ml @ 46.944 m... ONCE ONCE IV 05/20/17 10:00 05/20/17 15:59 05/20/17 12:09 Quetiapine Fumarate (SEROquel) 100 mg BID ORAL 05/07/17 18:45 06/06/17 18:44 05/20/17 08:50 FLYNN PERAZA May 20, 2017 12:39
--- NOTE | 2017-05-20 13:31 | General Progress Note ---
Assessment/Plan Problem List: (1) Renal failure ICD Codes: N19 - Unspecified kidney failure SNOMED: 54365033 (2) UTI (urinary tract infection) ICD Codes: N39.0 - Urinary tract infection, site not specified SNOMED: 33829309 (3) Sepsis ICD Codes: A41.9 - Sepsis, unspecified organism SNOMED: 69488712 (4) Anemia ICD Codes: D64.9 - Anemia, unspecified SNOMED: 931212334 (5) Parkinson disease ICD Codes: G20 - Parkinson's disease SNOMED: 52515352 (6) Abdominal distention ICD Codes: R14.0 - Abdominal distension (gaseous) SNOMED: 33782223 Status: stable, progressing Assessment/Plan ot pt diet abx sx f/u dc to snf Subjective Constitutional: Reports: weakness Allergies: Coded Allergies: SULFA (SULFONAMIDE ANTIBIOTICS) (Verified Allergy, Severe, 04/23/12) TRIMETHADIONE (Verified Allergy, Severe, 04/23/12) PARAMETHADIONE (Unverified Allergy, Unknown, 05/07/17) Uncoded Allergies: SULFA (Allergy, Unknown, 05/07/17) All Systems: reviewed and negative except above Subjective 02nc confused Objective Last 24 Hour Vital Signs Date Time Temp Pulse Resp B/P (MAP) Pulse Ox O2 Delivery O2 Flow Rate FiO2 05/20/17 12:00 97.0 99 18 149/82 96 05/20/17 08:00 97.4 103 18 155/99 97 05/20/17 04:00 97.3 101 20 142/99 95 05/20/17 00:00 97.7 96 19 136/98 96 05/19/17 20:00 98.1 100 19 126/89 94 05/19/17 19:09 83 18 Room Air 21 05/19/17 19:09 Room Air 21 05/19/17 19:09 94 Room Air 21 05/19/17 16:57 98 19 140/80 98 Room Air 05/19/17 16:00 98.1 105 18 162/97 99 Room Air Intake and Output 05/19/17 05/20/17 19:00 07:00 Intake Total 100 ml 580 ml Balance 100 ml 580 ml Free Water 30 ml 240 ml Tube Feeding 70 ml 340 ml # Voids 1 3 # Bowel Movements 4 3 Laboratory Tests 05/20/17 06:30: White Blood Count 5.1, Red Blood Count 3.75L, Hemoglobin 10.5L, Hematocrit 31.7L , Mean Corpuscular Volume 84, Mean Corpuscular Hemoglobin 28.1, Mean Corpuscular Hemoglobin Concent 33.3, Red Cell Distribution Width 17.9H, Platelet Count 174, Mean Platelet Volume 7.5, Neutrophils (%) (Auto) 73.6, Lymphocytes (%) (Auto) 14.9L, Monocytes (%) (Auto) 10.5H, Eosinophils (%) (Auto ) 0.4, Basophils (%) (Auto) 0.5, Sodium Level 144, Potassium Level 4.2, Chloride Level 111H, Carbon Dioxide Level 30, Anion Gap 4L, Blood Urea Nitrogen 11, Creatinine 0.9, Estimat Glomerular Filtration Rate > 60, Glucose Level 82, Uric Acid 5.1, Calcium Level 8.4L, Phosphorus Level 2.2L, Magnesium Level 1.7L, Total Bilirubin 0.2, Aspartate Amino Transf (AST/SGOT) 30, Alanine Aminotransferase (ALT/SGPT) 15, Alkaline Phosphatase 93, Pro-B-Type Natriuretic Peptide 764H, Total Protein 7.4, Albumin 1.5L, Globulin 5.9, Albumin/Globulin Ratio 0.3L, Lipase 95, Folate 11.0 Height (Feet): 5 Height (Inches): 4.00 Weight (Pounds): 140 General Appearance: lethargic EENT: normal ENT inspection Neck: normal alignment Cardiovascular: normal peripheral pulses, normal rate, regular rhythm Respiratory/Chest: chest wall non-tender, lungs clear, normal breath sounds Abdomen: normal bowel sounds, non tender, soft Extremities: normal inspection Edema: no edema noted Arm (L), no edema noted Arm (R), no edema noted Leg (L), no edema noted Leg (R), no edema noted Pedal (L), no edema noted Pedal (R), no edema noted Generalized Neurologic: motor weakness Skin: normal pigmentation, warm/dry NARCISA HUI May 20, 2017 13:31
--- NOTE | 2017-05-20 16:32 | General Surgery Progress Note ---
General Surgery-Progress Note Subjective Symptoms: improved Additional Comments doing well. more responsive today. having BM's. tolerating tube feeds. exam improved Objective Last 24 Hour Vital Signs Date Time Temp Pulse Resp B/P (MAP) Pulse Ox O2 Delivery O2 Flow Rate FiO2 05/20/17 14:24 93 Room Air 21 05/20/17 14:24 Room Air 21 05/20/17 14:24 98 20 Room Air 21 05/20/17 12:00 97.0 99 18 149/82 96 05/20/17 08:00 97.4 103 18 155/99 97 05/20/17 04:00 97.3 101 20 142/99 95 05/20/17 00:00 97.7 96 19 136/98 96 05/19/17 20:00 98.1 100 19 126/89 94 05/19/17 19:09 83 18 Room Air 21 05/19/17 19:09 Room Air 21 05/19/17 19:09 94 Room Air 21 05/19/17 16:57 98 19 140/80 98 Room Air I&O Intake and Output 05/19/17 05/20/17 19:00 07:00 Intake Total 100 ml 580 ml Balance 100 ml 580 ml Free Water 30 ml 240 ml Tube Feeding 70 ml 340 ml # Voids 1 3 # Bowel Movements 4 3 Drains: other - g tube Cardiovascular: RSR Respiratory: clear Abdomen: soft, flat, non-tender, present bowel sounds Extremities: no tenderness Laboratory Tests Test 05/20/17 06:30 White Blood Count 5.1 K/UL (4.8-10.8) Red Blood Count 3.75 M/UL (4.70-6.10) L Hemoglobin 10.5 G/DL (14.2-18.0) L Hematocrit 31.7 % (42.0-52.0) L Mean Corpuscular Volume 84 FL (80-99) Mean Corpuscular Hemoglobin 28.1 PG (27.0-31.0) Mean Corpuscular Hemoglobin Concent 33.3 G/DL (32.0-36.0) Red Cell Distribution Width 17.9 % (11.6-14.8) H Platelet Count 174 K/UL (150-450) Mean Platelet Volume 7.5 FL (6.5-10.1) Neutrophils (%) (Auto) 73.6 % (45.0-75.0) Lymphocytes (%) (Auto) 14.9 % (20.0-45.0) L Monocytes (%) (Auto) 10.5 % (1.0-10.0) H Eosinophils (%) (Auto) 0.4 % (0.0-3.0) Basophils (%) (Auto) 0.5 % (0.0-2.0) Sodium Level 144 MMOL/L (136-145) Potassium Level 4.2 MMOL/L (3.5-5.1) Chloride Level 111 MMOL/L (98-107) H Carbon Dioxide Level 30 MMOL/L (21-32) Anion Gap 4 mmol/L (5-15) L Blood Urea Nitrogen 11 mg/dL (7-18) Creatinine 0.9 MG/DL (0.55-1.30) Estimat Glomerular Filtration Rate > 60 mL/min (>60) Glucose Level 82 MG/DL (74-106) Uric Acid 5.1 MG/DL (2.6-7.2) Calcium Level 8.4 MG/DL (8.5-10.1) L Phosphorus Level 2.2 MG/DL (2.5-4.9) L Magnesium Level 1.7 MG/DL (1.8-2.4) L Total Bilirubin 0.2 MG/DL (0.2-1.0) Aspartate Amino Transf (AST/SGOT) 30 U/L (15-37) Alanine Aminotransferase (ALT/SGPT) 15 U/L (12-78) Alkaline Phosphatase 93 U/L (46-116) Pro-B-Type Natriuretic Peptide 764 pg/mL (0-125) H Total Protein 7.4 G/DL (6.4-8.2) Albumin 1.5 G/DL (3.4-5.0) L Globulin 5.9 g/dL Albumin/Globulin Ratio 0.3 (1.0-2.7) L Lipase 95 U/L (73-393) Folate 11.0 NG/ML (8.6-58.9) Plan Problems: (1) Fecal impaction Assessment & Plan: 61M with severe fecal impaction leaving to a near complete large bowel obstruction. CT findings very prominent and concerning. High risk for perforation given CT findings and exam. good amount of impacted stool removed with bedside disimpaction over the past few days. Today abdominal exam significantly improved. abdomen soft, non distended, finally resolved. no longer needs disimpaction as good BM's soft on his own. KUB much improved but now has some small bowel distention G tube placed ileus currently or potentially more still impaction again. good BM's again. exam improved tolerating tube feeds. -feeds as tolerated -needs really good bowel regimen and habits. -stool softeners -okay to d/c from surgical standpoint thank you for this consultation. Norbert Huggins May 20, 2017 16:32
[2017-05-20] MEDS ORDERED: FOLIC ACID1 MG GT (16:38)
[2017-05-20] MEDS ORDERED: DOCUSATE SODIU100 MG NG (16:38)
[2017-05-20] MEDS ORDERED: METOCLOPRA10 MG/10 M NGT (16:39)
[2017-05-20] MEDS ORDERED: SEROQUEL100 MG ORAL (16:40)
[2017-05-20] MEDS ORDERED: MIRALAX17 G2 ORAL (16:41)
[2017-05-20 16:50] VITALS: BP 121/88
[2017-05-20] MEDS ORDERED: NS 275ml ONE (17:39)
[2017-05-20] MEDS ORDERED: D5 1/2NS 1000ml IV ONE (17:39)
--- NOTE | 2017-05-20 18:00 | Pulmonology Progress Note ---
Assessment/Plan Problems: (1) Hypokalemia (2) Abdominal distention (3) Parkinson disease (4) Renal failure (5) UTI (urinary tract infection) (6) Fecal impaction (7) Dehydration (8) Severe malnutrition Assessment/Plan look better all reviewed no new complains tolerating gtube wbc normal now more awake all meds and notes reviewed dc planning awaiting placement Subjective ROS Limited/Unobtainable: No Constitutional: Reports: no symptoms HEENT: Repors: no symptoms Allergies: Coded Allergies: SULFA (SULFONAMIDE ANTIBIOTICS) (Verified Allergy, Severe, 04/23/12) TRIMETHADIONE (Verified Allergy, Severe, 04/23/12) PARAMETHADIONE (Unverified Allergy, Unknown, 05/07/17) Uncoded Allergies: SULFA (Allergy, Unknown, 05/07/17) Objective Last 24 Hour Vital Signs Date Time Temp Pulse Resp B/P (MAP) Pulse Ox O2 Delivery O2 Flow Rate FiO2 05/20/17 16:50 97.6 99 20 121/88 94 Room Air 05/20/17 14:24 93 Room Air 21 05/20/17 14:24 Room Air 21 05/20/17 14:24 98 20 Room Air 21 05/20/17 12:00 97.0 99 18 149/82 96 05/20/17 08:00 97.4 103 18 155/99 97 05/20/17 04:00 97.3 101 20 142/99 95 05/20/17 00:00 97.7 96 19 136/98 96 05/19/17 20:00 98.1 100 19 126/89 94 05/19/17 19:09 83 18 Room Air 21 05/19/17 19:09 Room Air 21 05/19/17 19:09 94 Room Air 21 Intake and Output 05/19/17 05/20/17 19:00 07:00 Intake Total 100 ml 580 ml Balance 100 ml 580 ml Free Water 30 ml 240 ml Tube Feeding 70 ml 340 ml # Voids 1 3 # Bowel Movements 4 3 Objective General Appearance: cachetic Lines, tubes and drains: peripheral HEENT: normocephalic, atraumatic Neck: non-tender, normal alignment Respiratory/Chest: chest wall non-tender, lungs clear Cardiovascular/Chest: normal peripheral pulses, normal rate Abdomen: normal bowel sounds, non tender, Gtube in place Genitourinary/Rectal: normal genital exam, normal rectal exam Skin Exam: normal pigmentation Laboratory Tests 05/20/17 06:30: White Blood Count 5.1, Red Blood Count 3.75L, Hemoglobin 10.5L, Hematocrit 31.7L , Mean Corpuscular Volume 84, Mean Corpuscular Hemoglobin 28.1, Mean Corpuscular Hemoglobin Concent 33.3, Red Cell Distribution Width 17.9H, Platelet Count 174, Mean Platelet Volume 7.5, Neutrophils (%) (Auto) 73.6, Lymphocytes (%) (Auto) 14.9L, Monocytes (%) (Auto) 10.5H, Eosinophils (%) (Auto ) 0.4, Basophils (%) (Auto) 0.5, Sodium Level 144, Potassium Level 4.2, Chloride Level 111H, Carbon Dioxide Level 30, Anion Gap 4L, Blood Urea Nitrogen 11, Creatinine 0.9, Estimat Glomerular Filtration Rate > 60, Glucose Level 82, Uric Acid 5.1, Calcium Level 8.4L, Phosphorus Level 2.2L, Magnesium Level 1.7L, Total Bilirubin 0.2, Aspartate Amino Transf (AST/SGOT) 30, Alanine Aminotransferase (ALT/SGPT) 15, Alkaline Phosphatase 93, Pro-B-Type Natriuretic Peptide 764H, Total Protein 7.4, Albumin 1.5L, Globulin 5.9, Albumin/Globulin Ratio 0.3L, Lipase 95, Folate 11.0 Current Medications Medications (Trade) Dose Ordered Sig/Dank Route PRN Reason Start Time Stop Time Status Last Admin Dose Admin Acetaminophen (Tylenol) 650 mg Q4H PRN ORAL fever (temp >100.5 F) 05/07/17 16:30 06/06/17 16:29 05/12/17 16:18 Benztropine Mesylate (Cogentin) 1 mg BID ORAL 05/07/17 18:45 06/06/17 18:44 05/20/17 08:50 Buspirone HCl (Buspar) 5 mg TID ORAL 05/07/17 18:50 06/06/17 18:49 05/20/17 12:36 Dextrose (Dextrose 50%) STAT PRN IV Hypoglycemia 05/07/17 16:30 06/06/17 16:29 Diphenhydramine HCl (Benadryl) 25 mg Q6H PRN ORAL Itching/Pruritis 05/07/17 16:30 06/06/17 16:29 Divalproex Sodium (Depakote ER) 500 mg EVERY 12 HOURS ORAL 05/07/17 21:00 06/06/17 20:59 05/20/17 08:51 Docusate Sodium (Colace) 100 mg THREE TIMES A DAY NG 05/19/17 13:00 06/18/17 12:59 Folic Acid (Folate) 5 mg DAILY GT 05/18/17 12:30 06/17/17 12:29 05/20/17 08:54 Heparin Sodium (Porcine) (Heparin 5000 units/ml) 5,000 units EVERY 12 HOURS SUBQ 05/07/17 21:00 06/06/17 20:59 05/20/17 08:52 Levothyroxine Sodium (Synthroid) 75 mcg DAILY ORAL 05/08/17 09:00 06/07/17 08:59 05/20/17 08:50 Metoclopramide HCl (Reglan) 10 mg EVERY 6 HOURS NG 05/19/17 18:00 06/18/17 17:59 05/20/17 12:36 Nitroglycerin (Ntg) 0.4 mg Q5M X 3 DOSES PRN SL Prn Chest Pain 05/07/17 16:30 06/06/17 16:29 Ondansetron HCl (Zofran) 4 mg Q6H PRN IVP Nausea & Vomiting 05/07/17 16:30 06/06/17 16:29 Oxcarbazepine (Trileptal) 450 mg BID ORAL 05/07/17 19:30 06/06/17 19:29 05/20/17 08:52 Polyethylene Glycol (Miralax) 17 gm BEDTIME ORAL 05/19/17 21:00 06/18/17 20:59 05/19/17 20:36 Polyethylene Glycol (Miralax) 17 gm HSPRN PRN ORAL Constipation 05/07/17 16:30 06/06/17 16:29 Quetiapine Fumarate (SEROquel) 100 mg BID ORAL 05/07/17 18:45 06/06/17 18:44 05/20/17 08:50 TYRONE FARMER May 20, 2017 18:00
--- NOTE | 2017-05-20 20:45 | Progress Note ---
DATE: 05/20/2017 SUBJECTIVE: The patient is a 61-year-old male patient with anemia and hypokalemia. This patient continues to have some confusion and disorganized thought process, extreme mood lability. So, that is why there was a daily psychiatric consultation requested. He was admitted to the hospital secondary to anemia and hypokalemia, but because of his mood lability and declined cognition, his attending has requested daily psychiatric consultation. MENTAL STATUS EXAMINATION: This is a 61-year-old male with psychomotor retardation. Mood is depressed. Affect is guarded and restricted. Intellect is poor. Mood is depressed and anxious. Motor activity, psychomotor agitation. Attention span is poor. Orientation x2. Speech is low volume and slurred. Denies suicidal or homicidal thoughts. Insight and judgment is poor he has auditory hallucinations. DIAGNOSIS: Schizoaffective, bipolar type. PLAN: Continue titrating up on this patient's psychotropic medications to stabilize his mood and reduce agitation and mood lability. Encouraged him to interact appropriately with staff. A 15 to 20 minutes of supportive therapy provided. Chart was reviewed and discussed with staff. Seen and assessed in his room. Lauren Ames M.D. DR: CHRIS JOB#: [id number] CC:
--- NOTE | 2017-05-21 18:33 | Discharge Summary ---
Discharge Summary Hospital Course Date of Admission May 07, 2017 at 16:06 Date of Discharge May 20, 2017 at 17:40 Admitting Diagnosis anemia, hypokalemia [facility] Ganesh Black is a 61 year old male who was admitted on May 07, 2017 at 16:06 for Anemia,Hypokalemia Hospital Course [id number] Discharge Discharge Disposition Patient was discharged to snf Discharge Diagnoses: Maddy Alberts NP May 21, 2017 18:33
--- NOTE | 2017-05-22 05:30 | Discharge Summary 2 SIG ---
DATE OF ADMISSION: 05/07/2017 DATE OF DISCHARGE: 05/20/2017 CONSULTANTS: 1. Kayy Orourke M.D. 2. Collin Euceda M.D. 3. Lauren Ames M.D. 4. Tucker Connolly M.D. 5. Tanmay Clemons M.D. 6. Norbert Huggins M.D. 7. Carlos Mitchell M.D. BRIEF HOSPITAL COURSE: The patient is a 61-year-old male, who is from [facility], presented with abdominal distention. He has medical history of encephalopathy and GERD. On evaluation at ED, there was no leukocytosis. However abdominal and pelvic CT showed massive rectal and sigmoid distention with evidence of rectal and sigmoid fecal impaction. There was evidence of considerable constipation. There was gaseous colonic distention likely functional in nature, although could be obstruction, manifestation of obstruction by impacted feces. The patient was given IV hydration and was placed on enemas and oral laxatives without any significant improvement. He was given manual disimpaction. CT findings were very prominent and concerning with high risk of perforation. He was seen by psychiatrist and was diagnosed with schizoaffective bipolar type and was given Depakote 500 mg b.i.d. He was continued on bowel regimen with daily fecal disimpaction. Subsequent abdominal KUB showed decreased gaseous distention, however with persistent retained fecal material. He was initially inserted an NGT, but the patient pulled out the NG tube. He had acute kidney injury and was given IV hydration. Kidney injury improved. He had video swallow study that showed high aspiration risk. Due to severe dysphagia, recommended PEG. His electrolytes were corrected. On 05/14/2017, he underwent EGD with PEG tube placement. He was not tolerating tube feedings. Reglan was added. He was continued on bowel regimen. Blood cultures did not isolate any growth and urine culture with mixed gram-positive organisms. He was observed off antibiotic treatment. The patient was having good bowel movement and was tolerating tube feeding. He was eventually discharged back to [facility]. FINAL DIAGNOSES: 1. Abdominal distention due to fecal impaction. 2. Dysphagia, status post percutaneous endoscopic gastrostomy tube placement. 3. Hypokalemia. 4. Acute kidney injury secondary to dehydration. 5. Hypernatremia. 6. Severe protein-calorie malnutrition. 7. Anemia. 8. Paranoid schizophrenia. 9. Sacral decubitus stage IV pressure ulcer, present on admission. 10. Multiple deep tissue injury pressure ulcer, present on admission. 11. Parkinson disease. 12. Anemia. 13. Schizoaffective, bipolar type. DISPOSITION: The patient was discharged to [facility]. DISCHARGE MEDICATIONS: Refer to to med list. Dionicio Delgadillo D.O. I have been assigned to dictate discharge summary on this account and I was not involved in the patient's management. Maddy Alberts N.P. DR: TYSON JOB#: [id number] CC: SHEFALI
--- NOTE | 2017-05-26 04:19 | Physician Query ---
--------- THIS DOCUMENT IS A PERMANENT PART OF THE MEDICAL RECORD --------- PLEASE COMPLETE DOCUMENT BEFORE SIGNING Dear Dr. HUI Date: 05/26/17 Analysis Internship/CDS Name: JONI KILLIAN, CCS Exercise your independent professional judgment when responding to the query. Questions asked do not imply a particular answer is desired or expected. We greatly appreciate your clarification on this issue. CLINICAL DOCUMENTATION STATES: H&P states: ASSESSMENT: 1. Abdominal distention. 2. Urinary tract infection and sepsis. FINAL DIAGNOSES: 1. Abdominal distention due to fecal impaction. 2. Dysphagia, status post percutaneous endoscopic gastrostomy tube placement. 3. Hypokalemia.4. Acute kidney injury secondary to dehydration. 5. Hypernatremia.6. Severe protein-calorie malnutrition.7. Anemia. 8. Paranoid schizophrenia. 9. Sacral decubitus stage IV pressure ulcer, present on admission. 10. Multiple deep tissue injury pressure ulcer, present on admission. Blood cultures did not isolate any growth and urine culture with mixed gram-positive organisms. He was observed off antibiotic treatment PROGRESS NOTES INDICATE SEPSIS CLINICAL FINDINGS SHOW: ON ADMISSION: WBC 15.2 , 05/09 -15.9 , 05/10- 12.8, - 9.2 , 05/12- 8.1 --- Please respond to the following question: Was Sepsis: ( ) a confirmed DIAGNOSIS ( ) ruled out diagnosis ( ) Unable to determine PHYSICIAN RESPONSE: Condition Present on Admission: [] Yes [] No []Clinically Undeterminable Dionicio Hui D.O. Date & Time [facility]
== END 2017-05-20 17:40 | DRG 871 ==
LOC: EDBD 13:54 → EMR 14:27 → 4E 16:06 → EDBEDREQ 17:48 → 4E 05-15 12:35
PROC: 0DH63UZ Insertion of Feeding Device into Stomach, Percutaneous Approach (ICD-10-PCS; principal; 2017-05-14 13:03)
DX: A41.9 Sepsis, unspecified organism (principal); E43 Unspecified severe protein-calorie malnutrition; N17.9 Acute kidney failure, unspecified; L89.154 Pressure ulcer of sacral region, stage 4; G20 Parkinson's disease; R13.10 Dysphagia, unspecified; L89.210 Pressure ulcer of right hip, unstageable; E87.0 Hyperosmolality and hypernatremia; L89.520 Pressure ulcer of left ankle, unstageable; N39.0 Urinary tract infection, site not specified; K56.41 Fecal impaction; E86.0 Dehydration; E87.6 Hypokalemia; E03.9 Hypothyroidism, unspecified; D64.9 Anemia, unspecified; K21.9 Gastro-esophageal reflux disease without esophagitis; Z88.2 Allergy status to sulfonamides; Z88.8 Allergy status to other drugs, medicaments and biological substances; R14.0 Abdominal distension (gaseous); F25.0 Schizoaffective disorder, bipolar type; L89.220 Pressure ulcer of left hip, unstageable; L89.890 Pressure ulcer of other site, unstageable; L89.620 Pressure ulcer of left heel, unstageable
CPT/HCPCS: 36415; 71045; 74018; 74176; 74230; 80048; 80053; 80076; 81003; 82150; 82550; 82553; 82607; 82728; 82746; 82962; 82977; 83540; 83550; 83605; 83690; 83735; 83880; 84100; 84443; 84484; 84550; 85007; 85025; 85610; 85730; 86140; 87040; 87081; 87086; 93005; 94003; 94150; 94664; 94760; 97803; 99285; J8499